=== PATIENT | male | born 1940 | race Caucasian/White ===

== ENCOUNTER → 2017-06-14 15:06 | Outpatient (CLI) | payer MEDICARE, OTHER, SELFPAY ==
--- NOTE | 2017-06-14 15:10 | RAD_ITS ---
STUDY: X-RAY - LEFT KNEE REASON FOR EXAM: Pain for 3 weeks. TECHNIQUE: 4 view(s) of the knee. COMPARISON: None. 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 Normal visualized proximal tibia and fibula. Normal proximal tibiofibular articulation. There is joint space narrowing of the medial femorotibial compartment. Normal lateral femorotibial compartment. Normal patellofemoral articulation. There is vascular calcification. 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 Electronically Signed: Allen Albert MD at 16:30 EST Tel , Service support ,
== END ==
PROVIDERS: Family Provider Family Medicine; PCP Family Medicine; Visit Provider Orthopaedic Surgery
DX: M25.562 Pain in left knee (principal)
CPT/HCPCS: 73564

== ENCOUNTER → 2017-06-22 10:53 | Outpatient (CLI) | payer MEDICARE, OTHER, SELFPAY ==
[2017-06-22 12:13] LABS: Absolute Lymphocyte Count 0.77 X10^3/ul (0.83-4.51); Absolute Neutrophil Count 5.3 X10^3/uL (2.0-7.7); Basophil# 0.02 X10^3/uL; Basophil% 0.3 % (0-1); Eosinophil# 0.02 X10^3/uL; Eosinophils% 0.3 % (0-5); Hemoglobin 13.9 g/dl (13.0-16.5); Lymphocyte # 0.77 X10^3/ul (4.0); Lymphocyte % 11.2 % (19-41); Mean Corp Hgb Conc 33.1 g/gl (32-36); Mean Corpuscular Hgb 33.3 pg (27.0-32.0); Mean Corpuscular Volume 100.5 fL (80-94); Mean Platelet Vol. 11.1 fl (6.2-12.0); Monocyte# 0.77 X10^3/uL; Monocyte% 11.2 % (0-10); Neutrophil # 5.28 X10^3/uL (2.7-7.7); Neutrophil % 76.4 % (47-70); Platelet Count 119 K/mm3 (150-450); RBC Distribution Width SD 54.4 fl (35.1-43.9); Red Blood Count 4.18 M/mm3 (4.6-6.2); White Blood Count 6.9 K/mm3 (4.4-11.0)
[2017-06-22 12:14] LABS: POSITIVE COUNT NO; POSITIVE DIFFERENTIAL NO; POSITIVE MORPHOLOGY NO
[2017-06-22 12:34] LABS: ALB/GLOB Ratio 1.2 RATIO (0.9-2.4); AST(SGOT) 12 U/L (15-37); Alanine Aminotransfer ALT/SGPT 23 U/L (16-61); Alkaline Phosphatase 37 U/L (45-117); Anion Gap 9 (5-15); BUN 19 mg/dL (7-18); BUN/Creat Ratio 16.8 RATIO (10-20); Calcium,Total 8.4 mg/dL (8.5-10.1); Chloride 108 mmol/L (98-107); Creatinine, Serum 1.13 mg/dL (0.70-1.30); EST Glomerular Filtration Rate 67 mL/min (>60); Est Glom Filt Rate - Afr Amer 81 mL/min (>60); Globulin 3.3 g/dL (2.2-4.2); Glucose 114 mg/dL (74-106); Potassium 3.7 mmol/L (3.5-5.1); Protein, Total 7.3 g/dL (6.4-8.2); Sodium Level 142 mmol/L (136-145)
== END ==
PROVIDERS: Family Provider Family Medicine; PCP Family Medicine; Visit Provider Internal Medicine Rheumatology
DX: M06.4 Inflammatory polyarthropathy (principal); I10 Essential (primary) hypertension; E78.5 Hyperlipidemia, unspecified; N40.0 Benign prostatic hyperplasia without lower urinary tract symptoms
CPT/HCPCS: 36415; 80053; 85025

== ENCOUNTER → 2017-12-20 12:31 | Outpatient (CLI) | payer MEDICARE, OTHER, SELFPAY ==
[2017-12-20 14:02] LABS: Absolute Lymphocyte Count 0.68 X10^3/ul (0.83-4.51); Eosinophil# 0.01 X10^3/uL; Eosinophils% 0.2 % (0-5); Hematocrit 41.3 % (40-54); Hemoglobin 13.5 g/dl (13.0-16.5); Lymphocyte # 0.68 X10^3/ul (4.0); Lymphocyte % 15.9 % (19-41); Mean Corp Hgb Conc 32.7 g/gl (32-36); Mean Platelet Vol. 10.9 fl (6.2-12.0); Monocyte# 0.56 X10^3/uL; Monocyte% 13.1 % (0-10); Neutrophil # 3.03 X10^3/uL (2.7-7.7); Neutrophil % 70.6 % (47-70); Platelet Count 81 K/mm3 (150-450); RBC Distribution Width CV 14.9 % (11.6-14.6); RBC Distribution Width SD 54.7 fl (35.1-43.9); Red Blood Count 4.09 M/mm3 (4.6-6.2); White Blood Count 4.3 K/mm3 (4.4-11.0)
[2017-12-20 14:13] LABS: ALB/GLOB Ratio 1.2 RATIO (0.9-2.4); AST(SGOT) 19 U/L (15-37); Alanine Aminotransfer ALT/SGPT 25 U/L (16-61); Albumin, Serum 3.9 g/dL (3.2-5.0); Alkaline Phosphatase 34 U/L (45-117); Anion Gap 8 (5-15); BUN 16 mg/dL (7-18); BUN/Creat Ratio 14.7 RATIO (10-20); Calcium,Total 8.6 mg/dL (8.5-10.1); Chloride 109 mmol/L (98-107); Creatinine, Serum 1.09 mg/dL (0.70-1.30); EST Glomerular Filtration Rate 70 mL/min (>60); Est Glom Filt Rate - Afr Amer 84 mL/min (>60); Globulin 3.2 g/dL (2.2-4.2); Glucose 115 mg/dL (74-106); Protein, Total 7.1 g/dL (6.4-8.2); Sodium Level 145 mmol/L (136-145)
[2017-12-20 14:15] LABS: POSITIVE COUNT NO; POSITIVE DIFFERENTIAL NO; POSITIVE MORPHOLOGY NO
== END ==
PROVIDERS: Family Provider Family Medicine; PCP Family Medicine; Visit Provider Internal Medicine Rheumatology
DX: M06.4 Inflammatory polyarthropathy (principal); I10 Essential (primary) hypertension; E78.5 Hyperlipidemia, unspecified; N40.0 Benign prostatic hyperplasia without lower urinary tract symptoms
CPT/HCPCS: 36415; 80053; 85025

== ENCOUNTER → 2018-02-20 10:27 | Outpatient (CLI) | payer MEDICARE, OTHER, SELFPAY ==
[2018-02-20 12:48] LABS: Cholesterol 88 mg/dL (200); High Density Lipoprotein 40 mg/dL; Triglycerides 41 mg/dL; Very Low Density Lipoprotein 8 mg/dL (5-40)
== END ==
PROVIDERS: Family Provider Family Medicine; PCP Family Medicine; Visit Provider Family Medicine
DX: E78.5 Hyperlipidemia, unspecified (principal)
CPT/HCPCS: 36415; 80061

== ENCOUNTER → 2018-06-08 10:05 | Outpatient (CLI) | payer MEDICARE, OTHER, SELFPAY ==
[2017-06-14 14:57] VITALS: BMI 23.7
--- NOTE | 2018-06-08 10:10 | RAD_ITS ---
STUDY: X-RAY - RIGHT HIP REASON FOR EXAM: Male, 77 years old. Hip pain TECHNIQUE: 2 views of the hip. COMPARISON: None. FINDINGS: There is narrowing of the inferior compartment of the right hip joint and the superior compartment of the left hip joint. No buttressing of the femoral necks and no acute fractures or dislocations. The sacroiliac joints are normal. Multiple metallic clips are noted projecting over the right hemipelvis and there are vascular calcifications projected over the left hip. RAD/HIP, UNI W/ Pelvis 2-3 Views IMPRESSION: Mild osteoarthritis of hips. No fractures Electronically Signed: Luis Enrique Rueda MD at 4:04 EST Tel , Service support ,
--- NOTE | 2018-06-08 10:10 | RAD_ITS ---
STUDY: X-RAY - LUMBAR SPINE REASON FOR EXAM: Male, 77 years old. Low back pain. TECHNIQUE: 5 view(s) of the lumbar spine were obtained. COMPARISON: Prior comparison studies are not available for review at this time. FINDINGS: Normal lumbar lordosis. There is no substantial scoliosis. There is a normal alignment of the vertebrae. There is diffuse demineralization with multi-level endplate spondylosis. There is multi-level degenerative disc disease with multi-level disc space narrowing. There is no demonstrated fracture. There is moderately severe degenerative arthropathy of the facet joints. There is atherosclerotic calcification of the abdominal aorta with a demonstrated aneurysm. Maximum AP dimension of the abdominal aorta measures about 4.3 cm. RAD/L/S Spine Min 4 Views IMPRESSION: 1. Osteoporosis. 2. Multilevel degenerative disc disease, spondylosis and degenerative arthropathy of the lumbar spine. 3. Mild dilatation of the abdominal aorta. Electronically Signed: Rhonda Parker MD at 9:57 EST , Service support ,
[2018-06-08 13:05] LABS: Absolute Lymphocyte Count 0.53 X10^3/ul (0.83-4.51); Absolute Neutrophil Count 3.3 X10^3/uL (2.0-7.7); Eosinophil# 0.01 X10^3/uL; Eosinophils% 0.2 % (0-5); Hematocrit 41.2 % (40-54); Hemoglobin 12.9 g/dl (13.0-16.5); Lymphocyte # 0.53 X10^3/ul (4.0); Lymphocyte % 11.4 % (19-41); Mean Corp Hgb Conc 31.3 g/gl (32-36); Mean Corpuscular Hgb 32.2 pg (27.0-32.0); Mean Corpuscular Volume 102.7 fL (80-94); Mean Platelet Vol. 11.7 fl (6.2-12.0); Monocyte# 0.81 X10^3/uL; Monocyte% 17.4 % (0-10); Neutrophil # 3.28 X10^3/uL (2.7-7.7); Neutrophil % 70.6 % (47-70); Platelet Count 84 K/mm3 (150-450); RBC Distribution Width CV 15.6 % (11.6-14.6); RBC Distribution Width SD 58.6 fl (35.1-43.9); Red Blood Count 4.01 M/mm3 (4.6-6.2); White Blood Count 4.7 K/mm3 (4.4-11.0)
[2018-06-08 13:09] LABS: Differential Indicated SCAN CRITERIA MET; POSITIVE COUNT NO; POSITIVE DIFFERENTIAL YES; POSITIVE MORPHOLOGY NO
[2018-06-08 13:11] LABS: ALB/GLOB Ratio 1.2 RATIO (0.9-2.4); AST(SGOT) 25 U/L (15-37); Alanine Aminotransfer ALT/SGPT 27 U/L (16-61); Albumin, Serum 3.9 g/dL (3.2-5.0); Alkaline Phosphatase 37 U/L (45-117); Anion Gap 7 (5-15); BUN 17 mg/dL (7-18); BUN/Creat Ratio 14.8 RATIO (10-20); Calcium,Total 8.5 mg/dL (8.5-10.1); Chloride 111 mmol/L (98-107); Creatinine, Serum 1.15 mg/dL (0.70-1.30); EST Glomerular Filtration Rate 65 mL/min (>60); Est Glom Filt Rate - Afr Amer 79 mL/min (>60); Globulin 3.2 g/dL (2.2-4.2); Glucose 105 mg/dL (74-106); Potassium 3.9 mmol/L (3.5-5.1); Protein, Total 7.1 g/dL (6.4-8.2); Sodium Level 140 mmol/L (136-145)
[2018-06-08 13:34] LABS: Platelet Estimate MOD DEC (ADEQ); Platelet Morphology LARGE
== END ==
PROVIDERS: Family Provider Family Medicine; PCP Family Medicine; Referring Provider Internal Medicine Rheumatology; Visit Provider Internal Medicine Rheumatology
DX: E78.5 Hyperlipidemia, unspecified (principal); M06.4 Inflammatory polyarthropathy; I10 Essential (primary) hypertension; N40.0 Benign prostatic hyperplasia without lower urinary tract symptoms; M25.551 Pain in right hip; M54.16 Radiculopathy, lumbar region
CPT/HCPCS: 36415; 72110; 73502; 80053; 85025

== ENCOUNTER → 2018-07-06 15:06 | Outpatient (CLI) | payer MEDICARE, OTHER, SELFPAY ==
--- NOTE | 2018-07-06 | LES_PTH ---
PATIENT: MICAH VELEZ LOC: [facility] U#:[id number] AGE/SX: 84/M ROOM: RE07/06/[address]: Dr. Bong Adams MD : 1940 BED: DIS: SPEC #: [id number] RECD: 07/06/18 15:01 STATUS: CURT JENS #: [id number] BEN: 07/06/18 00:[address]: Bong Adams DEPT: SURGICAL PATHOLOGY RECD BY: Hawk Grover ENTERED: 07/07/18 09:07 SP TYPE: Lesion OTHR DR: Dr. Fred Clark, Tissues: Skin of lower extremity and hip Procedures: Decalcification bone/plaque Surgery Specimen Level IV HEADER OPERATION: Excision of right hip soft tissue masses PRE-OP DIAGNOSIS: Right hip masses TISSUE SUBMITTED: Right hip tissue MICROSCOPIC DIAGNOSIS Bone and soft tissue of right hip, biopsy: Osseocartilaginous and fibrocollagenous tissue with degenerative changes. AM:rg 4/3/19 COMMENT Case has been reviewed in consultation with Dr. Muro who concurs with the above diagnosis. IDC:KAT MICROSCOPIC DESCRIPTION Slides are reviewed. GROSS DESCRIPTION Received in fixative is one container labeled with the patient's name and designated right hip tissue. The specimen consists of multiple irregular fragments of soft tissue with chalky white deposit that in aggregate measure 3.5 x 3 x 1 cm. A few of the fragments appear to also have bone fragments. The entire specimen is submitted in two cassettes after decalcification. / KAT:janeth 07/07/18 TC:5 CPT: 02314, 72798
[2018-07-06 12:56] VITALS: BMI 23.7
== END ==
PROVIDERS: Family Provider Family Medicine; PCP Family Medicine; Referring Provider Surgery; Visit Provider Surgery
DX: R22.41 Localized swelling, mass and lump, right lower limb (principal)
CPT/HCPCS: 88305; 88311

== ENCOUNTER → 2018-12-08 | Outpatient (CLI) | payer MEDICARE, OTHER, SELFPAY ==
[2018-12-07 09:14] VITALS: BMI 23.7
[2018-12-08 12:49] LABS: Absolute Neutrophil Count 7.2 X10^3/uL (2.0-7.7); Basophil# 0.01 X10^3/uL; Basophil% 0.1 % (0-1); Hemoglobin 11.6 g/dL (13.0-16.5); Lymphocyte % 3.5 % (19-41); Mean Corp Hgb Conc 32.2 g/dL (32-36); Mean Corpuscular Hgb 32.3 pg (27.0-32.0); Mean Corpuscular Volume 100.3 fL (80-94); Mean Platelet Vol. 11.9 fl (6.2-12.0); Monocyte# 0.95 X10^3/uL; Monocyte% 11.1 % (0-10); NRBC Flagged by Analyzer 0 % (0-5); Neutrophil # 7.21 X10^3/uL (2.7-7.7); Neutrophil % 84.6 % (47-70); POSITIVE DIFFERENTIAL YES; Platelet Count 99 K/mm3 (150-450); RBC Distribution Width CV 15.9 % (11.6-14.6); RBC Distribution Width SD 58.7 fl (35.1-43.9); Red Blood Count 3.59 M/mm3 (4.6-6.2); White Blood Count 8.5 K/mm3 (4.4-11.0)
[2018-12-08 12:53] LABS: Differential Indicated SCAN CRITERIA MET
[2018-12-08 13:03] LABS: ALB/GLOB Ratio 1.1 RATIO (0.9-2.4); AST(SGOT) 33 U/L (15-37); Alanine Aminotransfer ALT/SGPT 36 U/L (16-61); Albumin, Serum 3.8 g/dL (3.2-5.0); Alkaline Phosphatase 39 U/L (45-117); Anion Gap 6 (5-15); BUN 29 mg/dL (7-18); BUN/Creat Ratio 24.4 RATIO (10-20); Calcium,Total 8.8 mg/dL (8.5-10.1); Chloride 111 mmol/L (98-107); Creatinine, Serum 1.19 mg/dL (0.70-1.30); EST Glomerular Filtration Rate 63 mL/min (>60); Est Glom Filt Rate - Afr Amer 76 mL/min (>60); Globulin 3.5 g/dL (2.2-4.2); Glucose 119 mg/dL (74-106); Potassium 4.1 mmol/L (3.5-5.1); Protein, Total 7.3 g/dL (6.4-8.2); Sodium Level 140 mmol/L (136-145)
[2018-12-08 13:25] LABS: Platelet Estimate SLT DEC (ADEQ)
== END | disposition home or self-care (01) ==
LOC: MTLAB 10:03
PROVIDERS: Family Provider Family Medicine; PCP Family Medicine; Referring Provider Internal Medicine Rheumatology; Visit Provider Internal Medicine Rheumatology
DX: M06.4 Inflammatory polyarthropathy (principal); I10 Essential (primary) hypertension; E78.5 Hyperlipidemia, unspecified; N40.0 Benign prostatic hyperplasia without lower urinary tract symptoms
CPT/HCPCS: 36415; 80053; 85025

== ENCOUNTER → 2019-03-19 10:12 | Outpatient (CLI) | payer MEDICARE, OTHER, SELFPAY ==
[2019-03-19 09:38] VITALS: BMI 23.7
--- NOTE | 2019-03-19 10:14 | RAD_ITS ---
STUDY: X-RAY - LEFT KNEE REASON FOR EXAM: Male, 78 years old. Pain. No known injury. TECHNIQUE: 4 view(s) of the knee. COMPARISON: None. FINDINGS: Normal visualized distal femur. Normal visualized proximal tibia and fibula. Normal proximal tibiofibular articulation. There is no acute fracture, dislocation or destructive osseous pathology. There is severe degenerative arthrosis of the medial femorotibial compartment with severe joint space narrowing. Normal lateral femorotibial compartment. There is moderate degenerative arthrosis of the patellofemoral articulation. There is a soft tissue prominence in the suprapatellar region suggesting a small volume joint effusion. There are atherosclerotic calcifications. RAD/Knee 4 or More Views IMPRESSION: Degenerative changes left knee with question of a small suprapatellar joint effusion. There is no fracture or dislocation. Electronically Signed: Reza Pryor DO at 18:21 EST Tel [phone], Service support ,
== END ==
LOC: HPRAD 10:14
PROVIDERS: Family Provider Family Medicine; PCP Family Medicine; Referring Provider Physician Assistant; Visit Provider Physician Assistant
DX: M25.562 Pain in left knee (principal)
CPT/HCPCS: 73564

== ENCOUNTER → 2019-05-29 15:01 | Outpatient (CLI) | payer MEDICARE, OTHER, SELFPAY ==
[2019-03-19 09:38] VITALS: BMI 23.7
[2019-05-29 17:36] LABS: Absolute Neutrophil Count 4.6 X10^3/uL (2.0-7.7); Basophil# 0.01 X10^3/uL; Basophil% 0.1 % (0-1); Eosinophil# 0.01 X10^3/uL; Eosinophils% 0.1 % (0-5); Hemoglobin 9.9 g/dL (13.0-16.5); Lymphocyte % 12.9 % (19-41); Mean Corp Hgb Conc 30.9 g/dL (32-36); Mean Corpuscular Volume 103.6 fL (80-94); Mean Platelet Vol. 12.2 fl (6.2-12.0); Monocyte# 1.38 X10^3/uL; Monocyte% 19.7 % (0-10); NRBC Flagged by Analyzer 0 % (0-5); Neutrophil # 4.62 X10^3/uL (2.7-7.7); Neutrophil % 66.1 % (47-70); POSITIVE COUNT YES; Platelet Count 76 K/mm3 (150-450); RBC Distribution Width CV 16.6 % (11.6-14.6); Red Blood Count 3.09 M/mm3 (4.6-6.2)
[2019-05-29 17:37] LABS: Differential Indicated SCAN CRITERIA MET
[2019-05-29 17:54] LABS: ALB/GLOB Ratio 1.2 RATIO (0.9-2.4); AST(SGOT) 21 U/L (15-37); Alanine Aminotransfer ALT/SGPT 23 U/L (16-61); Albumin, Serum 3.7 g/dL (3.2-5.0); Alkaline Phosphatase 37 U/L (45-117); Anion Gap 7 (5-15); BUN 28 mg/dL (7-18); BUN/Creat Ratio 23.1 RATIO (10-20); Calcium,Total 8.7 mg/dL (8.5-10.1); Chloride 114 mmol/L (98-107); Creatinine, Serum 1.21 mg/dL (0.70-1.30); EST Glomerular Filtration Rate 62 mL/min (>60); Est Glom Filt Rate - Afr Amer 75 mL/min (>60); Glucose 96 mg/dL (74-106); Potassium 3.8 mmol/L (3.5-5.1); Protein, Total 6.7 g/dL (6.4-8.2); Sodium Level 144 mmol/L (136-145)
[2019-05-29 18:04] LABS: Anisocytosis RARE; Macrocytosis RARE; Platelet Estimate MOD DEC (ADEQ); Red Cell Morphology N CHROM NORMAL (NORM C&C)
== END ==
PROVIDERS: PCP Family Medicine; Referring Provider Internal Medicine Rheumatology; Visit Provider Internal Medicine Rheumatology
DX: M06.4 Inflammatory polyarthropathy (principal); I10 Essential (primary) hypertension; E78.5 Hyperlipidemia, unspecified; N40.0 Benign prostatic hyperplasia without lower urinary tract symptoms
CPT/HCPCS: 36415; 80053; 85025

== ENCOUNTER 2019-06-09 13:34 | Inpatient (IN) | payer MEDICARE, OTHER, SELFPAY ==
[2019-03-19 09:38] VITALS: BMI 23.7
[2019-06-09] VITALS (18 sets, daily range): BP systolic 127–156; BP diastolic 61–109; PULSE 54–111; RESP 16–24; TEMP 36.4–37.1; O2SAT 94–100; BMI 23.1; BMI 23.7
--- NOTE | 2019-06-09 14:17 | EKG12_ITS ---
Test Reason : SB Blood Pressure : / mmHG Vent. Rate : 096 BPM Atrial Rate : 096 BPM P-R Int : 144 ms QRS Dur : 158 ms QT Int : 414 ms P-R-T Axes : 067 -07 003 degrees QTc Int : 523 ms Sinus rhythm with frequent Premature ventricular complexes and Premature atrial complexes Right bundle branch block Abnormal ECG Confirmed by DEANNA MEHTA, CLARISSE ([id number]), rewrite editor STANLEY BECK ([id number]) on 06/11/2019 10:14:05 AM Referred By: REGINA Confirmed By:CLARISSE HUERTA MD
--- NOTE | 2019-06-09 14:17 | RAD_ITS ---
STUDY: X-RAY CHEST REASON FOR EXAM: Male, 78 years old. COUGH, SOB X 3 DAYS TECHNIQUE: PA and lateral views of the chest. COMPARISON: 03/27/2012 FINDINGS: There is hyperinflation of the lungs consistent with chronic obstructive lung disease (COPD). Lungs are clear. There is no demonstrated pleural abnormality. Normal size heart. Normal mediastinum and eren. Normal visualized pulmonary arteries. Normal visualized aortic arch and descending thoracic aorta. There are diffuse degenerative changes of the visualized thoracic spine. There is degenerative osteoarthritis of the bilateral shoulders. There is no demonstrated abnormality of the visualized soft tissue structures of the upper abdomen. RAD/Chest PA and Lateral IMPRESSION: COPD. Lungs are clear. Electronically Signed: Leonel Montes DO at 14:59 EST Tel , Service support ,
--- NOTE | 2019-06-09 14:19 | ED.VIS.DYS ---
History of Present Illness Chief Complaint: Shortness of Breath Informant: Patient Onset: Days - 3 Activity at onset: Exertion - llike going up a flight of stairs, which he is able to do, but then needs to rest Timing: Continuous Current Severity: Gone - since resting Maximum Severity: Moderate Worsened by: Exertion Relieved by: Rest Associated Symptoms: Cough - [employer], Rhinorrhea. Negative for: Chills, Ear pain, Fever, Sore throat Chest Pain: None Narrative: Patient has felt short of breath especially with exertion last couple days. When resting he is fine. Denies any exertional chest pain. He has had a mild cough, rhinorrhea, malaise. No known fevers. No GI symptoms. No sore throat or earache. States he had pneumonia before and is concerned about that. He denies any history of lung or heart problems that he knows of, although his chart describes a history of asthma/COPD. - Past Medical History (1) BPH (benign prostatic hyperplasia) Status: Chronic (2) Benign essential hypertension Status: Chronic (3) HLD (hyperlipidemia) Status: Chronic (4) History of COPD Status: Chronic (5) History of asthma Status: Chronic (6) Peripheral neuropathy Status: Chronic (7) Varicosities of leg Status: Chronic Past Medical History - Allergies and Home Meds Allergies/Adverse Reactions: Allergies No Known Allergies Allergy (Verified 06/09/19 13:37) Primary Care Physician: Fred Clark DO [Primary Care Provider] - Surgical History: noncontributory Lives: Spouse/ Significant Other Smoking Status: Former smoker Review of Systems General: Reports: Malaise. Denies: Chills, Fever, Sweats Eyes: Denies: Visual changes - bilaterally, Diplopia ENT: Denies: Rhinorrhea, Sore throat Cardiovascular: Denies: Chest pain, Palpitations Respiratory: Reports: Dyspnea, Cough, Dyspnea on exertion. Denies: Sputum, Orthopnea Gastrointestinal: Denies: Abdominal pain, Nausea, Vomiting, Diarrhea, Melena, Hematochezia Genitourinary: Denies: Dysuria, Hematuria, Frequency Musculoskeletal: Denies: Neck pain, Back pain, Swelling, Extremity Pain Skin: Denies: Rash, Wounds Neurological: Denies: Headache, Weakness, Numbness Physical Exam Vital Signs/Narrative: Vital Signs Temp Pulse Resp BP Pulse Ox 06/09/19 13:37 98.8 F 54 L 20 H 156/109 H 99 06/09/19 13:35 98.8 F 54 L 20 H 156/109 H 99 Inital Vital Signs reviewed: Yes General: Well nourished, Well developed, No Acute Distress - Well-appearing, conversive in full sentences Head: Normocephalic, Atraumatic Eyes: Perrl, EOMI ENT: Moist mucous membranes, No rhinorrhea, - - Posterior oropharynx clear Neck: Supple, Nontender, No lymphadenopathy, No JVD Cardiovascular: Regular rate, Regular rhythm, No murmurs, Normal S1, Normal S2 Respiratory: No distress, CTA bilaterally, Chest nontender Abdomen: Soft, Nontender, Nondistended, Normal bowel sounds Back: Nontender, Normal Inspection Extremities: Nontender, No edema. Negative for: Calf Tenderness Skin: Normal color, No rash Neurological: Alert, Oriented x3, Cranial nerves II-XII grossly intact, Normal Strength, Normal Sensation Psychological: Normal affect, Normal Mood Diagnostic/Tx/Re-eval Impressions Chest X-Ray 06/09/19 14:17 IMPRESSION: COPD. Lungs are clear. Electronically Signed: Leonel Montes DO at 14:59 EST Tel , Service support , 06/09/19 14:17 Chest PA and Lateral [RAD] Stat 06/09/19 14:46 Mucosa - Nose Influenza Types A,B Direct FA (HUY) - Final Laboratory Results 06/09/19 06/09/19 14:12 14:12 WBC 5.7 RBC 2.16 L Hgb 6.7 L Hct 22.0 L MCV 101.9 H MCH 31.0 MCHC 30.5 L RDW Std Deviation 60.0 H RDW Coeff of Kori 15.9 H Plt Count 74 L MPV 12.1 H Immature Gran % (Auto) 0.700 Neut % (Auto) 66.1 Lymph % (Auto) 11.2 L Merrick % (Auto) 21.6 H Eos % (Auto) 0.2 Baso % (Auto) 0.2 Absolute Neuts (auto) 3.8 Absolute Lymphs (auto) 0.64 L Nucleated RBC % 0 Platelet Estimate MOD DEC Polychromasia 1+ Hypochromasia 2+ Anisocytosis 1+ Sodium 142 Potassium 4.1 Chloride 112 H Carbon Dioxide 22.0 Anion Gap 8 BUN 21 H Creatinine 1.16 Estim Creat Clear Calc 60.61 Est GFR (MDRD) Af Amer 78 Est GFR (MDRD) Non-Af 65 BUN/Creatinine Ratio 18.1 Glucose 109 H Calcium 8.3 L Troponin I < 0.015 - Rhythm Strip Rhythm Strip: Sinus Rhythm Rate: 90 Ectopy: PVC(s) - EKG Initial EKG Interpretation: Sinus Rhythm, No Acute Injury Pattern, - - freq PVCs, mostly bigeminy - Medical Decision Making Patient is significantly anemic compared with his prior levels. He is at 6.7 from 9.9 a little more than 1 week ago. That level was a lot lower than his baseline at 12-13. When I discussed this with the patient, he proceeds to tell me about the fact that his doctor told him the same thing when he was there 1 to 2 weeks prior, and that he has been having dark but not melanotic stools. He had a Hemoccult test a week ago from home that was negative and has been scheduled for a colonoscopy as an outpatient. He has no history of GI bleeding, he denies any abdominal pain, nausea, vomiting. He denies any bright red blood per rectum or hematuria. He has not been anemic in the past. I performed a Hemoccult on him, and it is negative. Discussed with hospitalist for admission and consented the patient for packed red blood cell transfusion, which she consents to after discussing risks and benefits. ED Disposition - Plan for ED Patient: Disposition: Acute Care Hospital [facility] Diagnosis: Symptomatic anemia Referrals: Fred Clark DO [Primary Care Provider] -
[2019-06-09 14:26] LABS: Absolute Lymphocyte Count 0.64 X10^3/uL (0.83-4.51); Absolute Neutrophil Count 3.8 X10^3/uL (2.0-7.7); Basophil# 0.01 X10^3/uL; Basophil% 0.2 % (0-1); Eosinophil# 0.01 X10^3/uL; Eosinophils% 0.2 % (0-5); Hemoglobin 6.7 g/dL (13.0-16.5); Lymphocyte # 0.64 X10^3/ul (4.0); Lymphocyte % 11.2 % (19-41); Mean Corp Hgb Conc 30.5 g/dL (32-36); Mean Corpuscular Volume 101.9 fL (80-94); Mean Platelet Vol. 12.1 fl (6.2-12.0); Monocyte# 1.24 X10^3/uL; Monocyte% 21.6 % (0-10); NRBC Flagged by Analyzer 0 % (0-5); Neutrophil # 3.79 X10^3/uL (2.7-7.7); Neutrophil % 66.1 % (47-70); POSITIVE COUNT YES; Platelet Count 74 K/mm3 (150-450); RBC Distribution Width CV 15.9 % (11.6-14.6); Red Blood Count 2.16 M/mm3 (4.6-6.2); White Blood Count 5.7 K/mm3 (4.4-11.0)
[2019-06-09 14:28] LABS: Differential Indicated SCAN CRITERIA MET
[2019-06-09 14:37] LABS: Anion Gap 8 (5-15); BUN 21 mg/dL (7-18); BUN/Creat Ratio 18.1 RATIO (10-20); Calcium,Total 8.3 mg/dL (8.5-10.1); Chloride 112 mmol/L (98-107); Creatinine, Serum 1.16 mg/dL (0.70-1.30); EST Glomerular Filtration Rate 65 mL/min (>60); Est Glom Filt Rate - Afr Amer 78 mL/min (>60); Estimated Creatinine Clearance 60.61 ml/min; Glucose 109 mg/dL (74-106); Potassium 4.1 mmol/L (3.5-5.1); Sodium Level 142 mmol/L (136-145)
[2019-06-09 14:45] LABS: Anisocytosis 1+; Hypochromasia 2+; Platelet Estimate MOD DEC (ADEQ); Polychromasia 1+
--- NOTE | 2019-06-09 16:27 | PCM.HP.STD ---
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 The patient is a 78 year old M due to lightheadedness and shortness of breath. Patient reports his his lab was drawn recently by Dr. Blas who patient follows with for rheumatoid arthritis. Patient was noted to have low hemoglobin compared to his prior labs. An outpatient stool for occult blood was checked and was negative. He was scheduled by primary care provider to have outpatient scope 06/15/[address] Hook. Patient states over the last 4 days he has had increased shortness of breath, worse with exertion as well as lightheadedness and fatigue. His notes he is had very pale color. He denies nausea, vomiting, abdominal pain. Denies blood in stool or dark stools. Denies change in bowel habits. Denies recent weight loss. He denies routine or frequent NSAID use. Patient reports his last colonoscopy was by Dr. Ruiz in 2012 which was normal with exception of polyp that he was referred to [facility] for excision due to its location. He reports the polyp was found to be benign. Patient has a past medical history of hypertension, osteoarthritis, hyperlipidemia, BPH. Past Medical History Past Medical History (Chronic Problems): Chronic Problems (Last Updated 05/17/19 @ 08:34 by Sarah Powell) History of smoking (Chronic) HLD (hyperlipidemia) (Chronic) BPH (benign prostatic hyperplasia) (Chronic) Benign essential hypertension (Chronic) Peripheral neuropathy (Chronic) Varicosities of leg (Chronic) Functional gait abnormality (Chronic) Atrioventricular jose m re-entry tachycardia (Chronic) Medical History: Medical History (Last Updated 05/17/19 @ 08:34 by Sarah Powell) Pressure ulcer of toe, stage 2 (Chronic) L89.892 Right History of shortness of breath (Chronic) Z87.898 History of smoking (Chronic) Z87.891 HLD (hyperlipidemia) (Chronic) E78.5 History of asthma (Chronic) Z87.09 History of COPD (Chronic) Z87.09 BPH (benign prostatic hyperplasia) (Chronic) Benign essential hypertension (Chronic) I10 Open wound of great toe (Chronic) S91.103A Peripheral neuropathy (Chronic) G62.9 Varicosities of leg (Chronic) Functional gait abnormality (Chronic) R26.89 Skin ulcer of right great toe (Chronic) L97.519 Atrioventricular jose m re-entry tachycardia (Chronic) I47.1 Allergies T78.40XA Arthritis M19.90 Back problem M53.9 Cataracts, bilateral H26.9 Hearing problem H91.90 History of pneumonia Z87.01 Osteoarthritis M19.90 Vision problems H54.7 Vitamin deficiency E56.9 Allergies No Known Allergies Allergy (Verified 06/09/19 13:37) Home Medications: Ambulatory Orders Medication Instructions Recorded Amlodipine [Norvasc] 10 mg PO DAILY 04/18/13 Benazepril HCl [Lotensin] 20 mg PO DAILY 04/18/13 Hydroxychloroquine [Plaquenil] 200 mg PO BIDCM 04/18/13 Simvastatin [Zocor] 80 mg PO QHS 04/18/13 Tamsulosin HCl 0.4 mg PO DAILY 04/18/13 Surgical History: Surgical History (Last Reviewed 06/09/19 @ 16:45 by Shelly Cowart NP-C) H/O cataract extraction Z98.49 H/O foot surgery Z98.890 H/O hernia repair Z98.890, Z87.19 H/O hernia repair Z98.890, Z87.19 2004 History of cataract extraction Z98.49 bilateral 1994 2000 S/P carpal tunnel release Z98.890 right Psychiatric History: No pertinent psych hx Lives: Spouse/ Significant Other Smoking Status: Former smoker Alcohol: None Drugs: None - *Family History Maternal Family History: Family History (Last Reviewed 05/17/19 @ 08:36 by Sarah Powell) Father Myocardial infarction Brother Myocardial infarction Mother Cancer History Items: - - Pancreatic cancer Paternal Family History: Family History (Last Reviewed 05/17/19 @ 08:36 by Sarah Powell) Father Myocardial infarction Brother Myocardial infarction Mother Cancer History Items: Heart Disease Review of Systems Constitutional: Denies: Chills, Fever, Weight Change HEENT: Denies: Head Aches, Sinus Congestion, Sinus Drainage Cardiovascular: Reports: Light Headedness. Denies: Chest Pain, Palpitations Respiratory: Reports: Shortness of Breath. Denies: Cough, Sputum production, Wheezing Gastrointestinal: Denies: Abdominal Pain, Constipation, Nausea, Vomiting Genitourinary: Denies: Dysuria Musculoskeletal: Denies: Joint Pain, Joint Tenderness Skin: Denies: Rash, Wounds Neurological: Denies: Numbness, Tingling, Focal weakness Psychiatric: Denies: Anxiety, Depression, Homicidal Ideations, Suicidal Ideations Hematologic/ Lymphatic: Denies: Easy Bruising, Easy Bleeding VTE Information - Inpt Only VTE Present on Admission: No VTE Mechan Device Prophylaxis: SCD's VTE Pharm Prophylaxis ordered?: No Reason prophylaxis not ordered:: Medical Contraindication Patient Problems: Active and Suspected Problems (Last Updated 05/17/19 @ 08:34 by Sarah Powell) Symptomatic anemia (Acute) - Physical Exam Vitals/I&O's: Vital Signs Temp Pulse Resp BP Pulse Ox 98.7 F 85 18 152/84 H 98 06/09/19 16:00 06/09/19 16:00 06/09/19 16:00 06/09/19 15:34 06/09/19 16:00 Oxygen Delivery Method Room Air Weight: 180 lb Body Mass Index (BMI) 23.1 General: Alert, Oriented x3, Cooperative, - - Appears pale, fatigued HEENT: Atraumatic, PERRLA, EOMI, Normocephalic Oral: Dry Mucosa Neck: Supple, No JVD, Negative Carotid Bruits Lungs: Clear to auscultation, Normal air movement Cardiovascular: Regular rate, Regular Rhythm, Normal S1, Normal S2, No murmurs Abdomen: Bowel Sounds Present, Soft, Non Tender, Non-Distended Extremities: No clubbing, No cyanosis, No edema, Capillary Refill Less than 3 Seconds Skin: No rashes, No breakdown Musculoskeletal: No Tenderness to Palpation of Joints or Extremities Neurological: Cranial nerves II-XII grossly intact, Neuro grossly intact Psych/Mental Status: Normal Affect, Appropriate Microbiology Past 72 Hours 06/09/19 15:45 Stool Stool Occult Blood (HUY) - Final 06/09/19 14:46 Mucosa - Nose Influenza Types A,B Direct FA (HUY) - Final Laboratory Results 06/09/19 14:12: WBC 5.7, RBC 2.16 L, Hgb 6.7 L, Hct 22.0 L, MCV 101.9 H, MCH 31.0, MCHC 30.5 L, RDW Std Deviation 60.0 H, RDW Coeff of Kori 15.9 H, Plt Count 74 L, MPV 12.1 H, Immature Gran % (Auto) 0.700, Neut % (Auto) 66.1, Lymph % (Auto) 11.2 L, [place] % (Auto) 21.6 H, Eos % (Auto) 0.2, Baso % (Auto) 0.2, Absolute Neuts (auto) 3.8, Absolute Lymphs (auto) 0.64 L, Nucleated RBC % 0, Platelet Estimate MOD DEC, Polychromasia 1+, Hypochromasia 2+, Anisocytosis 1+ 06/09/19 14:12: Sodium 142, Potassium 4.1, Chloride 112 H, Carbon Dioxide 22.0, Anion Gap 8, BUN 21 H, Creatinine 1.16, Estim Creat Clear Calc 60.61, Est GFR (MDRD) Af Amer 78, Est GFR (MDRD) Non-Af 65, BUN/Creatinine Ratio 18.1, Glucose 109 H, Calcium 8.3 L, Troponin I < 0.015 06/09/19 14:12: Folate Pending 06/09/19 15:25: Blood Type Pending, Antibody Screen Pending, Crossmatch See Detail 06/09/19 16:04: Vitamin B12 Pending Assessment/Plan All Active Problems (Last Updated 05/17/19 @ 08:34 by Sarah Powell) Symptomatic anemia (Acute) Open wound of great toe (Resolved) Pressure ulcer of toe, stage 2 (Resolved) Skin ulcer of right great toe (Resolved) 1. Acute symptomatic microcytic anemia-B12 and folate pending. Hemoglobin 6.7 on admission. 1 unit PRBC ordered from ER. Trend H&H. IV PPI. General surgery consult. Stool negative for occult blood. 2. Chronic thrombocytopenia, appears worsened from baseline-unclear etiology. GI work-up as noted above. Trend CBC. If GI work-up unremarkable, may need hematology referral. 3. Hypertension-continue amlodipine, benazepril with hold parameters. 4. Hyperlipidemia- continue statin. 5. Osteoarthritis- follows with Dr. Blas. On Plaquenil. 6. BPH-continue Flomax regimen. DVT prophylaxis-SCDs CODE STATUS: Patient does not have healthcare power of employee benefits attorney or living will. Discussed differences in CODE STATUS including full code, DNR CCA and DNR CC. Patient would like to remain full code. Encouraged establishing healthcare power of employee benefits attorney and living will. This patient was seen by ALBAN Alvarez under the supervision of Dr. Mcgregor.
[2019-06-09 17:58] LABS: International Normalized Ratio 1.2; Prothrombin Time (Protime)PT. 15.3 SECONDS (11.7-14.9)
[2019-06-09 17:59] LABS: Partial Thromboplast Time 28.2 Seconds (24.1-36.2)
[2019-06-09] MEDS: 0.9% Normal Saline 1,000 ML 100 ML IV (18:01)
[2019-06-09] MEDS: Tamsulosin HCl 0.4 MG Capsule PO (18:01)
[2019-06-09 18:02] LABS: Ferritin 14 ng/mL (26-388); Iron 17 ug/dL (65-175); Iron Binding Capacity,Total 357 ug/dL (250-450); Magnesium 2.2 mg/dL (1.6-2.6); PERCENT IRON SATURATION 4.8 % (15.0-55.0)
[2019-06-09 18:59] LABS: Hematocrit 19.8 % (40-54); Hemoglobin 6.1 g/dL (13.0-16.5); POSITIVE COUNT YES
[2019-06-09] MEDS: Atorvastatin Calcium 40 MG Tablet PO (21:18)
[2019-06-09] MEDS: 0.9% Saline Lock 10 ML Syringe IV (22:44)
[2019-06-10] VITALS (15 sets, daily range): BP systolic 95–143; BP diastolic 65–84; PULSE 70–103; RESP 16–24; TEMP 36.2–36.7; O2SAT 92–99
[2019-06-10 00:18] LABS: Hematocrit 23.1 % (40-54); POSITIVE COUNT YES
--- NOTE | 2019-06-10 05:49 | ECHOD_ITS ---
Reason For Study: ARRHYTHMIA Procedure This was a 2D Doppler, Color Flow transthoracic echocardiogram. The study was technically difficult. Due to COPD and arrhythmia. Exam performed portable in patient room. Left Ventricle Normal LV size. Left ventricular systolic function is normal. The estimated ejection fraction is 60 %. Stage 1 diastolic dysfunction. No regional wall motion abnormalities noted. Right Ventricle Normal RV size. Normal systolic function. Atria The left atrium is severely enlarged. The right atrium is moderately enlarged. Mitral Valve There is moderate mitral annular calcification. Mild (1+) eccentric mitral valve insufficiency. Tricuspid Valve Normal tricuspid valve. Mild to moderate (1-2+) tricuspid valve insufficiency. Pulmonary artery systolic pressure is 45 mmHg. Aortic Valve The aortic valve is not well visualized. Pulmonic Valve The pulmonic valve is not well visualized. Great Vessels Calcified aortic root. The pulmonary artery is normal size. Normal inferior vena cava. Pericardium/Pleural No pericardial effusion. MMode/2D Measurements & Calculations LVIDd: 5.7 cm IVSd: 0.96 cm Ao root diam: 3.9 cm LVIDs: 3.6 cm LVPWd: 1.0 cm LA dimension: 4.0 cm RVDd: 3.7 cm FS: 37.9 % LAV(MOD-bp): 130.7 ml LA A4 area: 32.8 cm2 RA A4 area: 27.4 cm2 LAV(MOD-bp) Indexed: 62.3 ml/m2 LAV(MOD-sp2): 120.1 ml LAV(MOD-sp4): 133.2 ml Time Measurements MV dec time: 0.10 sec Doppler Measurements & Calculations MV E max jose: 113.9 cm/sec Lat Peak E' Jose: 7.7 cm/sec Med Peak E' Jose: 6.1 cm/sec MV A max jose: 171.8 cm/sec E/E' lat: 14.8 E/E' med: 18.8 MV E/A: 0.66 Ao V2 max: 180.8 cm/sec LV V1 max: 124.6 cm/sec PA V2 max: 110.6 cm/sec Ao max P.1 mmHg LV V1 max P.2 mmHg TR max jose: 314.5 cm/sec TR max P.6 mmHg Interpretation Summary Normal LV size. Left ventricular systolic function is normal. The estimated ejection fraction is 60 %. The left atrium is severely enlarged. The right atrium is moderately enlarged. Pulmonary artery systolic pressure is 45 mmHg. Stage 1 diastolic dysfunction. Ordering Physician: Thao Roland Referring Physician: Fred Clark Performed By: Dariana Nugent RDCS, RVT
[2019-06-10 07:49] LABS: Absolute Lymphocyte Count 0.59 X10^3/uL (0.83-4.51); Absolute Neutrophil Count 2.2 X10^3/uL (2.0-7.7); Basophil# 0.01 X10^3/uL; Basophil% 0.3 % (0-1); Eosinophil# 0.02 X10^3/uL; Eosinophils% 0.5 % (0-5); Hematocrit 26.3 % (40-54); Hemoglobin 8.4 g/dL (13.0-16.5); Lymphocyte # 0.59 X10^3/ul (4.0); Lymphocyte % 15.5 % (19-41); Mean Corp Hgb Conc 31.9 g/dL (32-36); Mean Corpuscular Hgb 31.2 pg (27.0-32.0); Mean Corpuscular Volume 97.8 fL (80-94); Mean Platelet Vol. 11.4 fl (6.2-12.0); Monocyte# 1.01 X10^3/uL; Monocyte% 26.5 % (0-10); NRBC Flagged by Analyzer 0 % (0-5); Neutrophil # 2.15 X10^3/uL (2.7-7.7); Neutrophil % 56.4 % (47-70); POSITIVE COUNT YES; POSITIVE DIFFERENTIAL YES; Platelet Count 59 K/mm3 (150-450); RBC Distribution Width CV 16.5 % (11.6-14.6); RBC Distribution Width SD 58.6 fl (35.1-43.9); Red Blood Count 2.69 M/mm3 (4.6-6.2); White Blood Count 3.8 K/mm3 (4.4-11.0)
[2019-06-10 07:52] LABS: Differential Indicated SCAN CRITERIA MET
[2019-06-10 08:08] LABS: ALB/GLOB Ratio 1.2 RATIO (0.9-2.4); AST(SGOT) 22 U/L (15-37); Alanine Aminotransfer ALT/SGPT 19 U/L (16-61); Albumin, Serum 3.1 g/dL (3.2-5.0); Alkaline Phosphatase 33 U/L (45-117); Anion Gap 6 (5-15); BUN 13 mg/dL (7-18); BUN/Creat Ratio 14.1 RATIO (10-20); Calcium,Total 7.9 mg/dL (8.5-10.1); Chloride 114 mmol/L (98-107); Creatinine, Serum 0.92 mg/dL (0.70-1.30); EST Glomerular Filtration Rate 84 mL/min (>60); Est Glom Filt Rate - Afr Amer 102 mL/min (>60); Estimated Creatinine Clearance 76.94 ml/min; Globulin 2.5 g/dL (2.2-4.2); Glucose 79 mg/dL (74-106); Phosphorus 2.7 mg/dL (2.5-4.9); Potassium 3.9 mmol/L (3.5-5.1); Protein, Total 5.6 g/dL (6.4-8.2); Sodium Level 142 mmol/L (136-145)
--- NOTE | 2019-06-10 08:32 | PN_ITS ---
<Shelly Cowart - Last Filed: 06/10/19 09:06> Patient Problems: Active and Suspected Problems (Last Reviewed 06/10/19 @ 10:[address] Loki Ruiz MD) Symptomatic anemia (Acute) Anemia (Acute) Subjective: Patient seen and examined. Reports shortness of breath and lightheadedness improved. Patient asking for liquids. Denies other current complaints. Denies blood in stool overnight. - Physical Exam Vitals/I&O's: Vital Signs Temp Pulse Resp BP Pulse Ox 98.1 F 78 18 123/69 H 92 06/10/19 05:15 06/10/19 05:39 06/10/19 05:15 06/10/19 05:15 06/10/19 07:10 Oxygen Delivery Method Room Air Weight: 184 lb 15.485 oz Body Mass Index (BMI) 23.7 Intake and Output for Last 24 Hours 06/08/19 06/09/19 06/10/19 23:59 23:59 23:59 Intake Total 583.33 / 883.33 1013.33 / 1013.33 Balance 583.33 / 883.33 1013.33 / 1013.33 General: Alert, Oriented x3, Cooperative HEENT: Atraumatic, PERRLA, EOMI, Normocephalic Neck: Supple, No JVD, Negative Carotid Bruits Lungs: Clear to auscultation, Normal air movement Cardiovascular: Regular rate, Regular Rhythm, Normal S1, Normal S2, No murmurs Abdomen: Bowel Sounds Present, Soft, Non Tender Extremities: No clubbing, No cyanosis, No edema, Capillary Refill Less than 3 Seconds Skin: No rashes, No breakdown Musculoskeletal: No Tenderness to Palpation of Joints or Extremities Neurological: Cranial nerves II-XII grossly intact, Neuro grossly intact Psych/Mental Status: Normal Affect, Appropriate Microbiology Past 72 Hours 06/09/19 15:45 Stool Stool Occult Blood (HUY) - Final 06/09/19 14:46 Mucosa - Nose Influenza Types A,B Direct FA (HUY) - Final Laboratory Results 06/09/19 14:12: WBC 5.7, RBC 2.16 L, Hgb 6.7 L, Hct 22.0 L, MCV 101.9 H, MCH 31.0, MCHC 30.5 L, RDW Std Deviation 60.0 H, RDW Coeff of Kori 15.9 H, Plt Count 74 L, MPV 12.1 H, Immature Gran % (Auto) 0.700, Neut % (Auto) 66.1, Lymph % (Auto) 11.2 L, [place] % (Auto) 21.6 H, Eos % (Auto) 0.2, Baso % (Auto) 0.2, Absolute Neuts (auto) 3.8, Absolute Lymphs (auto) 0.64 L, Nucleated RBC % 0, Platelet Estimate MOD DEC, Polychromasia 1+, Hypochromasia 2+, Anisocytosis 1+ 06/09/19 14:12: Sodium 142, Potassium 4.1, Chloride 112 H, Carbon Dioxide 22.0, Anion Gap 8, BUN 21 H, Creatinine 1.16, Estim Creat Clear Calc 60.61, Est GFR (MDRD) Af Amer 78, Est GFR (MDRD) Non-Af 65, BUN/Creatinine Ratio 18.1, Glucose 109 H, Calcium 8.3 L, Troponin I < 0.015 06/09/19 14:12: Folate 18.20 06/09/19 15:25: Blood Type A POSITIVE, Antibody Screen NEGATIVE, Crossmatch See Detail 06/09/19 15:25: Crossmatch See Detail 06/09/19 16:04: Vitamin B12 Pending 06/09/19 17:30: PT 15.3 H, INR 1.2, APTT 28.2 06/09/19 17:30: Magnesium 2.2, Iron 17 L, TIBC 357, Iron Saturation 4.8 L, Ferritin 14 L 06/09/19 18:35: Hgb 6.1 L, Hct 19.8 L 06/09/19 23:55: Hgb 7.0 L, Hct 23.1 L 06/10/19 06:20: WBC 3.8 L, RBC 2.69 L, Hgb 8.4 L, Hct 26.3 L, MCV 97.8 H, MCH 31.2, MCHC 31.9 L, RDW Std Deviation 58.6 H, RDW Coeff of Kori 16.5 H, Plt Count 59 L, MPV 11.4, Immature Gran % (Auto) 0.800, Neut % (Auto) 56.4, Lymph % (Auto) 15.5 L, [place] % (Auto) 26.5 H, Eos % (Auto) 0.5, Baso % (Auto) 0.3, Absolute Neuts (auto) 2.2, Absolute Lymphs (auto) 0.59 L, Nucleated RBC % 0 06/10/19 06:20: Sodium 142, Potassium 3.9, Chloride 114 H, Carbon Dioxide 22.0, Anion Gap 6, BUN 13, Creatinine 0.92, Estim Creat Clear Calc 76.94, Est GFR (MDRD) Af Amer 102, Est GFR (MDRD) Non-Af 84, BUN/Creatinine Ratio 14.1, Glucose 79, Calcium 7.9 L, Phosphorus 2.7, Total Bilirubin 1.60 H, AST 22, ALT 19, Alkaline Phosphatase 33 L, Total Protein 5.6 L, Albumin 3.1 L, Globulin 2.5, Albumin/Globulin Ratio 1.2 Current Medications Acetaminophen (Tylenol) 650 mg PO Q6H PRN PRN PRN Reason: Pain Score 1-10/Temp > 100.7 F Albuterol Sulfate (Ventolin Aerosols) 2.5 mg INHALATION Q2H PRN PRN PRN Reason: dyspnea, wheezing Amlodipine Besylate (Norvasc) 10 mg PO DAILY [facility] Atorvastatin Calcium (Lipitor) 40 mg PO QHS [facility] Last Admin: 06/09/19 21:18 Dose: 40 mg Documented by: Glucagon () 1 mg IM .X1 PRN PRN Reason: Hypoglycemia Guaifenesin (Robitussin) 20 ml PO Q4H PRN PRN PRN Reason: COUGH Hydralazine HCl (Apresoline Iv) 10 mg IV Q4H PRN PRN PRN Reason: SBP > 160 Sodium Chloride () 1,000 mls @ 100 mls/hr IV .Q10H [facility] Last Infusion: 06/10/19 05:33 Dose: 100 mls/hr Documented by: Pantoprazole Sodium 40 mg/ (Sodium Chloride) 110 mls @ 330 mls/hr IV Q12 [facility] Last Admin: 06/09/19 22:43 Dose: Not Given Documented by: Dextrose (Dextrose 10%-Water) 250 mls @ 999 mls/hr IV .Q16M PRN; Protocol PRN Reason: HYPOGLYCEMIA Lisinopril (Zestril) 20 mg PO DAILY [facility] Melatonin (Melatonin) 3 mg PO QHS PRN PRN PRN Reason: INSOMNIA Morphine Sulfate () 2 mg IV Q3H PRN PRN PRN Reason: Pain Score 6-10/10 Nitroglycerin (Nitrostat) 0.4 mg SUBLINGUAL Q5M PRN PRN Reason: CARDIAC/CHEST PAIN Ondansetron HCl (Zofran) 4 mg IV Q8H PRN PRN PRN Reason: NAUSEA/VOMITING Oxycodone HCl (Oxyir) 5 mg PO Q4H PRN PRN PRN Reason: Pain Score 4-5/10 Prochlorperazine Edisylate (Compazine Iv) 5 mg IV Q4H PRN PRN PRN Reason: Breakthrough nausea/vomiting Sodium Chloride () 10 - 40 ml IV UD PRN PRN Reason: SALINE FLUSH Last Admin: 06/09/19 22:44 Dose: 10 ml Documented by: Tamsulosin HCl (Flomax) 0.4 mg PO DAILY@1730 NANCY Last Admin: 06/09/19 18:01 Dose: 0.4 mg Documented by: Throat Lozenges (Cepacol Sore Throat Lozenge) 1 lozenge MUCOUS MEM Q2H PRN PRN PRN Reason: SORE THROAT Medical Necessity - Tobacco Use Smoking Status: Former smoker Assessment/Plan All Active Problems (Last Reviewed 06/10/19 @ 10:[address] Loki Ruiz MD) Symptomatic anemia (Acute) Anemia (Acute) Open wound of great toe (Resolved) Pressure ulcer of toe, stage 2 (Resolved) Skin ulcer of right great toe (Resolved) 1. Acute symptomatic macrocytic anemia, unclear etiology however suspect GI bleed-folate normal, B12 pending. Hemoglobin 6.7 on admission. Status post 2 unit PRBC. Trend H&H. IV PPI. General surgery consult. Stool negative for occult blood. 2. Chronic thrombocytopenia, appears worsened from baseline-unclear etiology. GI work-up as noted above. Trend CBC. If GI work-up unremarkable, may need hematology/oncology referral. 3. Hypertension-continue amlodipine, benazepril with hold parameters. 4. Hyperlipidemia- continue statin. 5. Osteoarthritis- follows with Dr. Blas. On Plaquenil, held currently. 6. BPH-continue Flomax regimen. DVT prophylaxis-SCDs CODE STATUS: Patient does not have healthcare power of admitted attorneys or living will. Discussed differences in CODE STATUS including full code, DNR CCA and DNR CC. Patient would like to remain full code. Encouraged establishing healthcare power of admitted attorneys and living will. This patient was seen by ALBAN Alvarez under the supervision of Dr. Wagner. <BernardCharbel - Last Filed: 06/10/19 12:29> Subjective: Patient denies rectal bleed but had dark stool for about 3 weeks and was tested by PCP about a week ago and was negative. Denies dizziness or lightheadedness which was present yesterday and evening and night. No abdominal pain. Patient had 9 beats of NSVT. No chest pain or shortness of breath. - Physical Exam Vitals/I&O's: Vital Signs Temp Pulse Resp BP Pulse Ox 97.2 F L 80 16 140/78 H 97 06/10/19 11:25 06/10/19 11:25 06/10/19 11:25 06/10/19 11:25 06/10/19 11:25 Oxygen Delivery Method Room Air Weight: 184 lb 15.485 oz Body Mass Index (BMI) 23.7 Intake and Output for Last 24 Hours 06/08/19 06/09/19 06/10/19 23:59 23:59 23:59 Intake Total 583.33 / 883.33 1783.33 / 1783.33 Balance 583.33 / 883.33 1783.33 / 1783.33 General: Alert, Oriented x3, Cooperative HEENT: Atraumatic, PERRLA, EOMI, Normocephalic Neck: Supple, No JVD, Negative Carotid Bruits Lungs: Clear to auscultation, Normal air movement, No rhonchi, No wheeze Cardiovascular: Regular rate, No murmurs Abdomen: Bowel Sounds Present, Soft, Non Tender, Non-Distended Extremities: No edema, Capillary Refill Less than 3 Seconds Skin: No rashes, No breakdown Musculoskeletal: No Tenderness to Palpation of Joints or Extremities, Arthritic Changes Neurological: Cranial nerves II-XII grossly intact, Deep Tendon Reflexes 2+/4 and Symmetrical, Neuro grossly intact Psych/Mental Status: Normal Affect, Appropriate Microbiology Past 72 Hours 06/09/19 15:45 Stool Stool Occult Blood (HUY) - Final 06/09/19 14:46 Mucosa - Nose Influenza Types A,B Direct FA (HUY) - Final Laboratory Results 06/09/19 14:12: WBC 5.7, RBC 2.16 L, Hgb 6.7 L, Hct 22.0 L, MCV 101.9 H, MCH 31.0, MCHC 30.5 L, RDW Std Deviation 60.0 H, RDW Coeff of Kori 15.9 H, Plt Count 74 L, MPV 12.1 H, Immature Gran % (Auto) 0.700, Neut % (Auto) 66.1, Lymph % (Auto) 11.2 L, [place] % (Auto) 21.6 H, Eos % (Auto) 0.2, Baso % (Auto) 0.2, Absolute Neuts (auto) 3.8, Absolute Lymphs (auto) 0.64 L, Nucleated RBC % 0, Platelet Estimate MOD DEC, Polychromasia 1+, Hypochromasia 2+, Anisocytosis 1+ 06/09/19 14:12: Sodium 142, Potassium 4.1, Chloride 112 H, Carbon Dioxide 22.0, Anion Gap 8, BUN 21 H, Creatinine 1.16, Estim Creat Clear Calc 60.61, Est GFR (MDRD) Af Amer 78, Est GFR (MDRD) Non-Af 65, BUN/Creatinine Ratio 18.1, Glucose 109 H, Calcium 8.3 L, Troponin I < 0.015 06/09/19 14:12: Folate 18.20 06/09/19 15:25: Blood Type A POSITIVE, Antibody Screen NEGATIVE, Crossmatch See Detail 06/09/19 15:25: Crossmatch See Detail 06/09/19 16:04: Vitamin B12 Pending 06/09/19 17:30: PT 15.3 H, INR 1.2, APTT 28.2 06/09/19 17:30: Magnesium 2.2, Iron 17 L, TIBC 357, Iron Saturation 4.8 L, Ferritin 14 L 06/09/19 18:35: Hgb 6.1 L, Hct 19.8 L 06/09/19 23:55: Hgb 7.0 L, Hct 23.1 L 06/10/19 06:20: WBC 3.8 L, RBC 2.69 L, Hgb 8.4 L, Hct 26.3 L, MCV 97.8 H, MCH 31.2, MCHC 31.9 L, RDW Std Deviation 58.6 H, RDW Coeff of Kori 16.5 H, Plt Count 59 L, MPV 11.4, Immature Gran % (Auto) 0.800, Neut % (Auto) 56.4, Lymph % (Auto) 15.5 L, [place] % (Auto) 26.5 H, Eos % (Auto) 0.5, Baso % (Auto) 0.3, Absolute Neuts (auto) 2.2, Absolute Lymphs (auto) 0.59 L, Nucleated RBC % 0, Diff Path Review May foll, Platelet Estimate MKD DEC, Plt Morphology Comment LARGE, Polychromasia 1+, Hypochromasia 2+, Anisocytosis 1+ 06/10/19 06:20: Sodium 142, Potassium 3.9, Chloride 114 H, Carbon Dioxide 22.0, Anion Gap 6, BUN 13, Creatinine 0.92, Estim Creat Clear Calc 76.94, Est GFR (MDRD) Af Amer 102, Est GFR (MDRD) Non-Af 84, BUN/Creatinine Ratio 14.1, Glucose 79, Calcium 7.9 L, Phosphorus 2.7, Total Bilirubin 1.60 H, AST 22, ALT 19, Alkaline Phosphatase 33 L, Total Protein 5.6 L, Albumin 3.1 L, Globulin 2.5, Albumin/Globulin Ratio 1.2 Current Medications Acetaminophen (Tylenol) 650 mg PO Q6H PRN PRN PRN Reason: Pain Score 1-10/Temp > 100.7 F Albuterol Sulfate (Ventolin Aerosols) 2.5 mg INHALATION Q2H PRN PRN PRN Reason: dyspnea, wheezing Amlodipine Besylate (Norvasc) 10 mg PO DAILY [facility] Last Admin: 06/10/19 10:05 Dose: 10 mg Documented by: Atorvastatin Calcium (Lipitor) 40 mg PO QHS [facility] Last Admin: 06/09/19 21:18 Dose: 40 mg Documented by: Bisacodyl (Dulcolax) 20 mg PO 1400 ONE Stop: 06/10/19 14:01 Glucagon () 1 mg IM .X1 PRN PRN Reason: Hypoglycemia Guaifenesin (Robitussin) 20 ml PO Q4H PRN PRN PRN Reason: COUGH Hydralazine HCl (Apresoline Iv) 10 mg IV Q4H PRN PRN PRN Reason: SBP > 160 Sodium Chloride () 1,000 mls @ 100 mls/hr IV .Q10H [facility] Last Admin: 06/10/19 11:22 Dose: 100 mls/hr Documented by: Pantoprazole Sodium 40 mg/ (Sodium Chloride) 110 mls @ 330 mls/hr IV Q12 [facility] Last Infusion: 06/10/19 11:04 Dose: Infused Documented by: Dextrose (Dextrose 10%-Water) 250 mls @ 999 mls/hr IV .Q16M PRN; Protocol PRN Reason: HYPOGLYCEMIA Lisinopril (Zestril) 20 mg PO DAILY [facility] Last Admin: 06/10/19 10:05 Dose: 20 mg Documented by: Melatonin (Melatonin) 3 mg PO QHS PRN PRN PRN Reason: INSOMNIA Morphine Sulfate () 2 mg IV Q3H PRN PRN PRN Reason: Pain Score 6-10/10 Nitroglycerin (Nitrostat) 0.4 mg SUBLINGUAL Q5M PRN PRN Reason: CARDIAC/CHEST PAIN Ondansetron HCl (Zofran) 4 mg IV Q8H PRN PRN PRN Reason: NAUSEA/VOMITING Oxycodone HCl (Oxyir) 5 mg PO Q4H PRN PRN PRN Reason: Pain Score 4-5/10 Polyethylene Glycol (Clearlax For Bowel Prep) 0 bottle PO DAILY@1600 ONE Stop: 06/10/19 16:01 Prochlorperazine Edisylate (Compazine Iv) 5 mg IV Q4H PRN PRN PRN Reason: Breakthrough nausea/vomiting Sodium Chloride () 10 - 40 ml IV UD PRN PRN Reason: SALINE FLUSH Last Admin: 06/09/19 22:44 Dose: 10 ml Documented by: Tamsulosin HCl (Flomax) 0.4 mg PO DAILY@1730 [facility] Last Admin: 06/09/19 18:01 Dose: 0.4 mg Documented by: Throat Lozenges (Cepacol Sore Throat Lozenge) 1 lozenge MUCOUS MEM Q2H PRN PRN PRN Reason: SORE THROAT Assessment/Plan This patient was seen in conjunction with [employer]. I have independently interviewed and examined the patient and reviewed pertinent history, examination findings, laboratory and plan of management. I have reviewed the note and agree with the documented findings with the few additional points. In brief, patient is 78-year-old gentleman was admitted with acute symptomatic microcytic anemia of unclear etiology. GI bleed is suspected but patient had 2 times negative stool card test. Patient had 1 large polyp diagnosed on colono scopy which was removed in [facility] about 7 years ago. Plan for EGD tomorrow a.m. by Dr. Ruiz. Patient had 2 units of PRBC transfusion. H&H improved from 6.1-8.4. Patient also has chronic thrombocytopenia noticed on previous lab which is gradually worsening. Patient might have anemia and thrombocytopenia secondary to bone marrow dysregulation, possible myelodysplastic syndrome or aplastic anemia. If EGD negative, will need hematology consult Short run of NSVT: Patient denies chronic heart condition. Monitor on telemetry. Electrolytes are normal limit. Other comorbidities as mentioned above including hypertension, dyslipidemia osteoarthritis and BPH. Total time of the visit including total time spent in counseling or coordination of care, (more than 50% of the total time, spent in obtaining medical information from nurses and other ancillary care providers), discussion with patient and patient's near the bedside, review of labs and imaging is 30 minutes I have discussed my assessment with [employer] and orders have been reviewed. Code Visit Inpatient E&M: 88748 Subs Hosp L3
[2019-06-10 08:38] LABS: Anisocytosis 1+; Hypochromasia 2+; Platelet Estimate MKD DEC (ADEQ); Platelet Morphology LARGE; Polychromasia 1+
[2019-06-10] MEDS: amLODIPine 10 MG Tablet PO (10:05)
[2019-06-10] MEDS: Lisinopril 20 MG Tablet PO (10:05)
--- NOTE | 2019-06-10 10:33 | PCM.CONS.GEN ---
Problem List (1) Anemia Status: Acute Qualifiers: Anemia type: iron deficiency Iron deficiency anemia type: unspecified iron deficiency Qualified Code(s): D50.9 - Iron deficiency anemia, unspecified Reason for Consult Date of Consultation: 06/10/19 History of Present Illness: The patient is a 78 y/o M w/ PMHx: Chronic Thrombocytopenia, ? COPD/Asthma, HTN, HLD, BPH who presents to the [facility] ED on 06/09/19 w/ history of several days of progressively worsening fatigue, worse with any exertion with recent evaluation outpatient for similar symptoms fatigue with a 05/29/2019 hemoglobin decrease from prior 11.6-9.9 with an in office guaiac that was negative however patient had been set up to see Dr. Hook for planned outpatient endoscopy with next visit noted 06/15/2019 but given worsened symptoms presented to the ED as he was concerned he potentially had an underlying pulmonary illness as his etiology. Although difficult to tease out, he notes his stools have been more dark x 3 days and states yes when asked if black but was not forthcoming prior to this question. He notes his stools have been otherwise normal consistency. Work-up in the ED included T 98.6, heart rate a 7, BP 127/78, respiratory rate 18, 97% on room air, CBC with WC 5.7, hemoglobin 6.7 with an MCV 101.9, platelets 74 with increased monocytes, BMP with chloride 112, BUN/creatinine 21/1.16, glucose 109, troponin less than 0.015, negative stool guaiac, type and cross of 1 unit PRBC with planned administration per ED physician. Pending vitamin B12 and folic acid levels per ED physician. I received a phone call today from the hospitalist requesting an upper and lower endoscopy prior to being discharged. 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) R26.89 Atrioventricular jose m re-entry tachycardia (Chronic) I47.1 Allergies T78.40XA Arthritis M19.90 Back problem M53.9 Cataracts, bilateral H26.9 Hearing problem H91.90 History of pneumonia Z87.01 Osteoarthritis M19.90 Vision problems H54.7 Vitamin deficiency E56.9 Open wound of great toe (Resolved) S91.103A Pressure ulcer of toe, stage 2 (Resolved) L89.892 Right Skin ulcer of right great toe (Resolved) L97.519 Allergies No Known Allergies Allergy (Verified 06/09/19 13:37) Home Medications: Ambulatory Orders Medication Instructions Recorded Amlodipine [Norvasc] 10 mg PO DAILY 04/18/13 Benazepril HCl [Lotensin] 20 mg PO DAILY 04/18/13 Hydroxychloroquine [Plaquenil] 200 mg PO QHS 04/18/13 Simvastatin [Zocor] 80 mg PO QHS 04/18/13 Tamsulosin HCl 0.4 mg PO DAILY 04/18/13 Surgical History: Surgical History (Last Reviewed 06/10/19 @ 10:[address] Loki Ruiz MD) H/O cataract extraction Z98.49 H/O foot surgery Z98.890 H/O hernia repair Z98.890, Z87.19 H/O hernia repair Z98.890, Z87.19 2004 History of cataract extraction Z98.49 bilateral 1994 2000 S/P carpal tunnel release Z98.890 right Surgical History: noncontributory Psychiatric History: No pertinent psych hx Lives: Spouse/ Significant Other Smoking Status: Former smoker Alcohol: None Drugs: None - *Family History Maternal Family History: Family History (Last Reviewed 05/17/19 @ 08:36 by Sarah Powell) Father Myocardial infarction Brother Myocardial infarction Mother Cancer History Items: - - Pancreatic cancer Paternal Family History: Family History (Last Reviewed 05/17/19 @ 08:36 by Sarah Powell) Father Myocardial infarction Brother Myocardial infarction Mother Cancer History Items: Heart Disease Review of Systems Constitutional: Denies: Chills, Fever, Weight Change Cardiovascular: Denies: Chest Pain, Chest Pressure, Chest Tightness, Palpitations Respiratory: Denies: Cough, Hemoptysis, Shortness of breath at rest, Shortness of breath upon exertion, Wheezing Gastrointestinal: Denies: Abdominal Pain, Constipation, Diarrhea, Hematemesis, Nausea, Melena, Vomiting Patient Problems: Active and Suspected Problems (Last Updated 05/17/19 @ 08:34 by Sarah Powell) Symptomatic anemia (Acute) Anemia (Acute) - Physical Exam Vitals/I&O's: Vital Signs Temp Pulse Resp BP Pulse Ox 98.1 F 103 H 18 123/69 H 92 06/10/19 05:15 06/10/19 09:00 06/10/19 05:15 06/10/19 05:15 06/10/19 07:10 Oxygen Delivery Method Room Air Weight: 184 lb 15.485 oz Body Mass Index (BMI) 23.7 Intake and Output for Last 24 Hours 06/08/19 06/09/19 06/10/19 23:59 23:59 23:59 Intake Total 583.33 / 883.33 1013.33 / 1013.33 Balance 583.33 / 883.33 1013.33 / 1013.33 General: Alert, Oriented x3 Lungs: Clear to auscultation Cardiovascular: Regular rate, Regular Rhythm, No murmurs Abdomen: Bowel Sounds Present, Soft, Non Tender, Non-Distended Microbiology Past 72 Hours 06/09/19 15:45 Stool Stool Occult Blood (HUY) - Final 06/09/19 14:46 Mucosa - Nose Influenza Types A,B Direct FA (HUY) - Final Laboratory Results 06/09/19 14:12: WBC 5.7, RBC 2.16 L, Hgb 6.7 L, Hct 22.0 L, MCV 101.9 H, MCH 31.0, MCHC 30.5 L, RDW Std Deviation 60.0 H, RDW Coeff of Kori 15.9 H, Plt Count 74 L, MPV 12.1 H, Immature Gran % (Auto) 0.700, Neut % (Auto) 66.1, Lymph % (Auto) 11.2 L, Tift % (Auto) 21.6 H, Eos % (Auto) 0.2, Baso % (Auto) 0.2, Absolute Neuts (auto) 3.8, Absolute Lymphs (auto) 0.64 L, Nucleated RBC % 0, Platelet Estimate MOD DEC, Polychromasia 1+, Hypochromasia 2+, Anisocytosis 1+ 06/09/19 14:12: Sodium 142, Potassium 4.1, Chloride 112 H, Carbon Dioxide 22.0, Anion Gap 8, BUN 21 H, Creatinine 1.16, Estim Creat Clear Calc 60.61, Est GFR (MDRD) Af Amer 78, Est GFR (MDRD) Non-Af 65, BUN/Creatinine Ratio 18.1, Glucose 109 H, Calcium 8.3 L, Troponin I < 0.015 06/09/19 14:12: Folate 18.20 06/09/19 15:25: Blood Type A POSITIVE, Antibody Screen NEGATIVE, Crossmatch See Detail 06/09/19 15:25: Crossmatch See Detail 06/09/19 16:04: Vitamin B12 Pending 06/09/19 17:30: PT 15.3 H, INR 1.2, APTT 28.2 06/09/19 17:30: Magnesium 2.2, Iron 17 L, TIBC 357, Iron Saturation 4.8 L, Ferritin 14 L 06/09/19 18:35: Hgb 6.1 L, Hct 19.8 L 06/09/19 23:55: Hgb 7.0 L, Hct 23.1 L 06/10/19 06:20: WBC 3.8 L, RBC 2.69 L, Hgb 8.4 L, Hct 26.3 L, MCV 97.8 H, MCH 31.2, MCHC 31.9 L, RDW Std Deviation 58.6 H, RDW Coeff of Kori 16.5 H, Plt Count 59 L, MPV 11.4, Immature Gran % (Auto) 0.800, Neut % (Auto) 56.4, Lymph % (Auto) 15.5 L, Tift % (Auto) 26.5 H, Eos % (Auto) 0.5, Baso % (Auto) 0.3, Absolute Neuts (auto) 2.2, Absolute Lymphs (auto) 0.59 L, Nucleated RBC % 0, Diff Path Review May foll, Platelet Estimate MKD DEC, Plt Morphology Comment LARGE, Polychromasia 1+, Hypochromasia 2+, Anisocytosis 1+ 06/10/19 06:20: Sodium 142, Potassium 3.9, Chloride 114 H, Carbon Dioxide 22.0, Anion Gap 6, BUN 13, Creatinine 0.92, Estim Creat Clear Calc 76.94, Est GFR (MDRD) Af Amer 102, Est GFR (MDRD) Non-Af 84, BUN/Creatinine Ratio 14.1, Glucose 79, Calcium 7.9 L, Phosphorus 2.7, Total Bilirubin 1.60 H, AST 22, ALT 19, Alkaline Phosphatase 33 L, Total Protein 5.6 L, Albumin 3.1 L, Globulin 2.5, Albumin/Globulin Ratio 1.2 Current Medications Acetaminophen (Tylenol) 650 mg PO Q6H PRN PRN PRN Reason: Pain Score 1-10/Temp > 100.7 F Albuterol Sulfate (Ventolin Aerosols) 2.5 mg INHALATION Q2H PRN PRN PRN Reason: dyspnea, wheezing Amlodipine Besylate (Norvasc) 10 mg PO DAILY [facility] Last Admin: 06/10/19 10:05 Dose: 10 mg Documented by: Atorvastatin Calcium (Lipitor) 40 mg PO QHS [facility] Last Admin: 06/09/19 21:18 Dose: 40 mg Documented by: Bisacodyl (Dulcolax) 20 mg PO 1400 ONE Stop: 06/10/19 14:01 Glucagon () 1 mg IM .X1 PRN PRN Reason: Hypoglycemia Guaifenesin (Robitussin) 20 ml PO Q4H PRN PRN PRN Reason: COUGH Hydralazine HCl (Apresoline Iv) 10 mg IV Q4H PRN PRN PRN Reason: SBP > 160 Sodium Chloride () 1,000 mls @ 100 mls/hr IV .Q10H [facility] Last Admin: 06/10/19 10:04 Dose: Not Given Documented by: Pantoprazole Sodium 40 mg/ (Sodium Chloride) 110 mls @ 330 mls/hr IV Q12 [facility] Last Admin: 06/09/19 22:43 Dose: Not Given Documented by: Dextrose (Dextrose 10%-Water) 250 mls @ 999 mls/hr IV .Q16M PRN; Protocol PRN Reason: HYPOGLYCEMIA Lisinopril (Zestril) 20 mg PO DAILY [facility] Last Admin: 06/10/19 10:05 Dose: 20 mg Documented by: Melatonin (Melatonin) 3 mg PO QHS PRN PRN PRN Reason: INSOMNIA Morphine Sulfate () 2 mg IV Q3H PRN PRN PRN Reason: Pain Score 6-10/10 Nitroglycerin (Nitrostat) 0.4 mg SUBLINGUAL Q5M PRN PRN Reason: CARDIAC/CHEST PAIN Ondansetron HCl (Zofran) 4 mg IV Q8H PRN PRN PRN Reason: NAUSEA/VOMITING Oxycodone HCl (Oxyir) 5 mg PO Q4H PRN PRN PRN Reason: Pain Score 4-5/10 Polyethylene Glycol (Clearlax For Bowel Prep) 0 bottle PO DAILY@1600 ONE Stop: 06/10/19 16:01 Prochlorperazine Edisylate (Compazine Iv) 5 mg IV Q4H PRN PRN PRN Reason: Breakthrough nausea/vomiting Sodium Chloride () 10 - 40 ml IV UD PRN PRN Reason: SALINE FLUSH Last Admin: 06/09/19 22:44 Dose: 10 ml Documented by: Tamsulosin HCl (Flomax) 0.4 mg PO DAILY@1730 NANCY Last Admin: 06/09/19 18:01 Dose: 0.4 mg Documented by: Throat Lozenges (Cepacol Sore Throat Lozenge) 1 lozenge MUCOUS MEM Q2H PRN PRN PRN Reason: SORE THROAT Assessment/Plan All Active Problems (Last Updated 05/17/19 @ 08:34 by Sarah Powell) Symptomatic anemia (Acute) Anemia (Acute) Open wound of great toe (Resolved) Pressure ulcer of toe, stage 2 (Resolved) Skin ulcer of right great toe (Resolved) Plan will be to perform both an upper and lower endoscopy on the patient. Risk benefits include bleeding possible injury to the colon or the stomach have been reviewed which could require further operations. Patient understands is willing to proceed Code Visit Office Visits / Consults: [id number] IP Consult L3
[2019-06-10] MEDS: 0.9% Normal Saline 1,000 ML 100 ML IV ×2 (11:22→20:36)
[2019-06-10] MEDS: Bisacodyl 5 MG Tablet 20 MG PO (13:55)
[2019-06-10] MEDS: Polyethylene Glycol 3350 BOWEL PREP PO (15:51)
[2019-06-10 17:35] LABS: Hematocrit 29.1 % (40-54); Hemoglobin 9.2 g/dL (13.0-16.5)
[2019-06-10] MEDS: Tamsulosin HCl 0.4 MG Capsule PO (17:48)
[2019-06-10] MEDS: Atorvastatin Calcium 40 MG Tablet PO (21:17)
[2019-06-11] VITALS (14 sets, daily range): BP systolic 105–138; BP diastolic 55–83; PULSE 62–99; RESP 16–18; TEMP 36.4–37.1; O2SAT 93–98; BMI 23.7
--- NOTE | 2019-06-11 | EGD_PTH ---
PATIENT: MICAH VELEZ LOC: MS3 U#:[id number] AGE/SX: 78/M ROOM: MI309 RE06/09/[address]: Dr. Jose Reeves DO : 1940 BED: 1 DIS: 06/11/2019 SPEC #: [id number] RECD: 06/11/19 13:30 STATUS: CURT REQ #: [id number] BEN: 06/11/19 00:[address]: Loki Ruiz DEPT: SURGICAL PATHOLOGY RECD BY: Adrian Kaye ENTERED: 06/11/19 14:07 SP TYPE: EGD BIOPSY OT DR: MD Dr. Jose Contreras DO Dr. Mark Stutzman, DO Tissues: Gastric mucous membrane Procedures: Surgery Specimen Level IV HEADER OPERATION: [place] [place] DIAGNOSIS: Iron deficiency anemia TISSUE SUBMITTED: Antrum biopsy for H. pylori and path MICROSCOPIC DIAGNOSIS Antrum biopsy: Mild gastritis. See microscopic description and comment. KAT:janeth 06/12/19 COMMENT The results of immunohistochemistry for Helicobacter pylori will be reported separately ([id number]). MICROSCOPIC DESCRIPTION Slides are reviewed. The specimen shows fragments of gastric mucosa with chronic inflammatory cell infiltrates in the lamina propria consisting of lymphocytes and plasma cells, consistent with mild chronic gastritis. GROSS DESCRIPTION Received in fixative is one container labeled with the patient's name and designated antrum biopsy. The specimen consists of one irregular fragment of light bates soft tissue that measures 0.6 x 0.2 x 0.1 cm. The specimen is totally submitted in one cassette. / KAT:janeth 06/11/19 TC:5 CPT: 76228
[2019-06-11 06:35] LABS: Hematocrit 26.3 % (40-54); Hemoglobin 7.9 g/dL (13.0-16.5); Mean Corpuscular Hgb 29.7 pg (27.0-32.0); Mean Corpuscular Volume 98.9 fL (80-94); Mean Platelet Vol. 12.5 fl (6.2-12.0); POSITIVE COUNT YES; Platelet Count 57 K/mm3 (150-450); RBC Distribution Width SD 60.4 fl (35.1-43.9); Red Blood Count 2.66 M/mm3 (4.6-6.2)
[2019-06-11] MEDS: 0.9% Normal Saline 1,000 ML 100 ML IV ×2 (07:01→14:06)
[2019-06-11 07:02] LABS: Scan Indicated on CBC? Y/N YES- FLAGS NOTED
--- NOTE | 2019-06-11 08:58 | PN_ITS ---
Patient Problems: Active and Suspected Problems (Last Reviewed 06/10/19 @ 10:[address] Loki Ruiz MD) Symptomatic anemia (Acute) Anemia (Acute) Subjective: Patient seen and examined. Undergoing echocardiogram. Denies shortness of breath, palpitations, chest pain. Denies blood in stool during prep for scope. PVCs on telemetry overnight. - Physical Exam Vitals/I&O's: Vital Signs Temp Pulse Resp BP Pulse Ox 98 F 85 18 138/83 H 98 06/11/19 08:53 06/11/19 08:53 06/11/19 08:53 06/11/19 08:53 06/11/19 08:53 Oxygen Delivery Method Room Air Weight: 184 lb 15.485 oz Body Mass Index (BMI) 23.7 Intake and Output for Last 24 Hours 06/09/19 06/10/19 06/11/19 23:59 23:59 23:59 Intake Total 583.33 / 883.33 5206.66 / 5406.66 1200 / 1200 Balance 583.33 / 883.33 5206.66 / 5406.66 1200 / 1200 General: Alert, Oriented x3, Cooperative HEENT: Atraumatic, PERRLA, EOMI, Normocephalic Neck: Supple, No JVD, Negative Carotid Bruits Lungs: Clear to auscultation, Normal air movement Cardiovascular: Regular rate, Regular Rhythm, Normal S1, Normal S2, No murmurs, - - PVCs Abdomen: Bowel Sounds Present, Soft, Non Tender, Non-Distended Extremities: No clubbing, No cyanosis, No edema, Capillary Refill Less than 3 Seconds Skin: No rashes, No breakdown Musculoskeletal: No Tenderness to Palpation of Joints or Extremities Neurological: Cranial nerves II-XII grossly intact, Neuro grossly intact Psych/Mental Status: Normal Affect, Appropriate Microbiology Past 72 Hours 06/09/19 15:45 Stool Stool Occult Blood (HUY) - Final 06/09/19 14:46 Mucosa - Nose Influenza Types A,B Direct FA (HUY) - Final Laboratory Results 06/10/19 17:20: Hgb 9.2 L, Hct 29.1 L 06/11/19 05:17: WBC 4.0 L, RBC 2.66 L, Hgb 7.9 L, Hct 26.3 L, MCV 98.9 H, MCH 29.7, MCHC 30.0 L D, RDW Std Deviation 60.4 H, RDW Coeff of Kori 17.0 H, Plt Count 57 L, MPV 12.5 H, Differential Comment COMMENT Current Medications Acetaminophen (Tylenol) 650 mg PO Q6H PRN PRN PRN Reason: Pain Score 1-10/Temp > 100.7 F Albuterol Sulfate (Ventolin Aerosols) 2.5 mg INHALATION Q2H PRN PRN PRN Reason: dyspnea, wheezing Amlodipine Besylate (Norvasc) 10 mg PO DAILY [facility] Last Admin: 06/10/19 10:05 Dose: 10 mg Documented by: Atorvastatin Calcium (Lipitor) 40 mg PO QHS [facility] Last Admin: 06/10/19 21:17 Dose: 40 mg Documented by: Glucagon () 1 mg IM .X1 PRN PRN Reason: Hypoglycemia Guaifenesin (Robitussin) 20 ml PO Q4H PRN PRN PRN Reason: COUGH Hydralazine HCl (Apresoline Iv) 10 mg IV Q4H PRN PRN PRN Reason: SBP > 160 Sodium Chloride () 1,000 mls @ 100 mls/hr IV .Q10H [facility] Last Admin: 06/11/19 07:01 Dose: 100 mls/hr Documented by: Pantoprazole Sodium 40 mg/ (Sodium Chloride) 110 mls @ 330 mls/hr IV Q12 [facility] Last Infusion: 06/10/19 22:29 Dose: Infused Documented by: Dextrose (Dextrose 10%-Water) 250 mls @ 999 mls/hr IV .Q16M PRN; Protocol PRN Reason: HYPOGLYCEMIA Lisinopril (Zestril) 20 mg PO DAILY [facility] Last Admin: 06/10/19 10:05 Dose: 20 mg Documented by: Melatonin (Melatonin) 3 mg PO QHS PRN PRN PRN Reason: INSOMNIA Morphine Sulfate () 2 mg IV Q3H PRN PRN PRN Reason: Pain Score 6-10/10 Nitroglycerin (Nitrostat) 0.4 mg SUBLINGUAL Q5M PRN PRN Reason: CARDIAC/CHEST PAIN Ondansetron HCl (Zofran) 4 mg IV Q8H PRN PRN PRN Reason: NAUSEA/VOMITING Oxycodone HCl (Oxyir) 5 mg PO Q4H PRN PRN PRN Reason: Pain Score 4-5/10 Prochlorperazine Edisylate (Compazine Iv) 5 mg IV Q4H PRN PRN PRN Reason: Breakthrough nausea/vomiting Sodium Chloride () 10 - 40 ml IV UD PRN PRN Reason: SALINE FLUSH Last Admin: 06/09/19 22:44 Dose: 10 ml Documented by: Tamsulosin HCl (Flomax) 0.4 mg PO DAILY@1730 NANCY Last Admin: 06/10/19 17:48 Dose: 0.4 mg Documented by: Throat Lozenges (Cepacol Sore Throat Lozenge) 1 lozenge MUCOUS MEM Q2H PRN PRN PRN Reason: SORE THROAT Medical Necessity - Tobacco Use Smoking Status: Former smoker Assessment/Plan All Active Problems (Last Reviewed 06/10/19 @ 10:[address] Loki Ruiz MD) Symptomatic anemia (Acute) Anemia (Acute) Open wound of great toe (Resolved) Pressure ulcer of toe, stage 2 (Resolved) Skin ulcer of right great toe (Resolved) 1. Acute symptomatic macrocytic anemia, unclear etiology however suspect GI bleed-folate normal, B12 pending. Hemoglobin 6.7 on admission. Status post 2 unit PRBC. Trend H&H. IV PPI. General surgery consult. Stool negative for occult blood. Patient to undergo upper and lower scope this morning. 2. Chronic thrombocytopenia, appears worsened from baseline-unclear etiology. GI work-up as noted above. Trend CBC. If GI work-up unremarkable, may need hematology/oncology referral. 3. Hypertension-continue amlodipine, benazepril with hold parameters. 4. Hyperlipidemia- continue statin. 5. Osteoarthritis- follows with Dr. Blas. On Plaquenil, held currently. 6. BPH-continue Flomax regimen. DVT prophylaxis-SCDs CODE STATUS: Patient does not have healthcare power of privacy attorney or living will. Discussed differences in CODE STATUS including full code, DNR CCA and DNR CC. Patient would like to remain full code. Encouraged establishing healthcare power of privacy attorney and living will. This patient was seen by ALBAN Alvarez under the supervision of Dr. Reeves.
--- NOTE | 2019-06-11 10:02 | NURSING ---
pt off unit for upper and lower endoscopy
--- NOTE | 2019-06-11 10:15 | CASEMGMT ---
RN CM attempted to complete assessment at this time. Patient is out of room at ENDO. RN CM to attempt assessment again at later time.
--- NOTE | 2019-06-11 11:00 | IMM_PTH ---
PATIENT: MICAH VELEZ LOC: MS3 U#:[id number] AGE/SX: 78/M ROOM: WV309 RE06/09/[address]: Dr. Jose Reeves DO : 1940 BED: 1 DIS: 06/11/2019 SPEC #: [id number] RECD: 06/11/19 14:25 STATUS: CURT REQ #: [id number] BEN: 06/11/19 11:[address]: Loki Ruiz DEPT: IMMUNOHISTOCHEMISTRY RECD BY: Candy Prince ENTERED: 06/11/19 14:26 SP TYPE: IMMUNO OTHR DR: MD Dr. Jose Contreras DO Dr. Mark Stutzman, DO Tissues: Stomach, NOS Procedures: H Pylori (initial) PHYSICIAN & INSTITUTION [place] [id number] SPECIMEN INFORMATION: Tissue Source: Antrum biopsy Clinical Info: Iron deficiency anemia Specimen Number: [id number] CPT code: 19400 METHODOLOGY: Deparaffinized sections of prefer/formalin-fixed tissue or PAP/DQ stained slides are incubated with monoclonal/polyclonal antibodies/oligonucleotide probes. Localization is made via biotin free immunoperoxidase method. Appropriate controls are performed and reacted as expected. Results on target cell population are indicated in the following table: RESULTS: ANTIBODY / CLONE RESULT H Pylori (polyclonal) negative These tests were developed and their performance characteristics determined by [facility]. They may not have been cleared or approved by the U.S. Food and Drug Administration. The FDA has determined that such clearance or approval is not necessary. INTERPRETATION: Antrum biopsy: Negative for Helicobacter pylori organisms. SJ:janeth 06/12/19
--- NOTE | 2019-06-11 11:08 | OP.EGD_ITS ---
Patient Name: Saroj Connolly Procedure Date: 06/11/2019 10:07 AM Date of : 1940 Age: 78 Procedure: Upper GI endoscopy Indications: Iron deficiency anemia secondary to chronic blood loss Providers: Loki Ruiz MD Medicines: See the Anesthesia note for documentation of the administered medications Patient Profile: This is a 78 year old male. Refer to note in patient chart for documentation of history and physical. Complications: No immediate complications. Procedure: Pre-Anesthesia Assessment: - Prior to the procedure, a History and Physical was performed, and patient medications and allergies were reviewed. The patient's tolerance of previous anesthesia was also reviewed. The risks and benefits of the procedure and the sedation options and risks were discussed with the patient. All questions were answered, and informed consent was obtained. Prior Anticoagulants: The patient has taken no previous anticoagulant or antiplatelet agents. ASA Grade Assessment: III - A patient with severe systemic disease. After reviewing the risks and benefits, the patient was deemed in satisfactory condition to undergo the procedure. After obtaining informed consent, the endoscope was passed under direct vision. Throughout the procedure, the patient's blood pressure, pulse, and oxygen saturations were monitored continuously. The gastroscope was introduced through the mouth, and advanced to the second part of duodenum. The upper GI endoscopy was accomplished without difficulty. The patient tolerated the procedure well. Scope In: 10:36:57 AM Scope Out: 10:40:49 AM Total Procedure Duration Time 0 hours 3 minutes 52 seconds Findings: The examined esophagus was normal. The entire examined stomach was normal. Biopsies were taken with a cold forceps for Helicobacter pylori testing. Diffuse severely erythematous mucosa without active bleeding and with stigmata of bleeding was found in the duodenal bulb. No biopsies or other specimens were collected for this exam. Diffuse severe inflammation characterized by erythema and granularity was found in the duodenal bulb. No biopsies or other specimens were collected for this exam. The inflammation look like there was diffuse Blake's gland hyperplasia with inflammation. This did not appear malignant but I believe that it more likely was the source of the bleeding. Impression: - Normal esophagus. - Normal stomach. Biopsied. - Erythematous duodenopathy. No specimens collected. - Mucosal changes suspicious for duodenitis. No specimens collected. Recommendation: - Discharge patient to home. - Resume previous diet. - Continue present medications. - Await pathology results. - Repeat upper endoscopy (date not yet determined) for surveillance. - Return to my office in 1 week. Procedure Code(s): --- Professional --- 31860, Esophagogastroduodenoscopy, flexible, transoral; with biopsy, single or multiple Diagnosis Code(s): --- Professional --- K31.89, Other diseases of stomach and duodenum D50.0, Iron deficiency anemia secondary to blood loss (chronic) CPT copyright 2017 [employer]. All rights reserved. The codes documented in this report are preliminary and upon pot room tapper review may be revised to meet current compliance requirements. MD Loki Cope MD 06/11/2019 11:08:32 AM This report has been signed electronically. Number of Addenda: 0 Note Initiated On: 06/11/2019 10:07 AM
--- NOTE | 2019-06-11 11:09 | OP.CCLET_ITS ---
06/11/2019 Fred Clark [address] [place] [address] Re : Upper GI endoscopy procedure for Saroj Connolly Dear Dr. Clark This procedure was performed on Tuesday, June 11, 2019. My impressions and recommendations are as follows: Impressions : - Normal esophagus. - Normal stomach. Biopsied. - Erythematous duodenopathy. No specimens collected. - Mucosal changes suspicious for duodenitis. No specimens collected. Recommendations : - Discharge patient to home. - Resume previous diet. - Continue present medications. - Await pathology results. - Repeat upper endoscopy (date not yet determined) for surveillance. - Return to my office in 1 week. My findings are described in the full procedure note, which is enclosed. If I can be of further assistance, please feel free to contact me at Doctor phone number(s): , Fax: [phone], Work: . Sincerely, MD Loki Cope MD 06/11/2019 11:08:32 AM This report has been signed electronically.
--- NOTE | 2019-06-11 11:11 | OP.COLON_ITS ---
Patient Name: Saroj Connolly Procedure Date: 06/11/2019 10:42 AM Date of : 1940 Age: 78 Procedure: Colonoscopy Indications: Iron deficiency anemia secondary to chronic blood loss Providers: Loki Ruiz MD Medicines: See the Anesthesia note for documentation of the administered medications Patient Profile: This is a 78 year old male. Refer to note in patient chart for documentation of history and physical. Last Colonoscopy: date unknown. Unable to locate last colonoscopy report. Complications: No immediate complications. Procedure: Pre-Anesthesia Assessment: - Prior to the procedure, a History and Physical was performed, and patient medications and allergies were reviewed. The patient's tolerance of previous anesthesia was also reviewed. The risks and benefits of the procedure and the sedation options and risks were discussed with the patient. All questions were answered, and informed consent was obtained. Prior Anticoagulants: The patient has taken no previous anticoagulant or antiplatelet agents. ASA Grade Assessment: III - A patient with severe systemic disease. After reviewing the risks and benefits, the patient was deemed in satisfactory condition to undergo the procedure. After I obtained informed consent, the scope was passed under direct vision. Throughout the procedure, the patient's blood pressure, pulse, and oxygen saturations were monitored continuously. The colonoscope was introduced through the anus and advanced to the cecum, identified by appendiceal orifice and ileocecal valve. The colonoscopy was performed without difficulty. The patient tolerated the procedure well. The quality of the bowel preparation was good. Scope In: 10:43:22 AM Scope Withdrawal Time 0 hours 10 minutes 9 seconds Scope Out: 11:00:59 AM Total Procedure Duration Time 0 hours 17 minutes 37 seconds Findings: Many small and large-mouthed diverticula were found in the sigmoid colon and descending colon. No biopsies or other specimens were collected for this exam. Non-bleeding internal hemorrhoids were found during retroflexion. The hemorrhoids were mild and small. The exam was otherwise without abnormality. Impression: - Diverticulosis in the sigmoid colon and in the descending colon. No specimens collected. - Non-bleeding internal hemorrhoids. - The examination was otherwise normal. Recommendation: - Discharge patient to home. - Resume previous diet. - Continue present medications. - Await pathology results. - Repeat colonoscopy in 10 years for screening purposes. - Return to GI office in 1 week. Procedure Code(s): --- Professional --- 35672, Colonoscopy, flexible; diagnostic, including collection of specimen(s) by brushing or washing, when performed (separate procedure) Diagnosis Code(s): --- Professional --- K64.8, Other hemorrhoids D50.0, Iron deficiency anemia secondary to blood loss (chronic) K57.30, Diverticulosis of large intestine without perforation or abscess without bleeding CPT copyright 2017 [employer]. All rights reserved. The codes documented in this report are preliminary and upon anode crew supervisor review may be revised to meet current compliance requirements. MD Loki Cope MD 06/11/2019 11:11:27 AM This report has been signed electronically. Number of Addenda: 0 Note Initiated On: 06/11/2019 10:42 AM
--- NOTE | 2019-06-11 11:12 | OP.CCLET_ITS ---
06/11/2019 Fred Clark [address] [place] [address] Re : Colonoscopy procedure for Saroj Connolly Dear Dr. Clark This procedure was performed on Tuesday, June 11, 2019. My impressions and recommendations are as follows: Impressions : - Diverticulosis in the sigmoid colon and in the descending colon. No specimens collected. - Non-bleeding internal hemorrhoids. - The examination was otherwise normal. Recommendations : - Discharge patient to home. - Resume previous diet. - Continue present medications. - Await pathology results. - Repeat colonoscopy in 10 years for screening purposes. - Return to GI office in 1 week. My findings are described in the full procedure note, which is enclosed. If I can be of further assistance, please feel free to contact me at Doctor phone number(s): , Fax: [phone], Work: . Sincerely, MD Loki Cope MD 06/11/2019 11:11:27 AM This report has been signed electronically.
--- NOTE | 2019-06-11 11:26 | PCA ---
pt off floor
--- NOTE | 2019-06-11 11:57 | NURSING ---
pt returned from endo at this time- vitals and assmt completed.
[2019-06-11 12:38] LABS: Vitamin B12 1158 pg/mL (211-911)
--- NOTE | 2019-06-11 13:21 | PCM.DC ---
- Discharge Diagnoses Current Active Problems: Current Active and Chronic Problems (Last Reviewed 06/10/19 @ 10:[address] Loki Ruiz MD) Symptomatic anemia (Acute) Anemia (Acute) You will use the following diet at home:: No restrictions Discharge Activity: Return to Normal Activity Call your doctor if you observe: Shortness of breath, Dizziness, Fainting spells, Chest pain Allergies/Adverse Reactions: Allergies No Known Allergies Allergy (Verified 06/09/19 13:37) Medications to take at Discharge Amlodipine [Norvasc] 10 mg PO DAILY 04/18/13 Benazepril HCl [Lotensin] 20 mg PO DAILY 04/18/13 Hydroxychloroquine [Plaquenil] 200 mg PO QHS 04/18/13 Simvastatin [Zocor] 80 mg PO QHS 04/18/13 Tamsulosin HCl 0.4 mg PO DAILY 04/18/13 Pantoprazole Sodium [Protonix] 40 mg PO DAILY #30 tab 06/11/19 The following prescriptions were given: Pantoprazole Sodium [Protonix] 40 mg PO DAILY #30 tab Transmission Status: Pending to [facility]/pharmacy #[id number] Primary Care Physician: Fred Clark DO [Primary Care Provider] - Please follow up with your Primary Care Physician in: 1 Week Test Results: Test results from this visit will be discussed in further detail at your follow-up appointment, if applicable. Please Follow Up With: Loki Ruiz MD When: 1 Week Please Follow Up With: Gabriela Hein MD - Hematology When: Call for soonest available appt- further evaluation for anemia Proposed Discharge Date: 06/11/19
--- NOTE | 2019-06-11 13:26 | PCM.DC.SUM ---
<Shelly Cowart - Last Filed: 06/11/19 13:38> Discharge Date and Diagnosis Date of Admission: 06/09/19 Date of Discharge: 06/11/19 - Primary Discharge Diagnosis Active and Suspected Problems (Last Reviewed 06/10/19 @ 10:[address] Loki Ruiz MD) 1. Acute symptomatic macrocytic anemia 2. 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 Hypertension 4. Hyperlipidemia 5. Osteoarthritis 6. BPH - Secondary Discharge Diagnosis Chronic Problems (Last Reviewed 06/10/19 @ 10:[address] 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 Lungs are clear. Electronically Signed: Leonel Montes DO at 14:59 EST Tel , Service support , Dr. Ruiz- General Surgery Operations: None Procedures: Colonoscopy, EGD Summary of Care Provided: The patient is a 78 year old M admitted 06/09/2019 due to lightheadedness and shortness of breath. 1. Acute symptomatic macrocytic anemia-folate normal, B12 pending. Hemoglobin 6.7 on admission. Status post 2 unit PRBC. Repeat CBC a day of discharge 7.9. Stool negative for occult blood. General surgery consulted during admission. Colonoscopy unremarkable. EGD showed normal esophagus, normal stomach which was biopsied, erythematous duodenopathy, duodenitis. Continue Protonix 40 mg p.o. daily. Follow-up with Dr. Ruiz in 1 week. Even no GI source of acute anemia identified, referred to hematology, Dr. Hein for further evaluation regarding anemia. Recommend repeat CBC in 3 days by primary care provider. 2. Chronic thrombocytopenia, appears worsened from baseline-unclear etiology. GI work-up unremarkable as noted above. Refer to hematology. 3. Hypertension-continue amlodipine, benazepril. 4. Hyperlipidemia- continue statin. 5. Osteoarthritis- follows with Dr. Blas. On Plaquenil. 6. BPH-continue Flomax regimen. 7. PVCs/intermittent bigeminy-asymptomatic. Echocardiogram demonstrated an EF of 60%, pulmonary artery systolic pressure 45 mmHg, severely enlarged left atrium, right atrium moderately enlarged, stage I diastolic dysfunction. If PVCs become symptomatic, recommend addition of beta-domenic. General: Alert, Oriented x3, Cooperative HEENT: Atraumatic, PERRLA, EOMI, Normocephalic Neck: Supple, No JVD, Negative Carotid Bruits Lungs: Clear to auscultation, Normal air movement Cardiovascular: Regular rate, Regular Rhythm, Normal S1, Normal S2, No murmurs, - - PVCs Abdomen: Bowel Sounds Present, Soft, Non Tender, Non-Distended Extremities: No clubbing, No cyanosis, No edema, Capillary Refill Less than 3 Seconds Skin: No rashes, No breakdown Musculoskeletal: No Tenderness to Palpation of Joints or Extremities Neurological: Cranial nerves II-XII grossly intact, Neuro grossly intact Psych/Mental Status: Normal Affect, Appropriate Patient seen and examined prior to discharge. Physical assessment as noted above. Patient is stable for discharge with follow up recommendations as noted above. This patient was seen by ALBAN Alvarez under the supervision of Dr. Reeves. - Physical Exam Vitals/I&O's: Vital Signs Temp Pulse Resp BP Pulse Ox 97.9 F 65 16 114/62 93 06/11/19 11:57 06/11/19 11:57 06/11/19 11:57 06/11/19 11:57 06/11/19 11:57 Oxygen Delivery Method Room Air Weight: 184 lb 15.485 oz Body Mass Index (BMI) 23.7 Intake and Output for Last 24 Hours 06/09/19 06/10/19 06/11/19 23:59 23:59 23:59 Intake Total 583.33 / 883.33 5206.66 / 5406.66 1816.67 / 1816.67 Balance 583.33 / 883.33 5206.66 / 5406.66 1816.67 / 1816.67 Microbiology Past 72 Hours 06/09/19 15:45 Stool Stool Occult Blood (HUY) - Final 06/09/19 14:46 Mucosa - Nose Influenza Types A,B Direct FA (HUY) - Final Laboratory Results 06/09/19 16:04: Vitamin B12 1158 H 06/10/19 17:20: Hgb 9.2 L, Hct 29.1 L 06/11/19 05:17: WBC 4.0 L, RBC 2.66 L, Hgb 7.9 L, Hct 26.3 L, MCV 98.9 H, MCH 29.7, MCHC 30.0 L D, RDW Std Deviation 60.4 H, RDW Coeff of Kori 17.0 H, Plt Count 57 L, MPV 12.5 H, Differential Comment COMMENT Current Medications Acetaminophen (Tylenol) 650 mg PO Q6H PRN PRN PRN Reason: Pain Score 1-10/Temp > 100.7 F Albuterol Sulfate (Ventolin Aerosols) 2.5 mg INHALATION Q2H PRN PRN PRN Reason: dyspnea, wheezing Amlodipine Besylate (Norvasc) 10 mg PO DAILY [facility] Last Admin: 06/11/19 12:00 Dose: Not Given Documented by: Atorvastatin Calcium (Lipitor) 40 mg PO QHS [facility] Last Admin: 06/10/19 21:17 Dose: 40 mg Documented by: Glucagon () 1 mg IM .X1 PRN PRN Reason: Hypoglycemia Guaifenesin (Robitussin) 20 ml PO Q4H PRN PRN PRN Reason: COUGH Hydralazine HCl (Apresoline Iv) 10 mg IV Q4H PRN PRN PRN Reason: SBP > 160 Sodium Chloride () 1,000 mls @ 100 mls/hr IV .Q10H [facility] Last Infusion: 06/11/19 12:25 Dose: 100 mls/hr Documented by: Pantoprazole Sodium 40 mg/ (Sodium Chloride) 110 mls @ 330 mls/hr IV Q12 [facility] Last Infusion: 06/11/19 12:25 Dose: Infused Documented by: Dextrose (Dextrose 10%-Water) 250 mls @ 999 mls/hr IV .Q16M PRN; Protocol PRN Reason: HYPOGLYCEMIA Lisinopril (Zestril) 20 mg PO DAILY [facility] Last Admin: 06/11/19 12:01 Dose: Not Given Documented by: Melatonin (Melatonin) 3 mg PO QHS PRN PRN PRN Reason: INSOMNIA Morphine Sulfate () 2 mg IV Q3H PRN PRN PRN Reason: Pain Score 6-10/10 Nitroglycerin (Nitrostat) 0.4 mg SUBLINGUAL Q5M PRN PRN Reason: CARDIAC/CHEST PAIN Ondansetron HCl (Zofran) 4 mg IV Q8H PRN PRN PRN Reason: NAUSEA/VOMITING Oxycodone HCl (Oxyir) 5 mg PO Q4H PRN PRN PRN Reason: Pain Score 4-5/10 Prochlorperazine Edisylate (Compazine Iv) 5 mg IV Q4H PRN PRN PRN Reason: Breakthrough nausea/vomiting Sodium Chloride () 10 - 40 ml IV UD PRN PRN Reason: SALINE FLUSH Last Admin: 06/09/19 22:44 Dose: 10 ml Documented by: Tamsulosin HCl (Flomax) 0.4 mg PO DAILY@1730 NANCY Last Admin: 06/10/19 17:48 Dose: 0.4 mg Documented by: Throat Lozenges (Cepacol Sore Throat Lozenge) 1 lozenge MUCOUS MEM Q2H PRN PRN PRN Reason: SORE THROAT Discharge Diet: No Restrictions Discharge Activity: Return to Normal Activity Call your doctor if you observe: Shortness of breath, Dizziness, Fainting spells, Chest pain Home Medications: Medications to take at Discharge Amlodipine [Norvasc] 10 mg PO DAILY 04/18/13 Benazepril HCl [Lotensin] 20 mg PO DAILY 04/18/13 Hydroxychloroquine [Plaquenil] 200 mg PO QHS 04/18/13 Simvastatin [Zocor] 80 mg PO QHS 04/18/13 Tamsulosin HCl 0.4 mg PO DAILY 04/18/13 Pantoprazole Sodium [Protonix] 40 mg PO DAILY #30 tab 06/11/19 Following Prescrptions Were Given to Patient: Pantoprazole Sodium [Protonix] 40 mg PO DAILY #30 tab Transmission Status: Received by [facility]/pharmacy #[id number] Primary Care Physician: Fred Clark DO [Primary Care Provider] - Please follow up with your Primary Care Physician in: 1 Week Please Follow Up With: Loki Ruiz MD When: 1 Week Please Follow Up With: Gabriela Hein MD - Hematology When: Call for soonest available appt- further evaluation for anemia Disposition: Home Minutes spent on discharge:: 35 Patient Condition:: Stable Medical Necessity - Tobacco Use Smoking Status: Former smoker Meaningful Use Info Meaningful Use Diagnoses (Choose all that apply): None applicable <Jose Reeves - Last Filed: 06/11/19 16:56> Discharge Date and Diagnosis - Secondary Discharge Diagnosis Chronic Problems (Last Reviewed 06/10/19 @ 10:[address] 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 Data reviewed. I agree with the above note by the nurse practitioner. The patient is a 78 year old M presents with a lightheadedness and shortness of breath. Patient was found to have symptomatic microcytic anemia. Hemoglobin was 6.7 upon admission. Patient did receive 2 units packed red blood cells. Patient did have hemoglobin 7.9 upon discharge. Given the anemia, is felt that patient will require further evaluation from a gastrointestinal perspective. Patient underwent EGD and colonoscopy. All which were unremarkable. Patient did have some duodenitis but no active bleeding noted. And was heme negative patient continue with Protonix and have follow-up CBC as outpatient follow-up with hematology. Unclear where the source of the anemia but it could be related with lack of production which may require a bone marrow biopsy but I can be done as outpatient. [] - Physical Exam Vitals/I&O's: Vital Signs Temp Pulse Resp BP Pulse Ox 36.6 C 99 16 118/73 94 06/11/19 13:21 06/11/19 13:21 06/11/19 13:21 06/11/19 13:21 06/11/19 13:56 Oxygen Delivery Method Room Air Weight: 83.9 kg Body Mass Index (BMI) 23.7 Intake and Output for Last 24 Hours 06/09/19 06/10/19 06/11/19 23:59 23:59 23:59 Intake Total 583.33 / 883.33 5206.66 / 5406.66 Balance 583.33 / 883.33 5206.66 / 5406.66 General: Alert, No apparent distress HEENT: Atraumatic, Normocephalic Oral: Moist Mucosa, No Gingival or Mucosal Lesions/ Ulcerations Lungs: Clear to auscultation, Normal air movement, No rhonchi, No wheeze, No rales, Diminished Cardiovascular: Regular rate, Regular Rhythm, Normal S1, Normal S2, No murmurs Abdomen: Bowel Sounds Present, Soft, Non Tender, Non-Distended Extremities: No edema, No Calf Tenderness Psych/Mental Status: Normal Affect, Appropriate Microbiology Past 72 Hours 06/09/19 15:45 Stool Stool Occult Blood (HUY) - Final 06/09/19 14:46 Mucosa - Nose Influenza Types A,B Direct FA (HUY) - Final Laboratory Results 06/09/19 16:04: Vitamin B12 1158 H 06/10/19 17:20: Hgb 9.2 L, Hct 29.1 L 06/11/19 05:17: WBC 4.0 L, RBC 2.66 L, Hgb 7.9 L, Hct 26.3 L, MCV 98.9 H, MCH 29.7, MCHC 30.0 L D, RDW Std Deviation 60.4 H, RDW Coeff of Kori 17.0 H, Plt Count 57 L, MPV 12.5 H, Differential Comment COMMENT Discharge Diet: No Restrictions Discharge Activity: Return to Normal Activity Medical Necessity - Tobacco Use Smoking Status: Former smoker Meaningful Use Info Meaningful Use Diagnoses (Choose all that apply): None applicable Code Visit Inpatient E&M: 55488 Disch Hosp
--- NOTE | 2019-06-11 14:45 | CASEMGMT ---
RN GÓMEZ Face to Face with patient for initial transition planning/care coordination assessment. RN CM introduced self and role at [facility]. Patient sitting at EOB, alert and oriented, at bedside. Patient willing to participate in assessment and is able to answer all questions appropriately. Care providers, pharmacy, and demographics verified. Patient wishes to discharge home, denies need for home health at this time. Patient states he has no further needs or concerns at this time. CM to follow for discharge planning needs that may arise. PCP: Amber Specialists: Roopa assembler camper; Jamal pain specialist Preferred Pharmacy: [facility] Insurance: [facility] Prescription Benefit: yes Living Will/HPOA: none LNOK: Living Arrangements: Patient lives with in single story home with 4 steps and railing to enter the home. Patient is independent at home. Transportation: self/ DME/HHC: Patient has cane, denies further DME needs. Denies previous HHC. Disposition Plan: Patient to discharge home with family support and follow-up plans in place. Carrol LAUREN, RN, CM
[2019-06-12 10:04] LABS: Pathologist Review Reviewed
--- NOTE | 2019-06-12 15:48 | CASEMGMT ---
Case Management DC F/u Call: DC Date: 06/11/2019 DC Diagnosis: 1. Acute symptomatic macrocytic anemia 2. 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 Hypertension 4. Hyperlipidemia 5. Osteoarthritis 6. BPH DC Disposition: Home Lace/Strata: 01/11 Called patient on listed home phone on demographics, VM identified the Howers, VM left to return call to primary RNCM Carrol Landis RNCM
== END 2019-06-11 15:02 | disposition home or self-care (01) | DRG 812 ==
LOC: ED 15:53 → MS3 16:44
PROVIDERS: Nurse Practitioner Family; Surgery; Admitting Provider Family Medicine; Emergency Provider Emergency Medicine; PCP Family Medicine
PROC: 0DJD8ZZ Inspection of Lower Intestinal Tract, Via Natural or Artificial Opening Endoscopic (ICD-10-PCS; CPT 45378; principal; 2019-06-11 14:55)
DX: D53.9 Nutritional anemia, unspecified (principal); I47.2 Ventricular tachycardia; D69.6 Thrombocytopenia, unspecified; I10 Essential (primary) hypertension; E78.5 Hyperlipidemia, unspecified; N40.0 Benign prostatic hyperplasia without lower urinary tract symptoms; M19.90 Unspecified osteoarthritis, unspecified site; K57.30 Diverticulosis of large intestine without perforation or abscess without bleeding; K64.8 Other hemorrhoids; Z87.891 Personal history of nicotine dependence; G62.9 Polyneuropathy, unspecified; K29.80 Duodenitis without bleeding
CPT/HCPCS: 36415; 71046; 80048; 80053; 82274; 82607; 82728; 82746; 83540; 83550; 83735; 84100; 84484; 85014; 85018; 85025; 85027; 85610; 85730; 86850; 86900; 86901; 86920; 86922; 87804; 88305; 88342; 93005; 93306; 97162; 97166; 97802; 99251; 99284; J1756; J7030; J7040; P9016; Q9957; A4216; G0463; J1610; J2405

== ENCOUNTER → 2019-08-23 12:58 | Outpatient (CLI) | payer MEDICARE, OTHER, SELFPAY ==
[2019-08-21 10:55] VITALS: BMI 22.8
[2019-08-23 15:20] LABS: Absolute Lymphocyte Count 0.66 X10^3/uL (0.83-4.51); Basophil# 0.02 X10^3/uL; Basophil% 0.3 % (0-1); Eosinophil# 0.01 X10^3/uL; Eosinophils% 0.2 % (0-5); Hematocrit 31.9 % (40-54); Hemoglobin 9.8 g/dL (13.0-16.5); Lymphocyte # 0.66 X10^3/ul (4.0); Mean Corp Hgb Conc 30.7 g/dL (32-36); Mean Corpuscular Hgb 30.7 pg (27.0-32.0); Mean Platelet Vol. 12.3 fl (6.2-12.0); Monocyte# 1.25 X10^3/uL; Monocyte% 20.8 % (0-10); NRBC Flagged by Analyzer 0 % (0-5); Neutrophil # 4.03 X10^3/uL (2.7-7.7); POSITIVE COUNT YES; POSITIVE MORPHOLOGY YES; Platelet Count 75 K/mm3 (150-450); RBC Distribution Width CV 18.2 % (11.6-14.6); RBC Distribution Width SD 66.8 fl (35.1-43.9); Red Blood Count 3.19 M/mm3 (4.6-6.2)
[2019-08-23 15:21] LABS: Differential Indicated SCAN CRITERIA MET
[2019-08-23 15:36] LABS: ALB/GLOB Ratio 1.2 RATIO (0.9-2.4); AST(SGOT) 20 U/L (15-37); Alanine Aminotransfer ALT/SGPT 23 U/L (16-61); Albumin, Serum 3.9 g/dL (3.2-5.0); Alkaline Phosphatase 39 U/L (45-117); Anion Gap 9 (5-15); BUN 44 mg/dL (7-18); BUN/Creat Ratio 21.1 RATIO (10-20); Calcium,Total 9.1 mg/dL (8.5-10.1); Chloride 107 mmol/L (98-107); Creatinine, Serum 2.09 mg/dL (0.70-1.30); EST Glomerular Filtration Rate 33 mL/min (>60); Est Glom Filt Rate - Afr Amer 40 mL/min (>60); Globulin 3.3 g/dL (2.2-4.2); Glucose 121 mg/dL (74-106); Protein, Total 7.2 g/dL (6.4-8.2); Sodium Level 139 mmol/L (136-145)
[2019-08-23 16:25] LABS: Anisocytosis 1+
[2019-08-23 16:26] LABS: Platelet Estimate MOD DEC (ADEQ); Red Cell Morphology N CHROM NORMAL (NORM C&C)
== END ==
PROVIDERS: PCP Family Medicine; Referring Provider Internal Medicine Rheumatology; Visit Provider Internal Medicine Rheumatology
DX: M06.4 Inflammatory polyarthropathy (principal); I10 Essential (primary) hypertension; E78.5 Hyperlipidemia, unspecified; N40.0 Benign prostatic hyperplasia without lower urinary tract symptoms
CPT/HCPCS: 36415; 80053; 85025

== ENCOUNTER → 2019-09-04 08:04 | Outpatient (CLI) | payer MEDICARE, OTHER, SELFPAY ==
[2019-08-21 10:11] VITALS: BMI 22.8
[2019-08-21 10:55] VITALS: BMI 22.8
[2019-09-04] VITALS (9 sets, daily range): BP systolic 92–142; BP diastolic 47–64; PULSE 75–87; RESP 13–20; TEMP 36.4; O2SAT 94–99; BMI 22.3
--- NOTE | 2019-09-04 | BMB_PTH ---
PATIENT: MICAH VELEZ LOC: CT U#:[id number] AGE/SX: 84/M ROOM: RE09/04/[address]: Dr. Gabriela Hein MD : 1940 BED: DIS: SPEC #: [id number] RECD: 09/04/19 10:41 STATUS: CURT JENS #: [id number] BEN: 09/04/19 00:[address]: Gabriela Hein DEPT: BONE MARROW RECD BY: Hawk Grover ENTERED: 09/04/19 10:41 SP TYPE: BMB SACHIN DR: Dr. Fred Clark DO Tissues: A - Bone marrow, NOS B - Bone marrow, NOS C - Bone marrow, NOS Procedures: Decalcification bone/plaque Bone Marrow Aspiration Bone Marrow Core Biopsy Iron Stain Bone Marrow HEADER OPERATION: Bone marrow biopsy and aspiration PRE-OP DIAGNOSIS: Pancytopenia D61.818, anemia D64.9 TISSUE SUBMITTED: A - Core, B - Clot, C - Smears, and send outs (flow, cytogenetics and MDS FISH) BONE MARROW DIAGNOSIS Bone marrow biopsy, clot and aspiration: Consistent with refractory anemia with ring sideroblasts. Moderate thrombocytopenia. Peripheral blood with macrocytic anemia and moderate thrombocytopenia. See comment. AM:janeth 09/07/19 COMMENT Sections of blood clot and bone marrow biopsy show increased megakaryopoiesis with multiple atypical megakaryocytes (micromegakaryocytes and hypersegmented forms). Iron stain with matched control reveals ring sideroblasts. The peripheral blood shows occasional hypersegmented neutrophils and giant platelets. Flow cytometry analysis ([employer]) reveals no significant diagnostic immunophenotypic abnormality. MDS panel by FISH is pending and will be reported as an addendum. Case has been reviewed in consultation with Dr. Muro who concurs with the above diagnosis. IDC:KAT BONE MARROW STUDY Slides are reviewed. CBC DATE: 09/04/19 WBC 5.3; RBC 3.16; HGB 10.1; HCT 31.8; MCV 100.6; RDW 18.1; PLTS 75,000 SEGS 61.3%; LYMPHS 13.9%; MONOS 22.9%; EOS 0.2%; BASOS 0.4% PERIPHERAL SMEAR: Submitted. RBC: Mild anisopoikilocytosis WBC: Occasional dysplastic neutrophils PLTS: Thrombocytopenia with occasional giant platelets BONE MARROW ASPIRATE DIFFERENTIAL: 100 cell count. Blasts % (normal 0-2): 3 Promyelocytes % (normal 1-5): 4 Myelocytes and metamyelocytes % (normal 17-41): 19 Bands and Segs % (normal 15-32): 22 Eos % (normal 1-6): 3 Basos % (normal 0-1): 0 Monocytes % (normal 0-4): 2 Erythroid Precursors % (normal 17-35): 35 Lymphocytes % (normal 7-13): 10 Plasma Cells % (normal 0-2): 2 ASPIRATE FINDINGS: Site: not specified Aspicular Hypocellular M/E ratio: within normal limits (Normal 1.5 - 4.0) Megakaryocytes: Atypical with micromegakaryocytes and hypersegmented forms. Erythropoiesis: Ring sideroblasts present Granulopoiesis: Normoblastic Other findings: Markedly hemodilute specimen. CORE BIOPSY FINDINGS: Site: not specified Adequacy: adequate Cellularity %: 45% M/E ratio: within normal limits Megakaryocytes: Increased with atypical forms. Bony trabeculae: within normal limits Granulomas: 0 Lymphoid aggregate(s): 0 Atypical infiltrate(s): 0 ASPIRATE CLOT FINDINGS: Site: not specified Marrow Particles: many Cellularity %: 45-50% M/E ratio: within normal limits Megakaryocytes: Atypical forms present with increased megakaryocytes. Granuloma(s): 0 Lymphoid aggregate(s): One benign lymphoid aggregate ([id number]) Atypical infiltrate(s): 0 SPECIAL STAINS (with matched controls): Iron: Increased with ring sideroblasts Reticulin: within normal limits PAS: Highlights myeloid elements and megakaryocytes. BONE MARROW GROSS A - Received is a container labeled with the patient's name and designated bone marrow. The specimen consists of a piece of bates bone measuring 0.6 cm in length and 0.2 cm in diameter. The specimen is totally submitted in one cassette after decalcification. / AM:janeth 09/04/19 B - Received labeled with the patient's name and not further designated is a specimen that consists of approximately 10 cc of bloody fluid that on filtration yields multiple minute fragments of blood clots measuring in aggregate 3 x 2.5 x 0.2 cm. The entire specimen is submitted in one cassette. / SJ:janeth 09/04/19 C - Also received are 11 unstained and 1 peripheral stained slides. The unstained slides are submitted for appropriate staining. Also received are three green top tubes which are sent to our reference lab for flow, cytogenetics and MDS FISH. / SJ:rg 09/04/19 TC:0 CPT: 46593, 68441, 88219 x2, 96254 x3, 19306 ADDENDUM ADDENDUM ADDENDUM ADDENDUM ADDENDUM ADDENDUM ADDENDUM ADDENDUM ADDENDUM ADDENDUM 09/17/2019 11:40 ADDENDUM 09/17/2019 11:40 ADDENDUM 09/17/2019 11:40 ADDENDUM 09/17/2019 11:40 ADDENDUM 09/17/2019 11:40 REPORTS FROM [facility] CYTOGENETIC RESULT: 46,XY[20] INTERPRETATION: Normal male karyotype was observed in twenty metaphases analyzed. FISH RESULT: Normal MDS panel INTERPRETATION: The FISH analysis of MDS specific chromosome changes was normal. Please see complete report in e-chart or EMR for further details
--- NOTE | 2019-09-04 | IMM_PTH ---
PATIENT: MICAH VELEZ LOC: CT U#:[id number] AGE/SX: 84/M ROOM: RE09/04/[address]: Dr. Gabriela Hein MD : 1940 BED: DIS: SPEC #: [id number] RECD: 09/05/19 12:45 STATUS: CURT REQ #: [id number] BEN: 09/04/19 00:[address]: Gabriela Hein DEPT: IMMUNOHISTOCHEMISTRY RECD BY: Candy Prince ENTERED: 09/05/19 12:46 SP TYPE: IMMUNO OTHR DR: Dr. Fred Clark DO Tissues: B - Bone marrow of iliac crest Procedures: BCL-2 (add) CD20 (add) CD34 (add) CD45 (add) CD5 (add) CD56 (add) CD79A (add) MPO (add) CD3 (initial) PHYSICIAN & INSTITUTION [place] [id number] SPECIMEN INFORMATION: Tissue Source: B - Bone marrow biopsy, clot Clinical Info: Pancytopenia, anemia Specimen Number: [id number] CPT code: 20845, 22655 x8 METHODOLOGY: Deparaffinized sections of prefer/formalin-fixed tissue or PAP/DQ stained slides are incubated with monoclonal/polyclonal antibodies/oligonucleotide probes. Localization is made via biotin free immunoperoxidase method. Appropriate controls are performed and reacted as expected. Results on target cell population are indicated in the following table: RESULTS: ANTIBODY / CLONE RESULT Block B CD3 (PS1) positive CD5 (SP10) positive CD20 (L26) positive CD45 (RP2/18) positive CD79a (11E3) positive BCL-2 (bcl-2/100/D5) positive CD34 (QBEnd-10) negative CD56 (123C3.D5) negative MPO (polyclonal) positive These tests were developed and their performance characteristics determined by [facility]. They may not have been cleared or approved by the U.S. Food and Drug Administration. The FDA has determined that such clearance or approval is not necessary. The above immunohistochemical/dualISH markers are ordered and reviewed by the Pathologist. INTERPRETATION: Bone marrow biopsy, clot: Polytypic (benign) lymphoid aggregate. No increased blast cells present. AM:janeth 09/06/19
--- NOTE | 2019-09-04 08:08 | CT_ITS ---
PROCEDURE: CT guided bone marrow biopsy of the posterior left iliac bone. DATE OF EXAMINATION: September 04, 2019. INDICATION: Male, 78 years old. Bae cytopenia. PHYSICIAN: Dr. Jeanine Reynoso RADIATION DOSAGE (If Supplied By Facility): CTDIvol = ( 17.5 ) mGy, DLP = ( 435.39 ) mGycm. Individualized dose optimization techniques were utilized. CONSENT: The risks, benefits including bleeding and infection and alternatives to the procedure were explained to the patient, and the patient agreed to the procedure and signed the consent. SEDATION: Conscious sedation was performed. The patient received 2 mg of Versed and 50 mcg of fentanyl intravenously. Conscious sedation was started on 9:32 AM and terminated at 9:47 AM. The patient was independently monitored by the department nurse. STERILE BARRIER TECHNIQUE: The following sterile barrier precautions were used during the procedure: hand hygiene; use of 2% chlorhexidine aseptic; use of a cap, mask, sterile gown, sterile gloves, sterile full body drape, and a large sterile sheet. PROCEDURE/TECHNIQUE: (All elements of maximal sterile barrier technique followed, including US elements as applicable) The risks, benefits, and alternatives to the procedure were explained to patient, and the patient agreed to the procedure and signed a consent form for the procedure. A timeout was performed to confirm the patient''s identity, the type of procedure, to be performed and the site of entry. The patient was in the prone position. The overlying skin was prepped and draped in usual sterile fashion. An 11-gauge bone marrow biopsy kit was utilized. A bone marrow aspirate and bone marrow biopsy of the posterior aspect of the left iliac bone was performed. The patient tolerated the procedure well. CT/Biopsy/Inj or Needle Placement IMPRESSION: Successful CT-guided bone marrow biopsy and aspirate of the posterior aspect of the left iliac bone. Electronically Signed: Harry Solorzano, at 10:22 EDT , Service support ,
[2019-09-04 08:50] LABS: Absolute Lymphocyte Count 0.74 X10^3/uL (0.83-4.51); Absolute Neutrophil Count 3.3 X10^3/uL (2.0-7.7); Basophil# 0.02 X10^3/uL; Basophil% 0.4 % (0-1); Eosinophil# 0.01 X10^3/uL; Eosinophils% 0.2 % (0-5); Hematocrit 31.8 % (40-54); Hemoglobin 10.1 g/dL (13.0-16.5); Lymphocyte # 0.74 X10^3/ul (4.0); Lymphocyte % 13.9 % (19-41); Mean Corp Hgb Conc 31.8 g/dL (32-36); Mean Corpuscular Volume 100.6 fL (80-94); Mean Platelet Vol. 12.3 fl (6.2-12.0); Monocyte# 1.22 X10^3/uL; Monocyte% 22.9 % (0-10); NRBC Flagged by Analyzer 0 % (0-5); Neutrophil # 3.27 X10^3/uL (2.7-7.7); Neutrophil % 61.3 % (47-70); POSITIVE COUNT YES; POSITIVE MORPHOLOGY YES; Platelet Count 75 K/mm3 (150-450); RBC Distribution Width CV 18.1 % (11.6-14.6); RBC Distribution Width SD 67.6 fl (35.1-43.9); Red Blood Count 3.16 M/mm3 (4.6-6.2); White Blood Count 5.3 K/mm3 (4.4-11.0)
[2019-09-04 08:52] LABS: Differential Indicated SCAN CRITERIA MET
[2019-09-04 09:07] LABS: International Normalized Ratio 1.3; Prothrombin Time (Protime)PT. 15.8 SECONDS (11.7-14.9)
[2019-09-04] MEDS: Midazolam 2 MG/2 ML Syringe IV (09:32)
[2019-09-04] MEDS: fentaNYL 100 MCG/2 ML Ampul IV (09:32)
[2019-09-04 10:14] LABS: Differential Comment SCANNED; Platelet Estimate MKD DEC (ADEQ)
[2019-09-04 10:15] LABS: Anisocytosis 2+
== END ==
PROVIDERS: PCP Family Medicine; Referring Provider Internal Medicine Hematology & Oncology; Visit Provider Internal Medicine Hematology & Oncology
DX: D64.9 Anemia, unspecified (principal); D50.9 Iron deficiency anemia, unspecified; D61.818 Other pancytopenia; Z79.899 Other long term (current) drug therapy; Z79.01 Long term (current) use of anticoagulants; D69.6 Thrombocytopenia, unspecified
CPT/HCPCS: 38221; 36415; 77012; 85025; 85610; 85730; 88305; 88311; 88313; 88341; 88342; 99156; J7040

== ENCOUNTER → 2019-09-14 10:38 | Outpatient (CLI) | payer MEDICARE, OTHER, SELFPAY ==
[2019-09-11 15:00] VITALS: BMI 22.2
[2019-09-14 12:29] LABS: Absolute Lymphocyte Count 0.72 X10^3/uL (0.83-4.51); Absolute Neutrophil Count 3.4 X10^3/uL (2.0-7.7); Basophil# 0.02 X10^3/uL; Basophil% 0.4 % (0-1); Eosinophil# 0.01 X10^3/uL; Eosinophils% 0.2 % (0-5); Hematocrit 29.9 % (40-54); Hemoglobin 9.4 g/dL (13.0-16.5); Lymphocyte # 0.72 X10^3/ul (4.0); Lymphocyte % 12.9 % (19-41); Mean Corp Hgb Conc 31.4 g/dL (32-36); Mean Corpuscular Hgb 32.1 pg (27.0-32.0); Mean Platelet Vol. 12.8 fl (6.2-12.0); Monocyte# 1.28 X10^3/uL; NRBC Flagged by Analyzer 0 % (0-5); Neutrophil # 3.44 X10^3/uL (2.7-7.7); Neutrophil % 61.9 % (47-70); POSITIVE COUNT YES; POSITIVE MORPHOLOGY YES; Platelet Count 74 K/mm3 (150-450); RBC Distribution Width CV 18.2 % (11.6-14.6); RBC Distribution Width SD 68.2 fl (35.1-43.9); Red Blood Count 2.93 M/mm3 (4.6-6.2); White Blood Count 5.6 K/mm3 (4.4-11.0)
[2019-09-14 12:34] LABS: Differential Indicated SCAN CRITERIA MET
[2019-09-14 12:58] LABS: Anisocytosis 2+; Macrocytosis 2+; Red Cell Morphology N CHROM NORMAL (NORM C&C)
[2019-09-14 13:06] LABS: Vitamin B12 > 2000 pg/mL (211-911)
[2019-09-14 13:09] LABS: Ferritin 90 ng/mL (26-388); Iron 65 ug/dL (65-175); Iron Binding Capacity,Total 314 ug/dL (250-450); PERCENT IRON SATURATION 20.7 % (15.0-55.0)
[2019-09-14 13:23] LABS: Anion Gap 10 (5-15); BUN 44 mg/dL (7-18); BUN/Creat Ratio 24.6 RATIO (10-20); Chloride 107 mmol/L (98-107); Creatinine, Serum 1.79 mg/dL (0.70-1.30); EST Glomerular Filtration Rate 39 mL/min (>60); Est Glom Filt Rate - Afr Amer 47 mL/min (>60); Glucose 103 mg/dL (74-106); Potassium 4.4 mmol/L (3.5-5.1); Sodium Level 138 mmol/L (136-145)
== END ==
PROVIDERS: Internal Medicine Hematology & Oncology; PCP Family Medicine; Visit Provider Family Medicine
DX: D64.9 Anemia, unspecified (principal); D61.818 Other pancytopenia; D50.9 Iron deficiency anemia, unspecified; N17.9 Acute kidney failure, unspecified
CPT/HCPCS: 36415; 80048; 82607; 82728; 82746; 83540; 83550; 85025; 86850; 86900; 86901

== ENCOUNTER 2019-10-22 09:23 | Day surgery (SDC) | payer MEDICARE, OTHER, SELFPAY ==
[2019-09-25 13:34] VITALS: BMI 22.3
[2019-10-16 15:19] VITALS: BMI 22.8
[2019-10-22] VITALS (9 sets, daily range): BP systolic 84–119; BP diastolic 49–70; PULSE 69–87; RESP 16; TEMP 36.1–36.8; O2SAT 93–98; BMI 22.6
--- NOTE | 2019-10-22 08:21 | PCM.HP.BLA ---
History and Physical Date of Admission: 10/22/19 HISTORY OF PRESENT ILLNESS 79 year old man presents with a soft tissue mass left lateral cheek by lateral lower eyelid that has increased in size over the last several months. He denies fever. He denies trauma. He denies any recent infection. He denies any visual problems. He presents at this time for further evaluation and treatment. PAST MEDICAL HISTORY HLD (hyperlipidemia) BPH (benign prostatic hyperplasia) Benign essential hypertension Peripheral neuropathy Varicosities of leg Functional gait abnormality Atrioventricular jose m re-entry tachycardia Arthritis Back problem Cataracts, bilateral Hearing problem History of pneumonia Osteoarthritis Vitamin deficiency Pressure ulcer of toe, stage 2 Skin ulcer of right great toe PAST SURGICAL HISTORY cataract extraction Foot surgery hernia repair carpal tunnel release ALLERGIES No Known Allergies MEDICATIONS Hydroxychloroquine [Plaquenil] Simvastatin [Zocor] Tamsulosin Pantoprazole Sodium [Protonix] FAMILY HISTORY Father - Myocardial infarction Brother - Myocardial infarction Mother - Pancreas cancer SOCIAL HISTORY Smoking Status: Former smoker quit date: 04/11/84 alcohol intake: current substance use type: does not use REVIEW OF SYSTEMS General - Denies fever, fatigue, and weight loss. Eyes - Has cataracts. Denies glaucoma. ENT - Denies nasal congestion and sore throat. Endocrine - Denies excessive thirst and urination. Skin - Denies skin cancer. Has enlarging soft tissue mass left lateral cheek by lateral lower eyelid. Musculoskeletal - Has joint pain, joint stiffness, and back pain. Denies weakness of muscles and joints and arthritis. Neuro - Denies headaches. Cardiovascular - Denies chest pain, fatigue, and shortness of breath with exertion. Psych - Denies anxiety and depression. Respiratory - Denies chronic cough and shortness of breath. Patient is a former smoker. Gastrointestinal - Denies nausea, vomiting, diarrhea, and constipation. Hematologic - Denies abnormal bruising and bleeding. Genitourinary - Denies hematuria. Has urinary frequency. PHYSICAL EXAMINATION General - Alert and Oriented HEENT - PERRL. EOMI. Throat is clear. On the left lateral cheek by the lateral lower eyelid is a soft tissue mass. Measures 8 mm. It is mobile. Nontender. No ulceration. No clinical evidence of infection. Denies cheek numbness. No other suspicious lesions noted. Neck - Supple and nontender. No cervical adenopathy. No suspicious lesions noted. Lungs - Clear to auscultation. Heart - Regular rate and rhythm. Abdomen - Soft and nondistended. Extremities - FROM. No axillary adenopathy. Radial pulses are palpable. No suspicious lesions noted. Neuro - CN II-XII grossly intact. Psych - Normal mood and affect. ASSESSMENT 1. 8 mm soft tissue mass left lateral cheek by lateral lower eyelid. 2. Former smoker. PLAN Recommend excision of this soft tissue mass and send the mass to Pathology for analysis to rule out carcinoma. The surgery is not urgent, but if the patient waits too long, there is the possibility (very low) that the mass becomes infected and can involve the eye due to its proximity. He will think about the surgery and let me know when he wants to proceed. Surgery would be done under local anesthesia and IV sedation on an outpatient basis.\Patient was informed of the risks and complications of the procedure including alternatives to surgery. These were discussed with the patient personally. Patient voices understanding and wishes to proceed. He will let us know when he wants to proceed with the surgery. Some of the risks and complications were included in a form from the [place] [employer]. We discussed the current risks associated with COVID-19. While it is understood that there is a community spread of COVID-19, the risk of akbar COVID-19 while at [facility] ([facility]) is very low; however, the risk cannot be completely mitigated because of the community spread of the disease. We discussed in detail the risk of exposure to and/or potential harm posed by the COVID-19 virus with having a surgery/procedure at this time versus the risk of delaying the surgery/procedure. It is not possible to know either the risk of delaying the surgery or procedure or chance of getting an infection with perfect accuracy, but a joint decision was made to proceed at this time with the scheduled surgery/procedure as indicated on the consent form. Patient was notified that we will need to comply with any screening or testing [facility] wishes to perform or that surgery may be delayed for any positive results. Discussed with the patient that I was tested for COVID-19 on 10/11/19. My test was negative. My testing regimen at this time is to be COVID-19 tested every 2 weeks or so. Procedure Criteria Procedure Type: Elective COVID Risk Discussion: The surgeon/proceduralist and patient have discussed in detail the risk of exposure to and/or potential harm posed by the COVID-19 virus with having a surgery/procedure at this time versus the risk of delaying the surgery/procedure. It is not possible to know either the risk of delaying the surgery or procedure or chance of getting an infection with perfect accuracy, but a joint decision was made between the patient and the surgeon/proceduralist to proceed at this time with the scheduled surgery/procedure as indicated on the consent form.
[2019-10-22] MEDS: Lactated Ringers 1,000 ML 100 ML IV (10:39)
--- NOTE | 2019-10-22 11:00 | LES_PTH ---
PATIENT: MICAH VELEZ LOC: [facility] U#:[id number] AGE/SX: 79/M ROOM: RE10/22/[address]: Dr. Sivakumar Mitchell MD : 1940 BED: DIS: 10/22/2019 SPEC #: [id number] RECD: 10/22/19 12:09 STATUS: CURT JENS #: [id number] BEN: 10/22/19 11:[address]: Sivakumar Mitchell DEPT: SURGICAL PATHOLOGY RECD BY: Miguel Jordan ENTERED: 10/23/19 07:59 SP TYPE: Lesion OTHR DR: Dr. Fred Clark, DO Tissues: Skin of face, NOS Procedures: Surgery Specimen Level IV HEADER OPERATION: Excision soft tissue mass, lateral cheek by lower lateral eye PRE-OP DIAGNOSIS: 8 mm soft tissue mass left lateral cheek by lateral lower eyelid TISSUE SUBMITTED: Lesion left lateral cheek MICROSCOPIC DIAGNOSIS Lesion left lateral cheek by lower lateral eye, excisional biopsy: Epidermal inclusion cyst. Mild actinic keratosis and extensive solar elastosis. KAT:janeth 10/24/19 MICROSCOPIC DESCRIPTION Slides are reviewed. GROSS DESCRIPTION Received in fixative is one container labeled with the patient's name and designated lesion left lateral cheek. The specimen consists of a piece of bates-white nodule measuring 0.7 x 0.5 x 0.5 cm. This piece is inked and bisected. Also present in the container are two pieces of bates-brown soft tissue measuring in aggregate 0.5 x 0.2 x 0.1 cm. The entire specimen is submitted in one cassette. / KAT:janeth 10/23/19 TC:5 CPT: 96936
[2019-10-22] MEDS: Mupirocin Ointment 22gm Tube 1 APPLIC (11:38)
--- NOTE | 2019-10-22 11:44 | OP.PCM_ITS ---
Report of Operation Date of Procedure: 10/22/19 Pre-Operative Diagnosis: 1. 8 mm soft tissue mass left lateral cheek by lateral lower eyelid. 2. Former smoker. Post-Operative Diagnosis: Same. Surgery/Procedure Performed:: Excision 8 mm soft tissue mass left lateral cheek by lateral lower eyelid with 1.2 cm layered closure. Description of Surgical Findings:: 79 year old man presents with a soft tissue mass left lateral cheek by lateral lower eyelid that has increased in size over the last several months. He denies fever. He denies trauma. He denies any recent infection. He denies any visual problems. Patient was informed of the risks and complications of the procedure including alternatives to surgery. These were discussed with the patient personally. Patient voices understanding and wishes to proceed. Some of the risks and complications were included in a form from the [place] [employer]. screedman: None Type of Anesthesia:: Local MAC - xylocaine with epinephrine and IV sedation. Specimen's removed: Soft tissue mass left lateral cheek by lateral lower eyelid to Pathology. . Drains: None. Estimated Blood Loss (mL): 2 ml. Description of Procedure: Patient was taken to OR in supine position and was given IV sedation. The left face was prepped and draped in the usual fashion. SCD's were placed for DVT prophylaxis. Perioperative antibiotics were given intravenously. For the procedure, I wore an N95 mask and wore proper eye protection. The soft tissue mass left lateral cheek by lateral lower eyelid was infiltrated with xylocaine and epinephrine. After waiting 5 minutes for the anesthetic to take effect, I made an oblique incision over the soft tissue mass and dissected into the subcutaneous tissue. Some surrounding scar tissue was also excised. The mass was adherent to the underlying facial musculature and dissected free. The mass was sent to Pathology for analysis to rule out carcinoma. Hemostasis was obtained with electrocautery. The wound was irrigated with saline. Some additional skin was excised over the mass as it was adherent to to the mass. I was able to close the wound primarily without resorting to a local skin flap. The deep dermis and subcutaneous tissue was approximated with 5-0 Monocryl interrupted sutures. The skin was approximated with 6-0 Prolene simple interrupted sutures. The length of the layered closure was 1.2 cm. Steri- strips were applied followed by antibiotic ointment and a small 2x2 gauze compression dressing. Patient tolerated the procedure well and was sent to PACU in satisfactory condition. Patient will be sent home on antibiotics and pain medication. He will keep his head elevated during the initial postoperative period. Patient will followup in a week for a wound check and for discussion of the pathology report and for removal of the sutures. Grafts/Implants Used: None. - Complications None. - Admit VTE Documentation VTE Present on Admission: No VTE Mechan Device Prophylaxis: SCD's VTE Pharm Prophylaxis ordered?: No Surgery Charges CPT - 38802 ICD-10 - R22.0, Z87.891
--- NOTE | 2019-10-22 11:51 | PCM.DC ---
You will use the following diet at home:: No restrictions Discharge Activity: May not drive while taking narcotic pain medications., May Shower - in two days., - - keep head elevated. no heavy lifting. May shower in (days): 2 May resume sexual activity in: No Restrictions Ice area for (Minutes): 5 - as needed for facial swelling. Weight Bearing Status: Weight bearing as tolerated Lifting Restrictions: 10 lbs. Keep extremity elevated above heart level: - - elevate head. Call your doctor if your incision/area has: Continuous Slow Oozing, Sudden Increased Bleeding, Increased Pain/ Swelling, Increased Redness, Foul Smelling Discharge, Swelling at the incision site Call your doctor if you observe: Fever of 101 or Higher, Coldness, Increased Pain, Shortness of breath, Chest pain, Calf discomfort, Uncontrolled pain Suture Line Care: - - apply antibiotic ointment to suture line daily after the operative dressing removed. Remove Dressing in (days):: 2 - may remove operative dressing in two days. Cleanse incision/area with: - - may get incision wet in the shower in two days. Allergies/Adverse Reactions: Allergies tramadol [From Ultra] Adverse Reaction (Intermediate, Verified 10/22/19 10:15) PT UNSURE OF REACTION light headedness Medications to take at Discharge Hydroxychloroquine [Plaquenil] 200 mg PO QHS 04/18/13 Simvastatin [Zocor] 80 mg PO QHS 04/18/13 Tamsulosin HCl 0.4 mg PO DAILY 04/18/13 Amlodipine [Norvasc] 10 mg PO DAILY 09/18/19 Benazepril HCl [Lotensin] 20 mg PO DAILY 09/18/19 Clindamycin HCl [Cleocin] 300 mg PO TID #15 cap 10/22/19 Lactobacillus Acidophilus/Fos [Acidophilus Probiotic Tablet] 1 ea PO BID #10 tab 10/22/19 Oxycodone HCl/Acetaminophen [Percocet 5/325] 1 tablet PO Q6H PRN PRN 4 Days #16 tablet 10/22/19 The following prescriptions were given: Lactobacillus Acidophilus/Fos [Acidophilus Probiotic Tablet] 1 ea PO BID #10 tab Transmission Status: Pending to [facility] Clindamycin HCl [Cleocin] 300 mg PO TID #15 cap Transmission Status: Pending to [facility] Oxycodone HCl/Acetaminophen [Percocet 5/325] 1 tablet PO Q6H PRN PRN 4 Days #16 tablet PRN Reason: Pain Score 4-5/10 Transmission Status: Sent to [facility] Primary Care Physician: Fred Clark DO [Primary Care Provider] - Test Results: Test results from this visit will be discussed in further detail at your follow-up appointment, if applicable. Please Follow Up With: Sivakumar Mitchell MD When: one week. call [phone] for appt. Proposed Discharge Date: 10/22/19
== END 2019-10-22 13:20 | disposition home or self-care (01) ==
LOC: SDC 09:24 → AC 09:25
PROVIDERS: Anesthesiology; PCP Family Medicine; Referring Provider Surgery; Visit Provider Surgery
PROC: (CPT 21011; principal; 2019-10-22 10:50)
DX: L72.0 Epidermal cyst (principal); Z11.59 Encounter for screening for other viral diseases; E78.5 Hyperlipidemia, unspecified; N40.0 Benign prostatic hyperplasia without lower urinary tract symptoms; I10 Essential (primary) hypertension; G62.9 Polyneuropathy, unspecified; M19.90 Unspecified osteoarthritis, unspecified site; Z87.891 Personal history of nicotine dependence; Z79.899 Other long term (current) drug therapy
CPT/HCPCS: 00300; 21011; 87635; 88305; J7120; U0003

== ENCOUNTER → 2020-01-30 10:32 | Outpatient (CLI) | payer MEDICARE, OTHER, SELFPAY ==
[2020-01-03 13:10] VITALS: BMI 22.8
--- NOTE | 2020-01-30 10:35 | RAD_ITS ---
STUDY: X-RAY RIGHT FOOT, FIRST TOE REASON FOR EXAM: Male, 79 years old. CELLULITIS, SWELLING, OPEN SORE ON PAD OF TOE.. TECHNIQUE: 3 view(s) of the toe were obtained. COMPARISON: 01/19/2017. FINDINGS: Normal visualized metatarsus. Normal metatarsophalangeal (M.T.P) joint. Normal phalanges and interphalangeal joint. There is soft tissue swelling. RAD/Toe(s) Min 2 Views IMPRESSION: No demonstrated fracture, dislocation, or destructive osseous lesion. Electronically Signed: Damion Armas MD at 6:45 EDT , Service support ,
[2020-01-30 12:39] LABS: CRP < 2.90 mg/L (0.0-3.0)
[2020-01-30 12:55] LABS: Hematocrit 37.6 % (40-54); Hemoglobin 11.6 g/dL (13.0-16.5); Mean Corp Hgb Conc 30.9 g/dL (32-36); Mean Corpuscular Hgb 31.5 pg (27.0-32.0); Mean Corpuscular Volume 102.2 fL (80-94); Mean Platelet Vol. 12.4 fl (6.2-12.0); POSITIVE COUNT YES; Platelet Count 53 K/mm3 (150-450); RBC Distribution Width CV 15.5 % (11.6-14.6); RBC Distribution Width SD 59.1 fl (35.1-43.9); Red Blood Count 3.68 M/mm3 (4.6-6.2); White Blood Count 6.5 K/mm3 (4.4-11.0)
[2020-01-30 13:10] LABS: Scan Indicated on CBC? Y/N YES- FLAGS NOTED
[2020-01-30 14:06] LABS: Erythrocyte Sedimentation Rate 8 mm/hr (0-20)
== END ==
PROVIDERS: PCP Family Medicine; Referring Provider Family Medicine; Visit Provider Family Medicine
DX: L03.031 Cellulitis of right toe (principal)
CPT/HCPCS: 36415; 73660; 85027; 85652; 86140

== ENCOUNTER → 2020-02-14 12:08 | Outpatient (CLI) | payer MEDICARE, OTHER, SELFPAY ==
[2020-01-03 13:10] VITALS: BMI 22.8
[2020-02-14 15:24] LABS: Absolute Lymphocyte Count 0.71 X10^3/uL (0.83-4.51); Absolute Neutrophil Count 3.4 X10^3/uL (2.0-7.7); Basophil# 0.02 X10^3/uL; Basophil% 0.4 % (0-1); Eosinophil# 0.02 X10^3/uL; Eosinophils% 0.4 % (0-5); Hemoglobin 11.1 g/dL (13.0-16.5); Lymphocyte # 0.71 X10^3/ul (4.0); Lymphocyte % 13.1 % (19-41); Mean Corpuscular Hgb 31.1 pg (27.0-32.0); Mean Corpuscular Volume 103.6 fL (80-94); Mean Platelet Vol. 12.6 fl (6.2-12.0); Monocyte# 1.26 X10^3/uL; Monocyte% 23.2 % (0-10); NRBC Flagged by Analyzer 0 % (0-5); Neutrophil % 62.5 % (47-70); POSITIVE COUNT YES; Platelet Count 59 K/mm3 (150-450); RBC Distribution Width CV 15.9 % (11.6-14.6); RBC Distribution Width SD 61.3 fl (35.1-43.9); Red Blood Count 3.57 M/mm3 (4.6-6.2); White Blood Count 5.4 K/mm3 (4.4-11.0)
[2020-02-14 15:26] LABS: Differential Indicated SCAN CRITERIA MET
[2020-02-14 16:13] LABS: ALB/GLOB Ratio 1.2 RATIO (0.9-2.4); AST(SGOT) 27 U/L (15-37); Alanine Aminotransfer ALT/SGPT 28 U/L (16-61); Albumin, Serum 4.1 g/dL (3.2-5.0); Alkaline Phosphatase 48 U/L (45-117); Anion Gap 7 (5-15); BUN 27 mg/dL (7-18); BUN/Creat Ratio 14.2 RATIO (10-20); Calcium,Total 8.5 mg/dL (8.5-10.1); Chloride 108 mmol/L (98-107); EST Glomerular Filtration Rate 37 mL/min (>60); Est Glom Filt Rate - Afr Amer 44 mL/min (>60); Globulin 3.5 g/dL (2.2-4.2); Glucose 81 mg/dL (74-106); Potassium 4.9 mmol/L (3.5-5.1); Protein, Total 7.6 g/dL (6.4-8.2); Sodium Level 136 mmol/L (136-145)
[2020-02-14 16:20] LABS: Platelet Estimate MKD DEC (ADEQ); Platelet Morphology LARGE
[2020-02-15 13:23] LABS: Pathologist Review Reviewed
== END ==
PROVIDERS: PCP Family Medicine; Referring Provider Internal Medicine Rheumatology; Visit Provider Internal Medicine Rheumatology
DX: M06.4 Inflammatory polyarthropathy (principal); I10 Essential (primary) hypertension; E78.5 Hyperlipidemia, unspecified; N40.0 Benign prostatic hyperplasia without lower urinary tract symptoms
CPT/HCPCS: 36415; 80053; 85025

== ENCOUNTER 2020-05-28 16:51 | Outpatient (RCR) | payer MEDICARE, OTHER, SELFPAY ==
[2020-05-21 13:48] VITALS: BMI 21.8
== END 2020-05-28 23:59 ==
LOC: IMMUN 16:51
PROVIDERS: PCP Family Medicine; Referring Provider Family Medicine; Visit Provider Family Medicine
DX: Z23 Encounter for immunization (principal)
CPT/HCPCS: 0011A; 0012A; 91301

== ENCOUNTER → 2020-08-08 10:29 | Outpatient (CLI) | payer MEDICARE, OTHER, SELFPAY ==
[2020-07-10 14:04] VITALS: BMI 23.5
[2020-08-08 12:37] LABS: Absolute Lymphocyte Count 0.56 X10^3/uL (0.83-4.51); Absolute Neutrophil Count 2.2 X10^3/uL (2.0-7.7); Basophil# 0.01 X10^3/uL; Basophil% 0.3 % (0-1); Eosinophil# 0.02 X10^3/uL; Eosinophils% 0.5 % (0-5); Hematocrit 40.2 % (40-54); Hemoglobin 12.5 g/dL (13.0-16.5); Lymphocyte # 0.56 X10^3/ul (0.83-4.51); Lymphocyte % 14.2 % (19-41); Mean Corp Hgb Conc 31.1 g/dL (32-36); Mean Corpuscular Volume 99.8 fL (80-94); Mean Platelet Vol. 12.8 fl (6.2-12.0); Monocyte% 27.9 % (0-10); NRBC Flagged by Analyzer 0 % (0-5); Neutrophil # 2.22 X10^3/uL (2.7-7.7); Neutrophil % 56.3 % (47-70); POSITIVE COUNT YES; POSITIVE DIFFERENTIAL YES; Platelet Count 59 K/mm3 (150-450); RBC Distribution Width CV 15.7 % (11.6-14.6); RBC Distribution Width SD 57.4 fl (35.1-43.9); Red Blood Count 4.03 M/mm3 (4.6-6.2); White Blood Count 3.9 K/mm3 (4.4-11.0)
[2020-08-08 12:42] LABS: Differential Indicated SCAN CRITERIA MET
[2020-08-08 12:55] LABS: ALB/GLOB Ratio 1.1 RATIO (0.9-2.4); AST(SGOT) 20 U/L (15-37); Alanine Aminotransfer ALT/SGPT 22 U/L (16-61); Albumin, Serum 3.8 g/dL (3.2-5.0); Alkaline Phosphatase 54 U/L (45-117); Anion Gap 6 (5-15); BUN 19 mg/dL (7-18); BUN/Creat Ratio 16.7 RATIO (10-20); Calcium,Total 8.7 mg/dL (8.5-10.1); Chloride 109 mmol/L (98-107); Creatinine, Serum 1.14 mg/dL (0.70-1.30); EST Glomerular Filtration Rate 66 mL/min (>60); Est Glom Filt Rate - Afr Amer 80 mL/min (>60); Globulin 3.6 g/dL (2.2-4.2); Glucose 114 mg/dL (74-106); Potassium 3.6 mmol/L (3.5-5.1); Protein, Total 7.4 g/dL (6.4-8.2); Sodium Level 140 mmol/L (136-145)
[2020-08-08 13:18] LABS: Platelet Estimate MOD DEC (ADEQ)
[2020-08-11 13:35] LABS: Pathologist Review Reviewed
== END ==
PROVIDERS: PCP Family Medicine; Referring Provider Internal Medicine Rheumatology; Visit Provider Internal Medicine Rheumatology
DX: M06.4 Inflammatory polyarthropathy (principal); I10 Essential (primary) hypertension; E78.5 Hyperlipidemia, unspecified; N40.0 Benign prostatic hyperplasia without lower urinary tract symptoms
CPT/HCPCS: 36415; 80053; 85025

== ENCOUNTER → 2020-12-09 09:17 | Outpatient (CLI) | payer MEDICARE, OTHER, SELFPAY ==
[2020-12-09 09:37] LABS: Absolute Lymphocyte Count 0.58 X10^3/uL (0.83-4.51); Absolute Neutrophil Count 3.6 X10^3/uL (2.0-7.7); Basophil# 0.02 X10^3/uL; Basophil% 0.3 % (0-1); Eosinophil# 0.04 X10^3/uL; Eosinophils% 0.7 % (0-5); Hematocrit 40.2 % (40-54); Hemoglobin 12.7 g/dL (13.0-16.5); Lymphocyte # 0.58 X10^3/ul (0.83-4.51); Lymphocyte % 10.1 % (19-41); Mean Corp Hgb Conc 31.6 g/dL (32-36); Mean Corpuscular Hgb 31.8 pg (27.0-32.0); Mean Corpuscular Volume 100.5 fL (80-94); Mean Platelet Vol. 11.9 fl (6.2-12.0); Monocyte# 1.41 X10^3/uL; Monocyte% 24.5 % (0-10); NRBC Flagged by Analyzer 0 % (0-5); Neutrophil # 3.62 X10^3/uL (2.7-7.7); POSITIVE COUNT YES; POSITIVE DIFFERENTIAL YES; Platelet Count 66 K/mm3 (150-450); RBC Distribution Width CV 15.7 % (11.6-14.6); RBC Distribution Width SD 58.4 fl (35.1-43.9); White Blood Count 5.8 K/mm3 (4.4-11.0)
[2020-12-09 09:41] LABS: Differential Indicated SCAN CRITERIA MET
[2020-12-09 10:04] LABS: Platelet Estimate MKD DEC (ADEQ); Platelet Morphology LARGE
== END ==
PROVIDERS: PCP Family Medicine; Referring Provider Nurse Practitioner Family; Visit Provider Nurse Practitioner Family
DX: M51.37 Other intervertebral disc degeneration, lumbosacral region (principal)
CPT/HCPCS: 36415; 85025

== ENCOUNTER → 2021-01-26 10:56 | Outpatient (CLI) | payer MEDICARE, OTHER, SELFPAY ==
[2021-01-26 11:14] LABS: Absolute Lymphocyte Count 0.48 X10^3/uL (0.83-4.51); Absolute Neutrophil Count 3.1 X10^3/uL (2.0-7.7); Basophil# 0.03 X10^3/uL; Basophil% 0.6 % (0-1); Eosinophil# 0.01 X10^3/uL; Eosinophils% 0.2 % (0-5); Hematocrit 39.2 % (40-54); Hemoglobin 12.3 g/dL (13.0-16.5); Lymphocyte # 0.48 X10^3/ul (0.83-4.51); Lymphocyte % 10.2 % (19-41); Mean Corp Hgb Conc 31.4 g/dL (32-36); Mean Corpuscular Hgb 32.5 pg (27.0-32.0); Mean Corpuscular Volume 103.4 fL (80-94); Mean Platelet Vol. 12.3 fl (6.2-12.0); Monocyte# 1.01 X10^3/uL; Monocyte% 21.5 % (0-10); NRBC Flagged by Analyzer 0 % (0-5); Neutrophil # 3.12 X10^3/uL (2.7-7.7); Neutrophil % 66.4 % (47-70); POSITIVE COUNT YES; POSITIVE DIFFERENTIAL YES; Platelet Count 50 K/mm3 (150-450); RBC Distribution Width CV 16.1 % (11.6-14.6); RBC Distribution Width SD 62.2 fl (35.1-43.9); Red Blood Count 3.79 M/mm3 (4.6-6.2); White Blood Count 4.7 K/mm3 (4.4-11.0)
[2021-01-26 11:18] LABS: Differential Indicated SCAN CRITERIA MET
[2021-01-26 11:53] LABS: Platelet Estimate MKD DEC (ADEQ); Red Cell Morphology NORM C+C NORMAL (NORM C&C)
[2021-01-26 19:07] LABS: Xtra Tube EP Lab EXTRA TUBE
== END ==
PROVIDERS: PCP Family Medicine; Referring Provider Nurse Practitioner Family; Visit Provider Nurse Practitioner Family
DX: M51.37 Other intervertebral disc degeneration, lumbosacral region (principal)
CPT/HCPCS: 36415; 85025

== ENCOUNTER → 2021-02-03 12:12 | Outpatient (CLI) | payer MEDICARE, OTHER, SELFPAY ==
[2021-02-03 15:16] LABS: Absolute Lymphocyte Count 0.64 X10^3/uL (0.83-4.51); Absolute Neutrophil Count 3.9 X10^3/uL (2.0-7.7); Basophil# 0.03 X10^3/uL; Basophil% 0.5 % (0-1); Eosinophil# 0.02 X10^3/uL; Eosinophils% 0.3 % (0-5); Hematocrit 39.9 % (40-54); Hemoglobin 12.6 g/dL (13.0-16.5); Lymphocyte # 0.64 X10^3/ul (0.83-4.51); Lymphocyte % 10.7 % (19-41); Mean Corp Hgb Conc 31.6 g/dL (32-36); Mean Corpuscular Hgb 32.6 pg (27.0-32.0); Mean Corpuscular Volume 103.1 fL (80-94); Mean Platelet Vol. 12.8 fl (6.2-12.0); Monocyte# 1.32 X10^3/uL; Monocyte% 22.1 % (0-10); NRBC Flagged by Analyzer 0 % (0-5); Neutrophil # 3.89 X10^3/uL (2.7-7.7); Neutrophil % 65.1 % (47-70); POSITIVE COUNT YES; Platelet Count 71 K/mm3 (150-450); RBC Distribution Width CV 16.1 % (11.6-14.6); RBC Distribution Width SD 60.9 fl (35.1-43.9); Red Blood Count 3.87 M/mm3 (4.6-6.2)
[2021-02-03 15:31] LABS: AST(SGOT) 18 U/L (15-37); Alanine Aminotransfer ALT/SGPT 25 U/L (16-61); Albumin, Serum 3.9 g/dL (3.2-5.0); Alkaline Phosphatase 51 U/L (45-117); Anion Gap 9 (5-15); BUN 25 mg/dL (7-18); BUN/Creat Ratio 22.3 RATIO (10-20); Calcium,Total 8.8 mg/dL (8.5-10.1); Chloride 106 mmol/L (98-107); Creatinine, Serum 1.12 mg/dL (0.70-1.30); EST Glomerular Filtration Rate 67 mL/min (>60); Est Glom Filt Rate - Afr Amer 81 mL/min (>60); Globulin 3.8 g/dL (2.2-4.2); Glucose 91 mg/dL (74-106); Potassium 3.6 mmol/L (3.5-5.1); Protein, Total 7.7 g/dL (6.4-8.2); Sodium Level 141 mmol/L (136-145)
[2021-02-03 15:51] LABS: Differential Indicated SCAN CRITERIA MET
[2021-02-03 15:57] LABS: Anisocytosis 1+; Macrocytosis 1+; Platelet Estimate MOD DEC (ADEQ); Platelet Morphology LARGE; Red Cell Morphology N CHROM NORMAL (NORM C&C)
== END ==
PROVIDERS: PCP Family Medicine; Referring Provider Internal Medicine Rheumatology; Visit Provider Internal Medicine Rheumatology
DX: M06.4 Inflammatory polyarthropathy (principal); I10 Essential (primary) hypertension; E78.5 Hyperlipidemia, unspecified; N40.0 Benign prostatic hyperplasia without lower urinary tract symptoms; Z79.899 Other long term (current) drug therapy
CPT/HCPCS: 36415; 80053; 85025

== ENCOUNTER 2021-04-17 12:52 | Outpatient (CLI) | payer MEDICARE, OTHER, SELFPAY ==
[2021-04-17 13:14] LABS: Absolute Lymphocyte Count 0.61 X10^3/uL (0.83-4.51); Basophil# 0.01 X10^3/uL; Eosinophil# 0.01 X10^3/uL; Hematocrit 37.4 % (40-54); Hemoglobin 11.9 g/dL (13.0-16.5); Lymphocyte # 0.61 X10^3/ul (0.83-4.51); Mean Corp Hgb Conc 31.8 g/dL (32-36); Mean Corpuscular Hgb 31.2 pg (27.0-32.0); Mean Corpuscular Volume 98.2 fL (80-94); Mean Platelet Vol. 11.8 fl (6.2-12.0); Monocyte# 2.03 X10^3/uL; NRBC Flagged by Analyzer 0 % (0-5); Neutrophil # 2.95 X10^3/uL (2.7-7.7); POSITIVE COUNT YES; POSITIVE DIFFERENTIAL YES; Platelet Count 56 K/mm3 (150-450); RBC Distribution Width CV 14.7 % (11.6-14.6); RBC Distribution Width SD 53.4 fl (35.1-43.9); Red Blood Count 3.81 M/mm3 (4.6-6.2); White Blood Count 5.7 K/mm3 (4.4-11.0)
[2021-04-17 13:34] LABS: Differential Indicated SCAN CRITERIA MET
== END 2021-04-17 23:59 | disposition short-term general hospital (02) ==
LOC: PAVLAB 12:54
PROVIDERS: PCP Family Medicine; Referring Provider Nurse Practitioner Family; Visit Provider Nurse Practitioner Family
DX: M51.37 Other intervertebral disc degeneration, lumbosacral region (principal)
CPT/HCPCS: 36415; 85025

== ENCOUNTER 2021-06-08 10:58 | Outpatient (CLI) | payer MEDICARE, OTHER, SELFPAY ==
--- NOTE | 2021-06-08 11:30 | MRI_ITS ---
History: LBP, right hip pain Technique: T1 and T2 MR imaging of the lumbar spine performed without contrast enhancement in axial and sagittal planes. Findings: Alignment of the vertebral bodies is normal. No bone marrow edema. Multilevel hypertrophic disc degeneration. Conus medullaris and cauda equina are normal. L1-2: No disc protrusion. Posterior ligamentous redundancy without significant spinal stenosis. Bilateral neural foraminal narrowing related to facet arthropathy. L2-3: Prominent disc space narrowing and vertebral body hypertrophy. Posterior ligamentous redundancy and facet arthropathy results in mild spinal stenosis and moderate bilateral neural foraminal narrowing. L3-4: Moderate to severe spinal stenosis secondary to disc protrusion and posterior ligamentous hypertrophy. Marked right and moderate left neural foraminal narrowing related to vertebral body hypertrophy and facet arthropathy. L4-5: Marked spinal stenosis secondary to disc protrusion marked posterior ligamentous redundancy and thickening and facet arthropathy. Severe right and moderate left neuroforaminal narrowing. L5-S1: Mild disc bulging and posterior ligamentous redundancy without significant impression on the thecal sac. Moderate bilateral neural foraminal narrowing. IMPRESSION: Significant spinal stenosis at the L3-4 and L4-5 levels related to disc protrusion, ligamentous redundancy and facet arthropathy. Multilevel neural foraminal narrowing. at 1420 Reported and signed by: Thomas Gil MD Electronically Signed: Thomas Gil MD at 14:19 EST , MRI/Spine Lumbar (Routine)
== END 2021-06-08 23:59 | disposition home or self-care (01) ==
LOC: MRI 10:58
PROVIDERS: PCP Family Medicine; Visit Provider Family Medicine
DX: M51.36 Other intervertebral disc degeneration, lumbar region (principal)
CPT/HCPCS: 72148

== ENCOUNTER → 2021-08-17 | Outpatient (CLI) | payer MEDICARE, OTHER, SELFPAY ==
[2021-08-17 15:26] LABS: Absolute Lymphocyte Count 0.59 X10^3/uL (0.83-4.51); Absolute Neutrophil Count 3.7 X10^3/uL (2.0-7.7); Basophil# 0.03 X10^3/uL; Basophil% 0.5 % (0-1); Eosinophil# 0.01 X10^3/uL; Eosinophils% 0.2 % (0-5); Hematocrit 38.3 % (40-54); Hemoglobin 11.9 g/dL (13.0-16.5); Lymphocyte # 0.59 X10^3/ul (0.83-4.51); Lymphocyte % 9.6 % (19-41); Mean Corp Hgb Conc 31.1 g/dL (32-36); Mean Corpuscular Hgb 31.6 pg (27.0-32.0); Mean Corpuscular Volume 101.9 fL (80-94); Mean Platelet Vol. 12.9 fl (6.2-12.0); Monocyte# 1.81 X10^3/uL; Monocyte% 29.5 % (0-10); NRBC Flagged by Analyzer 0 % (0-5); Neutrophil # 3.68 X10^3/uL (2.7-7.7); Neutrophil % 59.9 % (47-70); POSITIVE COUNT YES; POSITIVE DIFFERENTIAL YES; Platelet Count 48 K/mm3 (150-450); RBC Distribution Width CV 14.7 % (11.6-14.6); Red Blood Count 3.76 M/mm3 (4.6-6.2); White Blood Count 6.1 K/mm3 (4.4-11.0)
[2021-08-17 15:43] LABS: ALB/GLOB Ratio 1.1 RATIO (0.9-2.4); AST(SGOT) 19 U/L (15-37); Alanine Aminotransfer ALT/SGPT 18 U/L (16-61); Alkaline Phosphatase 49 U/L (45-117); Anion Gap 6 (5-15); BUN 29 mg/dL (7-18); BUN/Creat Ratio 21.3 RATIO (10-20); Chloride 111 mmol/L (98-107); Creatinine, Serum 1.36 mg/dL (0.70-1.30); EST Glomerular Filtration Rate 54 mL/min (>60); Est Glom Filt Rate - Afr Amer 65 mL/min (>60); Globulin 3.6 g/dL (2.2-4.2); Glucose 93 mg/dL (74-106); Potassium 4.3 mmol/L (3.5-5.1); Protein, Total 7.6 g/dL (6.4-8.2); Sodium Level 140 mmol/L (136-145)
[2021-08-17 16:22] LABS: Differential Indicated SCAN CRITERIA MET
[2021-08-18 11:28] LABS: Pathologist Review Reviewed
== END | disposition home or self-care (01) ==
LOC: MTLAB 13:52
PROVIDERS: PCP Family Medicine; Referring Provider Internal Medicine Rheumatology; Visit Provider Internal Medicine Rheumatology
DX: M06.4 Inflammatory polyarthropathy (principal); D46.1 Refractory anemia with ring sideroblasts; I10 Essential (primary) hypertension; E78.5 Hyperlipidemia, unspecified; N40.0 Benign prostatic hyperplasia without lower urinary tract symptoms; D50.9 Iron deficiency anemia, unspecified; Z79.899 Other long term (current) drug therapy
CPT/HCPCS: 36415; 80053; 85025

== ENCOUNTER → 2021-09-11 | Outpatient (CLI) | payer MEDICARE, OTHER, SELFPAY ==
[2021-09-11 15:57] LABS: Absolute Lymphocyte Count 0.53 X10^3/uL (0.83-4.51); Absolute Neutrophil Count 3.6 X10^3/uL (2.0-7.7); Basophil# 0.02 X10^3/uL; Basophil% 0.3 % (0-1); Eosinophil# 0.01 X10^3/uL; Eosinophils% 0.2 % (0-5); Hematocrit 39.6 % (40-54); Hemoglobin 12.5 g/dL (13.0-16.5); Lymphocyte # 0.53 X10^3/ul (0.83-4.51); Lymphocyte % 9.3 % (19-41); Mean Corp Hgb Conc 31.6 g/dL (32-36); Mean Corpuscular Volume 101.3 fL (80-94); Mean Platelet Vol. 12.8 fl (6.2-12.0); Monocyte# 1.54 X10^3/uL; Monocyte% 26.9 % (0-10); NRBC Flagged by Analyzer 0 % (0-5); Neutrophil # 3.59 X10^3/uL (2.7-7.7); Neutrophil % 62.8 % (47-70); POSITIVE COUNT YES; POSITIVE DIFFERENTIAL YES; Platelet Count 51 K/mm3 (150-450); RBC Distribution Width CV 14.8 % (11.6-14.6); RBC Distribution Width SD 55.5 fl (35.1-43.9); Red Blood Count 3.91 M/mm3 (4.6-6.2); White Blood Count 5.7 K/mm3 (4.4-11.0)
[2021-09-11 15:58] LABS: Ferritin 135 ng/mL (26-388); Iron 46 ug/dL (65-175); Iron Binding Capacity,Total 249 ug/dL (250-450); PERCENT IRON SATURATION 18.5 % (15.0-55.0)
[2021-09-11 16:04] LABS: Differential Indicated SCAN CRITERIA MET
[2021-09-11 17:22] LABS: Platelet Estimate MKD DEC (ADEQ); Red Cell Morphology NORM C+C NORMAL (NORM C&C)
== END | disposition home or self-care (01) ==
LOC: MTLAB 11:23
PROVIDERS: PCP Family Medicine; Referring Provider Internal Medicine Hematology & Oncology; Visit Provider Internal Medicine Hematology & Oncology
DX: D50.0 Iron deficiency anemia secondary to blood loss (chronic) (principal); D61.818 Other pancytopenia
CPT/HCPCS: 36415; 82728; 83540; 83550; 85025

== ENCOUNTER → 2021-09-22 | Outpatient (CLI) | payer MEDICARE, OTHER, SELFPAY ==
[2021-09-22 15:43] LABS: Absolute Lymphocyte Count 0.59 X10^3/uL (0.83-4.51); Absolute Neutrophil Count 3.1 X10^3/uL (2.0-7.7); Basophil# 0.02 X10^3/uL; Basophil% 0.4 % (0-1); Eosinophil# 0.01 X10^3/uL; Eosinophils% 0.2 % (0-5); Hematocrit 39.1 % (40-54); Hemoglobin 12.4 g/dL (13.0-16.5); Lymphocyte # 0.59 X10^3/ul (0.83-4.51); Lymphocyte % 11.1 % (19-41); Mean Corp Hgb Conc 31.7 g/dL (32-36); Mean Corpuscular Hgb 31.9 pg (27.0-32.0); Mean Corpuscular Volume 100.5 fL (80-94); Mean Platelet Vol. 12.9 fl (6.2-12.0); Monocyte# 1.61 X10^3/uL; Monocyte% 30.3 % (0-10); NRBC Flagged by Analyzer 0 % (0-5); Neutrophil # 3.05 X10^3/uL (2.7-7.7); Neutrophil % 57.4 % (47-70); POSITIVE COUNT YES; POSITIVE DIFFERENTIAL YES; Platelet Count 51 K/mm3 (150-450); RBC Distribution Width CV 14.6 % (11.6-14.6); RBC Distribution Width SD 54.4 fl (35.1-43.9); Red Blood Count 3.89 M/mm3 (4.6-6.2); White Blood Count 5.3 K/mm3 (4.4-11.0)
[2021-09-22 16:14] LABS: Differential Indicated SCAN CRITERIA MET
[2021-09-22 16:37] LABS: Anisocytosis 1+; Differential Comment SEE COMMENTS; Macrocytosis 1+; Platelet Estimate MKD DEC (ADEQ); Red Cell Morphology N CHROM NORMAL (NORM C&C)
[2021-09-22 16:52] LABS: ALB/GLOB Ratio 1.1 RATIO (0.9-2.4); AST(SGOT) 22 U/L (15-37); Alanine Aminotransfer ALT/SGPT 19 U/L (16-61); Albumin, Serum 3.9 g/dL (3.2-5.0); Alkaline Phosphatase 45 U/L (45-117); Anion Gap 5 (5-15); BUN 18 mg/dL (7-18); BUN/Creat Ratio 16.2 RATIO (10-20); Calcium,Total 8.9 mg/dL (8.5-10.1); Chloride 110 mmol/L (98-107); Creatinine, Serum 1.11 mg/dL (0.70-1.30); EST Glomerular Filtration Rate 68 mL/min (>60); Est Glom Filt Rate - Afr Amer 82 mL/min (>60); Globulin 3.6 g/dL (2.2-4.2); Glucose 92 mg/dL (74-106); Potassium 3.7 mmol/L (3.5-5.1); Protein, Total 7.5 g/dL (6.4-8.2); Sodium Level 140 mmol/L (136-145)
== END | disposition home or self-care (01) ==
PROVIDERS: PCP Family Medicine; Referring Provider Internal Medicine Rheumatology; Visit Provider Internal Medicine Rheumatology
DX: M06.4 Inflammatory polyarthropathy (principal); D46.1 Refractory anemia with ring sideroblasts; I10 Essential (primary) hypertension; E78.5 Hyperlipidemia, unspecified; N40.0 Benign prostatic hyperplasia without lower urinary tract symptoms; D50.9 Iron deficiency anemia, unspecified; Z79.899 Other long term (current) drug therapy
CPT/HCPCS: 36415; 80053; 85025

== ENCOUNTER → 2021-12-17 | Outpatient (CLI) | payer MEDICARE, OTHER, SELFPAY ==
[2021-12-17 11:08] LABS: Absolute Lymphocyte Count 0.53 X10^3/uL (0.83-4.51); Absolute Neutrophil Count 3.1 X10^3/uL (2.0-7.7); Basophil# 0.01 X10^3/uL; Basophil% 0.2 % (0-1); Eosinophil# 0.01 X10^3/uL; Eosinophils% 0.2 % (0-5); Hematocrit 36.5 % (40-54); Hemoglobin 11.4 g/dL (13.0-16.5); Lymphocyte # 0.53 X10^3/ul (0.83-4.51); Lymphocyte % 11.2 % (19-41); Mean Corp Hgb Conc 31.2 g/dL (32-36); Mean Corpuscular Hgb 31.2 pg (27.0-32.0); Monocyte# 0.99 X10^3/uL; Monocyte% 20.9 % (0-10); NRBC Flagged by Analyzer 0 % (0-5); Neutrophil # 3.14 X10^3/uL (2.7-7.7); Neutrophil % 66.4 % (47-70); POSITIVE COUNT YES; POSITIVE DIFFERENTIAL YES; Platelet Count 93 K/mm3 (150-450); RBC Distribution Width CV 15.3 % (11.6-14.6); RBC Distribution Width SD 55.9 fl (35.1-43.9); Red Blood Count 3.65 M/mm3 (4.6-6.2); White Blood Count 4.7 K/mm3 (4.4-11.0)
[2021-12-17 11:09] LABS: Differential Indicated SCAN CRITERIA MET
[2021-12-17 11:31] LABS: Platelet Estimate MOD DEC (ADEQ)
== END | disposition home or self-care (01) ==
PROVIDERS: PCP Family Medicine; Referring Provider Anesthesiology Pain Medicine; Visit Provider Anesthesiology Pain Medicine
DX: Z01.818 Encounter for other preprocedural examination (principal)
CPT/HCPCS: 36415; 85025

== ENCOUNTER 2022-02-15 12:51 | Day surgery (SDC) | payer MEDICARE, OTHER, SELFPAY ==
[2022-01-25] MEDS: Lactated Ringers 1,000 ML 15 ML IV (10:55)
[2022-01-25 11:21] VITALS: BP 143/73; PULSE 89; RESP 16; TEMP 36.3; O2SAT 99; BMI 21.2
[2022-01-26 13:53] LABS: Platelet Count 45 K/mm3 (150-450)
[2022-02-15] VITALS (7 sets, daily range): BP systolic 98–119; BP diastolic 60–84; PULSE 75–98; RESP 16–73; TEMP 36.1–36.8; O2SAT 92–97; BMI 21.2
[2022-02-15] MEDS: Lactated Ringers 1,000 ML 15 ML IV (13:25)
[2022-02-15] MEDS: Cefazolin 2 GM in 0.9% Normal Saline 100 ML IV (13:46)
--- NOTE | 2022-02-15 13:51 | RAD_ITS ---
PROCEDURE: Spinal cord stimulator placement. DATE OF EXAMINATION: 02/15/2022. INDICATION: Male, 81 years old. Chronic low back pain. FLUOROSCOPY TIME (if supplied): (3 minutes and 54 seconds) minutes/seconds. 9 images were submitted. RAD/Lumbar Spine 2 or 3 Views IMPRESSION: Intraoperative imaging provided for spinal cord stimulator placement. Electronically Signed: Harry Solorzano MD at 15:38 EST ,
[2022-02-15] MEDS: Bupivacaine 0.25% 30 ML Vial (13:58)
[2022-02-15] MEDS: Lidocaine 1% (30 ml sdv) 30 ML Vial (13:58)
[2022-02-15] MEDS: Bacitracin 500 UNITS/GM PACKET (15:01)
--- NOTE | 2022-02-15 15:08 | PCM.OPRPT ---
Report of Operation Date of Procedure: 02/15/22 Description of Surgical Findings:: Pre-Operative Diagnosis:?Lumbosacral radiculopathy, lumbosacral degenerative disc disease, lumbosacral spinal stenosis. Post-Operative Diagnosis:?Lumbosacral radiculopathy, lumbosacral degenerative disc disease, lumbosacral spinal stenosis. Surgery/Procedure Performed::?1.? Spinal cord stimulator thoracolumbar leads placement x2 #2 spinal cord stimulator Medtronic intellus generator placement #3 spinal cord stimulator generator pocket creation at the right gluteal region #4 spinal cord stimulator simple programming, 5-intraoperative fluoroscopic interpretation Description of Surgical Findings:: MAC COMPLICATIONS: None BLOOD LOSS: Minimal Implanted device: Spinal cord stimulator lead [id number] #[id number] lot number [id number], lead #2? [id number] lot number [id number], Medtronic spinal cord stimulator generator intellus serial number [id number] PROCEDURE IN DETAIL: History and physical today was reviewed. Risks and benefits of procedure explained. The patient understood, agreed to procedure, informed consent was obtained. IV inserted per routine protocol. The patient was taken to the operating room, placed in the prone position with a pillow positioned underneath the abdomen. A 2 g of Ancef IV piggyback was infused per anesthesia. The lower back and right gluteal area was prepped and draped in a sterile fashion using iodine x3 Ioban was placed.? The C-arm was brought in position for AP view at the T12-L2 vertebral bodies under direct visualization fluoroscopy on a true AP view the T12-L1 interlaminar space was identified skin and subcutaneous tissue and size approximately 10 cc of a mix of 2% lidocaine and 0.25% Marcaine using a 25-gauge regular needle followed by a 25-gauge 3-1/2 inch spinal needle towards the interlaminar space at T12-L1, the right gluteal region area skin and subcutaneous tissue in size with the above mixture using approximately 15 cc with a 25-gauge regular needle using an 11-gauge blade the skin and subcutaneous tissue were then taken down and a horizontal approximately 3 inch incision hemostasis was maintained via cautery as well as pressure once the appropriate size of the pocket was created a 2-0 silk sutures were then taken down for the anchors of the battery once hemostasis was maintained the pocket was then hydrated via a 4 x 4 saline soaked and left temporarily until continuation of the procedure, the skin and subcutaneous tissue were then anesthetized and using an 11-gauge blade was then taken down to the skin and subcutaneous tissue using a 14-gauge 5 inch Touhy needle provided by the Delivery [employer] kit the needle was passed through the skin towards the interlaminar space at T12-L1 and a left paramedian approach the needle was then advanced under direct visualization fluoroscopy towards the interlaminar space at T12-L1 [id number] technique was then carried to air towards the interlaminar space at T12-L1 once the tip of the needle was in the epidural space and loss of resistance was encountered to air and after confirmation of AP as well as oblique view of the spinal cord stimulator lead was then advanced under direct visualization fluoroscopy to be at the tip of the lead at top of T8 and the bottom of the lead around mid T10 after confirmation of AP as well as lateral view to confirm correct placement of the lead in the posterior compartment of the epidural space the previous procedure was then repeated to the lower level at L1-2 to the left lumbar paramedian approach, ?the second lead was then inserted under direct visualization with fluoroscopy to be at the mid T8 and mid T10 area the leads were were then connected to the external neurostimulator and patient was then awakened to confirm satisfactory coverage of the painful area once satisfactory coverage was then achieved the stylette of each needle was then removed and the skin and subcutaneous tissue on to the left of the paramedian needles was then taken anesthetized with a total of 10 cc of the previous mixture of 0.25% Marcaine and 2% lidocaine using a 25-gauge regular needle the vertical incision was then taken down through the skin and subcutaneous tissue towards the fascia making sure hemostasis was then maintained via cautery, the spinal cord stimulator leads were then passed through the above incision and secured using the Medtronic anchor sutured down with a 2-0 silk to the fascia at that level the spinal cord stimulator leads were then tunneled via a tunneler provided by the Medtronic kit towards the previously incised spinal cord stimulator battery at the right gluteal region skin and subcutaneous tissue were anesthetized with approximately 10 cc of a mix of 2% lidocaine and 0.25% Marcaine using a 25 gauge regular needle, skin and subcutaneous tissue was then taken down with the 11-gauge blade hemostasis was maintained with Bovie and direct pressure the incision was then taken down to the fascia and the battery was then secured with the 2-0 silk sutures that were the spinal cord stimulator leads the upper lead was then marked the new until spinal cord stimulator battery was then provided Via [employer] kit the battery was then reattached of the spinal cord stimulator make ensure that the top lead is attached to the top position from 0-7 electrodes and the bottom from 8-15 electrodes once impedance was then checked to be in the proper average number the intellus battery was then placed in a TYRX antibacterial pouch then inserted into the pocket and impedance with when checked again the pocket was then inspected to confirm hemostasis in place, the intellus battery was then secured to the fascia using a 2-0 silk to the upper eyes of the battery confirming an upward writing of the intellus facing posterior,? once complete confirmation the battery was then placed in the position and the the mid vertical paramedian and the horizontal gluteal incisions were then closed primarily through 0 Vicryl in an interrupted fashion followed by a 3-0 Vicryl in a running fashion followed by a 4-0 Monocryl to the skin, hemostasis was then maintained during the procedure the skin was then covered with a Steri-Strips and bacitracin patient was then returned into the supine position in a stable condition and returned to recovery in a stable condition patient experienced no signs or symptoms of intrathecal or intravascular injection patient experienced no paresthesia the procedure was completed without any apparent difficulty any complication the patient appeared to tolerate well, motor as well as sensory function was unchanged from prior to the procedure. ESTIMATED BLOOD LOSS: Minimal less than 25 mL ASSESSMENT AND PLAN: This is a 81-year-old male with lumbosacral radiculopathy lumbosacral degenerative disc disease lumbosacral spinal stenosis, status post 1.? Spinal cord stimulator thoracolumbar leads placement x2 #2 spinal cord stimulator Medtronic intellus generator placement #3 spinal cord stimulator generator pocket creation at the right gluteal region #4 spinal cord stimulator simple programming, 5-intraoperative fluoroscopic interpretation patient will continue his current medications a prescription was provided to the patient? Keflex 500 mg 1 p.o. every 8 hours for 7 days,?Percocet 5-325 mg half to 1 tablet every 4 hours as needed for acute postoperative pain, postop instruction were given in writing to the patient as well as verbally as well as his , patient will follow approximately 1 week for reevaluation.
== END 2022-02-15 16:30 | disposition home or self-care (01) ==
LOC: SDC 12:53 → AC 12:53
PROVIDERS: PCP Family Medicine; Referring Provider Anesthesiology Pain Medicine; Visit Provider Anesthesiology Pain Medicine
PROC: (CPT 63685; principal; 2022-02-15 13:15)
DX: M51.17 Intervertebral disc disorders with radiculopathy, lumbosacral region (principal); M48.07 Spinal stenosis, lumbosacral region; I10 Essential (primary) hypertension; N40.0 Benign prostatic hyperplasia without lower urinary tract symptoms; E78.5 Hyperlipidemia, unspecified; G62.9 Polyneuropathy, unspecified; D64.9 Anemia, unspecified; K21.9 Gastro-esophageal reflux disease without esophagitis; Z79.899 Other long term (current) drug therapy; Z87.81 Personal history of (healed) traumatic fracture
CPT/HCPCS: 63685; 63650; 00630; 36415; 36430; 72100; 76000; 85025; 85049; 86644; 86850; 86900; 86901; 86965; C1778; C1820; J7040; J7120; P9035; A4216; J2405

== ENCOUNTER 2022-02-26 10:51 | Inpatient (IN) | payer MEDICARE, OTHER, SELFPAY ==
[2022-02-26 10:53] VITALS: BP 110/70; PULSE 90; RESP 18; TEMP 36.6; O2SAT 99; BMI 20.5
--- NOTE | 2022-02-26 11:10 | EX.ED.DYSGE1 ---
HPI History of Present Illness Chief Complaint: Abn Labs Narrative Narrative: 81-year-old male with history of pancytopenia presenting for evaluation of wounds. Apparently he has low platelets at baseline and Dr. Berry placed a pain pump about 2 weeks ago. He made 2 incisions 1 in the lower back and 1 in the right gluteal region on external aspect. He states he has been weeping since then. He states that he was given platelets prior to the procedure because he is chronically low and he had a follow-up today for wound check which were seeping. Dr. Berry was able to change the dressings and apparently use Dermabond to close the wound on the lower back. The other 1 has remained clean and dry for them. Patient states that he and his were deferred to the ER after calling the cancer center and Dr. Gu was not available. [facility] Medical History Actinic keratosis Anemia Arthritis Atrioventricular jose m re-entry tachycardia Back pain Benign essential hypertension BPH (benign prostatic hyperplasia) Easy bruising Epidermal inclusion cyst Functional gait abnormality Gastric reflux History of irregular heartbeat History of smoking HLD (hyperlipidemia) Hypertension Open wound of great toe Osteoarthritis Pain Peripheral neuropathy Pressure ulcer of toe, stage 2 Prostate disease Shortness of breath on exertion Skin ulcer of right great toe Use of proton pump inhibitor therapy Varicosities of leg Vitamin deficiency Wears dentures Wears glasses Wears hearing aid Home Medications Tamsulosin HCl 0.4 mg PO QHS 04/18/13 [History Last Taken Unknown] hydroxychloroquine 200 mg tablet 200 mg PO QHS arthritis 04/18/13 [History Last Taken Unknown] Benazepril Hcl [Lotensin] 20 mg PO QHS 09/18/19 [History Last Taken Unknown] amlodipine 10 mg tablet 10 mg PO QHS 09/18/19 [History Last Taken 10/22/19] omeprazole 20 mg tablet,delayed release 20 mg PO DAILY 03/07/20 [History Last Taken 02/15/22] simvastatin 80 mg tablet 80 mg PO QHS 05/14/20 [History Last Taken Unknown] finasteride 5 mg tablet 5 mg PO DAILY 09/11/20 [History Last Taken Unknown] ferrous sulfate 325 mg (65 mg iron) tablet 325 mg PO DAILY 06/10/21 [History Last Taken 02/15/22] Allergy/AdvReac Type Severity Reaction Status Date / Time tramadol [From Ultram] AdvReac Intermediate PT UNSURE Verified 02/26/22 10:56 OF REACTION Family History Father Myocardial infarction Brother Myocardial infarction Mother Pancreas cancer Surgical History H/O foot surgery H/O hernia repair H/O hernia repair History of cataract extraction History of colonoscopy (~06/2019) History of esophagogastroduodenoscopy (EGD) (~06/2019) History of excision of lesion S/P carpal tunnel release Social History Smoking Status: Former smoker quit date: 04/11/84 alcohol intake: current substance use type: does not use additional social history: DOES NOT USE ASPIRIN DOES USE IBUPROFEN NEEDED ROS ROS ED Constitutional Constitutional ED: Denies chills or fever(s) Eyes Eyes: Denies change in vision or diplopia ENT ENT ED: Denies rhinorrhea or sore throat Cardiovascular Cardiovascular: Denies chest pain or palpitations Respiratory/Chest Respiratory/Chest: Denies cough or dyspnea Gastrointestinal Gastrointestinal: Denies abdominal pain or constipation Genitourinary Genitourinary ED: Denies dysuria or hematuria Musculoskeletal Musculoskeletal: Denies arthralgias or back pain Integumentary Denies abscess Neurologic Neurologic: Denies headache(s) or paresthesias Psychiatric Psychiatric: Denies anxiety or depression EXAM Physical Exam Const Vital Signs: 02/26/22 10:53 02/26/22 11:22 02/26/22 13:36 Temperature 97.9 F Temperature Source Temporal Pulse Rate 90 72 Respiratory Rate 18 16 Respiratory Effort Normal Non-Labored Respiratory Pattern Normal Blood Pressure 110/70 145/64 H Blood Pressure Mean 83 91 Pulse Ox 99 98 Oxygen Delivery Method Room Air Room Air Positive well nourished General Appearance ED: NAD HEENT Reports moist mucous membranes Eyes PERRL and EOMs intact bilaterally Neck no lymphadenopathy Resp normal respiratory effort Cardio regular rate and regular rhythm GI normal to inspection, nondistended, normoactive bowel sounds Extremity normal to inspection Neuro oriented x3 and CN's II-XII intact bilaterally Motor Exam: strength 5/5 throughout Psych mental status grossly normal Skin Skin Narrative: The wound on the right hip is a dressing in place which is clean, dry, intact. This is nontender to palpation. No crepitance. No cellulitic changes. The wound on the lower back has a small amount of blood with. There is no seepage of blood outside of this. There is no crepitance. There is no cellulitic change. General Skin Exam: jaundice MDM MDM MDM Narrative Medical decision making narrative: Patient presenting because he had initially thought he was having low platelets and his wounds checked. I spoke with Dr. Berry who stated that he sent him in because he was looking a little bit weak and short of breath when he was walking around the office. Dr. Berry also thought he looked pale. The reports to me that he looks darker than usual and looks like he has been out in the sun. She states that this is not his typical color. Dr. Berry stated that he had tried to consult with Dr. Gu but he was out of town. He referred him to the ER to have blood work drawn out of concern he might be anemic or having a bleeding source. He states he was able to get the wounds to stop bleeding and is not concerned necessarily about the wound care. The does report that these wounds have been weeping for a couple of weeks. I would like to speak with the patient he states he does not feel short of breath but does feel maybe a little bit weak. Blood work is obtained and his CBC shows a white blood cell count of 7.2. Hemoglobin is 10.6 today he is denying any black or bloody stools. He states he has had weeping from his wounds for the last couple of weeks. To 134. INR is 1.3. Creatinine and electrolytes are unremarkable. Patient's total bilirubin today is 5.8, direct bilirubin 4.88, AST 143, ALT 183, alkaline phosphatase 174, lipase 498. 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 narrowing of the portal vein in the right hepatic artery secondary to a 8 cm x 7.4 cm x 6.7 cm heterogeneous hypodense mass in the region of the rosa isela hepatis. There is also retroperitoneal lymphadenopathy and splenomegaly. I discussed the patient with Dr. White and this all appears to be new. He recommends transfer to a tertiary facility with hepatobiliary specialty. I spoke with [facility] to try to arrange transport for him. I spoke with Dr. Chapman who accepted the transfer. Patient and family counseled on this. Appropriate paperwork was filled out. It is unclear how long the patient will be in the ED pending transfer. She will be signed out to incoming ED provider for monitoring. Impression: 1. Liver masses 2. Jaundice 3. Transaminitis 4. Anemia 5. Thrombocytopenia Lab Data Attestation: I reviewed the patient's lab results. Labs: Laboratory Results - last 24 hr 02/26/22 02/26/22 02/26/22 11:20 11:20 11:20 WBC 7.2 RBC 3.51 L Hgb 10.6 L Hct 35.1 L MCV 100.0 H MCH 30.2 MCHC 30.2 L RDW Std Deviation 57.1 H RDW Coeff of Kori 15.6 H Plt Count 134 L MPV 12.1 H Immature Gran % (Auto) 0.700 Neut % (Auto) 71.8 H Lymph % (Auto) 3.0 L [place] % (Auto) 23.8 H Eos % (Auto) 0.1 Baso % (Auto) 0.6 Absolute Neuts (auto) 5.2 Absolute Lymphs (auto) 0.22 L Nucleated RBC % 0 Platelet Estimate ADEQUATE Macrocytosis 1+ PT 15.8 H INR 1.3 Sodium 139 Potassium 3.8 Chloride 108 H Carbon Dioxide 24.0 Anion Gap 7 BUN 19 H Creatinine 1.25 Estim Creat Clear Calc 47.58 Est GFR (MDRD) Af Amer 71 Est GFR (MDRD) Non-Af 59 L BUN/Creatinine Ratio 15.2 Glucose 114 H Calcium 8.9 Total Bilirubin 5.80 H Direct Bilirubin 4.88 H AST 143 H ALT 183 H Alkaline Phosphatase 174 H Total Protein 7.8 Albumin 3.6 Globulin 4.2 Lipase 02/26/22 11:20 WBC RBC Hgb Hct MCV MCH MCHC RDW Std Deviation RDW Coeff of Kori Plt Count MPV Immature Gran % (Auto) Neut % (Auto) Lymph % (Auto) [place] % (Auto) Eos % (Auto) Baso % (Auto) Absolute Neuts (auto) Absolute Lymphs (auto) Nucleated RBC % Platelet Estimate Macrocytosis PT INR Sodium Potassium Chloride Carbon Dioxide Anion Gap BUN Creatinine Estim Creat Clear Calc Est GFR (MDRD) Af Amer Est GFR (MDRD) Non-Af BUN/Creatinine Ratio Glucose Calcium Total Bilirubin Direct Bilirubin AST ALT Alkaline Phosphatase Total Protein Albumin Globulin Lipase 498 H Radiography Diagnostic Testing: Clinical Impression(s) from Imaging Studies Abdomen/Pelvis CT 02/26/22 11:53 IMPRESSION: Intrahepatic biliary ductal dilatation. 1.6 cm x 1.7 cm hypodense mass in the region of the caudate lobe suggests a possible metastasis. 8 cm x 7.4 cm x 6.7 cm heterogeneous hypodense mass in the region of the rosa isela hepatis with narrowing of the portal vein in the right hepatic artery. Left renal mass. Retroperitoneal lymphadenopathy. Splenomegaly. Prostatic enlargement. Calcific plaques at the right lung base. Electronically Signed: Harry Solorzano MD at 12:43 EST , Discharge Plan Triage Chief Complaint: Abn Labs ED Provider: Vijay Cervantes Dx/Rx/DC Orders Prescriptions: No Action finasteride 5 mg tablet 5 mg PO DAILY ferrous sulfate 325 mg (65 mg iron) tablet 325 mg PO DAILY hydroxychloroquine 200 MG tablet 200 mg PO QHS Tamsulosin HCl 0.4 mg PO QHS amlodipine 10 MG tablet 10 mg PO QHS Benazepril Hcl [Lotensin] 20 MG tablet 20 mg PO QHS omeprazole 20 MG tablet,delayed release (DR/EC) 20 mg PO DAILY simvastatin 80 MG tablet 80 mg PO QHS Primary Care Provider: Fred Clark Referrals: Fred Clark DO [Primary Care Provider] -
[2022-02-26 11:25] LABS: Absolute Lymphocyte Count 0.22 X10^3/uL (0.83-4.51); Absolute Neutrophil Count 5.2 X10^3/uL (2.0-7.7); Basophil# 0.04 X10^3/uL; Basophil% 0.6 % (0-1); Eosinophil# 0.01 X10^3/uL; Eosinophils% 0.1 % (0-5); Hematocrit 35.1 % (40-54); Hemoglobin 10.6 g/dL (13.0-16.5); Lymphocyte # 0.22 X10^3/ul (0.83-4.51); Mean Corp Hgb Conc 30.2 g/dL (32-36); Mean Corpuscular Hgb 30.2 pg (27.0-32.0); Mean Platelet Vol. 12.1 fl (6.2-12.0); Monocyte# 1.72 X10^3/uL; Monocyte% 23.8 % (0-10); NRBC Flagged by Analyzer 0 % (0-5); Neutrophil % 71.8 % (47-70); POSITIVE DIFFERENTIAL YES; POSITIVE MORPHOLOGY YES; Platelet Count 134 K/mm3 (150-450); RBC Distribution Width CV 15.6 % (11.6-14.6); RBC Distribution Width SD 57.1 fl (35.1-43.9); Red Blood Count 3.51 M/mm3 (4.6-6.2); White Blood Count 7.2 K/mm3 (4.4-11.0)
[2022-02-26 11:35] LABS: International Normalized Ratio 1.3; Prothrombin Time (Protime)PT. 15.8 SECONDS (11.7-14.9)
[2022-02-26 11:39] LABS: AST(SGOT) 143 U/L (15-37); Alanine Aminotransfer ALT/SGPT 183 U/L (16-61); Albumin, Serum 3.6 g/dL (3.2-5.0); Alkaline Phosphatase 174 U/L (45-117); Anion Gap 7 (5-15); BUN 19 mg/dL (7-18); BUN/Creat Ratio 15.2 RATIO (10-20); Bilirubin, Direct 4.88 mg/dL (0.00-0.30); Calcium,Total 8.9 mg/dL (8.5-10.1); Chloride 108 mmol/L (98-107); Creatinine, Serum 1.25 mg/dL (0.70-1.30); EST Glomerular Filtration Rate 59 mL/min (>60); Est Glom Filt Rate - Afr Amer 71 mL/min (>60); Estimated Creatinine Clearance 47.58 ml/min; Globulin 4.2 g/dL (2.2-4.2); Glucose 114 mg/dL (74-106); Potassium 3.8 mmol/L (3.5-5.1); Protein, Total 7.8 g/dL (6.4-8.2); Sodium Level 139 mmol/L (136-145)
[2022-02-26 11:45] LABS: Differential Indicated SCAN CRITERIA MET
[2022-02-26 11:46] LABS: Macrocytosis 1+; Platelet Estimate ADEQUATE (ADEQ)
--- NOTE | 2022-02-26 11:53 | CT_ITS ---
STUDY: CT ABDOMEN AND PELVIS WITH CONTRAST REASON FOR EXAM: Male, 81 years old. Jaundice. Low platelets. RADIATION DOSAGE (If Supplied By Facility): CTDIvol = ( 17.87 ) mGy, DLP = ( 872.69 ) mGycm TECHNIQUE: Transaxial images were obtained from the dome of the diaphragm to the symphysis pubis without oral contrast. IV 100mL [id number]-300 was administered. Sagittal and coronal images were reconstructed. Individualized dose optimization techniques were used for this CT. COMPARISON: None. FINDINGS: Mild degree of scarring at the lung bases. Calcified pleural plaques at the right lung base. Coronary artery calcification. Mild degree of the intrahepatic biliary ductal dilatation. There is a 1.6 cm x 1.7 cm hypodense nodule in the region of the caudate lobe of the liver. There is a 5.7 mm cyst in the anterior aspect of the right lobe of the liver. Mildly distended gallbladder. There is an 8 cm x 7.4 cm x 7.6 cm heterogeneous hypodense mass in the region of the rosa isela hepatis in the region of the peripancreatic area. This may represent matted adenopathy. There is narrowing of the portal vein as well as the right hepatic artery. There is moderate splenomegaly. Normal pancreas. Normal bilateral adrenal glands. Normal right kidney. There is a 5.8 cm x 6.1 cm heterogeneous mass in the upper medial aspect of the left kidney suggestive of a neoplastic process. There is also evidence of a 1.2 cm cyst in the upper lateral anterior aspect of the left kidney. Normal visualized stomach. Normal small intestine. There are multiple colonic diverticula consistent with diverticulosis. The appendix is visualized and appears normal. There is diffuse atherosclerotic calcification of the abdominal aorta and its major visceral branches. Mildly dilated infrarenal abdominal aorta with a transverse dimension of 3.3 cm. Normal inferior vena cava. There is retroperitoneal lymphadenopathy with enlarged nodes greater than 10-15mm in the short axis. Distended urinary bladder. There is enlargement of the prostate gland. The prostate measures 4.1 cm x 5.8 cm. This causes indentation at the bladder base. Central prostatic calcification. There is a small umbilical hernia containing fat. There are diffuse degenerative changes of the visualized lumbar spine. CT/Abdomen/Pelvis W IV Cont ONLY IMPRESSION: Intrahepatic biliary ductal dilatation. 1.6 cm x 1.7 cm hypodense mass in the region of the caudate lobe suggests a possible metastasis. 8 cm x 7.4 cm x 6.7 cm heterogeneous hypodense mass in the region of the rosa isela hepatis with narrowing of the portal vein in the right hepatic artery. Left renal mass. Retroperitoneal lymphadenopathy. Splenomegaly. Prostatic enlargement. Calcific plaques at the right lung base. Electronically Signed: Harry Solorzano MD at 12:43 EST ,
[2022-02-26 12:56] LABS: Lipase 498 U/L (73-393)
[2022-02-26 13:36] VITALS: BP 145/64; PULSE 72; RESP 16; O2SAT 98
[2022-02-26 15:00] VITALS: BP 129/62; PULSE 85; RESP 16; O2SAT 97
--- NOTE | 2022-02-26 20:01 | ED.RN ---
ACCEPTED BY AT [id number] MARY MAR
--- NOTE | 2022-02-26 21:34 | ED.RN ---
[facility] to check bed status. patient on waiting list unknown time until bed is available to patient. ED doctor to be made aware
--- NOTE | 2022-02-26 22:13 | ED.RN ---
spoke with hospitalist about admission at this time. due to bed shortage at this will re evaluate status in couple hours to see where beds are
[2022-02-27] VITALS (7 sets, daily range): BP systolic 109–150; BP diastolic 56–71; PULSE 78–89; RESP 16–18; TEMP 36.5–37; O2SAT 95–99; BMI 19.7
--- NOTE | 2022-02-27 03:55 | ED.RN ---
[facility] [phone] called with update on pt, pt still in E.D. Vitals given to nurse.
--- NOTE | 2022-02-27 08:02 | PCM.HP.STD ---
[facility] - General General Date of Admission: 02/27/22 HPI Narrative Patient is an 81-year-old gentleman with history of pancytopenia who apparently had underwent pain pump placement 2 weeks prior to his admission who subsequently developed right gluteal wound. Was sent to the emergency department with abnormal labs as well as wound check. CT of the abdomen performed in the ED did show intrahepatic biliary ductal dilatation with a 1.6 cm x 1.7 cm hypodense mass in the region of the caudate lobe suggests a possible metastasis. 8 cm x 7.4 cm x 6.7 cm heterogeneous hypodense mass in the region of the rosa isela hepatis with narrowing of the portal vein in the right hepatic artery. Left renal mass. Retroperitoneal lymphadenopathy. Splenomegaly. Prostatic enlargement. Calcific plaques at the right lung base.. Based on above findings arrangements were made for patient to be transferred to [facility]. Patient was accepted for transfer however bed was not available. Decision was therefore made to admit patient pending transfer [facility] Medical History Actinic keratosis Anemia Arthritis Atrioventricular jose m re-entry tachycardia Back pain Benign essential hypertension BPH (benign prostatic hyperplasia) Easy bruising Epidermal inclusion cyst Functional gait abnormality Gastric reflux History of irregular heartbeat History of smoking HLD (hyperlipidemia) Hypertension Open wound of great toe Osteoarthritis Pain Peripheral neuropathy Pressure ulcer of toe, stage 2 Prostate disease Shortness of breath on exertion Skin ulcer of right great toe Use of proton pump inhibitor therapy Varicosities of leg Vitamin deficiency Wears dentures Wears glasses Wears hearing aid Home Medications Tamsulosin HCl 0.4 mg PO QHS 04/18/13 [History Last Taken Unknown] hydroxychloroquine 200 mg tablet 200 mg PO BID arthritis 04/18/13 [History Last Taken Unknown] Benazepril Hcl [Lotensin] 20 mg PO QHS 09/18/19 [History Last Taken Unknown] amlodipine 10 mg tablet 10 mg PO QHS 09/18/19 [History Last Taken 10/22/19] omeprazole 20 mg tablet,delayed release 20 mg PO DAILY 03/07/20 [History Last Taken 02/15/22] simvastatin 80 mg tablet 80 mg PO QHS 05/14/20 [History Last Taken Unknown] finasteride 5 mg tablet 5 mg PO DAILY 09/11/20 [History Last Taken Unknown] ferrous sulfate 325 mg (65 mg iron) tablet 325 mg PO DAILY 06/10/21 [History Last Taken 02/15/22] ascorbic acid (vitamin C) 500 mg tablet (Vitamin C) 500 mg PO DAILY 02/26/22 [History Last Taken Unknown] oxycodone-acetaminophen 5 mg-325 mg tablet 0.5 - 1 tab PO Q4H PRN PRN Pain 02/26/22 [History Last Taken Unknown] Allergy/AdvReac Type Severity Reaction Status Date / Time tramadol [From Ultram] AdvReac Intermediate PT UNSURE Verified 02/26/22 10:56 OF REACTION Family History Father Myocardial infarction Brother Myocardial infarction Mother Pancreas cancer Surgical History H/O foot surgery H/O hernia repair H/O hernia repair History of cataract extraction History of colonoscopy (~06/2019) History of esophagogastroduodenoscopy (EGD) (~06/2019) History of excision of lesion S/P carpal tunnel release Social History Smoking Status: Former smoker quit date: 04/11/84 alcohol intake: current substance use type: does not use additional social history: DOES NOT USE ASPIRIN DOES USE IBUPROFEN NEEDED ROS ROS Narrative GENERAL: denies fever, chills, night sweats, weight loss, anorexia HEENT: denies headache, sinus congestion, or drainage, dysphagia RESPIRATORY: denies cough, sputum production, shortness of breath, CARDIAC: denies chest pain, palpitations, orthopnea, PND GASTROINTESTINAL: denies abdominal pain, nausea, vomiting, melena, GENITOURINARY: denies dysuria, urgency, frequency, heamaturia EXTREMITY: denies swelling MUSCULOSKELETAL: denies current joint pain or tenderness NEUROLOGIC: denies focal numbness, weakness, tingling HEMATOLOGIC: denies easy bruising and/or hemorrhage INTEGUMENT: denies rashes PSYCHIATRIC: denies suicidal or homicidal ideation Vital Signs Vital Signs Vital Signs: 02/26/22 10:53 02/26/22 11:22 02/26/22 13:36 Temperature 97.9 F Temperature Source Temporal Pulse Rate 90 72 Respiratory Rate 18 16 Respiratory Effort Normal Non-Labored Respiratory Pattern Normal Blood Pressure 110/70 145/64 H Blood Pressure Mean 83 91 Pulse Ox 99 98 Oxygen Delivery Method Room Air Room Air 02/26/22 15:00 02/27/22 03:50 02/27/22 07:52 Temperature 98.6 F 98.1 F Temperature Source Temporal Temporal Pulse Rate 85 78 80 Respiratory Rate 16 16 16 Respiratory Effort Respiratory Pattern Blood Pressure 129/62 H 150/60 H 145/71 H Blood Pressure Mean 84 90 95 Pulse Ox 97 98 97 Oxygen Delivery Method Room Air Room Air Room Air Weight Weight: 72.575 kg Body Mass Index (BMI) 20.5 Results Lab / Micro Data Result Diagrams: 02/26/22 11:20 02/26/22 11:20 Labs: Laboratory Results - last 24 hr 02/26/22 11:20: WBC 7.2, RBC 3.51 L, Hgb 10.6 L, Hct 35.1 L, MCV 100.0 H, MCH 30.2, MCHC 30.2 L, RDW Std Deviation 57.1 H, RDW Coeff of Kori 15.6 H, Plt Count 134 L, MPV 12.1 H, Immature Gran % (Auto) 0.700, Neut % (Auto) 71.8 H, Lymph % (Auto) 3.0 L, [place] % (Auto) 23.8 H, Eos % (Auto) 0.1, Baso % (Auto) 0.6, Absolute Neuts (auto) 5.2, Absolute Lymphs (auto) 0.22 L, Nucleated RBC % 0, Platelet Estimate ADEQUATE, Macrocytosis 1+ 02/26/22 11:20: PT 15.8 H, INR 1.3 02/26/22 11:20: Sodium 139, Potassium 3.8, Chloride 108 H, Carbon Dioxide 24.0, Anion Gap 7, BUN 19 H, Creatinine 1.25, Estim Creat Clear Calc 47.58, Est GFR (MDRD) Af Amer 71, Est GFR (MDRD) Non-Af 59 L, BUN/Creatinine Ratio 15.2, Glucose 114 H, Calcium 8.9, Total Bilirubin 5.80 H, Direct Bilirubin 4.88 H, AST 143 H, ALT 183 H, Alkaline Phosphatase 174 H, Total Protein 7.8, Albumin 3.6, Globulin 4.2 02/26/22 11:20: Lipase 498 H Micro: Microbiology 02/26/22 13:51 Nasal Secretion SARS-CoV-2 Antigen (Rapid) - Final Radiology Impression Abdomen/Pelvis CT 02/26/22 11:53 IMPRESSION: Intrahepatic biliary ductal dilatation. 1.6 cm x 1.7 cm hypodense mass in the region of the caudate lobe suggests a possible metastasis. 8 cm x 7.4 cm x 6.7 cm heterogeneous hypodense mass in the region of the rosa isela hepatis with narrowing of the portal vein in the right hepatic artery. Left renal mass. Retroperitoneal lymphadenopathy. Splenomegaly. Prostatic enlargement. Calcific plaques at the right lung base. Electronically Signed: Harry Solorzano MD at 12:43 EST , Assessment & Plan Assessment/Plan (1) Cancer, metastatic to liver: PLAN: Plan Patient is an 81-year-old gentleman with history of pancytopenia admitted with a liver and renal mass with suspected mets and biliary dilatation. Patient has been accepted for transfer to [facility] 1. Renal mass with possible liver mets and intrahepatic biliary ductal dilatation ? Arrangements were made from the emergency department for patient to be transferred to [facility]. Patient has been admitted to regular nursing floor pending transfer to for symptom management 2. Pancytopenia ? 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 Order CBC with differential for continuous monitoring 3. Right gluteal wound ? Following recent pain pump insertion consult placed to wound care nurse 4. Hypertension - Blood pressure controlled, home medications continued with dose adjustment as needed 5. Dyslipidemia -Patient is on statin therapy, continued at home dose 6. Severe protein calorie malnutrition ? Secondary to patient underlying medical condition as evidenced by weight loss decreased appetite. Consult placed to dietitian 7. GERD ? Patient with PPI 8. BPH ? Patient is on finasteride; Did continue 9. DVT prophylaxis Held off initiating chemoprophylaxis in view of patient thrombocytopenia Advance planning; did discuss with the patient and family regarding advanced directives as well as CODE STATUS. Did explain the various scenarios involved ( FULL CODE, DNR CCA, DNR CCA with no intubation, and DNR CC and what each meant) patient elected to remain full code with CPR and intubation if needed. Order was placed. Time spent on discussion 18 minutes. Charges/Coding Visit Charges Inpatient E&M: 86080 Init Hosp L3 Procedures Hospitalists Procedures: 12209 Advncd Care Plan 30 Min
[2022-02-27] MEDS: 0.9% Saline Lock 10 ML Syringe IV ×2 (09:17→21:34)
[2022-02-27] MEDS: Finasteride 5 MG Tablet PO (11:36)
[2022-02-27] MEDS: Hydroxychloroquine 200 MG Tablet PO ×2 (11:36→20:08)
[2022-02-27] MEDS: Ferrous Sulfate 325 MG Tablet PO (11:36)
[2022-02-27] MEDS: Pantoprazole Sodium 20 MG Tablet PO (11:36)
--- NOTE | 2022-02-27 12:23 | NURSING ---
During assessment, this RN found that the dressing on pt's back from pain pump insertion was saturated with blood. This RN contacted hospitalist (Pamela) for instructions on dressing change. Dr Santiago said to apply wet to dry dressing. This RN applied wet to dry dressing on pt's back surgical incision. Will continue to monitor
--- NOTE | 2022-02-27 18:10 | NURSING ---
received call from [facility] transfer [place]. have a bed for patient. [facility] 4th floor Room 23. Dr. Chapman, oncology. nurse to nurse report # [phone]. aware family aware. primary RN aware
[2022-02-27] MEDS: Tamsulosin HCl 0.4 MG Capsule PO (20:08)
[2022-02-27] MEDS: Atorvastatin Calcium 40 MG Tablet PO (20:08)
--- NOTE | 2022-02-27 20:09 | DS.PCM_ITS ---
Providers Date of Admission: 02/27/22 Date of Discharge: 02/28/22 Primary Care Physician: Dr. Fred Clark, DO Reason For Visit: ABDOMINAL PAIN Diagnosis Discharge Diagnosis (1) Cancer, metastatic to liver: Status: Acute Code(s): C78.7 - Secondary malignant neoplasm of liver and intrahepatic bile duct Plan Patient is an 81-year-old gentleman with history of pancytopenia admitted with a liver and renal mass with suspected mets and biliary dilatation. Patient has been accepted for transfer to [facility] 1. Renal mass with possible liver mets and intrahepatic biliary ductal dilatation ? Arrangements were made from the emergency department for patient to be transferred to [facility]. Patient has been admitted to regular nursing floor pending transfer to for symptom management?patient was transferred to [facility] once bed was obtained 2. Pancytopenia ? 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 Order CBC with differential for continuous monitoring 3. Right gluteal wound ? Following recent pain pump insertion consult placed to wound care nurse 4. Hypertension - Blood pressure controlled, home medications continued with dose adjustment as needed 5. Dyslipidemia -Patient is on statin therapy, continued at home dose 6. Severe protein calorie malnutrition ? Secondary to patient underlying medical condition as evidenced by weight loss decreased appetite. Consult placed to dietitian 7. GERD ? Patient with PPI 8. BPH ? Patient is on finasteride; Did continue 9. DVT prophylaxis Held off initiating chemoprophylaxis in view of patient thrombocytopenia Advance planning; did discuss with the patient and family regarding advanced d irectives as well as CODE STATUS. Did explain the various scenarios involved ( FULL CODE, DNR CCA, DNR CCA with no intubation, and DNR CC and what each meant) patient elected to remain full code with CPR and intubation if needed. Order was placed. Time spent on discussion 18 minutes. Medications at Discharge Home Medications Tamsulosin HCl 0.4 mg PO QHS 04/18/13 hydroxychloroquine 200 mg tablet 200 mg PO BID arthritis 04/18/13 Benazepril Hcl [Lotensin] 20 mg PO QHS 09/18/19 amlodipine 10 mg tablet 10 mg PO QHS 09/18/19 simvastatin 80 mg tablet 80 mg PO QHS 05/14/20 finasteride 5 mg tablet 5 mg PO DAILY 09/11/20 Hospital Course Summary of Care Provided Minutes Spent on Discharge: 45 Medical Records Data Medical Nutrition Assessment Dietitian: Malnutrition Criteria Met Start: 02/27/22 16:09 Freq: Status: Active Protocol: Document 02/27/22 16:09 RMA (Rec: 02/27/22 16:09 RMA [id number]) Nutrition Malnutrition Evidence of Malnutrition Exists Yes Malnutrition (severe): Chronic Evidenced By Suboptimal Energy Intake ( Severe),Weight Loss (Severe) Clinical Problem Chronic Disease or Condition Related Malnutrition Etiology Severe protein-calorie malnutrition in the context of chronic disease related to increased energy expenditure and inadequate oral intake Signs/Symptoms as evidenced by ~12% wt loss in less than 6 month period, BMI 19.7 and PO meeting less than 50% estimated nutrition needs x past 6 months. Status Active Problem Recommendation Dietitian Recommendations/Changes Continue Transitional diet as ordered and advance to Regular diet as tolerated. Ensure pudding/high protein pudding TID w/ meals. 120 ml ensure plus high protein 4 times per day w/ medpass as able. Weight / BMI Weight Weight: 69.626 kg Body Mass Index (BMI) 19.7 ABG / Lab / Microbiology Data Result Diagrams: 02/26/22 11:20 02/26/22 11:20 Microbiology: Microbiology 02/26/22 13:51 Nasal Secretion SARS-CoV-2 Antigen (Rapid) - Final D/C Instructions Discharge Diet: No restrictions Discharge Activity: Return to Normal Activity Call your doctor if you observe: Fever of 101 or Higher, Shortness of breath, Fainting spells and Chest pain Meaningful Use Info Meaningful Use Diagnoses (Choose all that apply): None applicable Discharge Plan Admission Admit Date/Time: 02/27/22 07:26 Attending Provider: Filemon Santiago Primary Care Provider: Fred Clark Discharge Orders/Prescriptions Prescriptions: No Action finasteride 5 mg tablet 5 mg PO DAILY hydroxychloroquine 200 MG tablet 200 mg PO BID Tamsulosin HCl 0.4 mg PO QHS amlodipine 10 MG tablet 10 mg PO QHS Benazepril Hcl [Lotensin] 20 MG tablet 20 mg PO QHS simvastatin 80 MG tablet 80 mg PO QHS Referrals / Follow Up: Fred Clark DO [Primary Care Provider] - Disposition Disposition (needs filled in before D/C Order can be placed): Acute Care Hospital Charges/Coding Visit Charges OBSV E&M: 03452 Observ/hosp same date L3
[2022-02-27] MEDS: amLODIPine 10 MG Tablet PO (21:34)
[2022-02-27] MEDS: Lisinopril 20 MG Tablet PO (21:34)
== END 2022-02-27 22:25 | disposition short-term general hospital (02) | DRG 435 ==
LOC: ED 02-27 07:23 → MS3 02-27 08:03
PROVIDERS: Admitting Provider Internal Medicine; Emergency Provider Student in an Organized Health Care Education/Training Program; PCP Family Medicine; Visit Provider Internal Medicine
DX: C78.7 Secondary malignant neoplasm of liver and intrahepatic bile duct (principal); E43 Unspecified severe protein-calorie malnutrition; R17 Unspecified jaundice; D69.6 Thrombocytopenia, unspecified; S31.819A Unspecified open wound of right buttock, initial encounter; E78.5 Hyperlipidemia, unspecified; I10 Essential (primary) hypertension; K21.9 Gastro-esophageal reflux disease without esophagitis; Y83.8 Other surgical procedures as the cause of abnormal reaction of the patient, or of later complication, without mention of misadventure at the time of the procedure; Z20.822 Contact with and (suspected) exposure to COVID-19; N28.89 Other specified disorders of kidney and ureter; R59.1 Generalized enlarged lymph nodes; N40.0 Benign prostatic hyperplasia without lower urinary tract symptoms; Z68.20 Body mass index [BMI] 20.0-20.9, adult; Z79.899 Other long term (current) drug therapy; Z87.891 Personal history of nicotine dependence
CPT/HCPCS: 74177; 80048; 80076; 83690; 85025; 85610; 87811; 97802; 99285; Q9967; A4216

== ENCOUNTER → 2022-03-18 | Outpatient (CLI) | payer MEDICARE, OTHER, SELFPAY ==
--- NOTE | 2022-03-18 10:51 | ECHOLCONC_ITS ---
Reason For Study: other pre treatment assessment. Procedure This was a limited 2D transthoracic echocardiogram. Exam performed in department. Left Ventricle Normal LV size. The estimated ejection fraction is 45 %. There is mild global hypokinesis of the left ventricle. Right Ventricle Normal RV size. Normal systolic function. Atria Normal left atrium. Normal right atrium. Mitral Valve Mild focal mitral valve calcification, bileaflet. Aortic Valve Trisinus/trileaflet aortic valve. Moderate focal aortic valve calcification. Great Vessels Mildly dilated aortic root. Pericardium/Pleural No pericardial effusion. MMode/2D Measurements & Calculations LVIDd: 5.3 cm IVSd: 0.89 cm Ao root diam: 3.8 cm LVIDs: 3.2 cm LVPWd: 1.1 cm RVDd: 3.6 cm FS: 39.9 % LAV(MOD-bp): 61.0 ml LA dimension(2D): 3.7 cm LA A4 area: 19.0 cm2 LAV(MOD-bp) Indexed: 30.4 ml/m2 LAV(MOD-sp2): 64.9 ml LAV(MOD-sp4): 54.5 ml RA A4 area: 14.7 cm2 ECHO/ONC Echo, Limited Study Interpretation Summary Normal LV size. The estimated ejection fraction is 45 %. The global longitudinal strain is moderately abnormal. The global longitudinal strain = -13.6% (abnormal). Compared to previous study, the left ventricular systolic function has worsened.. Ordering Physician: Gabriela Hein Referring Physician: Fred Clark Performed By: Dariana Nugent, YOU, RVT
== END | disposition home or self-care (01) ==
LOC: CVS 10:49
PROVIDERS: PCP Family Medicine; Referring Provider Internal Medicine Hematology & Oncology; Visit Provider Internal Medicine Hematology & Oncology
DX: C83.30 Diffuse large B-cell lymphoma, unspecified site (principal); Z79.899 Other long term (current) drug therapy
CPT/HCPCS: 93308; 93356

== ENCOUNTER 2022-03-19 07:19 | Inpatient (IN) | payer MEDICARE, OTHER, SELFPAY ==
[2022-03-19] VITALS (12 sets, daily range): BP systolic 100–128; BP diastolic 45–75; PULSE 63–116; RESP 16–20; TEMP 36.6–37.9; O2SAT 93–100; BMI 19.9; BMI 19.8
--- NOTE | 2022-03-19 07:32 | RAD_ITS ---
STUDY: X-RAY CHEST REASON FOR EXAM: Male, 81 years old. weakness TECHNIQUE: Single AP portable view of the chest. COMPARISON: 06/09/2019 FINDINGS: There is hyperinflation of the lungs consistent with chronic obstructive lung disease (COPD). There is no demonstrated pleural abnormality. Normal size heart. Normal mediastinum and eren. Normal visualized pulmonary arteries. Normal visualized aortic arch and descending thoracic aorta. There is a dextroscoliosis of the thoracic spine. Dorsal column spinal stimulator in the lower thoracic spine. Normal visualized ribs, clavicles, and shoulders. There is no demonstrated abnormality of the visualized soft tissue structures of the upper abdomen. RAD/Chest 1 View (Portable) IMPRESSION: Emphysema without pneumonia or atelectasis. Electronically Signed: Michael Spicer MD at 8:16 EST ,
--- NOTE | 2022-03-19 07:32 | EKG12_ITS ---
Test Reason : Blood Pressure : / mmHG Vent. Rate : 113 BPM Atrial Rate : 113 BPM P-R Int : 140 ms QRS Dur : 150 ms QT Int : 390 ms P-R-T Axes : 062 -79 081 degrees QTc Int : 534 ms Sinus tachycardia Right bundle branch block Left anterior fascicular block Bifascicular block Abnormal ECG Confirmed by CHAPARRO MEHTA, ALEJANDRO ([id number]), associate editor STANLEY BECK ([id number]) on 03/23/2022 11:00:32 AM Referred By: PHILLY Confirmed By:MIGUEL MAYFIELD MD
--- NOTE | 2022-03-19 07:33 | EX.ED.DYSGE1 ---
HPI History of Present Illness Chief Complaint: Fatigue Informant: patient and EMS Narrative Narrative: 81-year-old male presenting to the emergency room with weakness. Patient himself is a poor historian. Reportedly was found to be hypotensive for EMS. He states he lives at home with his . He was recently transferred to [facility] in February with liver metastasis and jaundice. He states that he is receiving chemotherapy but has not started yet. Nursing notes a forehead temperature of 100.4 and an oral temperature of 98.8. Patient states his knees and his feet hurt. His arrives and states that he was up multiple times urinating during the night and the last time slumped onto the bed and she could not get him up. She states that he seems out of it. [facility] Medical History Actinic keratosis Anemia Arthritis Atrioventricular jose m re-entry tachycardia Back pain Benign essential hypertension BPH (benign prostatic hyperplasia) CINV (chemotherapy-induced nausea and vomiting) Easy bruising Encounter for education Epidermal inclusion cyst Functional gait abnormality Gastric reflux History of irregular heartbeat History of smoking HLD (hyperlipidemia) Hypertension Left kidney mass Liver cancer Obstructive jaundice Open wound of great toe Osteoarthritis Pain Peripheral neuropathy Pressure ulcer of toe, stage 2 Prostate disease Shortness of breath on exertion Skin ulcer of right great toe Use of proton pump inhibitor therapy Varicosities of leg Vitamin deficiency Wears dentures Wears glasses Wears hearing aid Home Medications Tamsulosin HCl 0.4 mg PO QHS 04/18/13 [History Last Taken Unknown] hydroxychloroquine 200 mg tablet 200 mg PO BID arthritis 04/18/13 [History Last Taken Unknown] Benazepril Hcl [Lotensin] 20 mg PO QHS 09/18/19 [History Last Taken Unknown] amlodipine 10 mg tablet 10 mg PO QHS 09/18/19 [History Last Taken 10/22/19] simvastatin 80 mg tablet 80 mg PO QHS 05/14/20 [History Last Taken Unknown] finasteride 5 mg tablet 5 mg PO DAILY 09/11/20 [History Last Taken Unknown] ascorbate calcium (vitamin C) 500 mg tablet 500 mg PO DAILY 03/08/22 [History Last Taken Unknown] ferrous sulfate 325 mg (65 mg iron) tablet 325 mg PO DAILY 03/08/22 [History Last Taken Unknown] omeprazole 10 mg capsule,delayed release 10 mg PO DAILY 03/08/22 [History Last Taken Unknown] allopurinol 300 mg tablet 300 mg PO DAILY 30 days #30 tabs 03/10/22 [Rx Last Taken Unknown] prednisone 50 mg tablet 100 mg PO DAILY 5 days #10 tabs 03/10/22 [Rx Last Taken Unknown] lidocaine-prilocaine 2.5 %-2.5 % topical cream 1 applic topical ONCE PRN port access 30 days #30 grams 03/11/22 [Rx Last Taken Unknown] ondansetron 4 mg disintegrating tablet 4 mg PO Q8H PRN nausea and vomiting #30 tabs 03/11/22 [Rx Last Taken Unknown] prednisone 50 mg tablet 100 mg PO .COMPLEX #10 tabs 03/11/22 [Rx Last Taken Unknown] Allergy/AdvReac Type Severity Reaction Status Date / Time tramadol [From Ultram] AdvReac Intermediate PT UNSURE Verified 03/19/22 07:28 OF REACTION Family History Father Myocardial infarction Brother Myocardial infarction Mother Pancreas cancer Surgical History H/O foot surgery H/O hernia repair H/O hernia repair History of cataract extraction History of colonoscopy (~06/2019) History of esophagogastroduodenoscopy (EGD) (~06/2019) History of excision of lesion S/P carpal tunnel release Social History Smoking Status: Former smoker quit date: 04/11/84 alcohol intake: current substance use type: does not use additional social history: DOES NOT USE ASPIRIN DOES USE IBUPROFEN NEEDED ROS ROS ED Constitutional Constitutional ED: Reports chills; Denies fever(s) Eyes Eyes: Denies change in vision or diplopia ENT ENT ED: Denies ear pain, rhinorrhea or sore throat Cardiovascular Cardiovascular: Denies chest pain, orthopnea, palpitations or racing heartbeat Respiratory/Chest Respiratory/Chest: Denies cough, dyspnea or orthopnea Gastrointestinal Gastrointestinal: Denies abdominal pain, diarrhea, nausea or vomiting Genitourinary Genitourinary ED: Denies dysuria, hematuria or urinary frequency Musculoskeletal Musculoskeletal: Reports other Details: Bilateral knee and foot pain ; Denies arthralgias, back pain, myalgias or neck pain Integumentary Reports other Details: Jaundice ; Denies abscess or rash Neurologic Neurologic: Denies headache(s) or weakness Psychiatric Psychiatric: Denies anxiety, depression, suicidal ideation or suicidal thoughts Endocrine Endocrinology: Denies polydipsia, polyphagia or polyuria Allergic/Immunologic Allergic/Immunologic ED: Denies mouth swelling, tongue swelling or urticaria EXAM Physical Exam Const Vital Signs: 03/19/22 07:22 03/19/22 07:28 03/19/22 07:30 Temperature 100.1 F H 100.1 F H Temperature Source Temporal Temporal Pulse Rate 116 H 116 H Respiratory Rate 20 H 20 H Respiratory Effort Normal Respiratory Pattern Normal Blood Pressure 123/62 H 123/62 H Blood Pressure Mean 82 82 Pulse Ox 95 95 Oxygen Delivery Method 03/19/22 07:34 03/19/22 08:28 03/19/22 09:00 Temperature 100.2 F H 100.1 F H 100.2 F H Temperature Source Temporal Temporal Temporal Pulse Rate 111 H 99 100 Respiratory Rate 20 H 20 H 20 H Respiratory Effort Respiratory Pattern Blood Pressure 120/74 123/45 H 128/46 H Blood Pressure Mean 89 71 73 Pulse Ox 97 96 95 Oxygen Delivery Method Room Air Room Air Room Air 03/19/22 09:00 Temperature Temperature Source Pulse Rate 100 Respiratory Rate 20 H Respiratory Effort Respiratory Pattern Blood Pressure 128/46 H Blood Pressure Mean 73 Pulse Ox 95 Oxygen Delivery Method Room Air Positive well nourished and well developed General Appearance ED: well developed HEENT Reports normocephalic, head/scalp atraumatic and moist mucous membranes Eyes PERRL and EOMs intact bilaterally Neck no lymphadenopathy, supple and no JVD Resp normal respiratory effort and clear to auscultation bilaterally Cardio regular rate, regular rhythm and no murmurs GI normal to inspection, nondistended, normoactive bowel sounds and non-tender Palpation: soft Back/Spine no CVA tenderness and normal ROM Extremity Extremity Narrative: Peripheral vascular disease changes of the lower extremities bilaterally. General Extremety ED: Negative for edema General Extremity: Negative for edema Neuro CN's II-XII intact bilaterally Sensorium / Orientation: alert and orientation impaired Sensory Exam: No sensory level loss detected Motor Exam: strength 5/5 throughout Psych mental status grossly normal Mood & Affect: Negative for depressed or tearful Skin no rashes or lesions noted and no wounds Sepsis Attestation Sepsis Alert: Yes Sepsis Attestation: Agree w/Sepsis Date exam was performed: 03/19/22 Time exam was performed: 09:30 Possible Source of Sepsis: Genitourinary Sepsis Organ Dysfunction Criteria Present: Lactic Acid > 2 mmol/L MDM MDM MDM Narrative Medical decision making narrative: White 30.6 hemoglobin 10.4 and platelet count of 130. Coags showed INR 1.3 CMP with a creatinine 1.38 direct bilirubin 0.62. Transaminases have normalized. Lipase 154. Urinalysis which was a cath specimen was noted by nursing to be foul-smelling. There is 3+ bacteria with whites and red cells. This was sent for culture blood cultures were also obtained. His lactic acid is significantly elevated at 4.1. He has remained normotensive. He is received over 2 L of normal saline. He also was administered meropenem early in his course. Influenza and COVID's were negative. My interpretation of the chest x-ray is no acute process. Plan will be for the patient to be admitted. Lab Data Attestation: I reviewed the patient's lab results. Labs: Laboratory Results - last 24 hr 03/19/22 03/19/22 03/19/22 07:24 07:24 07:24 WBC 30.6 H* RBC 3.39 L Hgb 10.4 L Hct 34.1 L MCV 100.6 H MCH 30.7 MCHC 30.5 L RDW Std Deviation 60.2 H RDW Coeff of Kori 16.7 H Plt Count 130 L MPV 12.3 H Immature Gran % (Auto) 0.900 Neut % (Auto) 70.5 H Lymph % (Auto) 0.9 L [place] % (Auto) 27.3 H Eos % (Auto) 0.2 Baso % (Auto) 0.2 Absolute Neuts (auto) 21.5 H Absolute Lymphs (auto) 0.27 L Nucleated RBC % 0 Differential Comment COMMENT Diff Path Review August foll PT 15.9 H INR 1.3 APTT 31.3 Sodium 140 Potassium 4.1 Chloride 107 Carbon Dioxide 25.0 Anion Gap 8 BUN 24 H Creatinine 1.38 H Estim Creat Clear Calc 41.83 Est GFR (MDRD) Af Amer 64 Est GFR (MDRD) Non-Af 53 L BUN/Creatinine Ratio 17.4 Glucose 105 Lactic Acid Calcium 8.6 Total Bilirubin 1.00 Direct Bilirubin 0.62 H AST 25 ALT 33 Alkaline Phosphatase 74 Troponin I High Sens 25 Total Protein 6.9 Albumin 3.1 L Globulin 3.8 Lipase 154 Urine Color Urine Clarity Urine pH Ur Specific [place] Urine Protein Urine Glucose (UA) Urine Ketones Urine Occult Blood Urine Nitrite Urine Bilirubin Urine Urobilinogen Ur Leukocyte Esterase Urine RBC Urine WBC Ur Squamous Epith Cells Urine Bacteria Urine Mucus 03/19/22 03/19/22 07:24 08:35 WBC RBC Hgb Hct MCV MCH MCHC RDW Std Deviation RDW Coeff of Kori Plt Count MPV Immature Gran % (Auto) Neut % (Auto) Lymph % (Auto) [place] % (Auto) Eos % (Auto) Baso % (Auto) Absolute Neuts (auto) Absolute Lymphs (auto) Nucleated RBC % Differential Comment Diff Path Review PT INR APTT Sodium Potassium Chloride Carbon Dioxide Anion Gap BUN Creatinine Estim Creat Clear Calc Est GFR (MDRD) Af Amer Est GFR (MDRD) Non-Af BUN/Creatinine Ratio Glucose Lactic Acid 4.1 H* Calcium Total Bilirubin Direct Bilirubin AST ALT Alkaline Phosphatase Troponin I High Sens Total Protein Albumin Globulin Lipase Urine Color Yellow Urine Clarity Sl. Cloudy Urine pH 5.0 Ur Specific [place] 1.020 Urine Protein 30 H Urine Glucose (UA) Normal Urine Ketones Negative Urine Occult Blood 50 H Urine Nitrite Negative Urine Bilirubin Negative Urine Urobilinogen Normal Ur Leukocyte Esterase 500 H Urine RBC 25-50 SEEN Urine WBC 25-50 SEEN Ur Squamous Epith Cells 0 SEEN Urine Bacteria 3+ Urine Mucus 0 SEEN Radiography Diagnostic Testing: Clinical Impression(s) from Imaging Studies Chest X-Ray 03/19/22 07:32 IMPRESSION: Emphysema without pneumonia or atelectasis. Electronically Signed: Michael Spicer MD at 8:16 EST , EKG Initial EKG: Attestation: I personally reviewed and interpreted this EKG as follows: Comments: Sinus tachycardia with a right bundle branch block and a left anterior fascicular block demonstrating a ventricular rate of 113 bpm Discharge Plan Dx/Rx/DC Orders Clinical Impression: Sepsis, DLBCL (diffuse large B cell lymphoma), Acute UTI, Thrombocytopenia, Myelodysplastic syndrome Disposition Disposition: Acute Care Hospital [facility]
[2022-03-19] MEDS: 0.9% Normal Saline 1,000 ML 1000 ML IV ×2 (07:42→08:49)
[2022-03-19 07:45] LABS: Absolute Lymphocyte Count 0.27 X10^3/uL (0.83-4.51); Absolute Neutrophil Count 21.5 X10^3/uL (2.0-7.7); Basophil# 0.05 X10^3/uL; Basophil% 0.2 % (0-1); Eosinophil# 0.07 X10^3/uL; Eosinophils% 0.2 % (0-5); Hematocrit 34.1 % (40-54); Hemoglobin 10.4 g/dL (13.0-16.5); Lymphocyte # 0.27 X10^3/ul (0.83-4.51); Lymphocyte % 0.9 % (19-41); Mean Corp Hgb Conc 30.5 g/dL (32-36); Mean Corpuscular Hgb 30.7 pg (27.0-32.0); Mean Corpuscular Volume 100.6 fL (80-94); Mean Platelet Vol. 12.3 fl (6.2-12.0); Monocyte# 8.36 X10^3/uL; Monocyte% 27.3 % (0-10); NRBC Flagged by Analyzer 0 % (0-5); Neutrophil # 21.54 X10^3/uL (2.7-7.7); Neutrophil % 70.5 % (47-70); POSITIVE COUNT YES; POSITIVE DIFFERENTIAL YES; Platelet Count 130 K/mm3 (150-450); RBC Distribution Width CV 16.7 % (11.6-14.6); RBC Distribution Width SD 60.2 fl (35.1-43.9); Red Blood Count 3.39 M/mm3 (4.6-6.2)
[2022-03-19 07:51] LABS: Differential Indicated SCAN CRITERIA MET; White Blood Count 30.6 K/mm3 (4.4-11.0)
[2022-03-19 08:05] LABS: AST(SGOT) 25 U/L (15-37); Alanine Aminotransfer ALT/SGPT 33 U/L (16-61); Albumin, Serum 3.1 g/dL (3.2-5.0); Alkaline Phosphatase 74 U/L (45-117); Anion Gap 8 (5-15); BUN 24 mg/dL (7-18); BUN/Creat Ratio 17.4 RATIO (10-20); Bilirubin, Direct 0.62 mg/dL (0.00-0.30); Calcium,Total 8.6 mg/dL (8.5-10.1); Chloride 107 mmol/L (98-107); Creatinine, Serum 1.38 mg/dL (0.70-1.30); EST Glomerular Filtration Rate 53 mL/min (>60); Est Glom Filt Rate - Afr Amer 64 mL/min (>60); Estimated Creatinine Clearance 41.83 ml/min; Globulin 3.8 g/dL (2.2-4.2); Glucose 105 mg/dL (74-106); Lipase 154 U/L (73-393); Potassium 4.1 mmol/L (3.5-5.1); Protein, Total 6.9 g/dL (6.4-8.2); Sodium Level 140 mmol/L (136-145); Troponin-I HS 25 pg/mL (3.0-78.0)
[2022-03-19 08:14] LABS: Lactic Acid 4.1 mmol/L (0.4-1.9)
--- NOTE | 2022-03-19 08:14 | ED.RN ---
lactic.4.1. dr giraldo
[2022-03-19 08:48] LABS: Mucous, Urine 0 SEEN /hpf (<or=2+); Squamous Epithelial Cells - UA 0 SEEN /hpf (0-5)
[2022-03-19 08:50] LABS: Color, Urine Yellow (Yellow); Glucose, Dipstick Normal (Normal); Ketone-Dipstick Negative (Negative); Leukocyte Esterase-Dipstick 500 /ul (Negative); Nitrite-Dipstick Negative (Negative); Occult Blood-Urine 50 /ul (Negative); Protein-Dipstick 30 mg/dl (Negative); Urine Bilirubin Dipstick Negative (Negative); Urine Clarity Sl. Cloudy (Clear); Urine Urobilinogen Normal (Normal)
[2022-03-19 08:53] LABS: International Normalized Ratio 1.3; Prothrombin Time (Protime)PT. 15.9 SECONDS (11.7-14.9)
[2022-03-19 08:54] LABS: Partial Thromboplast Time 31.3 Seconds (24.1-36.2)
[2022-03-19 09:29] LABS: Red Blood Cells-Urine 25-50 SEEN /hpf (0-5); White Blood Cells 25-50 SEEN /hpf (0-5)
[2022-03-19 09:30] LABS: Bacteria 3+ /hpf (None Seen)
[2022-03-19] MEDS: 0.9% Normal Saline 1,000 ML 150 ML IV (09:55)
--- NOTE | 2022-03-19 10:19 | ED.RN ---
unable to complete orthostatic vs
[2022-03-19 11:38] LABS: Reflex Lactate? Y
--- NOTE | 2022-03-19 12:00 | NURSING ---
Bladder scanned for 700 straight cathed for 1000.
[2022-03-19 12:46] LABS: Lactic Acid 1.8 mmol/L (0.4-1.9)
[2022-03-19] MEDS: 0.9% Normal Saline 1,000 ML 125 ML IV ×2 (14:32→21:09)
--- NOTE | 2022-03-19 14:43 | PCM.HP.STD ---
HPI - General General Date of Admission: 03/19/22 HPI Narrative MICAH VELEZ, is a 81 M who presents to the hospital with confusion and weakness per the family. He has a history of obstructive jaundice secondary to a diffuse large B-cell lymphoma that was first noticed at [facility] in [place]. He does have a biliary stent in place and he follows with [facility] oncology. He is not a candidate for full treatment for his cancer however he did elect to proceed with chemotherapy however prior to having a port placed and getting his first dose he developed this weakness and confusion. In the ER he was found to have a UTI and was septic based on SIRS criteria. He was given a dose of cefepime in the ER and his blood and urine have been cultured. [facility] Medical History Actinic keratosis Anemia Arthritis Atrioventricular jose m re-entry tachycardia Back pain Benign essential hypertension BPH (benign prostatic hyperplasia) CINV (chemotherapy-induced nausea and vomiting) Easy bruising Encounter for education Epidermal inclusion cyst Functional gait abnormality Gastric reflux History of irregular heartbeat History of smoking HLD (hyperlipidemia) Hypertension Left kidney mass Liver cancer Obstructive jaundice Open wound of great toe Osteoarthritis Pain Peripheral neuropathy Pressure ulcer of toe, stage 2 Prostate disease Shortness of breath on exertion Skin ulcer of right great toe Use of proton pump inhibitor therapy Varicosities of leg Vitamin deficiency Wears dentures Wears glasses Wears hearing aid Home Medications Tamsulosin HCl 0.4 mg PO QHS 04/18/13 [History Last Taken Unknown] hydroxychloroquine 200 mg tablet 200 mg PO BID arthritis 04/18/13 [History Last Taken Unknown] Benazepril Hcl [Lotensin] 20 mg PO QHS 09/18/19 [History Last Taken Unknown] amlodipine 10 mg tablet 10 mg PO QHS 09/18/19 [History Last Taken 10/22/19] simvastatin 80 mg tablet 80 mg PO QHS 05/14/20 [History Last Taken Unknown] finasteride 5 mg tablet 5 mg PO DAILY 09/11/20 [History Last Taken Unknown] ascorbate calcium (vitamin C) 500 mg tablet 500 mg PO DAILY 03/08/22 [History Last Taken Unknown] ferrous sulfate 325 mg (65 mg iron) tablet 325 mg PO DAILY 03/08/22 [History Last Taken Unknown] allopurinol 300 mg tablet 300 mg PO DAILY 30 days #30 tabs 03/10/22 [Rx Last Taken Unknown] Allergy/AdvReac Type Severity Reaction Status Date / Time tramadol [From Ultram] AdvReac Intermediate PT UNSURE Verified 03/19/22 07:28 OF REACTION Family History Father Myocardial infarction Brother Myocardial infarction Mother Pancreas cancer Surgical History H/O foot surgery H/O hernia repair H/O hernia repair History of cataract extraction History of colonoscopy (~06/2019) History of esophagogastroduodenoscopy (EGD) (~06/2019) History of excision of lesion S/P carpal tunnel release Social History Smoking Status: Former smoker quit date: 04/11/84 alcohol intake: current substance use type: does not use additional social history: DOES NOT USE ASPIRIN DOES USE IBUPROFEN NEEDED ROS Constitutional Constitutional: Reports fatigue and weakness; Denies chills, fever(s) or malaise Eyes Eyes: Denies blurry vision ENT HEENT: Denies headache(s) or nasal discharge Cardiovascular Cardiovascular: Denies chest pain, dyspnea on exertion or syncope Respiratory/Chest Respiratory/Chest: Denies cough, shortness of breath at rest or shortness of breath with exertion Gastrointestinal Gastrointestinal: Denies constipation, diarrhea, nausea or vomiting Genitourinary Genitourinary: Reports dysuria Neurologic Neurologic: Denies focal weakness, numbness or tremor(s) Psychiatric Psychiatric: Denies anxiety or depression Vital Signs Vital Signs Vital Signs: 03/19/22 07:22 03/19/22 07:28 03/19/22 07:30 Temperature 100.1 F H 100.1 F H Temperature Source Temporal Temporal Pulse Rate 116 H 116 H Respiratory Rate 20 H 20 H Respiratory Effort Normal Respiratory Pattern Normal Blood Pressure 123/62 H 123/62 H Blood Pressure Mean 82 82 Blood Pressure Source Blood Pressure Position Blood Pressure Location Pulse Ox 95 95 Oxygen Delivery Method 03/19/22 07:34 03/19/22 08:28 03/19/22 09:00 Temperature 100.2 F H 100.1 F H 100.2 F H Temperature Source Temporal Temporal Temporal Pulse Rate 111 H 99 100 Respiratory Rate 20 H 20 H 20 H Respiratory Effort Respiratory Pattern Blood Pressure 120/74 123/45 H 128/46 H Blood Pressure Mean 89 71 73 Blood Pressure Source Blood Pressure Position Blood Pressure Location Pulse Ox 97 96 95 Oxygen Delivery Method Room Air Room Air Room Air 03/19/22 09:00 03/19/22 09:35 03/19/22 07:32 Temperature 100 F H 100.1 F H Temperature Source Temporal Temporal Pulse Rate 100 100 99 Respiratory Rate 20 H 20 H 20 H Respiratory Effort Respiratory Pattern Blood Pressure 128/46 H 115/55 L 120/45 L Blood Pressure Mean 73 75 70 Blood Pressure Source Blood Pressure Position Blood Pressure Location Pulse Ox 95 95 95 Oxygen Delivery Method Room Air Room Air 03/19/22 10:15 03/19/22 09:50 03/19/22 11:15 Temperature 100.2 F H 100.2 F H 97.9 F Temperature Source Temporal Temporal Oral Pulse Rate 103 H 99 63 Respiratory Rate 20 H 20 H 18 Respiratory Effort Respiratory Pattern Blood Pressure 115/55 L 115/49 L 116/75 Blood Pressure Mean 75 71 88 Blood Pressure Source Monitor Blood Pressure Position Semi-Fowlers Blood Pressure Location Right Arm Pulse Ox 96 95 96 Oxygen Delivery Method Room Air Room Air Room Air 03/19/22 11:15 03/19/22 13:22 Temperature 99.0 F Temperature Source Oral Pulse Rate 84 Respiratory Rate 18 Respiratory Effort Respiratory Pattern Blood Pressure 100/53 L Blood Pressure Mean 68 Blood Pressure Source Blood Pressure Position Blood Pressure Location Pulse Ox 100 Oxygen Delivery Method Room Air Room Air Weight Weight: 154 lb 4 oz Body Mass Index (BMI) 19.8 Physical Exam Narrative General: Alert, Oriented x2, Cooperative, No apparent distress HEENT: Atraumatic, PERRLA, EOMI, Normocephalic, hard of hearing Oral: Dry mucosa Neck: Supple, No JVD Lungs: Diminished, Normal air movement, No rhonchi, No wheeze, No rales Cardiovascular: Regular rate, Regular Rhythm, Normal S1, Normal S2, No murmurs Abdomen: Soft, Non Tender, Non-Distended, No Hepato-splenomegaly Extremities: No edema, Capillary Refill Less than 3 Seconds Skin: No rashes, No breakdown Musculoskeletal: No Tenderness to Palpation of Joints or Extremities Neurological: Cranial nerves II-XII grossly intact, Motor Exam 5/5 strength throughout, Sensory exam intact to light touch and pain Psych/Mental Status: Normal Affect, Appropriate Results Medical Records Data Medical Nutrition Assessment Dietitian: Malnutrition Criteria Met Start: 03/19/22 12:52 Freq: Status: Active Protocol: Document 03/19/22 12:52 JOON (Rec: 03/19/22 12:53 JOON [id number]) Nutrition Malnutrition Evidence of Malnutrition Exists Yes Malnutrition (severe): Chronic Evidenced By Suboptimal Energy Intake ( Severe),Weight Loss (Moderate) ,Physical Changes (Moderate) Clinical Problem Chronic Disease or Condition Related Malnutrition Etiology severe related to cancer and chemo tx making it difficult to consume adequate nutrition to meet est nutritional needs Signs/Symptoms as evidenced by <50% x 3-4 mo, fat/muscle loss: face, clavicle, upper body/arms, and 15.9% wt loss x 1 yr Status Active Problem Recommendation Dietitian Recommendations/Changes Will liberalize diet to Regular d/t signs/symptoms of malnutrition Will provide 8 oz ensure plus high protein w/ breakfast and lunch per pt request Lab / Micro Data Result Diagrams: 03/19/22 07:24 03/19/22 07:24 Labs: Laboratory Results - last 24 hr 03/19/22 07:24: WBC 30.6 H*, RBC 3.39 L, Hgb 10.4 L, Hct 34.1 L, MCV 100.6 H, MCH 30.7, MCHC 30.5 L, RDW Std Deviation 60.2 H, RDW Coeff of Kori 16.7 H, Plt Count 130 L, MPV 12.3 H, Immature Gran % (Auto) 0.900, Neut % (Auto) 70.5 H, Lymph % (Auto) 0.9 L, [place] % (Auto) 27.3 H, Eos % (Auto) 0.2, Baso % (Auto) 0.2, Absolute Neuts (auto) 21.5 H, Absolute Lymphs (auto) 0.27 L, Nucleated RBC % 0, Differential Comment COMMENT, Diff Path Review August03/19/22 07:24: PT 15.9 H, INR 1.3, APTT 31.3 03/19/22 07:24: Sodium 140, Potassium 4.1, Chloride 107, Carbon Dioxide 25.0, Anion Gap 8, BUN 24 H, Creatinine 1.38 H, Estim Creat Clear Calc 41.83, Est GFR (MDRD) Af Amer 64, Est GFR (MDRD) Non-Af 53 L, BUN/Creatinine Ratio 17.4, Glucose 105, Calcium 8.6, Total Bilirubin 1.00, Direct Bilirubin 0.62 H, AST 25, ALT 33, Alkaline Phosphatase 74, Troponin I High Sens 25, Total Protein 6.9, Albumin 3.1 L, Globulin 3.8, Lipase 154 03/19/22 07:24: Lactic Acid 4.1 H* 03/19/22 08:35: Urine Color Yellow, Urine Clarity Sl. Cloudy, Urine pH 5.0, Ur Specific [place] 1.020, Urine Protein 30 H, Urine Glucose (UA) Normal, Urine Ketones Negative, Urine Occult Blood 50 H, Urine Nitrite Negative, Urine Bilirubin Negative, Urine Urobilinogen Normal, Ur Leukocyte Esterase 500 H, Urine RBC 25-50 SEEN, Urine WBC 25-50 SEEN, Ur Squamous Epith Cells 0 SEEN, Urine Bacteria 3+, Urine Mucus 0 SEEN 03/19/22 12:07: Lactic Acid 1.8 Micro: Microbiology 03/19/22 08:40 Nasal Secretion SARS-CoV-2 & FLU Antigen (Rapid) - Final Radiology Impression Chest X-Ray 03/19/22 07:32 IMPRESSION: Emphysema without pneumonia or atelectasis. Electronically Signed: Michael Spicer MD at 8:16 EST Reading Location ID and State: [address] [place] [address] Tel , Service support , Assessment & Plan Assessment/Plan (1) Sepsis: (2) Acute UTI: PLAN: Plan 1. Sepsis secondary to UTI ? Continue with fluids ? Continue with cefepime ? Blood and urine cultures are pending 2. Diffuse large B-cell lymphoma/anemia ? He is not a candidate for aggressive chemotherapy but he will receive R-mini CHOP ? We will plan for port placement if his blood cultures are negative, as an outpatient ? He does also have a left renal mass which is felt could be a primary renal cell carcinoma which is currently just being monitored given his active lymphoma ? We will do with his allopurinol for concerns of tumor lysis with chemo when he gets it, he did also receive high-dose prednisone for few days at the end of February into March ? 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 He did have a stent placed in his biliary system by due to obstructive jaundice because of his lymphoma mass in his right upper quadrant 3. HTN/HLD ? We will hold his blood pressure medications today's given his sepsis ? If he becomes hypertensive can restart ? Can resume his simvastatin 4. BPH with urinary retention ? He did have about 700 cc on bladder scan, did straight cath x1 we will repeat a bladder scan in a few hours and would recommend straight cath again if elevated, if he does need to be straight cath the third time I would just leave the Zafar in place ? Continue with his finasteride Flomax DVT: Lovenox Sepsis Attestation Sepsis Attestation: Agree w/Sepsis Date exam was performed: 03/19/22 Time exam was performed: 12:00 Possible Source of Sepsis: Genitourinary Sepsis Organ Dysfunction Criteria Present: Lactic Acid > 2 mmol/L and New/Unexplained change in mental status Fluid Resuscitation Fluid resuscitation indicated?: Yes Fluid Resuscitation ordered: 30 ml/kg fluid bolus ordered Charges/Coding Visit Charges Inpatient E&M: 82681 Init Hosp L3
[2022-03-19] MEDS: Enoxaparin 40 MG/0.4 ML Syringe SC (17:20)
[2022-03-19] MEDS: Hydroxychloroquine 200 MG Tablet PO (17:21)
[2022-03-19] MEDS: Tamsulosin HCl 0.4 MG Capsule PO (21:08)
[2022-03-19] MEDS: Atorvastatin Calcium 40 MG Tablet PO (21:08)
[2022-03-20 05:00] VITALS: BP 134/55; PULSE 89; RESP 16; TEMP 36.7; O2SAT 94
[2022-03-20] MEDS: 0.9% Normal Saline 1,000 ML 125 ML IV (05:10)
[2022-03-20 07:32] VITALS: BP 123/52; BP 127/66; BP 128/65; PULSE 102; PULSE 82; PULSE 88
[2022-03-20 07:49] LABS: Absolute Lymphocyte Count 0.21 X10^3/uL (0.83-4.51); Absolute Neutrophil Count 12.5 X10^3/uL (2.0-7.7); Basophil# 0.04 X10^3/uL; Basophil% 0.2 % (0-1); Eosinophil# 0.04 X10^3/uL; Eosinophils% 0.2 % (0-5); Hemoglobin 9.7 g/dL (13.0-16.5); Lymphocyte # 0.21 X10^3/ul (0.83-4.51); Lymphocyte % 1.2 % (19-41); Mean Corp Hgb Conc 30.3 g/dL (32-36); Mean Corpuscular Hgb 30.7 pg (27.0-32.0); Mean Corpuscular Volume 101.3 fL (80-94); Mean Platelet Vol. 12.6 fl (6.2-12.0); Monocyte# 4.48 X10^3/uL; Monocyte% 25.7 % (0-10); NRBC Flagged by Analyzer 0 % (0-5); Neutrophil # 12.54 X10^3/uL (2.7-7.7); POSITIVE COUNT YES; POSITIVE DIFFERENTIAL YES; Platelet Count 70 K/mm3 (150-450); RBC Distribution Width CV 17.2 % (11.6-14.6); RBC Distribution Width SD 63.3 fl (35.1-43.9); Red Blood Count 3.16 M/mm3 (4.6-6.2); White Blood Count 17.4 K/mm3 (4.4-11.0)
[2022-03-20 07:51] LABS: Differential Indicated SCAN CRITERIA MET
[2022-03-20 08:09] LABS: Anion Gap 5 (5-15); BUN 17 mg/dL (7-18); BUN/Creat Ratio 19.7 RATIO (10-20); Calcium,Total 7.9 mg/dL (8.5-10.1); Chloride 113 mmol/L (98-107); Creatinine, Serum 0.86 mg/dL (0.70-1.30); EST Glomerular Filtration Rate 90 mL/min (>60); Est Glom Filt Rate - Afr Amer 109 mL/min (>60); Estimated Creatinine Clearance 66.67 ml/min; Glucose 90 mg/dL (74-106); Potassium 3.5 mmol/L (3.5-5.1); Sodium Level 142 mmol/L (136-145)
[2022-03-20] MEDS: Allopurinol 300 MG Tablet PO (08:14)
[2022-03-20] MEDS: Finasteride 5 MG Tablet PO (08:14)
[2022-03-20] MEDS: Hydroxychloroquine 200 MG Tablet PO ×2 (08:14→16:29)
[2022-03-20] MEDS: Ascorbic Acid 500 MG Tablet PO (08:14)
[2022-03-20] MEDS: Menthol/Lanolin/Calamine/Znox 113 GM Tube 1 APPLIC TOPICAL ×3 (08:15→20:27)
[2022-03-20 08:26] LABS: Platelet Estimate MOD DEC (ADEQ)
--- NOTE | 2022-03-20 08:26 | CASEMGMT ---
Social Work As per initial nursing admitting assessment, pt does not have LW or POA. CHARMAINE Rider
--- NOTE | 2022-03-20 10:11 | PN.HOSP_ITS ---
Subjective Subjective Doing well, no issues overnight. Feeling better than when he came in. White count is much improved as his renal function Objective Data Objective Data Vital Signs: Vital Signs Temp Pulse Resp BP Pulse Ox O2 Del Method 98.1 F 82 16 127/66 H 94 Room Air 03/20/22 05:00 03/20/22 07:32 03/20/22 05:00 03/20/22 07:32 03/20/22 05:00 03/20/22 05:00 Oxygen Delivery Method Room Air Weight: 154 lb 4 oz Body Mass Index (BMI) 19.8 Intake & Output: Intake and Output for Last 24 Hours 03/19/22 03/20/22 03/21/22 03:59 03:59 03:59 Intake Total 4177.08 / 4177.08 1000 / 1000 Output Total 1000 / 1000 Balance 3177.08 / 3177.08 1000 / 1000 Medical Nutrition Assessment Dietitian: Malnutrition Criteria Met Start: 03/19/22 12:52 Freq: Status: Active Protocol: Document 03/19/22 12:52 JOON (Rec: 03/19/22 12:53 JOON [id number]) Nutrition Malnutrition Evidence of Malnutrition Exists Yes Malnutrition (severe): Chronic Evidenced By Suboptimal Energy Intake ( Severe),Weight Loss (Moderate) ,Physical Changes (Moderate) Clinical Problem Chronic Disease or Condition Related Malnutrition Etiology severe related to cancer and chemo tx making it difficult to consume adequate nutrition to meet est nutritional needs Signs/Symptoms as evidenced by <50% x 3-4 mo, fat/muscle loss: face, clavicle, upper body/arms, and 15.9% wt loss x 1 yr Status Active Problem Recommendation Dietitian Recommendations/Changes Will liberalize diet to Regular d/t signs/symptoms of malnutrition Will provide 8 oz ensure plus high protein w/ breakfast and lunch per pt request Lab / Micro Data Result Diagrams: 03/20/22 07:17 03/20/22 07:17 Labs: Laboratory Results - last 24 hr 03/19/22 12:07: Lactic Acid 1.8 03/20/22 07:17: Sodium 142, Potassium 3.5, Chloride 113 H, Carbon Dioxide 24.0, Anion Gap 5, BUN 17, Creatinine 0.86, Estim Creat Clear Calc 66.67, Est GFR (MDRD) Af Amer 109, Est GFR (MDRD) Non-Af 90, BUN/Creatinine Ratio 19.7, Glucose 90, Calcium 7.9 L 03/20/22 07:17: WBC 17.4 H, RBC 3.16 L, Hgb 9.7 L, Hct 32.0 L, MCV 101.3 H, MCH 30.7, MCHC 30.3 L, RDW Std Deviation 63.3 H, RDW Coeff of Kori 17.2 H, Plt Count 70 L, MPV 12.6 H, Immature Gran % (Auto) 0.700, Neut % (Auto) 72.0 H, Lymph % (Auto) 1.2 L, [place] % (Auto) 25.7 H, Eos % (Auto) 0.2, Baso % (Auto) 0.2, Absolute Neuts (auto) 12.5 H, Absolute Lymphs (auto) 0.21 L, Nucleated RBC % 0, Diff Path Review August, Platelet Estimate MOD MAR Micro: Microbiology 03/19/22 08:40 Nasal Secretion SARS-CoV-2 & FLU Antigen (Rapid) - Final Physical Exam Narrative General: Alert, Oriented x2, Cooperative, No apparent distress HEENT: Atraumatic, PERRLA, EOMI, Normocephalic, hard of hearing Oral: Moist mucosa Neck: Supple, No JVD Lungs: Diminished, Normal air movement, No rhonchi, No wheeze, No rales Cardiovascular: Regular rate, Regular Rhythm, Normal S1, Normal S2, No murmurs Abdomen: Soft, Non Tender, Non-Distended, No Hepato-splenomegaly Extremities: No edema, Capillary Refill Less than 3 Seconds Skin: No rashes, No breakdown Musculoskeletal: No Tenderness to Palpation of Joints or Extremities Neurological: Cranial nerves II-XII grossly intact, Motor Exam 5/5 strength throughout, Sensory exam intact to light touch and pain Psych/Mental Status: Normal Affect, Appropriate Assessment & Plan Assessment/Plan (1) Sepsis: (2) Acute UTI: PLAN: Plan 1. Sepsis secondary to UTI ? Continue with fluids ? Continue with cefepime ? Blood and urine cultures are pending ? Renal function is back to baseline 2. Diffuse large B-cell lymphoma/anemia ? He is not a candidate for aggressive chemotherapy but he will receive R-mini CHOP ? We will plan for port placement if his blood cultures are negative, as an outpatient ? He does also have a left renal mass which is felt could be a primary renal cell carcinoma which is currently just being monitored given his active lymphoma ? We will do with his allopurinol for concerns of tumor lysis with chemo when he gets it, he did also receive high-dose prednisone for few days at the end of February into March ? 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 He did have a stent placed in his biliary system by due to obstructive jaundice because of his lymphoma mass in his right upper quadrant 3. HTN/HLD ? We will hold his blood pressure medications today's given his sepsis ? If he becomes hypertensive can restart ? Can resume his simvastatin 4. BPH with urinary retention ? He did have about 700 cc on bladder scan, did straight cath x1 we will repeat a bladder scan in a few hours and would recommend straight cath again if elevated, if he does need to be straight cath the third time I would just leave the Zafar in place ? Continue with his finasteride Flomax DVT: Lovenox Charges/Coding Visit Charges Inpatient E&M: 34614 Subs Hosp L2
[2022-03-20] MEDS: 0.9% Normal Saline 1,000 ML 75 ML IV (11:29)
[2022-03-20] MEDS: Ferrous Sulfate 325 MG Tablet PO (11:35)
--- NOTE | 2022-03-20 15:23 | CASEMGMT ---
Social Work SW met w/pt in room in regard to prior level of function and anticipated discharge plan. PCP: Dr. Clark Specialists: Dr. Hein, oncology Insurance: Medicare/[employer]. Has prescription coverage Phamacy: [facility]: , son Mikel(in [place]) LW/POA: Pt has not completed, may be interested in completing. SW gave pt forms and explained will ask SW on Tuesday to follow up as time allows. Pt too tired to complete today. Living arrangements/Prior level of function: Pt lives home w/ in a one story home with a basement, a couple of steps in to the home. Pt states has not been in the basement in a couple of weeks, normally is able to get up and down the steps without a problem. Pt's does the cooking and cleaning, most of the driving, the bill pay. Pt is able to take care of his personal ADLs including bathing, getting to the restroom, walking. Pt organizes his own medication. Pt uses a cane at times. DME: Cane, shower chair, bedside commode SNF/HHC: Pt states no history of either SW spoke w/pt about discharge plan from here. Pt anticipates being able to return home at discharge. Pt is open to home health care. SW explained will communicate w/physician about getting PT/OT while here. Pt states understanding. SW notified CM that pt is interested in home care. SW to follow up as time allows on Tuesday regarding LW/POA. CHARMAINE Rider
--- NOTE | 2022-03-20 16:00 | CASEMGMT ---
LEXY MAGAÑA in to pt room to provide HHC list. Patient agreeable to having SN and therapy in the home. Pt then was trying to get oob. Pt states he was going to the livingroom. Asked pt if he knew where he was, he states the hospital. Patient was provided a list of HHC providers including quality and resource use data and consistent with the patient?s preferred geographic region, medical needs, and insurance network were provided from the [facility] Guide. LEXY MAGAÑA to check back on options.
[2022-03-20 16:19] VITALS: BP 101/57; PULSE 80; PULSE 93; RESP 18; TEMP 36.8; O2SAT 96
[2022-03-20] MEDS: Atorvastatin Calcium 40 MG Tablet PO (20:27)
[2022-03-20] MEDS: Tamsulosin HCl 0.4 MG Capsule PO (20:27)
[2022-03-20 21:00] VITALS: BP 118/52; PULSE 96; RESP 17; TEMP 37.7; O2SAT 94
[2022-03-21] MEDS: 0.9% Normal Saline 1,000 ML 75 ML IV ×2 (01:14→15:44)
[2022-03-21 03:36] VITALS: BP 115/51; PULSE 83; RESP 18; TEMP 36.8; O2SAT 94
[2022-03-21] MEDS: Menthol/Lanolin/Calamine/Znox 113 GM Tube 1 APPLIC TOPICAL ×3 (05:25→21:50)
[2022-03-21 06:22] LABS: Absolute Lymphocyte Count 0.21 X10^3/uL (0.83-4.51); Absolute Neutrophil Count 5.8 X10^3/uL (2.0-7.7); Basophil# 0.03 X10^3/uL; Basophil% 0.3 % (0-1); Eosinophil# 0.07 X10^3/uL; Eosinophils% 0.7 % (0-5); Hemoglobin 8.6 g/dL (13.0-16.5); Lymphocyte # 0.21 X10^3/ul (0.83-4.51); Lymphocyte % 2.1 % (19-41); Mean Corp Hgb Conc 29.7 g/dL (32-36); Mean Corpuscular Hgb 30.1 pg (27.0-32.0); Mean Corpuscular Volume 101.4 fL (80-94); Mean Platelet Vol. 11.7 fl (6.2-12.0); Monocyte# 3.82 X10^3/uL; Monocyte% 38.2 % (0-10); NRBC Flagged by Analyzer 0 % (0-5); Neutrophil # 5.79 X10^3/uL (2.7-7.7); Neutrophil % 57.8 % (47-70); POSITIVE COUNT YES; POSITIVE DIFFERENTIAL YES; RBC Distribution Width CV 16.8 % (11.6-14.6); RBC Distribution Width SD 62.5 fl (35.1-43.9); Red Blood Count 2.86 M/mm3 (4.6-6.2)
[2022-03-21 06:59] LABS: Anion Gap 6 (5-15); BUN 14 mg/dL (7-18); BUN/Creat Ratio 18.4 RATIO (10-20); Calcium,Total 7.7 mg/dL (8.5-10.1); Chloride 113 mmol/L (98-107); Creatinine, Serum 0.76 mg/dL (0.70-1.30); EST Glomerular Filtration Rate 105 mL/min (>60); Est Glom Filt Rate - Afr Amer 127 mL/min (>60); Estimated Creatinine Clearance 57.33 ml/min; Glucose 101 mg/dL (74-106); Potassium 3.2 mmol/L (3.5-5.1); Sodium Level 140 mmol/L (136-145)
[2022-03-21 07:02] LABS: Differential Indicated SCAN CRITERIA MET
[2022-03-21 07:03] LABS: Platelet Count 49 K/mm3 (150-450)
[2022-03-21 07:04] LABS: Differential Comment SCANNED
[2022-03-21 09:00] VITALS: PULSE 78; RESP 18
--- NOTE | 2022-03-21 09:21 | PCM.PN.HOSP ---
Subjective Subjective Doing well, no issues overnight. Had to have a Zafar placed yesterday secondary to urinary retention Objective Data Objective Data Vital Signs: Vital Signs Temp Pulse Resp BP Pulse Ox O2 Del Method O2 Flow Rate 98.3 F 83 18 115/51 L 94 Room Air 5 03/21/22 03:36 03/21/22 03:36 03/21/22 03:36 03/21/22 03:36 03/21/22 03:36 03/21/22 03:36 03/20/22 20:56 Oxygen Flow Rate (L/min) 5 Oxygen Delivery Method Room Air Weight: 154 lb 4 oz Body Mass Index (BMI) 19.8 Intake & Output: Intake and Output for Last 24 Hours 03/20/22 03/21/22 03/22/22 03:59 03:59 03:59 Intake Total 4177.08 / 4177.08 2989.58 / 2989.58 Output Total 1000 / 1000 1600 / 1600 800 / 800 Balance 3177.08 / 3177.08 1389.58 / 1389.58 -800 / -800 Medical Nutrition Assessment Dietitian: Malnutrition Criteria Met Start: 03/19/22 12:52 Freq: Status: Active Protocol: Document 03/19/22 12:52 JOON (Rec: 03/19/22 12:53 JOON [id number]) Nutrition Malnutrition Evidence of Malnutrition Exists Yes Malnutrition (severe): Chronic Evidenced By Suboptimal Energy Intake ( Severe),Weight Loss (Moderate) ,Physical Changes (Moderate) Clinical Problem Chronic Disease or Condition Related Malnutrition Etiology severe related to cancer and chemo tx making it difficult to consume adequate nutrition to meet est nutritional needs Signs/Symptoms as evidenced by <50% x 3-4 mo, fat/muscle loss: face, clavicle, upper body/arms, and 15.9% wt loss x 1 yr Status Active Problem Recommendation Dietitian Recommendations/Changes Will liberalize diet to Regular d/t signs/symptoms of malnutrition Will provide 8 oz ensure plus high protein w/ breakfast and lunch per pt request Lab / Micro Data Result Diagrams: 03/21/22 06:06 03/21/22 06:06 Labs: Laboratory Results - last 24 hr 03/21/22 06:06: WBC 10.0, RBC 2.86 L, Hgb 8.6 L, Hct 29.0 L, MCV 101.4 H, MCH 30.1, MCHC 29.7 L, RDW Std Deviation 62.5 H, RDW Coeff of Kori 16.8 H, Plt Count 49 L*, MPV 11.7, Immature Gran % (Auto) 0.900, Neut % (Auto) 57.8, Lymph % (Auto) 2.1 L, [place] % (Auto) 38.2 H, Eos % (Auto) 0.7, Baso % (Auto) 0.3, Absolute Neuts (auto) 5.8, Absolute Lymphs (auto) 0.21 L, Nucleated RBC % 0, Differential Comment SCANNED, Diff Path Review August03/21/22 06:06: Sodium 140, Potassium 3.2 L, Chloride 113 H, Carbon Dioxide 21.0, Anion Gap 6, BUN 14, Creatinine 0.76, Estim Creat Clear Calc 57.33, Est GFR (MDRD) Af Amer 127, Est GFR (MDRD) Non-Af 105, BUN/Creatinine Ratio 18.4, Glucose 101, Calcium 7.7 L Micro: Microbiology 03/19/22 08:35 Urine, Clean Catch Urine Culture - Preliminary Presumptive E. coli 03/19/22 08:40 Nasal Secretion SARS-CoV-2 & FLU Antigen (Rapid) - Final Physical Exam Narrative General: Alert, Oriented x2, Cooperative, No apparent distress HEENT: Atraumatic, PERRLA, EOMI, Normocephalic, hard of hearing Oral: Moist mucosa Neck: Supple, No JVD Lungs: Diminished, Normal air movement, No rhonchi, No wheeze, No rales Cardiovascular: Regular rate, Regular Rhythm, Normal S1, Normal S2, No murmurs Abdomen: Soft, Non Tender, Non-Distended, No Hepato-splenomegaly Extremities: No edema, Capillary Refill Less than 3 Seconds Skin: No rashes, No breakdown Musculoskeletal: No Tenderness to Palpation of Joints or Extremities Neurological: Cranial nerves II-XII grossly intact, Motor Exam 5/5 strength throughout, Sensory exam intact to light touch and pain Psych/Mental Status: Normal Affect, Appropriate Assessment & Plan Assessment/Plan (1) Sepsis: (2) Acute UTI: PLAN: Plan 1. Sepsis secondary to UTI ? Continue with fluids ? Continue with cefepime ? Blood and urine cultures are pending ? Renal function is back to baseline 2. Diffuse large B-cell lymphoma/anemia ? He is not a candidate for aggressive chemotherapy but he will receive R-mini CHOP ? We will plan for port placement if his blood cultures are negative, as an outpatient ? He does also have a left renal mass which is felt could be a primary renal cell carcinoma which is currently just being monitored given his active lymphoma ? We will do with his allopurinol for concerns of tumor lysis with chemo when he gets it, he did also receive high-dose prednisone for few days at the end of February into March ? 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 He did have a stent placed in his biliary system by due to obstructive jaundice because of his lymphoma mass in his right upper quadrant 3. HTN/HLD ? We will hold his blood pressure medications today's given his sepsis ? If he becomes hypertensive can restart ? Can resume his simvastatin 4. BPH with urinary retention ?The place a Zafar will need to do a voiding trial prior to discharge ? Continue with his finasteride and Flomax DVT: Lovenox Charges/Coding Visit Charges Inpatient E&M: 25723 Subs Hosp L2
[2022-03-21 09:36] VITALS: BP 124/70; PULSE 88; RESP 18; TEMP 36.6; O2SAT 97
[2022-03-21] MEDS: Finasteride 5 MG Tablet PO (10:01)
[2022-03-21] MEDS: Ascorbic Acid 500 MG Tablet PO (10:02)
[2022-03-21] MEDS: Hydroxychloroquine 200 MG Tablet PO ×2 (10:02→16:17)
[2022-03-21] MEDS: Allopurinol 300 MG Tablet PO (10:02)
[2022-03-21] MEDS: Ferrous Sulfate 325 MG Tablet PO (15:43)
[2022-03-21 16:17] VITALS: BP 126/63; PULSE 83; RESP 18; TEMP 36.8; O2SAT 96
[2022-03-21 21:47] VITALS: BP 120/65; PULSE 98; RESP 18; TEMP 37.7; O2SAT 95
[2022-03-21] MEDS: 0.9% Saline Lock 10 ML Syringe IV (21:49)
[2022-03-21] MEDS: Atorvastatin Calcium 40 MG Tablet PO (21:50)
[2022-03-21] MEDS: Tamsulosin HCl 0.4 MG Capsule PO (21:50)
[2022-03-22 03:41] VITALS: BP 126/74; PULSE 73; RESP 18; TEMP 36.8; O2SAT 96
[2022-03-22] MEDS: 0.9% Normal Saline 1,000 ML 75 ML IV (03:42)
[2022-03-22] MEDS: Menthol/Lanolin/Calamine/Znox 113 GM Tube 1 APPLIC TOPICAL ×2 (03:43→14:42)
[2022-03-22 06:34] LABS: Absolute Lymphocyte Count 0.69 X10^3/uL (0.83-4.51); Absolute Neutrophil Count 3.3 X10^3/uL (2.0-7.7); Basophil# 0.02 X10^3/uL; Basophil% 0.4 % (0-1); Eosinophil# 0.07 X10^3/uL; Eosinophils% 1.2 % (0-5); Hematocrit 28.5 % (40-54); Hemoglobin 8.9 g/dL (13.0-16.5); Lymphocyte # 0.69 X10^3/ul (0.83-4.51); Lymphocyte % 12.2 % (19-41); Mean Corp Hgb Conc 31.2 g/dL (32-36); Mean Corpuscular Hgb 30.6 pg (27.0-32.0); Mean Corpuscular Volume 97.9 fL (80-94); Mean Platelet Vol. 12.6 fl (6.2-12.0); Monocyte% 26.6 % (0-10); NRBC Flagged by Analyzer 0 % (0-5); Neutrophil # 3.26 X10^3/uL (2.7-7.7); Neutrophil % 57.8 % (47-70); POSITIVE COUNT YES; Platelet Count 34 K/mm3 (150-450); RBC Distribution Width CV 16.6 % (11.6-14.6); RBC Distribution Width SD 58.5 fl (35.1-43.9); Red Blood Count 2.91 M/mm3 (4.6-6.2); White Blood Count 5.6 K/mm3 (4.4-11.0)
[2022-03-22 06:37] LABS: Differential Indicated SCAN CRITERIA MET
[2022-03-22 06:58] LABS: Anion Gap 5 (5-15); BUN 11 mg/dL (7-18); BUN/Creat Ratio 13.8 RATIO (10-20); Calcium,Total 7.6 mg/dL (8.5-10.1); Chloride 111 mmol/L (98-107); EST Glomerular Filtration Rate 99 mL/min (>60); Est Glom Filt Rate - Afr Amer 120 mL/min (>60); Estimated Creatinine Clearance 71.67 ml/min; Glucose 97 mg/dL (74-106); Potassium 3.3 mmol/L (3.5-5.1); Sodium Level 140 mmol/L (136-145)
[2022-03-22 07:13] LABS: Anisocytosis 1+; Macrocytosis 1+; Platelet Estimate MKD DEC (ADEQ)
[2022-03-22] MEDS: Ascorbic Acid 500 MG Tablet PO (08:59)
[2022-03-22] MEDS: Finasteride 5 MG Tablet PO (08:59)
[2022-03-22] MEDS: Allopurinol 300 MG Tablet PO (08:59)
[2022-03-22 09:05] VITALS: BP 108/55; PULSE 85; RESP 16; TEMP 36.8; O2SAT 95
[2022-03-22] MEDS: Hydroxychloroquine 200 MG Tablet PO ×2 (09:23→16:27)
[2022-03-22 10:23] VITALS: O2SAT 94
[2022-03-22 10:28] VITALS: O2SAT 94
[2022-03-22] MEDS: Ceftriaxone 1 GM/50 ML BAG IV (10:45)
[2022-03-22 11:24] VITALS: BP 112/60; PULSE 90; RESP 16; TEMP 36.6; O2SAT 96
[2022-03-22] MEDS: Ferrous Sulfate 325 MG Tablet PO (12:18)
[2022-03-22 14:19] VITALS: BP 111/56; PULSE 88; RESP 16; TEMP 36.6; O2SAT 95
--- NOTE | 2022-03-22 14:23 | CASEMGMT ---
Addendum entered by Jeanne Marroquin 03/22/22 15:53: Received vm from Sheri, will accept pt for SOC on the . TC to pt to make aware. She verbalizes understanding. Addendum entered by Jeanne Marroquin 03/22/22 14:55: Received notification that pt selected her choices electronically and chose [facility] as primary. TC to Sheri at [facility], left vm with referral, will await acceptance. Original Note: TC to pt to discuss dc planning. She was open to [facility] and the list be sent to her via email. Sent same list printed for pt to pt email. Pt with confusion. Discussed having SN, PT and OT in the home.
--- NOTE | 2022-03-22 14:40 | DCINST_ITS ---
Discharge Instructions Diet Discharge Diet: No restrictions Activity Discharge Activity: Return to Normal Activity and May Not Drive Weight Bearing Status: Weight bearing as tolerated Follow Up Care Test Results: Test results from this visit will be discussed in further detail at your follow- up appointment, if applicable. Discharge Plan Admission Admit Date/Time: 03/19/22 09:44 Primary Reason for Your Visit: E. coli UTI with urine retention/BPH Attending Provider: Charbel Wagner Primary Care Provider: Fred Clark Consulting Providers: Byron Goodson Discharge Orders/Prescriptions Prescriptions: New sulfamethoxazole-trimethoprim [Bactrim DS] 800-160 mg tablet 1 tab PO BID Qty: 8 0RF atorvastatin 40 mg Tablet 40 mg PO QHS Qty: 30 2RF Continued finasteride 5 mg tablet 5 mg PO DAILY ferrous sulfate 325 mg (65 mg iron) tablet 325 mg PO DAILY ascorbate calcium (vitamin C) 500 mg tablet 500 mg PO DAILY hydroxychloroquine 200 MG tablet 200 mg PO BID Tamsulosin HCl 0.4 mg PO QHS allopurinol 300 mg tablet 300 mg PO DAILY 30 Days Qty: 30 0RF amlodipine 10 MG tablet 10 mg PO QHS Qty: 30 0RF Rx Instructions: Hold for SBP less than 130 mmHg Discontinued Benazepril Hcl [Lotensin] 20 MG tablet 20 mg PO QHS simvastatin 80 MG tablet 80 mg PO QHS Referrals / Follow Up: Bong Adams MD [Med Staff - Active Staff] - Within 1 Month (FOR PORT PLACEMENT) Kelvin Bermeo MD [Med Staff - Active Staff] - Within 2 Weeks (for BPH with LANDRUM. Discharged with Zafar catheter. Failed spontaneous voiding.) Gabriela Hein MD [Med Staff - Active Staff] - ( SCHEDULED) Fred Clark DO [Primary Care Provider] - Disposition Disposition (needs filled in before D/C Order can be placed): Home Health Service
[2022-03-22 15:37] LABS: Pathologist Review Reviewed
[2022-03-22 15:39] LABS: Pathologist Review Reviewed
--- NOTE | 2022-03-22 15:59 | DS.PCM_ITS ---
Providers Date of Admission: 03/19/22 Date of Discharge: 03/22/22 Primary Care Physician: Dr. Fred Clark DO Reason For Visit: UTI WITH SEPSIS Diagnosis Discharge Diagnosis (1) Sepsis: Status: Acute Code(s): A41.9 - Sepsis, unspecified organism (2) Acute UTI: Status: Acute Code(s): N39.0 - Urinary tract infection, site not specified Medications at Discharge Home Medications Tamsulosin HCl 0.4 mg PO QHS 04/18/13 hydroxychloroquine 200 mg tablet 200 mg PO BID arthritis 04/18/13 finasteride 5 mg tablet 5 mg PO DAILY 09/11/20 ascorbate calcium (vitamin C) 500 mg tablet 500 mg PO DAILY 03/08/22 ferrous sulfate 325 mg (65 mg iron) tablet 325 mg PO DAILY 03/08/22 allopurinol 300 mg tablet 300 mg PO DAILY 30 days #30 tabs 03/10/22 amlodipine 10 mg tablet 10 mg PO QHS #30 tabs 03/22/22 atorvastatin 40 mg tablet 40 mg PO QHS #30 tabs 03/22/22 sulfamethoxazole 800 mg-trimethoprim 160 mg tablet (Bactrim DS) 1 tab PO BID #8 tabs 03/22/22 Hospital Course Summary of Care Provided Hospital Course: 81-year-old male was admitted with confusion, weakness, Fever temporal temperature 100.4 ?F, and urine retention, 700 mL that required a straight cath and then Zafar catheter in the ED 1.? E. coli UTI with lactic acidosis: Patient was admitted on [facility] floor. As per the EMS, ED, review of labs and vital he does not meet the criteria for sepsis. 1 time he had hypotension, 80/40 as per EMS but Next reading after 10 minutes blood pressure was 125/59 without IV fluid resuscitation. Lactic acid was elevated. 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 He does not meet criteria of 2 OR more than 2 organ dysfunction. Patient was treated with IV fluid. Was initially started on meropenem in ED and then cefepime. Urine culture shows E. coli more than 1000 and changed to ceftriaxone today. Patient is being discharged on Bactrim DS to complete a total of 8 days of antibiotic treatment. Patient had mild COY most likely due to prerenal, 1.38 which is resolved. 2.? Diffuse large B-cell lymphoma complicated with anemia and severe thrombocytopenia ? He is not a candidate for aggressive chemotherapy but he will receive R-mini CHOP. He will need Mediport placement as an outpatient as patient is being treated for infection during hospital course. Follow with Dr. Stewart. Continue allopurinol. Patient had biliary stent placement in for obstructive jaundice believe to be due to lymphoma.PET scan was discussed with the family which showed increased FDG concentration in mediastinum, right thoracic perihilum, abdominal retroperitoneal lymph nodes, rosa isela hepatis and pericaval lymph node region. In the right lobe hepatic parenchyma involving segment 8. Increased radio uptake in left kidney mass not fulfill criteria for viable neoplasm. ? He does also have a left renal mass which is felt could be a primary renal cell carcinoma which is currently just being monitored given his active lymphoma ? 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 3.? HTN/HLD ? BP was on the lower side in low 100s and patient on home medication benazepril 20 mg daily and amlodipine 10 mg daily. Benazepril was held due to COY and was discontinued. ? If he becomes hypertensive can restart ? Can resume his simvastatin 4.? COY with BPH with urinary retention. COY resolved. Spontaneous voiding trial was performed but patient failed prior to discharge today. Zafra catheter was reinserted. Discussed with Dr. Bermeo and requested early follow-up. Patient to continue Flomax and finasteride DVT: High risk based on diffuse large B-cell lymphoma: Treated with Lovenox during hospital course Discharge medication reconciliation done. Discharge follow-up instructions completed. Discharge process discussed with the patient and all questions were answered to patient's satisfaction. Total time spent, exact 35 minutes on discharge meds reconciliation, examination, coordination of care with nurses and ancillary staff, review of imaging and blood test and discussion with the patient on follow-up instructions. Physical Exam Narrative Physical exam General: Alert, Oriented x3, Cooperative HEENT: Atraumatic, PERRLA, EOMI, Normocephalic, hard of hearing uses hearing aid Oral: Oral mucosa moist no Gingival or Mucosal Lesions/ Ulcerations Neck: Supple, No JVD, Negative Carotid Bruits Lungs: Air entry diminished in bilateral lung bases. No crepitation/rhonchi Cardiovascular: Regular rate, Regular Rhythm, Normal S1, Normal S2, No murmurs Abdomen: Bowel Sounds Present, Soft, Non Tender, Non-Distended : Urine retention, Zafar catheter. BPH. No renal angle tenderness. No suprapubic tenderness. Extremities: No edema, Capillary Refill Less than 3 Seconds Skin: No rashes, No breakdown Musculoskeletal: No Tenderness to Palpation of Joints or Extremities. Muscle strength 4+/5 at lower extremities. Moderate muscle atrophy. Neurological: Cranial nerves II-XII grossly intact, DTR 2+/4 and Symmetrical, Psych/Mental Status: Flat affect. Medical Records Data Medical Nutrition Assessment Dietitian: Malnutrition Criteria Met Start: 03/19/22 12 :52 Freq: Status: Active Protocol: Document 03/19/22 12:52 [facility] (Rec: 03/19/22 12:53 [facility] [id number]) Nutrition Malnutrition Evidence of Malnutrition Exists Yes Malnutrition (severe): Chronic Evidenced By Suboptimal Energy Intake ( Severe),Weight Loss (Moderate) ,Physical Changes (Moderate) Clinical Problem Chronic Disease or Condition Related Malnutrition Etiology severe related to cancer and chemo tx making it difficult to consume adequate nutrition to meet est nutritional needs Signs/Symptoms as evidenced by <50% x 3-4 mo, fat/muscle loss: face, clavicle, upper body/arms, and 15.9% wt loss x 1 yr Status Active Problem Recommendation Dietitian Recommendations/Changes Will liberalize diet to Regular d/t signs/symptoms of malnutrition Will provide 8 oz ensure plus high protein w/ breakfast and lunch per pt request Weight / BMI Weight Weight: 154 lb 4 oz Body Mass Index (BMI) 19.8 ABG / Lab / Microbiology Data Result Diagrams: 03/22/22 06:24 03/22/22 06:24 Laboratory: Laboratory Results - last 24 hr 03/19/22 07:24: Diff Path Review Reviewed 03/20/22 07:17: Diff Path Review Reviewed 03/22/22 06:24: WBC 5.6, RBC 2.91 L, Hgb 8.9 L, Hct 28.5 L, MCV 97.9 H, MCH 30.6, MCHC 31.2 L D, RDW Std Deviation 58.5 H, RDW Coeff of Kori 16.6 H, Plt Count 34 L*, MPV 12.6 H, Immature Gran % (Auto) 1.800 H, Neut % (Auto) 57.8, Lymph % (Auto) 12.2 L, [place] % (Auto) 26.6 H, Eos % (Auto) 1.2, Baso % (Auto) 0.4, Absolute Neuts (auto) 3.3, Absolute Lymphs (auto) 0.69 L, Nucleated RBC % 0, Diff Path Review May foll, Platelet Estimate MKD DEC, Anisocytosis 1+, Macrocytosis 1+ 03/22/22 06:24: Sodium 140, Potassium 3.3 L, Chloride 111 H, Carbon Dioxide 24.0, Anion Gap 5, BUN 11, Creatinine 0.80, Estim Creat Clear Calc 71.67, Est GFR (MDRD) Af Amer 120, Est GFR (MDRD) Non-Af 99, BUN/Creatinine Ratio 13.8, Glucose 97, Calcium 7.6 L Microbiology: Microbiology 03/19/22 08:35 Urine, Clean Catch Urine Culture - Final Presumptive E. coli 03/19/22 08:40 Nasal Secretion SARS-CoV-2 & FLU Antigen (Rapid) - Final D/C Instructions Discharge Diet: No restrictions Weight Bearing Status: Weight bearing as tolerated Meaningful Use Info Meaningful Use Diagnoses (Choose all that apply): None applicable Discharge Plan Admission Admit Date/Time: 03/19/22 09:44 Primary Reason for Your Visit: E. coli UTI with urine retention/BPH Attending Provider: Charbel Wagner Primary Care Provider: Fred Clark Consulting Providers: Byron Goodson Discharge Orders/Prescriptions Prescriptions: New sulfamethoxazole-trimethoprim [Bactrim DS] 800-160 mg tablet 1 tab PO BID Qty: 8 0RF atorvastatin 40 mg Tablet 40 mg PO QHS Qty: 30 2RF Continued finasteride 5 mg tablet 5 mg PO DAILY ferrous sulfate 325 mg (65 mg iron) tablet 325 mg PO DAILY ascorbate calcium (vitamin C) 500 mg tablet 500 mg PO DAILY hydroxychloroquine 200 MG tablet 200 mg PO BID Tamsulosin HCl 0.4 mg PO QHS allopurinol 300 mg tablet 300 mg PO DAILY 30 Days Qty: 30 0RF amlodipine 10 MG tablet 10 mg PO QHS Qty: 30 0RF Rx Instructions: Hold for SBP less than 130 mmHg Discontinued Benazepril Hcl [Lotensin] 20 MG tablet 20 mg PO QHS simvastatin 80 MG tablet 80 mg PO QHS Referrals / Follow Up: Bong Adams MD [Med Staff - Active Staff] - Within 1 Month (FOR PORT PLACEMENT) Kelvin Bermeo MD [Med Staff - Active Staff] - Within 2 Weeks (for BPH with LANDRUM. Discharged with Zafar catheter. Failed spontaneous voiding.) Gabriela Hein MD [Med Staff - Active Staff] - ( SCHEDULED) Fred Clark DO [Primary Care Provider] - Disposition Disposition (needs filled in before D/C Order can be placed): Home Health Service Charges/Coding Visit Charges Inpatient E&M: 31453 Disch Hosp
--- NOTE | 2022-03-22 16:31 | NURSING ---
educated pt and on [facility] for home
[2022-03-23 12:37] LABS: Pathologist Review Reviewed
[2022-03-23 12:50] LABS: Pathologist Review Reviewed
== END 2022-03-22 17:36 | disposition home health service (06) | DRG 871 ==
LOC: ED 09:52 → MS3 10:04
PROVIDERS: Admitting Provider Family Medicine; Emergency Provider Emergency Medicine; PCP Family Medicine; Visit Provider Internal Medicine
DX: A41.9 Sepsis, unspecified organism (principal); K83.1 Obstruction of bile duct; E43 Unspecified severe protein-calorie malnutrition; N17.9 Acute kidney failure, unspecified; C83.33 Diffuse large B-cell lymphoma, intra-abdominal lymph nodes; N39.0 Urinary tract infection, site not specified; C78.7 Secondary malignant neoplasm of liver and intrahepatic bile duct; Z68.1 Body mass index [BMI] 19.9 or less, adult; D46.1 Refractory anemia with ring sideroblasts; B96.20 Unspecified Escherichia coli [E. coli] as the cause of diseases classified elsewhere; D69.59 Other secondary thrombocytopenia; D46.9 Myelodysplastic syndrome, unspecified; E78.5 Hyperlipidemia, unspecified; I10 Essential (primary) hypertension; D50.9 Iron deficiency anemia, unspecified; N28.89 Other specified disorders of kidney and ureter; Z87.891 Personal history of nicotine dependence; Z79.899 Other long term (current) drug therapy; N40.1 Benign prostatic hyperplasia with lower urinary tract symptoms; R33.8 Other retention of urine
CPT/HCPCS: 36415; 71045; 78815; 80048; 80076; 81001; 83605; 83690; 84484; 85025; 85610; 85730; 87040; 87086; 87088; 87186; 87428; 93005; 93308; 93356; 97110; 97162; 97165; 97530; 97535; 99285; A9552; J7030; A4216

== ENCOUNTER 2022-03-29 14:57 | Outpatient (RCR) | payer MEDICARE, OTHER, SELFPAY ==
[2022-03-29 15:39] LABS: Color, Urine Brown (Yellow); Glucose, Dipstick Normal (Normal); Ketone-Dipstick 15 mg/dl (Negative); Leukocyte Esterase-Dipstick 100 /ul (Negative); Nitrite-Dipstick Negative (Negative); Occult Blood-Urine 250 /ul (Negative); Protein-Dipstick 500 mg/dl (Negative); Urine Clarity Cloudy (Clear); Urine Urobilinogen Normal (Normal); Urine pH 6.5 (5.0 - 8.0)
[2022-03-29 15:54] LABS: Urine Bilirubin Dipstick 1 mg/dL (Negative)
== END 2022-03-29 18:00 | disposition home or self-care (01) ==
LOC: HHLAB 14:57
PROVIDERS: PCP Family Medicine; Visit Provider Family Medicine
DX: N39.0 Urinary tract infection, site not specified (principal)
CPT/HCPCS: 81002; 87086

== ENCOUNTER 2022-03-30 10:25 | Day surgery (SDC) | payer MEDICARE, OTHER, SELFPAY ==
--- NOTE | 2022-03-22 09:23 | SUR.PREOP ---
dr marshall's office made aware that pt has been admitted 03/19 for uti and sepsis- the nurse will let dr marshall know
[2022-03-30] VITALS (8 sets, daily range): BP systolic 101–115; BP diastolic 54–64; PULSE 74–97; RESP 16–18; TEMP 36.2–36.6; O2SAT 91–97; BMI 19.5
--- NOTE | 2022-03-30 10:29 | HP.PCM_ITS ---
History and Physical Date of Admission: 03/30/22 Intake Vital Signs ? 03/10/2211:37 03/18/2213:15 Height 6 ft 2 in ? BP ? 79/45 L Blood Pressure Location ? Lt brachial Position ? Sitting Respiration ? 17 Pulse ? 98 Pulse Source ? Monitor Temp ? 96.5 F L Temp Source ? Temporal Pulse Oximetry (%) ? 100 Oxygen Delivery Method ? room air Intake Visit Reasons:?PORT PLACEMENT Chief Complaint: port placement Is patient in pain?: No Allergies tramadol [From [facility]] Adverse Reaction (Intermediate, Verified 03/18/22 13:18) PT UNSURE OF REACTION Medications Tamsulosin HCl 0.4 mg PO QHS 04/18/13 [History Confirmed 03/18/22] hydroxychloroquine 200 mg tablet 200 mg PO BID arthritis 04/18/13 [History Con firmed 03/18/22] Benazepril Hcl [Lotensin] 20 mg PO QHS 09/18/19 [History Confirmed 03/18/22] amlodipine 10 mg tablet 10 mg PO QHS 09/18/19 [History Confirmed 03/18/22] simvastatin 80 mg tablet 80 mg PO QHS 05/14/20 [History Confirmed 03/18/22] finasteride 5 mg tablet 5 mg PO DAILY 09/11/20 [History Confirmed 03/18/22] ascorbate calcium (vitamin C) 500 mg tablet 500 mg PO DAILY 03/08/22 [History C onfirmed 03/18/22] ferrous sulfate 325 mg (65 mg iron) tablet 325 mg PO DAILY 03/08/22 [History Confirmed 03/18/22] omeprazole 10 mg capsule,delayed release 10 mg PO DAILY 03/08/22 [History Confirmed 03/18/22] allopurinol 300 mg tablet 300 mg PO DAILY 30 days #30 tabs 03/10/22 [Rx Confirmed 03/18/22] prednisone 50 mg tablet 100 mg PO DAILY 5 days #10 tabs 03/10/22 [Rx Confirmed 03/18/22] lidocaine-prilocaine 2.5 %-2.5 % topical cream 1 applic topical ONCE PRN port access 30 days #30 grams 03/11/22 [Rx Confirmed 03/18/22] ondansetron 4 mg disintegrating tablet 4 mg PO Q8H PRN nausea and vomiting #30 tabs 03/11/22 [Rx Confirmed 03/18/22] prednisone 50 mg tablet 100 mg PO .COMPLEX #10 tabs 03/11/22 [Rx Confirmed 03/18/22] PFSH Medical History? Actinic keratosis Anemia Arthritis Atrioventricular jose m re-entry tachycardia Back pain Benign essential hypertension BPH (benign prostatic hyperplasia) CINV (chemotherapy-induced nausea and vomiting) Easy bruising Encounter for education Epidermal inclusion cyst Functional gait abnormality Gastric reflux History of irregular heartbeat History of smoking HLD (hyperlipidemia) Hypertension Left kidney mass Obstructive jaundice Open wound of great toe Osteoarthritis Pain Peripheral neuropathy Pressure ulcer of toe, stage 2 Prostate disease Shortness of breath on exertion Skin ulcer of right great toe Use of proton pump inhibitor therapy Varicosities of leg Vitamin deficiency Wears dentures Wears glasses Wears hearing aid Surgical History? H/O foot surgery H/O hernia repair H/O hernia repair History of cataract extraction History of colonoscopy (~06/2019) History of esophagogastroduodenoscopy (EGD) (~06/2019) History of excision of lesion S/P carpal tunnel release Family History? Father Myocardial infarctionBrother Myocardial infarctionMother Pancreas cancer Social History? Smoking Status:? Former smoker quit date: 04/11/84 alcohol intake:? current substance use type:? does not use additional social history:? DOES NOT USE ASPIRIN DOES USE IBUPROFEN NEEDED HPI HPI HPI: Patient is an 81-year-old male sent here for port placement for chemotherapy. ROS General General: Yes weight change and appetite; No fatigue, colon cancer, breast cancer or weakness HEENT HEENT: No difficulty swallowing, eye injury, eye surgery, swollen glands or hoarseness Endo Endocrine: No thyroid disease, diabetes mellitus, thyroid cancer, Hair loss, heat intolerance or cold intolerance Skin Skin: No rash or changing moles Musc Musculoskeletal: Yes back problems and arthritis; No rheumatoid arthritis, gout or joint pain Cardio Cardiovascular: Yes high blood pressure; No murmur, pacemaker, heart disease, atrial fibrillation, heart attack, heart stent, palpitations, shortness of breat with exertion or chest pain Psych Psychiatric: No depression, anxiety or hearing voices Resp Respiratory: Yes shortness of breath, No sleep apnea, No cough, No COPD, No asthma, No emphysema and No wheezing Gastro Gastrointestinal: Yes abdominal pain, Yes diarrhea, Yes blood in stool, Yes hemorrhoids and Yes black,tarry stools Adalberto Hematologic: Yes blood thinners, Yes blood disorders, No bleeding, No anemia and No blood clots Neuro Neurologic: No system reviewed and no additional complaints, except as documented, No as per HPI, No abnormal gait, No abnormal hearing, No abnormal movements, No abnormal speech, No behavioral changes, No burning sensations, No confusion, No convulsions, No disequilibrium, No dizziness, No localized weakness, No frequent falls, No headache(s), No lack of coordination, No loss of vision, No memory loss, No numbness, No other visual disturbances, No radicular pain, No restless legs, No sensory deficit, No syncope, No tingling, No tremor(s), No weakness and No other Exam Const General: cooperative Orientation: alert and oriented x3 HENMT Head: normal to inspection Neck Neck: normal visual inspection and full ROM Chest Chest palpation & inspection: normal inspection of the chest Resp Effort & Inspection: normal respiratory effort Auscultation: clear to auscultation bilaterally Cardio Rate: regular rate Rhythm: regular rhythm GI Inspection: non-distended Palpation: soft and nontender Skin General: no rashes or lesions noted Neuro General: patient alert and patient oriented x3 Extrem General: full ROM Psych Appearance: grossly normal Mental Status: mental status grossly normal Assessment and Plan Assessment and Plan (1) Encounter for insertion of venous access port: ?Status:?Acute ?Plan: Patient is here to discuss right chest port placement for chemotherapy.? I discussed chest port placement with the patient in detail.? I discussed the risks including but not limited to bleeding, infection, pneumothorax, line infection or DVT.? I also discussed the risks of heart attack or stroke with anesthesia.? Patient understands all the risks and all of his questions were answered.? I will schedule him next week for port placement. Bong Adams MD Pager: [facility] [address] [place] [address], [address] [place] [address] Office: I have examined the patient and the H&P has been reviewed. There are no clinical changes since date of exam.
[2022-03-30] MEDS: Lactated Ringers 1,000 ML 15 ML IV (10:50)
[2022-03-30] MEDS: Cefazolin 2 GM in 0.9% Normal Saline 100 ML IV (13:09)
[2022-03-30] MEDS: Bupiv/Epi 0.5% Mpf 30 ML Vial (13:36)
--- NOTE | 2022-03-30 13:56 | OP.PCM_ITS ---
Report of Operation Date of Procedure: 03/30/22 Pre-Operative Diagnosis: Need for vascular access for chemotherapy Post-Operative Diagnosis: Same Surgery/Procedure Performed:: Ultrasound and fluoroscopy guided right chest port placement utilizing right IJ Description of Procedure: After obtaining informed consent patient was brought back to the operating room MAC anesthesia was induced and the right chest and neck were prepped in normal s terile fashion. Ultrasound was used to evaluate both IJs and the right IJ was selected. Next, using a needle, the right IJ was accessed and a guidewire was passed on into the superior vena cava under fluoroscopy guidance. A small incision was made over the puncture site and the dilator introducer was placed over the guidewire. Next this was capped and the pocket was made for the port. 1% lidocaine with epinephrine was injected in the proposed port site. An incision was made with scalpel. Electrocautery was used to make a pocket under the skin and subcutaneous tissue. Hemostasis was obtained. Next, the catheter was tunneled up to the neck incision site and placed through the introducer. The peel-away introducer was removed and the position of the catheter was confirmed on fluoroscopy. Next, the catheter was trimmed and attached to the port with the locking device. Interrupted 2-0 Vicryl sutures were used to anchor the port to the chest wall and then the port was placed inside the pocket. The pocket was then flushed with saline and the port irrigated with saline. There was good blood return and the port flushed easily. Next, heparin was injected into the port. The skin was closed with subcutaneous interrupted 3-0 Vicryl sutures. A single 3-0 Vicryl sutures placed under the skin at the neck incision site. Steri-Strips were placed as well as op sites. Patient shaun erated procedure well, was taken to PACU in stable condition. Chest x-ray will be obtained. Grafts/Implants Used: 8 [place] PowerPort Admit VTE Documentation VTE Mechan Device Prophylaxis: SCD's
--- NOTE | 2022-03-30 13:56 | RAD_ITS ---
STUDY: X-RAY CHEST REASON FOR EXAM: Male, 81 years old. POST PORT PLACEMENT TECHNIQUE: Single AP portable view of the chest. COMPARISON: Comparison is made with prior study dated 03/19/2022. FINDINGS: A right-sided Port-A-Cath has been placed. Its tip is at the junction of the superior vena cava and right atrium. Hyperinflation. Mild increased markings at the left lung base suggestive of scarring and possible atelectasis. Calcified pleural plaques at the right lung base. Normal size heart. Normal mediastinum and eren. Normal visualized pulmonary arteries. There is atherosclerotic calcification of the aortic arch with tortuosity. Electrodes from a spinal stimulator device are seen with the tip at the T7-T8 level. Normal visualized ribs, clavicles, and shoulders. There is no demonstrated abnormality of the visualized soft tissue structures of the upper abdomen. RAD/CXR for Line Placement IMPRESSION: The tip of the right-sided rosa isela catheter is at the junction of the superior vena cava and right atrium. Electronically Signed: Harry Solorzano MD at 14:16 EST ,
--- NOTE | 2022-03-30 13:59 | DCINST_ITS ---
Discharge Instructions Procedure Port-A-Cath Diet Discharge Diet: Light diet - advance as tolerated (Pain medication may cause nausea. You should typically eat light foods as you take your pain medication.) Activity Discharge Activity: Return to Normal Activity and May Shower (with your bandage in place in 1-2 days after surgery. DO NOT SHOWER WHEN YOUR PORT IS ACCESSED.) Dressing / Incision Call your doctor if your incision/area has: Continuous Slow Oozing, Sudden Increased Bleeding, Increased Pain/ Swelling, Increased Redness and Foul Smelling Discharge Call your doctor if you observe: Fever of 101 or Higher Remove Dressing in: 2 days Cleanse incision/area with: Soap & Water Follow Up Care Please Follow Up With: Bong Adams MD When: as needed [phone] Test Results: Test results from this visit will be discussed in further detail at your follow- up appointment, if applicable. Discharge Plan Admission Attending Provider: Bong Adams Primary Care Provider: Fred Clark Instructions Additional Instructions / Restrictions: Ibuprofen and Tylenol for pain Discharge Orders/Prescriptions Prescriptions: No Action finasteride 5 mg tablet 5 mg PO DAILY ferrous sulfate 325 mg (65 mg iron) tablet 325 mg PO DAILY ascorbate calcium (vitamin C) 500 mg tablet 500 mg PO DAILY hydroxychloroquine 200 MG tablet 200 mg PO BID Tamsulosin HCl 0.4 mg PO QHS allopurinol 300 mg tablet 300 mg PO DAILY 30 Days Qty: 30 0RF atorvastatin 40 mg Tablet 40 mg PO QHS Qty: 30 2RF amlodipine 10 MG tablet 10 mg PO QHS Qty: 30 0RF Rx Instructions: Hold for SBP less than 130 mmHg Referrals / Follow Up: Fred Clark DO [Primary Care Provider] - Disposition Disposition (needs filled in before D/C Order can be placed): Home, Self Care
== END 2022-03-30 15:18 | disposition home or self-care (01) ==
LOC: SDC 10:26 → AC 10:26
PROVIDERS: PCP Family Medicine; Referring Provider Surgery; Visit Provider Surgery
PROC: (CPT 36561; principal; 2022-03-30 11:45)
DX: Z45.2 Encounter for adjustment and management of vascular access device (principal); Z87.891 Personal history of nicotine dependence
CPT/HCPCS: 36561; 00532; 71045; 77001; J7120; C1788

== ENCOUNTER → 2022-04-09 | Outpatient (CLI) | payer MEDICARE, OTHER, SELFPAY | END | disposition home or self-care (01) | PROVIDERS: PCP Family Medicine; Visit Provider Family Medicine | DX: R82.90 Unspecified abnormal findings in urine (principal) | CPT/HCPCS: 87086; 87088; 87186 ==

== ENCOUNTER 2022-04-17 12:38 | Emergency (ER) | payer MEDICARE, OTHER, SELFPAY ==
[2022-04-17 12:39] VITALS: BP 115/64; PULSE 103; RESP 15; TEMP 36.1; O2SAT 97; BMI 19.3
--- NOTE | 2022-04-17 12:56 | EKG12_ITS ---
Test Reason : COMPLAINT Blood Pressure : / mmHG Vent. Rate : 094 BPM Atrial Rate : 094 BPM P-R Int : 158 ms QRS Dur : 154 ms QT Int : 392 ms P-R-T Axes : 073 -73 071 degrees QTc Int : 490 ms Normal sinus rhythm Right bundle branch block Left anterior fascicular block Bifascicular block Abnormal ECG Confirmed by DEANNA MEHTA, CLARISSE ([id number]), offline editor STANLEY BECK ([id number]) on 04/19/2022 1:46:31 PM Referred By: Confirmed By:CLARISSE HUERTA MD
--- NOTE | 2022-04-17 12:57 | EDS_ITS ---
HPI History of Present Illness Chief Complaint: Complaint Informant: patient and spouse/S.O. Narrative Narrative: In this past week, patient has had trouble urinating. It may have been for longer than that the is not sure exactly. Apparently saw urology Dr. Bermeo this past week and advised to start self cathing at home. states the appointment was 2 days ago and they were supposed to start self cathing that evening. They have been doing this but only getting very small amounts of urine out, and now they seem to be getting nothing but the patient feels like he needs to go. They state that the home health nurse talked to Dr. Cherry and was advised to come to the ER as a result. Also, he has stage IVb large B-cell lymphoma, his first chemotherapy treatment was about 3 weeks ago, he needed a blood transfusion due to hemoglobin 6.4 at the end of March, and now he feels like his blood counts may be low again because he is more tired and feeling a little dyspnea when he exerts himself, that goes away when he rest, no exertional chest discomfort or near syncope/syncope. No coughing, no fevers, no other acute issues. Scheduled to get his second chemotherapy this coming week. [facility] Medical History Actinic keratosis Acute UTI Anemia Arthritis Atrioventricular jose m re-entry tachycardia Back pain Benign essential hypertension BPH (benign prostatic hyperplasia) Cardiomyopathy Cheek mass CINV (chemotherapy-induced nausea and vomiting) DLBCL (diffuse large B cell lymphoma) Easy bruising Encounter for education Epidermal inclusion cyst Former smoker Functional gait abnormality Gastric reflux History of irregular heartbeat History of smoking HLD (hyperlipidemia) Hypertension Left kidney mass Liver cancer Myelodysplastic syndrome Obstructive jaundice Open wound of great toe Osteoarthritis Pain Peripheral neuropathy Pressure ulcer of toe, stage 2 Prostate disease Shortness of breath on exertion Skin ulcer of right great toe Thrombocytopenia Use of proton pump inhibitor therapy Varicosities of leg Vitamin deficiency Wears dentures Wears glasses Wears hearing aid Home Medications Tamsulosin HCl 0.4 mg PO QHS 04/18/13 [History Last Taken Unknown] hydroxychloroquine 200 mg tablet 200 mg PO BID arthritis 04/18/13 [History Last Taken Unknown] finasteride 5 mg tablet 5 mg PO DAILY 09/11/20 [History Last Taken Unknown] ascorbate calcium (vitamin C) 500 mg tablet 500 mg PO DAILY 03/08/22 [History Last Taken Unknown] ferrous sulfate 325 mg (65 mg iron) tablet 325 mg PO DAILY 03/08/22 [History Last Taken Unknown] allopurinol 300 mg tablet 300 mg PO DAILY 30 days #30 tabs 03/10/22 [Rx Last Taken Unknown] amlodipine 10 mg tablet 10 mg PO QHS #30 tabs 03/22/22 [Rx Last Taken 10/22/19] atorvastatin 40 mg tablet 40 mg PO QHS #30 tabs 03/22/22 [Rx Last Taken Unknown] prednisone 50 mg tablet 100 mg PO DAILY 5 days #10 tabs 03/31/22 [Rx Last Taken Unknown] sulfamethoxazole 800 mg-trimethoprim 160 mg tablet 1 tab PO BID 04/14/22 [History Last Taken Unknown] Allergy/AdvReac Type Severity Reaction Status Date / Time tramadol [From Ultram] AdvReac Intermediate PT UNSURE Verified 04/17/22 12:39 OF REACTION Family History Father Myocardial infarction Brother Myocardial infarction Mother Pancreas cancer Surgical History H/O foot surgery H/O hernia repair H/O hernia repair History of cataract extraction History of colonoscopy (~06/2019) History of esophagogastroduodenoscopy (EGD) (~06/2019) History of excision of lesion History of surgery S/P carpal tunnel release Social History Smoking Status: Former smoker quit date: 04/11/84 alcohol intake: current substance use type: does not use additional social history: DOES NOT USE ASPIRIN DOES USE IBUPROFEN NEEDED ROS ROS ED Review of Systems ROS Unobtainable: other Details: Somewhat limited due to patient being very hard of hearing. assists. Constitutional Constitutional ED: Reports fatigue; Denies chills or fever(s) Eyes Eyes: Denies change in vision or diplopia ENT ENT ED: Denies rhinorrhea or sore throat Cardiovascular Cardiovascular: Denies chest pain, leg edema, lightheadedness, palpitations or syncope Respiratory/Chest Respiratory/Chest: Reports dyspnea on exertion; Denies cough Gastrointestinal Gastrointestinal: Denies abdominal pain, diarrhea, nausea or vomiting Genitourinary Genitourinary ED: Reports other Details: difficulty urinating / getting urine out ; Denies dysuria or hematuria Musculoskeletal Musculoskeletal: Denies back pain or neck pain Integumentary Denies abscess or rash Neurologic Neurologic: Denies headache(s), paresthesias or weakness Psychiatric Psychiatric: Denies anxiety or suicidal thoughts EXAM Physical Exam Const Vital Signs: 04/17/22 12:39 04/17/22 15:07 Temperature 97.0 F L Temperature Source Temporal Pulse Rate 103 H 89 Respiratory Rate 15 16 Blood Pressure 115/64 152/78 H Blood Pressure Mean 81 102 Pulse Ox 97 98 Oxygen Delivery Method Room Air Room Air Positive well nourished and well developed Constitutional Narrative: Very hard of hearing General Appearance ED: well developed and NAD HEENT Reports moist mucous membranes normocephalic and atraumatic Eyes PERRL and EOMs intact bilaterally Neck full ROM and supple Resp normal respiratory effort and clear to auscultation bilaterally Cardio regular rate, regular rhythm and no murmurs GI non-tender and non-distended Auscultation: normoactive bowel sounds Palpation: soft Back/Spine no CVA tenderness General Back: other FROM Extremity normal to inspection General Extremety ED: Negative for edema, pulses abnormal or tenderness General Extremity: Negative for edema or pulses abnormal Neuro oriented x3, CN's II-XII intact bilaterally and no sensory deficits noted Sensorium / Orientation: awake and alert Motor Exam: strength 5/5 throughout Skin no rashes or lesions noted and no wounds MDM MDM MDM Narrative Medical decision making narrative: The patient attempted to urinate, he got out a little urine but not very much. We then checked a postvoid residual on him via bedside bladder scanner, it estimated a liter of urine. Therefore I had nursing place a catheter in him, a Zafar since it does not sound like they have been able to successfully straight cath him at home. More than a liter of urine came out and the patient felt much better. We put a leg bag on him and got him up to ambulate him, he did well without any dyspnea. Because of these latter complaints I obtained more of a work-up including an EKG which on my interpretation is normal and unchanged for him with a pre-existing bifascicular block, and blood work looking at his hemoglobin which is doing much better since his levels a couple days ago. He is now at 9.8, no transfusion needed for any of that, he has a little bit low platelets but he is not bleeding and at 72,000 does not need a transfusion. His renal function is normal. Given all of this, the patient was reassured and discharged with instructions on how to use a leg bag and Zafar catheter to follow-up after the weekend with his urologist. Urinalysis sent and does not show acute infection. Lab Data Attestation: I reviewed the patient's lab results. Labs: Laboratory Results - last 24 hr 04/17/22 04/17/22 04/17/22 13:10 13:10 13:10 WBC 8.8 RBC 3.36 L Hgb 9.8 L Hct 32.8 L MCV 97.6 H MCH 29.2 MCHC 29.9 L RDW Std Deviation 62.6 H RDW Coeff of Kori 18.2 H Plt Count 72 L MPV 11.7 Immature Gran % (Auto) [facility] Neut % (Auto) [facility] Lymph % (Auto) [facility] Gilchrist % (Auto) [facility] Eos % (Auto) [facility] Baso % (Auto) [facility] Absolute Neuts (auto) 7.6 Absolute Lymphs (auto) 0.79 L Total Counted 100 Neutrophils % (Manual) 85 H Band Neutrophils % 1 Lymphocytes % (Manual) 9 L Metamyelocytes % 5 H Nucleated RBC % 0 Diff Path Review May foll Platelet Estimate MOD RBC Morphology N CHROM Anisocytosis 2+ Sodium 140 Potassium 3.9 Chloride 111 H Carbon Dioxide 24.0 Anion Gap 5 BUN 18 Creatinine 1.24 Estim Creat Clear Calc 45.26 Est GFR (MDRD) Af Amer 72 Est GFR (MDRD) Non-Af 59 L BUN/Creatinine Ratio 14.5 Glucose 136 H Calcium 8.8 Urine Color Urine Clarity Urine pH Ur Specific Zimmerman Urine Protein Urine Glucose (UA) Urine Ketones Urine Occult Blood Urine Nitrite Urine Bilirubin Urine Urobilinogen Ur Leukocyte Esterase Urine RBC Urine WBC Ur Squamous Epith Cells Urine Bacteria Urine Mucus Blood Type A POSITIVE Antibody Screen NEGATIVE 04/17/22 16:00 WBC RBC Hgb Hct MCV MCH MCHC RDW Std Deviation RDW Coeff of Kori Plt Count MPV Immature Gran % (Auto) Neut % (Auto) Lymph % (Auto) Gilchrist % (Auto) Eos % (Auto) Baso % (Auto) Absolute Neuts (auto) Absolute Lymphs (auto) Total Counted Neutrophils % (Manual) Band Neutrophils % Lymphocytes % (Manual) Metamyelocytes % Nucleated RBC % Diff Path Review Platelet Estimate RBC Morphology Anisocytosis Sodium Potassium Chloride Carbon Dioxide Anion Gap BUN Creatinine Estim Creat Clear Calc Est GFR (MDRD) Af Amer Est GFR (MDRD) Non-Af BUN/Creatinine Ratio Glucose Calcium Urine Color Yellow Urine Clarity Clear Urine pH 6.0 Ur Specific Zimmerman 1.020 Urine Protein 30 H Urine Glucose (UA) Normal Urine Ketones Negative Urine Occult Blood 50 H Urine Nitrite Negative Urine Bilirubin Negative Urine Urobilinogen Normal Ur Leukocyte Esterase Negative Urine RBC 0-5 SEEN Urine WBC 0-5 SEEN Ur Squamous Epith Cells 0 SEEN Urine Bacteria RARE Urine Mucus 0 SEEN Blood Type Antibody Screen Rhythm Strip Rhythm Strip: Sinus Rhythm Rate: 95 Ectopy: None EKG Initial EKG: Attestation: I personally reviewed and interpreted this EKG as follows: Interpretation: Sinus Rhythm, No Acute Injury Pattern, RBBB and LAFB Prior EKG tracings: available for review Prior: Unchanged Discharge Plan Triage Chief Complaint: Complaint ED Provider: Tristen Shaffer Dx/Rx/DC Orders Clinical Impression: Acute urinary retention, Iron deficiency anemia due to chronic blood loss, DLBCL (diffuse large B cell lymphoma) Instructions: ED Zafar Catheter, Care, ED Urinary Retention, Male Prescriptions: No Action finasteride 5 mg tablet 5 mg PO DAILY ferrous sulfate 325 mg (65 mg iron) tablet 325 mg PO DAILY ascorbate calcium (vitamin C) 500 mg tablet 500 mg PO DAILY sulfamethoxazole-trimethoprim 800-160 mg tablet 1 tab PO BID Label Comments: 2 more days hydroxychloroquine 200 MG tablet 200 mg PO BID Tamsulosin HCl 0.4 mg PO QHS allopurinol 300 mg tablet 300 mg PO DAILY 30 Days Qty: 30 0RF prednisone 50 mg Tablet 100 mg PO DAILY 5 Days Qty: 10 6RF Rx Instructions: Take daily for 5 days starting on the day of intravenous chemotherapy and repeat with each cycle of treatment atorvastatin 40 mg Tablet 40 mg PO QHS Qty: 30 2RF amlodipine 10 MG tablet 10 mg PO QHS Qty: 30 0RF Rx Instructions: Hold for SBP less than 130 mmHg Primary Care Provider: Fred Clark Referrals: Kelvin Bermeo MD [Med Staff - Active Staff] - (next week) Fred Clark DO [Primary Care Provider] - Disposition Disposition: Home, Self Care
[2022-04-17 13:30] LABS: Anion Gap 5 (5-15); BUN 18 mg/dL (7-18); BUN/Creat Ratio 14.5 RATIO (10-20); Calcium,Total 8.8 mg/dL (8.5-10.1); Chloride 111 mmol/L (98-107); Creatinine, Serum 1.24 mg/dL (0.70-1.30); EST Glomerular Filtration Rate 59 mL/min (>60); Est Glom Filt Rate - Afr Amer 72 mL/min (>60); Estimated Creatinine Clearance 45.26 ml/min; Glucose 136 mg/dL (74-106); Potassium 3.9 mmol/L (3.5-5.1); Sodium Level 140 mmol/L (136-145)
[2022-04-17 13:32] LABS: Basophil# 0.05 X10^3/uL; Eosinophil# 0.01 X10^3/uL; Hematocrit 32.8 % (40-54); Hemoglobin 9.8 g/dL (13.0-16.5); Mean Corp Hgb Conc 29.9 g/dL (32-36); Mean Corpuscular Hgb 29.2 pg (27.0-32.0); Mean Corpuscular Volume 97.6 fL (80-94); Mean Platelet Vol. 11.7 fl (6.2-12.0); Monocyte# 1.47 X10^3/uL; NRBC Flagged by Analyzer 0 % (0-5); POSITIVE COUNT YES; POSITIVE DIFFERENTIAL YES; POSITIVE MORPHOLOGY YES; Platelet Count 72 K/mm3 (150-450); RBC Distribution Width CV 18.2 % (11.6-14.6); RBC Distribution Width SD 62.6 fl (35.1-43.9); Red Blood Count 3.36 M/mm3 (4.6-6.2); White Blood Count 8.8 K/mm3 (4.4-11.0)
[2022-04-17 13:52] LABS: Anisocytosis 2+; Differential Indicated SCAN CRITERIA MET
[2022-04-17 13:54] LABS: Lymphocyte 9 % (19-41); Metamyelocyte 5 % (0-1); Neutrophil-Band 1 % (0-5); Neutrophil-Segmented 85 % (47-70); Total Cells Counted 100 (MANUAL DIFF)
[2022-04-17 13:55] LABS: Platelet Estimate MOD (ADEQ); Red Cell Morphology N CHROM NORMAL (NORM C&C); Scan Smear per Review Criteria MANUAL DIFF
[2022-04-17 13:56] LABS: Absolute Neutrophil Count 7.6 X10^3/uL (2.0-7.7); Neutrophil # 7.56 X10^3/uL (2.7-7.7)
[2022-04-17 13:57] LABS: Absolute Lymphocyte Count 0.79 X10^3/uL (0.83-4.51); Lymphocyte # 0.79 X10^3/ul (0.83-4.51)
--- NOTE | 2022-04-17 14:56 | ED.RN ---
PT voided 50cc, residual bladder scan >999. Dr. Smith notified.
[2022-04-17 15:07] VITALS: BP 152/78; PULSE 89; RESP 16; O2SAT 98
[2022-04-17 15:55] VITALS: O2SAT 97
[2022-04-17 16:09] LABS: Mucous, Urine 0 SEEN /hpf (<or=2+); Squamous Epithelial Cells - UA 0 SEEN /hpf (0-5)
[2022-04-17 16:29] LABS: Color, Urine Yellow (Yellow); Glucose, Dipstick Normal (Normal); Ketone-Dipstick Negative (Negative); Leukocyte Esterase-Dipstick Negative /ul (Negative); Nitrite-Dipstick Negative (Negative); Occult Blood-Urine 50 /ul (Negative); Protein-Dipstick 30 mg/dl (Negative); Urine Bilirubin Dipstick Negative (Negative); Urine Clarity Clear (Clear); Urine Urobilinogen Normal (Normal)
[2022-04-17 16:39] LABS: White Blood Cells 0-5 SEEN /hpf (0-5)
[2022-04-17 16:40] LABS: Bacteria RARE /hpf (None Seen); Red Blood Cells-Urine 0-5 SEEN /hpf (0-5)
[2022-04-20 12:01] LABS: Pathologist Review Reviewed
== END 2022-04-17 16:54 | disposition home or self-care (01) ==
PROVIDERS: Emergency Provider Emergency Medicine; PCP Family Medicine; Visit Provider Emergency Medicine
DX: R33.9 Retention of urine, unspecified (principal); C83.30 Diffuse large B-cell lymphoma, unspecified site; D50.9 Iron deficiency anemia, unspecified; Z87.891 Personal history of nicotine dependence
CPT/HCPCS: 51702; 80048; 81001; 85025; 86850; 86900; 86901; 93005; 99284; A4216

== ENCOUNTER 2022-04-23 17:00 | Inpatient (IN) | payer MEDICARE, OTHER, SELFPAY ==
[2022-04-23] VITALS (14 sets, daily range): BP systolic 92–132; BP diastolic 44–80; PULSE 70–96; RESP 16–18; TEMP 36.1–36.6; O2SAT 92–98; BMI 19.5
[2022-04-23] MEDS: Lactated Ringers 1,000 ML 15 ML IV ×2 (08:40→11:35)
[2022-04-23 09:29] LABS: International Normalized Ratio 1.2; Prothrombin Time (Protime)PT. 14.6 SECONDS (11.7-14.9)
[2022-04-23 09:30] LABS: Partial Thromboplast Time 25.7 Seconds (24.1-36.2)
--- NOTE | 2022-04-23 10:35 | PROS_PTH ---
PATIENT: MICAH VELEZ LOC: MS3 U#:[id number] AGE/SX: 81/M ROOM: SD314 RE04/25/[address]: Dr. Kelvin Bermeo MD : [id number] BED: 1 DIS: 04/26/2022 SPEC #: [id number] RECD: 04/23/22 12:07 STATUS: CURT COLINDRES #: [id number] BEN: 04/23/22 10:[address]: Kelvin Bermeo DEPT: SURGICAL PATHOLOGY RECD BY: Jess Elizondo ENTERED: 04/23/22 13:09 SP TYPE: TURP OTHR DR: Dr. Fred Clark, DO Tissues: Prostate, NOS Procedures: Surgery Specimen Level IV HEADER OPERATION: Cysto, TUR prostate, [facility] PRE-OP DIAGNOSIS: BPH with retention of urine obstruction TISSUE SUBMITTED: Prostate tissue MICROSCOPIC DIAGNOSIS Prostate tissue, transurethral resection: Benign prostatic hyperplasia, glandular and stromal type. SJ:janeth 04/26/2022 MICROSCOPIC DESCRIPTION Slides are reviewed. GROSS DESCRIPTION Received is one container labeled with the patient's name and designated prostate tissue. The specimen consists of multiple irregular fragments of pink-bates, rubbery, soft tissue that in aggregate weigh 5.2 gm and measure in aggregate 4 x 3.5 x 1 cm. The entire specimen is submitted in five cassettes. / KAT:janeth 04/23/2022 TC:5 CPT: 43890
--- NOTE | 2022-04-23 10:36 | HP.PCM_ITS ---
HPI - General General Date of Service: 04/23/22 Chief Complaint: BPH with retention of urine obstruction HPI Narrative MICAH VELEZ, is a 81 M who presents for transurethral resection of the prostate [facility] Medical History (Updated 04/22/22 @ 11:36 by Stacie Beckwith) Actinic keratosis Acute UTI Anemia Arthritis Atrioventricular jose m re-entry tachycardia Back pain Benign essential hypertension BPH (benign prostatic hyperplasia) Cardiomyopathy Cheek mass CINV (chemotherapy-induced nausea and vomiting) DLBCL (diffuse large B cell lymphoma) Easy bruising Encounter for education Epidermal inclusion cyst Former smoker Former smoker Functional gait abnormality Gastric reflux High cholesterol History of echocardiogram History of irregular heartbeat History of smoking History of steroid therapy HLD (hyperlipidemia) Hypertension Indwelling urethral catheter present Left kidney mass Liver cancer Low iron Myelodysplastic syndrome Obstructive jaundice Open wound of great toe Osteoarthritis Pain Peripheral neuropathy Pressure ulcer of toe, stage 2 Prostate disease Shortness of breath on exertion Skin ulcer of right great toe Thrombocytopenia Use of proton pump inhibitor therapy Varicosities of leg Vitamin deficiency Walker as ambulation aid Wears dentures Wears glasses Wears hearing aid Home Medications hydroxychloroquine 200 mg tablet 200 mg PO BID arthritis 04/18/13 [History Last Taken 04/23/22] ascorbate calcium (vitamin C) 500 mg tablet 500 mg PO DAILY 03/08/22 [History Last Taken 04/22/22] ferrous sulfate 325 mg (65 mg iron) tablet 325 mg PO DAILY 03/08/22 [History Last Taken 04/22/22] allopurinol 300 mg tablet 300 mg PO DAILY 30 days #30 tabs 03/10/22 [Rx Last Taken 04/22/22] amlodipine 10 mg tablet 10 mg PO QHS #30 tabs 03/22/22 [Rx Last Taken 04/22/22] atorvastatin 40 mg tablet 40 mg PO QHS #30 tabs 03/22/22 [Rx Last Taken 04/22/22] omeprazole 20 mg capsule,delayed release 20 mg PO DAILY 04/22/22 [History Last Taken 04/23/22] prednisone 50 mg tablet 100 mg PO DAILY CHEMO TX 04/22/22 [History Last Taken 04/22/22] ciprofloxacin HCl 500 mg tablet (Cipro) 500 mg PO BID #14 tabs 04/23/22 [Rx Last Taken Unknown] Allergy/AdvReac Type Severity Reaction Status Date / Time tramadol [From Ultram] AdvReac Intermediate PT UNSURE Verified 04/23/22 09:08 OF REACTION Family History Father Myocardial infarction Brother Myocardial infarction Mother Pancreas cancer Surgical History (Updated 04/22/22 @ 11:36 by Stacie Beckwith) H/O foot surgery H/O hernia repair H/O hernia repair History of cataract extraction History of colonoscopy (~06/2019) History of esophagogastroduodenoscopy (EGD) (~06/2019) History of excision of lesion History of surgery History of vascular access device S/P carpal tunnel release Social History Smoking Status: Former smoker quit date: 04/11/84 alcohol intake: current substance use type: does not use additional social history: DOES NOT USE ASPIRIN DOES USE IBUPROFEN NEEDED Vital Signs Vital Signs Vital Signs: 04/23/22 09:11 04/23/22 09:11 Temperature 97.6 F L Temperature Source Temporal Pulse Rate 96 Respiratory Rate 18 Respiratory Pattern Normal Blood Pressure 111/60 Blood Pressure Mean 77 Blood Pressure Source Monitor Blood Pressure Position Semi-Fowlers Blood Pressure Location Left Arm Pulse Ox 96 Oxygen Delivery Method Room Air Weight Weight: 69 kg Body Mass Index (BMI) 19.5 Results Lab / Micro Data Labs: Laboratory Results - last 24 hr 04/23/22 09:00: PT 14.6, INR 1.2, APTT 25.7
--- NOTE | 2022-04-23 10:36 | DCINST_ITS ---
Discharge Instructions Diet Discharge Diet: No restrictions Activity Discharge Activity: Return to Normal Activity Follow Up Care Please Follow Up With: Kelvin Bermeo MD When: 2 weeks. Test Results: Test results from this visit will be discussed in further detail at your follow- up appointment, if applicable. Discharge Plan Admission Primary Reason for Your Visit: jose Attending Provider: Kelvin Bermeo Primary Care Provider: Fred Clark Instructions Patient Instructions: TUR Home Recovery Discharge Orders/Prescriptions Prescriptions: New ciprofloxacin HCl [Cipro] 500 mg tablet 500 mg PO BID Qty: 14 0RF Continued ferrous sulfate 325 mg (65 mg iron) tablet 325 mg PO DAILY ascorbate calcium (vitamin C) 500 mg tablet 500 mg PO DAILY hydroxychloroquine 200 MG tablet 200 mg PO BID allopurinol 300 mg tablet 300 mg PO DAILY 30 Days Qty: 30 0RF atorvastatin 40 mg Tablet 40 mg PO QHS Qty: 30 2RF amlodipine 10 MG tablet 10 mg PO QHS Qty: 30 0RF Rx Instructions: Hold for SBP less than 130 mmHg omeprazole 20 mg Capsule,Delayed Release(Dr/Ec) 20 mg PO DAILY prednisone 50 mg tablet 100 mg PO DAILY Rx Instructions: Take daily for 5 days starting on the day of intravenous chemotherapy and repeat with each cycle of treatment Discontinued finasteride 5 mg tablet 5 mg PO DAILY Tamsulosin HCl 0.4 mg PO QHS Referrals / Follow Up: Kelvin Bermeo MD [Med Staff - Active Staff] - Fred Clark DO [Primary Care Provider] - Disposition Disposition (needs filled in before D/C Order can be placed): Home, Self Care
[2022-04-23] MEDS: Cefazolin 2 GM in 0.9% Normal Saline 100 ML IV (10:49)
--- NOTE | 2022-04-23 11:34 | OP.PCM_ITS ---
Report of Operation Date of Procedure: 04/23/22 Pre-Operative Diagnosis: BPH with obstruction retention of urine Post-Operative Diagnosis: Same Surgery/Procedure Performed:: Transurethral section of prostate Description of Surgical Findings:: In the preoperative setting I discussed with the patient how the surgery would be done with expect afterwards. We discussed how a prostate resection is done and we discussed the risk of the surgery including, bleeding, infection, retrograde ejaculation, changes with ejaculation or intercourse,. We discussed the possibility that the resection of the prostate may not alleviate his urinary symptoms. We discussed the small risk of developing scar tissue along the urethral channel and strictures. We also discussed the chance of the prostate could grow back and he may need further surgery or treatment in the future for prostate problems. Patient was taken back to the operating room, timeout procedure was performed, he was identified and marked and placed on the operating room table. He un derwent general anesthesia. He was placed in dorsolithotomy position. Penis and testicles were prepped and draped in usual sterile fashion. Went into the bladder using the visual obturator with a resectoscope. Once inside the bladder identified the right and left ureteral orifice. I then identified the prostate and the anatomy of the prostate. I marked out the area of the sphincter and the verumontanum was identified. I then proceeded with the prostate resection first resected the median lobe. And then resected the right lobe of the prostate. Then to resect the left lobe of the prostate. I then resected the apical tissue of the prostate. This was a complete resection of all obstructive tissue to improve voiding and relieve obstruction. I then made sure that there was no injury to the sphincter or the verumontanum was still intact. At the end of the resection all the chips were Ellik out of the bladder. I then identified the left and right ureteral orifice and these were confirmed to be in good position and effluxing and not injured. The resectoscope was removed, a 22 Algerian catheter was placed into the bladder on continuous irrigation. And the urine was fairly light pink color and draining normally. He was taken back to the PACU in good condition. Surgeon: Kelvin Bermeo Type of Anesthesia: General Drains: 22 Algerian three-way catheter Admit VTE Documentation VTE Present on Admission: No VTE Mechan Device Prophylaxis: SCD's VTE Pharm Prophylaxis ordered?: No
[2022-04-23] MEDS: 0.9% Normal Saline 1,000 ML 125 ML IV (19:13)
[2022-04-23] MEDS: Ciprofloxacin 400 MG/200 ML BAG 200 MG IV (19:13)
[2022-04-23] MEDS: Hydroxychloroquine 200 MG Tablet PO (19:18)
[2022-04-23] MEDS: Docusate Sodium 100 MG Capsule 200 MG PO (21:43)
[2022-04-23] MEDS: Atorvastatin Calcium 40 MG Tablet PO (21:43)
[2022-04-24 02:05] VITALS: BP 114/68; PULSE 67; RESP 18; TEMP 36.3; O2SAT 93
[2022-04-24] MEDS: 0.9% Normal Saline 1,000 ML 125 ML IV (04:03)
[2022-04-24] MEDS: Ciprofloxacin 400 MG/200 ML BAG 200 MG IV (06:00)
[2022-04-24 08:06] VITALS: BP 118/65; PULSE 87; RESP 18; TEMP 36.6; O2SAT 98
[2022-04-24] MEDS: Allopurinol 300 MG Tablet PO (08:08)
[2022-04-24] MEDS: Ferrous Sulfate 325 MG Tablet PO (08:08)
[2022-04-24] MEDS: Pantoprazole Sodium 20 MG Tablet PO (08:08)
[2022-04-24] MEDS: Docusate Sodium 100 MG Capsule 200 MG PO ×2 (08:08→20:08)
[2022-04-24] MEDS: Hydroxychloroquine 200 MG Tablet PO ×2 (08:08→18:24)
--- NOTE | 2022-04-24 08:42 | PCM.PN.GU ---
Subjective Subjective Status post resection of the prostate yesterday doing well no issues or problems urine is fairly clear we will take out the catheter this morning for voiding trial. Objective Data Objective Data Vital Signs: Vital Signs Temp Pulse Resp BP Pulse Ox O2 Del Method 97.8 F 87 18 118/65 98 Room Air 04/24/22 08:06 04/24/22 08:06 04/24/22 08:06 04/24/22 08:06 04/24/22 08:06 04/24/22 08:06 Oxygen Delivery Method Room Air Weight: 69 kg Body Mass Index (BMI) 19.5 Intake & Output: Intake and Output for Last 24 Hours 04/22/22 04/23/22 04/24/22 23:59 23:59 23:59 Intake Total 1550 / 1550 1840 / 1840 Output Total 2300 / 2300 2900 / 2900 Balance -750 / -750 -1060 / -1060 Lab / Micro Data Labs: Laboratory Results - last 24 hr 04/23/22 09:00: PT 14.6, INR 1.2, APTT 25.7
--- NOTE | 2022-04-24 14:50 | CASEMGMT ---
LEXY CM: LEXY MAGAÑA to room for face to face discussion with pt regarding discharge needs. Pt sitting edge of bed and agreeable to participating. Pt states he uses a walker at baseline, is independent with ADLs, drives and can assist him as needed. Pt denies any discharge needs at this time. KURTZ form explained to patient. Pt voiced understanding and signed the form. Original placed in pt's chart and copy provided to pt. Pt denied any additional questions or concerns. Wilmer Peguero RN CM
[2022-04-24 16:54] VITALS: BP 128/54; PULSE 87; RESP 18; TEMP 36.9; O2SAT 96
[2022-04-24] MEDS: Atorvastatin Calcium 40 MG Tablet PO (20:08)
[2022-04-24] MEDS: amLODIPine 10 MG Tablet PO (20:08)
[2022-04-24 20:28] VITALS: BP 111/66; PULSE 87; RESP 16; TEMP 36.9; O2SAT 97
[2022-04-25 02:04] VITALS: BP 111/67; PULSE 80; RESP 16; TEMP 36.9; O2SAT 95
[2022-04-25 09:05] VITALS: BP 121/54; PULSE 93; RESP 18; TEMP 36.4; O2SAT 95
[2022-04-25] MEDS: Pantoprazole Sodium 20 MG Tablet PO (09:08)
[2022-04-25] MEDS: Hydroxychloroquine 200 MG Tablet PO ×2 (09:08→18:03)
[2022-04-25] MEDS: Ferrous Sulfate 325 MG Tablet PO (09:08)
[2022-04-25] MEDS: Docusate Sodium 100 MG Capsule 200 MG PO ×2 (09:08→19:56)
[2022-04-25] MEDS: Allopurinol 300 MG Tablet PO (09:08)
[2022-04-25 14:47] VITALS: BP 114/56; PULSE 93; RESP 18; TEMP 36.6; O2SAT 93
[2022-04-25 19:51] VITALS: BP 128/65; PULSE 95; RESP 16; TEMP 36.8; O2SAT 96
[2022-04-25] MEDS: Atorvastatin Calcium 40 MG Tablet PO (19:56)
[2022-04-26 01:10] VITALS: BP 113/64; PULSE 87; RESP 16; TEMP 36.6; O2SAT 96
[2022-04-26 05:30] VITALS: BP 116/60; PULSE 73; RESP 16; TEMP 36.7; O2SAT 94
[2022-04-26 07:36] VITALS: BP 125/72; PULSE 78; RESP 16; TEMP 36.6; O2SAT 92
--- NOTE | 2022-04-26 07:52 | PCM.PN.GU ---
Subjective Subjective Patient stayed over the weekend since the urine was fairly bloody but now looks okay draining well minimal clots like a light ulloa color but draining and running well he can go home today with a catheter. Objective Data Objective Data Vital Signs: Vital Signs Temp Pulse Resp BP Pulse Ox O2 Del Method 97.9 F 78 16 125/72 H 92 Room Air 04/26/22 07:36 04/26/22 07:36 04/26/22 07:36 04/26/22 07:36 04/26/22 07:36 04/26/22 07:36 Oxygen Delivery Method Room Air Weight: 69 kg Body Mass Index (BMI) 19.5 Intake & Output: Intake and Output for Last 24 Hours 04/24/22 04/25/22 04/26/22 23:59 23:59 23:59 Intake Total 3592.67 / 3592.67 1120 / 1120 150 / 150 Output Total 4100 / 4100 1650 / 1650 850 / 850 Balance -507.33 / -507.33 -530 / -530 -700 / -700
[2022-04-26] MEDS: Allopurinol 300 MG Tablet PO (08:30)
[2022-04-26] MEDS: Docusate Sodium 100 MG Capsule 200 MG PO (08:30)
[2022-04-26] MEDS: Pantoprazole Sodium 20 MG Tablet PO (08:30)
[2022-04-26] MEDS: Hydroxychloroquine 200 MG Tablet PO (08:30)
[2022-04-26] MEDS: Ferrous Sulfate 325 MG Tablet PO (08:31)
--- NOTE | 2022-04-26 09:30 | CASEMGMT ---
Addendum entered by Jeanne Marroquin 04/26/22 10:38: Spoke with Christie at [facility], pt is active with SN. She is aware pt will dc today with resumption. Original Note: LEXY MAGAÑA Assessment: Face to Face with pt for initial transition planning/care coordination assessment. LEXY MAGAÑA introduced self and role at [facility], pt voices understanding and consents to assessment. Pt is A/O x4 and answers all questions appropriately at this time. Pt sitting on edge of bed in no distress. Care providers, pharmacy, and demographics verified/updated. Admitting Dx: turp PCP:Amber Specialists:carlos Bermeo Preferred Pharmacy: [facility] Insurance: [facility], [place] [employer] Pres[employer] Benefit: yes LNOK: Megan Connolly, Living Arrangements: Pt lives with in a single story home with 4 steps to enter with a rail. Pt reports he is I in ADL's and denies concerns at home. Transportation: Pt drives self sometimes and transports him other times, pt denies concerns with transportation. DME/HHC/SNF: Pt has a cane and FWW at home. Pt states he is active with [facility] but states he believes they are finishing up. Pt denies SNF stays. Pt states no concerns with going home at time of dc. Pt states no further concerns/needs. CM to follow. Advised pt to ask CM if any further question/concerns/needs arise, voices understanding. Pt Goal: Home Plan: Home, message to [facility] to see if patient is still active.
== END 2022-04-26 10:51 | disposition home health service (06) | DRG 713 ==
LOC: MS3 04-25 17:03 → SDC 04-26 10:02
PROVIDERS: Anesthesiology; Admitting Provider Urology; PCP Family Medicine; Referring Provider Urology; Visit Provider Urology
DX: N40.1 Benign prostatic hyperplasia with lower urinary tract symptoms (principal); N13.8 Other obstructive and reflux uropathy; I45.2 Bifascicular block; D69.6 Thrombocytopenia, unspecified; I10 Essential (primary) hypertension; E78.00 Pure hypercholesterolemia, unspecified; R33.8 Other retention of urine; Z79.899 Other long term (current) drug therapy; Z87.891 Personal history of nicotine dependence
CPT/HCPCS: 51702; 85610; 85730; 88305; J7030; J7120; J0744; J2405

== ENCOUNTER → 2022-05-26 | Outpatient (CLI) | payer MEDICARE, OTHER, SELFPAY ==
--- NOTE | 2022-05-26 12:48 | CT_ITS ---
EXAM: CT CHEST, ABDOMEN AND PELVIS WITH INTRAVENOUS CONTRAST CLINICAL INDICATION: F/U LYMPHOMA IV CONTRAST ONLY LARGE CELL B. KNOW CHRONIC LEFT KIDNEY MASS TECHNIQUE: Helically acquired images were obtained of the chest, abdomen and pelvis with intravenous contrast. This CT exam was performed using one or more of the following dose reduction techniques: automated exposure control, adjustment of the mA and/or kV according to patient size, and/or use of iterative reconstruction technique. This report was created using [employer] report [employer] technology. CONTRAST: IV 100mL Isovue-300 COMPARISON: PET/CT scan dated 03/17/2022 FINDINGS: CHEST: LUNGS AND PLEURAL SPACES: There are emphysematous changes in the upper lobes. There are pleural calcifications in the lung bases which may represent asbestos related pleural disease. No mass. No pneumothorax. HEART: Unremarkable. Heart size is normal. No pericardial effusion. No significant coronary artery calcifications. MEDIASTINUM: Unremarkable. No mediastinal or hilar adenopathy. Esophagus is unremarkable. No hiatal hernia. THYROID: Unremarkable. No thyroid lesions. ABDOMEN: LIVER: There is a small low-density lesion in the liver that measures 7 mm which may represent a cyst. GALLBLADDER AND BILE DUCTS: There is a biliary stent in place. No calcified gallstones. No gallbladder distention or wall edema. No intra- or extrahepatic biliary ductal dilation. PANCREAS: Unremarkable. No focal cystic or solid mass. SPLEEN: Unremarkable. Normal size without focal cystic or solid mass. ADRENALS: Unremarkable. No nodules. KIDNEYS AND URETERS: Is there is irregular soft tissue mass in the left kidney measures 6.6 x 6.6 x 5.8 cm compatible with malignancy. Normal renal size and position. No hydronephrosis. STOMACH AND BOWEL: There is sigmoid diverticulosis with no evidence of diverticulitis. No stomach or bowel distention. PELVIS: APPENDIX: No evidence of acute appendicitis. BLADDER: There is thickening of the wall the urinary bladder which may be due to or cystitis. REPRODUCTIVE: Unremarkable as visualized. No mass. CHEST, ABDOMEN and PELVIS: INTRAPERITONEAL SPACE: Unremarkable. No ascites or other fluid collection. No free air. BONES/JOINTS: Unremarkable. No suspicious lytic or blastic abnormality. SOFT TISSUES: Unremarkable. No discrete abdominal or pelvic wall hernia. VASCULATURE: Unremarkable. Aorta is non-dilated. No aortic dissection. No obvious central pulmonary embolism although this study was not performed with the pulmonary embolism protocol. LYMPH NODES: There is soft tissue seen within the rosa isela hepatis compatible with adenopathy which may have minimally decreased in size from the reference exam, measuring roughly 5.2 x 3[address]/CT Chest, Abd, Pel w/Contrast IMPRESSION: 1. Soft tissue in the rosa isela hepatis compatible with adenopathy which appears minimally decreased from the reference examination. 2. Large soft tissue mass in the left kidney compatible with malignancy. 3. Thickening of the wall the urinary bladder which may be due to incomplete distention or cystitis. Electronically Signed: Osmin Brown MD at 21:30 EST ,
[2022-05-26] MEDS: 0.9% Saline Lock 10 ML Syringe IV (13:35)
== END | disposition home or self-care (01) ==
LOC: CT 12:47
PROVIDERS: PCP Family Medicine; Visit Provider Internal Medicine Hematology & Oncology
DX: C83.30 Diffuse large B-cell lymphoma, unspecified site (principal); D61.818 Other pancytopenia; D50.0 Iron deficiency anemia secondary to blood loss (chronic)
CPT/HCPCS: 36591; 71260; 74177; 85025; Q9967; A4216

== ENCOUNTER 2022-07-28 14:22 | Inpatient (IN) | payer MEDICARE, OTHER, SELFPAY ==
[2022-07-28] VITALS (9 sets, daily range): BP systolic 87–133; BP diastolic 66–84; PULSE 94–124; RESP 20–26; TEMP 36.3–37.3; O2SAT 91–100; BMI 19.5; BMI 18.2
--- NOTE | 2022-07-28 14:37 | CT_ITS ---
INDICATION: PE EXAMINATION: CTA Chest WO/W Contrast Injection TECHNIQUE: Helically acquired images were obtained of the chest following administration of IV contrast. A radiation dose optimization technique was used for this scan. 3D postprocessing images including MIPS were reviewed. IV Contrast dosage and agent: IV 100mL [id number]-370 COMPARISON: 05/26/2022. FINDINGS: Lungs: Scattered ground glass opacities. Interlobular septal thickening. Emphysematous changes. Chronic interstitial lung changes. Mediastinum: The cardiomediastinal silhouette is not enlarged. No mediastinal, hilar or axillary adenopathy. Marked aortic arch and coronary artery calcifications. Questionable small volume nonocclusive clot seen in the bilateral lower lobe subsegmental pulmonary arteries. No evidence of right heart strain. Pleura: Unremarkable Bones/Soft tissues: There are diffuse degenerative changes of the spine. Severe age-indeterminate compression deformity of L1 with mild retropulsion of fragments and mild spinal canal narrowing. Upper abdomen: Large left upper renal pole mass measuring 6.[address]/CTA Chest W/WO Contrast IMPRESSION: Questionable small volume nonocclusive acute pulmonary emboli in the subsegmental pulmonary arteries of the bilateral lower lobes. No evidence of right heart strain. Severe age-indeterminate compression deformity of L1 with mild retropulsion of fragments and mild spinal canal narrowing. Interstitial edema superimposed on COPD and chronic interstitial lung disease. Large mass in the left upper renal pole concerning for malignancy. Electronically Signed: Rick Moreno MD at 17:13 EDT ,
--- NOTE | 2022-07-28 14:38 | EKG12_ITS ---
Test Reason : SOB Blood Pressure : / mmHG Vent. Rate : 114 BPM Atrial Rate : 114 BPM P-R Int : 142 ms QRS Dur : 156 ms QT Int : 374 ms P-R-T Axes : 055 -64 076 degrees QTc Int : 515 ms Sinus tachycardia with Premature atrial complexes Right bundle branch block Left anterior fascicular block Bifascicular block Septal infarct , age undetermined Abnormal ECG Confirmed by DEANNA MEHTA, CLARISSE ([id number]), index editor CHIARA IBARRA ([id number]) on 07/30/2022 2:23:03 PM Referred By: MANUEL Confirmed By:CLARISSE HUERTA MD
--- NOTE | 2022-07-28 15:00 | ED.VIS.DYS ---
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 Patient does not wear home oxygen. He apparently has been more short of breath over the past 3 days. Has had a cough which his describes as more of a rattle in his chest. It is nonproductive. He denies any palpitations, chest discomfort, fever, leg swelling or any other complaints. He has been more weak over the past few days as well. Apparently patient had a fall on Tuesday where his legs became weak and he had to lower himself to the ground. He is not on any blood thinners. He does have a thrombocytopenia with a platelet count of 48,000 today per report from oncology. Patient was placed on 4 L of oxygen in the oncology office and then transferred down to the emergency room. Patient denies any bleeding, black or blood in his stool or any other complaints at this time. [facility] Medical History Actinic keratosis Acute UTI Anemia Arthritis Atrioventricular jose m re-entry tachycardia Back pain Benign essential hypertension BPH (benign prostatic hyperplasia) Cardiomyopathy Cheek mass CINV (chemotherapy-induced nausea and vomiting) Constipation Dehydration DLBCL (diffuse large B cell lymphoma) Easy bruising Encounter for education Epidermal inclusion cyst Former smoker Former smoker Functional gait abnormality Gastric reflux Hematuria High cholesterol History of echocardiogram History of irregular heartbeat History of smoking History of steroid therapy HLD (hyperlipidemia) Hypertension Hypoxia Indwelling urethral catheter present Left kidney mass Liver cancer Low iron Myelodysplastic syndrome Obstructive jaundice Open wound of great toe Osteoarthritis Pain Peripheral neuropathy Pressure ulcer of toe, stage 2 Prostate disease Shortness of breath on exertion Skin ulcer of right great toe Tachycardia Thrombocytopenia Urinary tract infection Use of proton pump inhibitor therapy Varicosities of leg Vitamin deficiency Walker as ambulation aid Wears dentures Wears glasses Wears hearing aid Home Medications hydroxychloroquine 200 mg tablet 200 mg PO BID arthritis 04/18/13 [History Last Taken 07/28/22] ascorbate calcium (vitamin C) 500 mg tablet 500 mg PO DAILY supplement 03/08/22 [History Last Taken 07/28/22] ferrous sulfate 325 mg (65 mg iron) tablet 325 mg PO DAILY supplement 03/08/22 [History Last Taken 07/28/22] amlodipine 10 mg tablet 10 mg PO QHS #30 tabs 03/22/22 [Rx Last Taken 07/28/22] atorvastatin 40 mg tablet 40 mg PO QHS #30 tabs 03/22/22 [Rx Last Taken 07/27/22] omeprazole 20 mg capsule,delayed release 20 mg PO DAILY GERD 04/22/22 [History Last Taken 07/28/22] allopurinol 300 mg tablet 300 mg PO DAILY Check with primary doctor 07/28/22 [History Last Taken 07/28/22] ciprofloxacin HCl 500 mg tablet 500 mg PO BID bladder infection 07/28/22 [History Last Taken 07/28/22] methenamine hippurate 1 gram tablet 1 g PO QHS bladder 07/28/22 [History Last Taken 07/27/22] Allergy/AdvReac Type Severity Reaction Status Date / Time tramadol [From Ultra] AdvReac Intermediate PT UNSURE Verified 07/28/22 14:25 OF REACTION Family History Father Myocardial infarction Brother Myocardial infarction Mother Pancreas cancer Surgical History H/O foot surgery H/O hernia repair H/O hernia repair History of cataract extraction History of colonoscopy (~06/2019) History of esophagogastroduodenoscopy (EGD) (~06/2019) History of excision of lesion History of surgery History of vascular access device S/P carpal tunnel release Social History Smoking Status: Former smoker quit date: 04/11/84 alcohol intake: current substance use type: does not use additional social history: DOES NOT USE ASPIRIN DOES USE IBUPROFEN NEEDED ROS ROS ED Constitutional Constitutional ED: Denies chills or fever(s) Eyes Eyes: Denies change in vision ENT ENT ED: Denies sore throat Cardiovascular Cardiovascular: Denies chest pain or palpitations Respiratory/Chest Respiratory/Chest: Reports dyspnea and dyspnea on exertion; Denies cough Gastrointestinal Gastrointestinal: Denies abdominal pain, nausea or vomiting Musculoskeletal Musculoskeletal: Denies arthralgias or myalgias Integumentary Denies rash Neurologic Neurologic: Reports weakness; Denies headache(s) Psychiatric Psychiatric: Denies anxiety Hematologic/Lymphatic Hematologic/Lymphatic: Reports easy bleeding and easy bruising EXAM Physical Exam Const Vital Signs: 07/28/22 14:23 07/28/22 14:41 07/28/22 14:45 Temperature 98.7 F 98.7 F Temperature Source Temporal Temporal Pulse Rate 124 H 118 H Respiratory Rate 26 H 20 H Respiratory Effort Normal Non-Labored Respiratory Depth Normal Respiratory Pattern Tachypnea Blood Pressure 87/69 L 110/66 Blood Pressure Mean 75 80 Pulse Ox 93 92 Oxygen Delivery Method Nasal Cannula Nasal Cannula Nasal Cannula Oxygen Flow Rate (L/min) 3 4 4 07/28/22 16:15 Temperature Temperature Source Pulse Rate 112 H Respiratory Rate 21 H Respiratory Effort Respiratory Depth Respiratory Pattern Blood Pressure 126/72 H Blood Pressure Mean 89 Pulse Ox Oxygen Delivery Method Oxygen Flow Rate (L/min) Positive cachectic Constitutional Narrative: Frail-appearing General Appearance ED: cachectic Nutritional Appearance: cachectic HEENT Reports dry mucous membranes atraumatic Mouth ED: Yes dry mucous membranes Mouth: dry mucous membranes Eyes PERRL and EOMs intact bilaterally Neck supple and no JVD Resp Resp Narrative: Tachypnea. Diminished breath sounds on the left side with crackles at the left base Cardio no murmurs Rate: tachycardic GI non-tender and non-distended Palpation: soft Extremity normal to inspection General Extremety ED: Negative for edema General Extremity: Negative for edema Neuro oriented x3 Sensorium / Orientation: alert Motor Exam: general weakness Psych mental status grossly normal Skin no wounds Rashes: no rashes MDM MDM MDM Narrative Medical decision making narrative: Patient's evaluated for new onset of hypoxia, hypotension, tachycardia and tachypnea. Patient is currently on a 3-day course of ciprofloxacin for urinary tract infection. Differential includes pulmonary emboli, hypovolemia and sepsis. Less likely decompensated heart failure. CTA as well as sepsis work-up is initiated. Patient is given a bolus of fluid and is on supplemental oxygen. Vital signs are improving with these interventions. Case was discussed with oncology nurse practitioner, Radha Lindsey, who states that he needs to be ruled out for PE and if needed he could be anticoagulated. She does anticipate his platelets will drop further over the next week due to his chemotherapy. She reports that he had a pretty chemotherapy echo which showed cardiomyopathy and an EF of 41% which is why he was treated with R-CVP which was suboptimal given his cancer type but he is not a candidate for other chemotherapy due to his cardiomyopathy. Patient is hypoxic, hypoxic tensive and tachycardic in the emergency room. He is given IV fluids and placed on supplemental oxygen with improvement of these. He does have a low platelet and hemoglobin count. He does not require transfusion at this time. Lactate is elevated at 2.5. CT PE does not show any large pulmonary emboli but does show questionable small volume nonocclusive acute PE in the subsegmental segmental pulmonary arteries of the bilateral lower lobes. No signs of right heart strain. Troponin is normal. I question of these are true PEs and I think they do not explain his extent of his symptoms and the risk of full anticoagulation with his known thrombocytopenia outweighs the benefits of treating them. Patient will be started on broad-spectrum antibiotics per admitting hospitalist, Dr. Wagner is very more concerned about infectious picture at this time. Patient and agreeable to plan of care. Patient is admitted to PCU. History & Record Review Additional record(s) reviewed:: Prior outpatient record Lab Data Attestation: I reviewed the patient's lab results. Labs: Laboratory Results - last 24 hr 07/28/22 07/28/22 07/28/22 14:50 15:19 15:19 WBC 6.8 RBC 2.91 L Hgb 8.8 L Hct 28.2 L MCV 96.9 H MCH 30.2 MCHC 31.2 L RDW Std Deviation 70.4 H RDW Coeff of Kori 19.9 H Plt Count 45 L* MPV 12.9 H Neut % (Auto) Not Reportable Lymph % (Auto) 1.0 L Absolute Neuts (auto) 3.9 Absolute Lymphs (auto) 0.27 L Total Counted 100 Neutrophils % (Manual) 47 Band Neutrophils % 11 H Lymphocytes % (Manual) 4 L Monocytes % (Manual) 35 H Metamyelocytes % 2 H Myelocytes % 1 H Differential Comment SEE COMMENTS Diff Path Review May foll Toxic Granulation RARE Platelet Estimate MKD DEC RBC Morphology N CHROM Anisocytosis 1+ Macrocytosis 1+ Sodium Potassium Chloride Carbon Dioxide Anion Gap BUN Creatinine Estim Creat Clear Calc Est GFR (MDRD) Af Amer Est GFR (MDRD) Non-Af BUN/Creatinine Ratio Glucose Lactic Acid 2.5 H* Calcium Phosphorus Magnesium Total Bilirubin AST ALT Alkaline Phosphatase Troponin I High Sens B-Natriuretic Peptide 176.8 H Total Protein Albumin Globulin Albumin/Globulin Ratio 07/28/22 07/28/22 15:19 15:19 WBC RBC Hgb Hct MCV MCH MCHC RDW Std Deviation RDW Coeff of Kori Plt Count MPV Neut % (Auto) Lymph % (Auto) Absolute Neuts (auto) Absolute Lymphs (auto) Total Counted Neutrophils % (Manual) Band Neutrophils % Lymphocytes % (Manual) Monocytes % (Manual) Metamyelocytes % Myelocytes % Differential Comment Diff Path Review Toxic Granulation Platelet Estimate RBC Morphology Anisocytosis Macrocytosis Sodium 137 Potassium 3.6 Chloride 109 H Carbon Dioxide 22.0 Anion Gap 6 BUN 28 H Creatinine 0.98 Estim Creat Clear Calc 57.61 Est GFR (MDRD) Af Amer 94 Est GFR (MDRD) Non-Af 78 BUN/Creatinine Ratio 28.5 H Glucose 138 H Lactic Acid Calcium 8.5 Phosphorus 2.4 L Magnesium 2.0 Total Bilirubin 0.70 AST 20 ALT 25 Alkaline Phosphatase 63 Troponin I High Sens 18 B-Natriuretic Peptide Total Protein 6.4 Albumin 2.8 L Globulin 3.6 Albumin/Globulin Ratio 0.8 L ABG Data ABG results: ABG 07/28/22 16:03 Specimen Type DEBBY VBG pH 7.42 VBG pO2 52 H VBG HCO3 21 L VBG Total CO2 22 L VBG O2 Sat (Calc) 88 H VBG Base Excess -3 L POC Mix VBG pCO2 Pt Tmp 32.3 L O2 Delivery Device Cannula Liter Flow 4.0 Radiography Diagnostic Testing: Clinical Impression(s) from Imaging Studies Chest CTA 07/28/22 14:37 IMPRESSION: Questionable small volume nonocclusive acute pulmonary emboli in the subsegmental pulmonary arteries of the bilateral lower lobes. No evidence of right heart strain. Severe age-indeterminate compression deformity of L1 with mild retropulsion of fragments and mild spinal canal narrowing. Interstitial edema superimposed on COPD and chronic interstitial lung disease. Large mass in the left upper renal pole concerning for malignancy. Electronically Signed: Rick Moreno MD at 17:13 EDT , Chest X-Ray 07/28/22 15:46 IMPRESSION: Increased interstitial markings may represent edema and/or infection. 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
[2022-07-28 15:41] LABS: Hematocrit 28.2 % (40-54); Hemoglobin 8.8 g/dL (13.0-16.5); Mean Corp Hgb Conc 31.2 g/dL (32-36); Mean Corpuscular Hgb 30.2 pg (27.0-32.0); Mean Corpuscular Volume 96.9 fL (80-94); Mean Platelet Vol. 12.9 fl (6.2-12.0); POSITIVE COUNT YES; POSITIVE DIFFERENTIAL YES; POSITIVE MORPHOLOGY YES; RBC Distribution Width CV 19.9 % (11.6-14.6); RBC Distribution Width SD 70.4 fl (35.1-43.9); Red Blood Count 2.91 M/mm3 (4.6-6.2); White Blood Count 6.8 K/mm3 (4.4-11.0)
--- NOTE | 2022-07-28 15:46 | RAD_ITS ---
INDICATION: sob EXAMINATION/TECHNIQUE: X-RAY - XR Chest 1 View COMPARISON: 03/19/2022. FINDINGS: Increased interstitial markings. Tortuous and calcified thoracic aorta. The heart is mildly enlarged. Right-sided analysis catheter. No pleural effusion or pneumothorax. Degenerative changes of the thoracic spine. RAD/Chest 1 View (Portable) IMPRESSION: Increased interstitial markings may represent edema and/or infection. Electronically Signed: Rick Moreno MD at 16:06 EDT ,
[2022-07-28 15:49] LABS: Lactic Acid 2.5 mmol/L (0.4-1.9)
[2022-07-28 16:00] LABS: Differential Indicated MANUAL DIFF
[2022-07-28 16:04] LABS: ALB/GLOB Ratio 0.8 RATIO (0.9-2.4); AST(SGOT) 20 U/L (15-37); Alanine Aminotransfer ALT/SGPT 25 U/L (16-61); Albumin, Serum 2.8 g/dL (3.2-5.0); Alkaline Phosphatase 63 U/L (45-117); Anion Gap 6 (5-15); BUN 28 mg/dL (7-18); BUN/Creat Ratio 28.5 RATIO (10-20); Calcium,Total 8.5 mg/dL (8.5-10.1); Chloride 109 mmol/L (98-107); Creatinine, Serum 0.98 mg/dL (0.70-1.30); EST Glomerular Filtration Rate 78 mL/min (>60); Est Glom Filt Rate - Afr Amer 94 mL/min (>60); Estimated Creatinine Clearance 57.61 ml/min; Globulin 3.6 g/dL (2.2-4.2); Glucose 138 mg/dL (74-106); Potassium 3.6 mmol/L (3.5-5.1); Protein, Total 6.4 g/dL (6.4-8.2); Sodium Level 137 mmol/L (136-145); Troponin-I HS 18 pg/mL (3.0-78.0)
[2022-07-28 16:10] LABS: Blood Gas Specimen Type VEN; O2 Delivery Device Cannula; VBG BASE EXCESS -3 mmol/L (-1.0-3.5); VBG Bicarbonate 21 mmol/L (22-26); VBG PO2 52 mmHg (25-40); VBG SO2 88 % (50-70); VBG TCO2 22 mmol/L (23-33); VBG pCO2 32.3 mmHg (41-51); VBG pH 7.42 (7.32-7.42)
[2022-07-28 16:37] LABS: Platelet Count 45 K/mm3 (150-450)
[2022-07-28 16:39] LABS: BNP,B-Type NATRIURETIC PEPTIDE 176.8 pg/mL (0-100)
[2022-07-28 16:47] LABS: Lymphocyte 4 % (19-41); Metamyelocyte 2 % (0-1); Monocyte 35 % (0-10); Myelocyte 1 % (0-0); Neutrophil-Band 11 % (0-5); Neutrophil-Segmented 47 % (47-70); Total Cells Counted 100 (MANUAL DIFF)
[2022-07-28 16:50] LABS: Absolute Lymphocyte Count 0.27 X10^3/uL (0.83-4.51); Absolute Neutrophil Count 3.9 X10^3/uL (2.0-7.7)
[2022-07-28 16:51] LABS: Differential Comment SEE COMMENTS; Platelet Estimate MKD DEC (ADEQ)
[2022-07-28 16:52] LABS: Anisocytosis 1+; Macrocytosis 1+; Red Cell Morphology N CHROM NORMAL (NORM C&C); Toxic Granulation RARE
--- NOTE | 2022-07-28 17:44 | PCM.HP.STD ---
[facility] - General General Date of Admission: 07/28/22 Date of Service: 07/28/22 Chief Complaint: Shortness of breath, tachycardia, hypotension and hypoxia sent to ED from oncology office. 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 After the chemotherapy patient feels very weak and fatigued, nauseated and dehydrated. He had poor oral intake could not eat or much drink. He denies any obvious vomiting or diarrhea. Today he went to oncology office and was found hypotensive tachycardic hypoxic very fatigue generalized weakness therefore sent to ED. Patient was put on 4 L of oxygen and sent to ED. Patient also has mild dry cough for last 3 to 4 days. His denies any fever. Patient was found short of breath even at rest with hypoxia. As per the yesterday he slept 18 to 20 hours. He denies any obvious GI bleed. 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 Patient given 1 L IV fluid normal saline and started on antibiotic. [facility] Medical History Actinic keratosis Acute UTI Anemia Arthritis Atrioventricular jose m re-entry tachycardia Back pain Benign essential hypertension BPH (benign prostatic hyperplasia) Cardiomyopathy Cheek mass CINV (chemotherapy-induced nausea and vomiting) Constipation Dehydration DLBCL (diffuse large B cell lymphoma) Easy bruising Encounter for education Epidermal inclusion cyst Former smoker Former smoker Functional gait abnormality Gastric reflux Hematuria High cholesterol History of echocardiogram History of irregular heartbeat History of smoking History of steroid therapy HLD (hyperlipidemia) Hypertension Hypoxia Indwelling urethral catheter present Left kidney mass Liver cancer Low iron Myelodysplastic syndrome Obstructive jaundice Open wound of great toe Osteoarthritis Pain Peripheral neuropathy Pressure ulcer of toe, stage 2 Prostate disease Shortness of breath on exertion Skin ulcer of right great toe Tachycardia Thrombocytopenia Urinary tract infection Use of proton pump inhibitor therapy Varicosities of leg Vitamin deficiency Walker as ambulation aid Wears dentures Wears glasses Wears hearing aid Home Medications hydroxychloroquine 200 mg tablet 200 mg PO BID arthritis 04/18/13 [History Last Taken 07/28/22] ascorbate calcium (vitamin C) 500 mg tablet 500 mg PO DAILY supplement 03/08/22 [History Last Taken 07/28/22] ferrous sulfate 325 mg (65 mg iron) tablet 325 mg PO DAILY supplement 03/08/22 [History Last Taken 07/28/22] amlodipine 10 mg tablet 10 mg PO QHS #30 tabs 03/22/22 [Rx Last Taken 07/28/22] atorvastatin 40 mg tablet 40 mg PO QHS #30 tabs 03/22/22 [Rx Last Taken 07/27/22] omeprazole 20 mg capsule,delayed release 20 mg PO DAILY GERD 04/22/22 [History Last Taken 07/28/22] allopurinol 300 mg tablet 300 mg PO DAILY Check with primary doctor 07/28/22 [History Last Taken 07/28/22] ciprofloxacin HCl 500 mg tablet 500 mg PO BID bladder infection 07/28/22 [History Last Taken 07/28/22] methenamine hippurate 1 gram tablet 1 g PO QHS bladder 07/28/22 [History Last Taken 07/27/22] Allergy/AdvReac Type Severity Reaction Status Date / Time tramadol [From Ultram] AdvReac Intermediate PT UNSURE Verified 07/28/22 14:25 OF REACTION Family History Father Myocardial infarction Brother Myocardial infarction Mother Pancreas cancer Surgical History H/O foot surgery H/O hernia repair H/O hernia repair History of cataract extraction History of colonoscopy (~06/2019) History of esophagogastroduodenoscopy (EGD) (~06/2019) History of excision of lesion History of surgery History of vascular access device S/P carpal tunnel release Social History Smoking Status: Former smoker quit date: 04/11/84 alcohol intake: current substance use type: does not use additional social history: DOES NOT USE ASPIRIN DOES USE IBUPROFEN NEEDED ROS ROS Narrative Constitutional: Reports fatigue and weakness. No fever. Asthenia. HEENT: Reports systems reviewed and no addt'l complaints, except as documented Respiratory/Chest: Dyspnea on minimal exertion. Rest as described in HPI. CVS: Denies chest pain pressure or tightness. Gastrointestinal: Denies coffee ground emesis, hematemesis or vomiting Genitourinary: Denies burning urination or new urinary tract symptoms Musculoskeletal: Reports mild joint pain and muscle aches. Neurologic: Sleeping all day. Generalized lethargy denies seizure-like activity skin: No ulcer. No rash Endocrinology: Reports systems reviewed and no addt'l complaints, except as documented Hematologic/Lymphatic: Reports systems reviewed and no addt'l complaints, except as documented Rest 14 ROS are negative except as mentioned in HPI Vital Signs Vital Signs Vital Signs: 07/28/22 14:23 07/28/22 14:41 07/28/22 14:45 Temperature 98.7 F 98.7 F Temperature Source Temporal Temporal Pulse Rate 124 H 118 H Respiratory Rate 26 H 20 H Respiratory Effort Normal Non-Labored Respiratory Depth Normal Respiratory Pattern Tachypnea Blood Pressure 87/69 L 110/66 Blood Pressure Mean 75 80 Pulse Ox 93 92 Oxygen Delivery Method Nasal Cannula Nasal Cannula Nasal Cannula Oxygen Flow Rate (L/min) 3 4 4 07/28/22 16:15 Temperature Temperature Source Pulse Rate 112 H Respiratory Rate 21 H Respiratory Effort Respiratory Depth Respiratory Pattern Blood Pressure 126/72 H Blood Pressure Mean 89 Pulse Ox Oxygen Delivery Method Oxygen Flow Rate (L/min) Weight Weight: 151 lb 14.376 oz Body Mass Index (BMI) 19.5 Physical Exam Narrative Physical exam General: Alert, Oriented x3, Cooperative HEENT: Oral mucosa very dry. Atraumatic, PERRLA, EOMI, Normocephalic Oral: No Gingival or Mucosal Lesions/ Ulcerations Neck: Supple, No JVD, Negative Carotid Bruits Lungs: Air entry diminished in bilateral lung bases. Mild fine bilateral basal crepitations. Tachypnea and hypoxia. Cardiovascular: Sinus tachycardia, Normal S1, Normal S2, No murmurs Abdomen: Bowel Sounds Present, Soft, Non Tender, Non-Distended : No renal angle tenderness. No suprapubic tenderness. Extremities: No edema, Capillary Refill Less than 3 Seconds Skin: No rashes, No breakdown. Overall morning: Dry skin Musculoskeletal: No Tenderness to Palpation of Joints or Extremities, muscle strength 4/5 at knee and hip joints. Neurological: Cranial nerves II-XII grossly intact, DTR 2+/4 and Symmetrical, Neuro grossly intact Psych/Mental Status: Flat affect. Results Lab / Micro Data Result Diagrams: 07/28/22 15:19 07/28/22 15:19 Labs: Laboratory Results - last 24 hr 07/28/22 14:50: Lactic Acid 2.5 H* 07/28/22 15:19: WBC 6.8, RBC 2.91 L, Hgb 8.8 L, Hct 28.2 L, MCV 96.9 H, MCH 30.2, MCHC 31.2 L, RDW Std Deviation 70.4 H, RDW Coeff of Kori 19.9 H, Plt Count 45 L*, MPV 12.9 H, Neut % (Auto) Not Reportable, Lymph % (Auto) 1.0 L, Absolute Neuts (auto) 3.9, Absolute Lymphs (auto) 0.27 L, Total Counted 100, Neutrophils % (Manual) 47, Band Neutrophils % 11 H, Lymphocytes % (Manual) 4 L, Monocytes % (Manual) 35 H, Metamyelocytes % 2 H, Myelocytes % 1 H, Differential Comment SEE COMMENTS, Diff Path Review May foll, Toxic Granulation RARE, Platelet Estimate MKD DEC, RBC Morphology N CHROM, Anisocytosis 1+, Macrocytosis 1+ 07/28/22 15:19: B-Natriuretic Peptide 176.8 H 07/28/22 15:19: Sodium 137, Potassium 3.6, Chloride 109 H, Carbon Dioxide 22.0, Anion Gap 6, BUN 28 H, Creatinine 0.98, Estim Creat Clear Calc 57.61, Est GFR (MDRD) Af Amer 94, Est GFR (MDRD) Non-Af 78, BUN/Creatinine Ratio 28.5 H, Glucose 138 H, Calcium 8.5, Total Bilirubin 0.70, AST 20, ALT 25, Alkaline Phosphatase 63, Troponin I High Sens 18, Total Protein 6.4, Albumin 2.8 L, Globulin 3.6, Albumin/Globulin Ratio 0.8 L Micro: Microbiology 07/28/22 14:43 Nasal Secretion SARS-CoV-2 & FLU Antigen (Rapid) - Final ABG Data ABG results: ABG 07/28/22 16:03 Specimen Type DEBBY VBG pH 7.42 VBG pO2 52 H VBG HCO3 21 L VBG Total CO2 22 L VBG O2 Sat (Calc) 88 H VBG Base Excess -3 L POC Mix VBG pCO2 Pt Tmp 32.3 L O2 Delivery Device Cannula Liter Flow 4.0 Rhythm Strip Rhythm Strip: Sinus Tach Rate: 114 Ectopy: None Radiology Impression Chest CTA 07/28/22 14:37 IMPRESSION: Questionable small volume nonocclusive acute pulmonary emboli in the subsegmental pulmonary arteries of the bilateral lower lobes. No evidence of right heart strain. Severe age-indeterminate compression deformity of L1 with mild retropulsion of fragments and mild spinal canal narrowing. Interstitial edema superimposed on COPD and chronic interstitial lung disease. Large mass in the left upper renal pole concerning for malignancy. Electronically Signed: Rick Moreno MD at 17:13 EDT , Chest X-Ray 07/28/22 15:46 IMPRESSION: Increased interstitial markings may represent edema and/or infection. Electronically Signed: Rick Moreno MD at 16:06 EDT , Assessment & Plan Assessment/Plan (1) Sepsis: PLAN: Plan 81-year-old male was admitted with confusion, weakness, Fever temporal temperature 100.4 ?F, and urine retention, 700 mL that required a straight cath and then Zafar catheter in the ED 1.? Moderate respiratory distress and acute hypoxia, exact etiology unclear most likely due to pneumonia, atelectasis less likely distal inconclusive subsegmental bilateral lower lobes PE: The patient had chest x-ray and CTA chest done in ED which was individually reviewed. Although no obvious central, or lobar PE but radiologist reported but it reported questionable small volume nonocclusive acute PE and subsegmental pulmonary arteries of bilateral lower lobes. No evidence of right heart strain. In view of patient's severe thrombocytopenia which is chronic because of history of MDS and that degenerated into NHL, got worse with chemotherapy. Patient has severe thrombocytopenia 45,000 therefore decided not to fully anticoagulate in view of low/indeterminate benefit and high risk of bleeding. This was discussed with patient and his by me and ER physician and they agreed. CT also shows bilateral interstitial thickening possible chronic interstitial changes but no obvious consolidation. As the patient is symptomatic and immunocompromised therefore decided to treat with IV cefepime. Pneumonia work-up ordered. Lactic acidosis probably due to dehydration although I have low suspicion of sepsis. The patient presented with sepsis with clinical indicators of tachycardia, tachypnea, hypoxia, exact etiology unclear suspicion of pneumoniawith acute sepsis-related organ dysfunction as evidenced by fluid responsive hypotension 87/69 and lactic acidosis Complete infectious work-up with blood cultures x2 UA and urine culture ordered. Bronchodilator as needed. Incentive spirometry and Pep. BiPAP as needed. 2. Severe dehydration and fatigue probably due to chemotherapeutic adverse effect and anorexia: IV fluid resuscitation. 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 He completed 6 weeks of chemotherapy. Continue aggressive IV fluid and allopurinol. Further course as recommended by his oncologist Dr. Luna. The patient on R-CVP that was started on March 31, 2022. Patient last echo EF 45% precluding use of Adriamycin. Patient had left renal mass that is reported in the CT which is old which is monitored by oncologist. His oncology course was complicated with obstructive jaundice by rosa isela hepatis large lymph node which on further work-up found to have high-grade diffuse large B-cell lymphoma and required hepatic artery stenting. 3.? HTN/HLD: Currently patient is hypotensive therefore hold antihypertensive medication. Patient needs IV fluid resuscitation. On simvastatin. 4.? BPH: Patient was on Flomax and finasteride during previous admission but current home medication does not show that. Patient on methenamine tablet. Bladder scan every 4 hourly. DVT: High risk based on diffuse large B-cell lymphoma: Treated with Lovenox during hospital course Living will/advanced directive/end of life care: Patient does not have living will or advanced directive. After discussion of benefits/risks procedures involved with full code, DNR CC arrest and DNR CC, the patient opted for full code. Patient does want artificial life support including intubation, tube feed, ventilator and/chest compression, central venous catheter, vasopressor and DC shock if needed Total time spent in [id number] encounter in discussion of advanced directive 17 minutes. Microbiology Past 72 Hours 07/28/22 14:43 Nasal Secretion SARS-CoV-2 & FLU Antigen (Rapid) - Final Laboratory Results 07/28/22 14:50: Lactic Acid 2.5 H* 07/28/22 15:19: WBC 6.8, RBC 2.91 L, Hgb 8.8 L, Hct 28.2 L, MCV 96.9 H, MCH 30.2, MCHC 31.2 L, RDW Std Deviation 70.4 H, RDW Coeff of Kori 19.9 H, Plt Count 45 L*, MPV 12.9 H, Neut % (Auto) Not Reportable, Lymph % (Auto) 1.0 L, Absolute Neuts (auto) 3.9, Absolute Lymphs (auto) 0.27 L, Total Counted 100, Neutrophils % (Manual) 47, Band Neutrophils % 11 H, Lymphocytes % (Manual) 4 L, Monocytes % (Manual) 35 H, Metamyelocytes % 2 H, Myelocytes % 1 H, Differential Comment SEE COMMENTS, Diff Path Review May foll, Toxic Granulation RARE, Platelet Estimate MKD DEC, RBC Morphology N CHROM, Anisocytosis 1+, Macrocytosis 1+ 07/28/22 15:19: B-Natriuretic Peptide 176.8 H 07/28/22 15:19: Sodium 137, Potassium 3.6, Chloride 109 H, Carbon Dioxide 22.0, Anion Gap 6, BUN 28 H, Creatinine 0.98, Estim Creat Clear Calc 57.61, Est GFR (MDRD) Af Amer 94, Est GFR (MDRD) Non-Af 78, BUN/Creatinine Ratio 28.5 H, Glucose 138 H, Calcium 8.5, Total Bilirubin 0.70, AST 20, ALT 25, Alkaline Phosphatase 63, Troponin I High Sens 18, Total Protein 6.4, Albumin 2.8 L, Globulin 3.6, Albumin/Globulin Ratio 0.8 L 07/28/22 15:19: Phosphorus Pending, Magnesium Pending 07/28/22 16:03: Specimen Type DEBBY, VBG pH 7.42, VBG pO2 52 H, VBG HCO3 21 L, VBG Total CO2 22 L, VBG O2 Sat (Calc) 88 H, VBG Base Excess -3 L, POC Mix VBG pCO2 Pt Tmp 32.3 L, O2 Delivery Device Cannula, Liter Flow 4.0 07/28/22 19:35: Lactic Acid Pending Clinical Impression(s) from Imaging Studies Chest CTA 07/28/22 14:37 IMPRESSION: Questionable small volume nonocclusive acute pulmonary emboli in the subsegmental pulmonary arteries of the bilateral lower lobes. No evidence of right heart strain. Severe age-indeterminate compression deformity of L1 with mild retropulsion of fragments and mild spinal canal narrowing. Interstitial edema superimposed on COPD and chronic interstitial lung disease. Large mass in the left upper renal pole concerning for malignancy. Electronically Signed: Rick Moreno MD at 17:13 EDT Reading Location ID and State: [id number] / [email or web address] Tel , Service support , Chest X-Ray 07/28/22 15:46 IMPRESSION: Increased interstitial markings may represent edema and/or infection. Electronically Signed: Rick Moreno MD at 16:06 EDT Reading Location ID and State: [id number] / [email or web address] Tel , Service support , Sepsis Attestation Sepsis Alert: Yes Sepsis Attestation: Agree w/Sepsis Possible Source of Sepsis: Pulmonary Sepsis Organ Dysfunction Criteria Present: SBP < 90 mmHg or MAP < 65 mmHg Fluid Resuscitation Fluid resuscitation indicated?: Yes Fluid Resuscitation ordered: 30 ml/kg fluid bolus ordered Amount of fluid ordered: 2,000 Reason for lesser fluid bolus:: Concern for fluid overload and Heart failure Sepsis Note Date exam was performed: 07/28/22 Time exam was performed: 17:50 Sepsis Attestation: Sepsis re-evaluation was performed Response to fluids: Fluid responsive hypotension Charges/Coding Visit Charges Inpatient E&M: 29665 Init Hosp L3 Procedures Hospitalists Procedures: 60309 Advncd Care Plan 30 Min
[2022-07-28] MEDS: 0.9% Normal Saline 1,000 ML 999 ML IV (17:59)
[2022-07-28 19:10] LABS: Reflex Lactate? Y
[2022-07-28] MEDS: 0.9% Normal Saline 1,000 ML 100 ML IV (19:11)
[2022-07-28 19:58] LABS: Phosphorus 2.4 mg/dL (2.5-4.9)
[2022-07-28] MEDS: Pantoprazole Sodium 20 MG Tablet PO (20:16)
[2022-07-28 20:32] LABS: Lactic Acid 1.3 mmol/L (0.4-1.9)
[2022-07-28] MEDS: Enoxaparin 40 MG/0.4 ML Syringe SC (22:55)
[2022-07-28] MEDS: Hydroxychloroquine 200 MG Tablet PO (22:55)
[2022-07-28] MEDS: Atorvastatin Calcium 40 MG Tablet PO (22:55)
[2022-07-28] MEDS: guaiFENesin 1,200 MG Tablet 1200 MG PO (22:56)
[2022-07-29] VITALS (7 sets, daily range): BP systolic 103–139; BP diastolic 48–69; PULSE 85–100; RESP 18–20; TEMP 36.6–37.1; O2SAT 93–97; BMI 18.5
[2022-07-29 06:40] LABS: Hematocrit 26.5 % (40-54); Hemoglobin 7.9 g/dL (13.0-16.5); Mean Corp Hgb Conc 29.8 g/dL (32-36); Mean Corpuscular Hgb 29.7 pg (27.0-32.0); Mean Corpuscular Volume 99.6 fL (80-94); Mean Platelet Vol. 12.3 fl (6.2-12.0); POSITIVE COUNT YES; POSITIVE DIFFERENTIAL YES; POSITIVE MORPHOLOGY YES; Platelet Count 49 K/mm3 (150-450); RBC Distribution Width SD 72.6 fl (35.1-43.9); Red Blood Count 2.66 M/mm3 (4.6-6.2); White Blood Count 4.6 K/mm3 (4.4-11.0)
[2022-07-29 06:41] LABS: Differential Indicated MANUAL DIFF
[2022-07-29 07:02] LABS: Anisocytosis 2+; Macrocytosis 1+; Platelet Estimate MKD DEC (ADEQ)
[2022-07-29 07:05] LABS: Anion Gap 4 (5-15); BUN 19 mg/dL (7-18); BUN/Creat Ratio 28.3 RATIO (10-20); Calcium,Total 8.5 mg/dL (8.5-10.1); Chloride 114 mmol/L (98-107); Creatinine, Serum 0.67 mg/dL (0.70-1.30); EST Glomerular Filtration Rate 121 mL/min (>60); Est Glom Filt Rate - Afr Amer 146 mL/min (>60); Estimated Creatinine Clearance 53.59 ml/min; Glucose 96 mg/dL (74-106); Potassium 3.5 mmol/L (3.5-5.1); Sodium Level 139 mmol/L (136-145)
[2022-07-29 07:10] LABS: Absolute Neutrophil Count 2.9 X10^3/uL (2.0-7.7)
[2022-07-29 07:11] LABS: Absolute Lymphocyte Count 0.18 X10^3/uL (0.83-4.51); Blast 1 % (0-0); Lymphocyte 4 % (19-41); Monocyte 30 % (0-10); Myelocyte 1 % (0-0); Neutrophil-Band 10 % (0-5); Neutrophil-Segmented 54 % (47-70); Total Cells Counted 100 (MANUAL DIFF)
[2022-07-29] MEDS: Hydroxychloroquine 200 MG Tablet PO ×2 (08:07→20:51)
[2022-07-29] MEDS: Allopurinol 300 MG Tablet PO (08:07)
[2022-07-29] MEDS: Ascorbic Acid 500 MG Tablet PO (08:07)
[2022-07-29] MEDS: Pantoprazole Sodium 20 MG Tablet PO (08:07)
[2022-07-29] MEDS: guaiFENesin 1,200 MG Tablet 1200 MG PO ×2 (08:07→20:50)
[2022-07-29] MEDS: Ferrous Sulfate 325 MG Tablet PO (08:07)
--- NOTE | 2022-07-29 09:18 | PN.HOSP_ITS ---
Reason for Visit Reason for Visit: Diagnoses Sepsis, unspecified organism (07/28/22) Subjective Subjective Follow-up for hypotension possible sepsis. Objective Data Objective Data Vital Signs: Vital Signs Temp Pulse Resp BP Pulse Ox O2 Del Method O2 Flow Rate 98.4 F 98 20 H 128/65 H 94 Nasal Cannula 8 07/29/22 02:40 07/29/22 02:40 07/29/22 02:40 07/29/22 02:40 07/29/22 02:40 07/29/22 08:00 07/29/22 08:00 FiO2 50 07/28/22 19:50 Oxygen Flow Rate (L/min) 8 Oxygen Delivery Method Nasal Cannula Weight: 144 lb 2.917 oz Body Mass Index (BMI) 18.5 Intake & Output: Intake and Output for Last 24 Hours 07/27/22 07/28/22 07/29/22 23:59 23:59 23:59 Intake Total 1550 / 1550 1200 / 1200 Output Total 300 / 300 Balance 1550 / 1550 900 / 900 Lab / Micro Data Result Diagrams: 07/29/22 06:25 07/29/22 06:25 Labs: Laboratory Results - last 24 hr 07/28/22 14:50: Lactic Acid 2.5 H* 07/28/22 15:19: WBC 6.8, RBC 2.91 L, Hgb 8.8 L, Hct 28.2 L, MCV 96.9 H, MCH 30.2, MCHC 31.2 L, RDW Std Deviation 70.4 H, RDW Coeff of Kori 19.9 H, Plt Count 45 L*, MPV 12.9 H, Neut % (Auto) Not Reportable, Lymph % (Auto) 1.0 L, Absolute Neuts (auto) 3.9, Absolute Lymphs (auto) 0.27 L, Total Counted 100, Neutrophils % (Manual) 47, Band Neutrophils % 11 H, Lymphocytes % (Manual) 4 L, Monocytes % (Manual) 35 H, Metamyelocytes % 2 H, Myelocytes % 1 H, Differential Comment SEE COMMENTS, Diff Path Review May foll, Toxic Granulation RARE, Platelet Estimate MKD DEC, RBC Morphology N CHROM, Anisocytosis 1+, Macrocytosis 1+ 07/28/22 15:19: B-Natriuretic Peptide 176.8 H 07/28/22 15:19: Sodium 137, Potassium 3.6, Chloride 109 H, Carbon Dioxide 22.0, Anion Gap 6, BUN 28 H, Creatinine 0.98, Estim Creat Clear Calc 57.61, Est GFR (MDRD) Af Amer 94, Est GFR (MDRD) Non-Af 78, BUN/Creatinine Ratio 28.5 H, Glucose 138 H, Calcium 8.5, Total Bilirubin 0.70, AST 20, ALT 25, Alkaline Phosphatase 63, Troponin I High Sens 18, Total Protein 6.4, Albumin 2.8 L, Globulin 3.6, Albumin/Globulin Ratio 0.8 L 07/28/22 15:19: Phosphorus 2.4 L, Magnesium 2.0 07/28/22 19:35: Lactic Acid 1.3 07/28/22 19:50: COVID-19 (SAMUEL) Not Detected 07/29/22 06:25: WBC 4.6, RBC 2.66 L, Hgb 7.9 L, Hct 26.5 L, MCV 99.6 H, MCH 29.7, MCHC 29.8 L, RDW Std Deviation 72.6 H, RDW Coeff of Kori 20.0 H, Plt Count 49 L*, MPV 12.3 H, Neut % (Auto) Not Reportable, Absolute Neuts (auto) 2.9, Absolute Lymphs (auto) 0.18 L, Total Counted 100, Neutrophils % (Manual) 54, Band Neutrophils % 10 H, Lymphocytes % (Manual) 4 L, Monocytes % (Manual) 30 H, Myelocytes % 1 H, Blast Cells % 1 H*, Diff Path Review August, Platelet Estimate MKD DEC, Anisocytosis 2+, Macrocytosis 1+ 07/29/22 06:25: Sodium 139, Potassium 3.5, Chloride 114 H, Carbon Dioxide 21.0, Anion Gap 4 L, BUN 19 H, Creatinine 0.67 L, Estim Creat Clear Calc 53.59, Est GFR (MDRD) Af Amer 146, Est GFR (MDRD) Non-Af 121, BUN/Creatinine Ratio 28.3 H, Glucose 96, Calcium 8.5 Micro: Microbiology 07/28/22 19:50 Mucosa - Nasopharyngeal Respiratory Panel (PCR) - Final 07/28/22 14:43 Nasal Secretion SARS-CoV-2 & FLU Antigen (Rapid) - Final ABG Data ABG results: ABG 07/28/22 16:03 Specimen Type DEBBY VBG pH 7.42 VBG pO2 52 H VBG HCO3 21 L VBG Total CO2 22 L VBG O2 Sat (Calc) 88 H VBG Base Excess -3 L POC Mix VBG pCO2 Pt Tmp 32.3 L O2 Delivery Device Cannula Liter Flow 4.0 Radiography Diagnostic Testing: Radiology Impression Chest CTA 07/28/22 14:37 IMPRESSION: Questionable small volume nonocclusive acute pulmonary emboli in the subsegmental pulmonary arteries of the bilateral lower lobes. No evidence of right heart strain. Severe age-indeterminate compression deformity of L1 with mild retropulsion of fragments and mild spinal canal narrowing. Interstitial edema superimposed on COPD and chronic interstitial lung disease. Large mass in the left upper renal pole concerning for malignancy. Electronically Signed: Rick Moreno MD at 17:13 EDT , Chest X-Ray 07/28/22 15:46 IMPRESSION: Increased interstitial markings may represent edema and/or infection. Electronically Signed: Rick Moreno MD at 16:06 EDT , Rhythm Strip Rhythm Strip: Sinus Tach Rate: 114 Ectopy: None Physical Exam Narrative Seen and examined in the presence of patient's . Patient's [id number] over the phone. Patient feels improvement in shortness of breath. On high flow 8 L of oxygen Physical exam General: Alert, Oriented x3, Cooperative HEENT: Uses hearing aid bilateral. Atraumatic, PERRLA, EOMI, Normocephalic Oral:Oral mucosa moist. No mucositis no Gingival or Mucosal Lesions/ Ulcerations Neck: Supple, No JVD, Negative Carotid Bruits Lungs: Air entry diminished in bilateral lung bases. bilateral basal crepitations/wheezing. No tachypnea. Cardiovascular: Sinus tachycardia resolved, Normal S1, Normal S2, systolic murmur over right second ICS and LUSB Abdomen: Bowel Sounds Present, Soft, Non Tender, Non-Distended : No renal angle tenderness. No suprapubic tenderness. Extremities: No edema, Capillary Refill Less than 3 Seconds Skin: No rashes, No breakdown. Overall morning: Dry skin Musculoskeletal: No Tenderness to Palpation of Joints or Extremities, muscle strength 4+/5 at knee and hip joints. Neurological: Cranial nerves II-XII grossly intact, DTR 2+/4 and Symmetrical, Neuro grossly intact Psych/Mental Status: Flat affect. Assessment & Plan Assessment/Plan (1) Sepsis: PLAN: Plan 81-year-old male was admitted with confusion, weakness, Fever temporal temperature 100.4 ?F, and urine retention, 700 mL that required a straight cath and then Zafar catheter in the ED 1. Sepsis, exact etiology unclear most probably due to bilateral interstitial pneumonia, atelectasis less likely distal inconclusive subsegmental bilateral lower lobes PE: The patient had chest x-ray and CTA chest done in ED which was individually reviewed. Although no obvious central, or lobar PE but radiologist reported but it reported questionable small volume nonocclusive acute PE and subsegmental pulmonary arteries of bilateral lower lobes. No evidence of right heart strain. CT also shows bilateral thickenings and interstitial changes but no obvious consolidation. Lactic acid might also be due to severe dehydration. The patient presented with sepsis with clinical indicators of tachycardia, tachypnea, hypoxia, exact etiology unclear suspicion of pneumonia with acute sepsis-related organ dysfunction as evidenced by fluid responsive hypotension 87/69 and lactic acidosis Bronchodilator as needed. Incentive spirometry and Pep. BiPAP as needed. 07/29: Continue IV cefepime. Lactic acidosis resolved. Respiratory panel negative. Urinary antigens for Legionella and strep was negative. COVID-19 PCR negative. Blood cultures x2 pending. Patient not able to bring up phlegm therefore sputum culture also pending collection. I discussed my assessment and plan with patient's oncologist Dr. Hein on 07/28 evening and he agrees. Laxmi vásquez had chemotherapy about 2 weeks ago. Patient's [id number] explained about CT findings of inconclusive subsegmental bilateral lower lobe PE and severe thrombocytopenia. Patient also has lymphopenia 0.27K with left shift anisocytosis, macrocytosis, blast cell and bands 10%. Overall it is suggestive of sepsis. Repeat chest x-ray shows prominent interstitial septal probably edema or infectious process. Patient was given 20 mg IV Lasix 1 dose in the morning 2. Severe dehydration and fatigue probably due to chemotherapeutic adverse effect and anorexia: IV fluid resuscitation. 07/29: Dehydration was corrected. Mild hypophosphatemia and hypokalemia therefore patient on Neutra-Phos. 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 He completed 6 weeks of chemotherapy. Continue aggressive IV fluid and allopurinol. Further course as recommended by his oncologist Dr. Luna. The patient on R-CVP that was started on March 31, 2022. Patient last echo EF 45% precluding use of Adriamycin. Patient had left renal mass that is reported in the CT which is old which is monitored by oncologist. His oncology course was complicated with obstructive jaundice by rosa iesla hepatis large lymph node which on further work-up found to have high-grade diffuse large B-cell lymphoma and required hepatic artery stenting. 07/29: Discussed with Dr. Chapin's. 3.? HTN/HLD: Currently patient is hypotensive therefore hold antihypertensive medication. Patient needs IV fluid resuscitation. On simvastatin. 4.? BPH: Patient was on Flomax and finasteride during previous admission but current home medication does not show that. Patient on methenamine tablet. Bladder scan every 4 hourly. DVT: High risk based on diffuse large B-cell lymphoma: Treated with Lovenox during hospital course Total time of the visit including total time spent in counseling or coordination of care, (more than 50% of the total time, spent in obtaining medical information from nurses and other ancillary care providers,explaining to the patient about labs, imaging, diagnosis and management of active complex medical conditions), discussion with oncologist, clinical update given to patient's and patient's daughter in line over the phone, review of labs and imaging is 50 minutes. Living will/advanced directive/end of life care: Patient does not have living will or advanced directive. After discussion of benefits/risks procedures involved with full code, DNR CC arrest and DNR CC, the patient opted for full code. Patient does want artificial life support including intubation, tube feed, ventilator and/chest compression, central venous catheter, vasopressor and DC shock if needed Total time spent in ladj-kx-ylln encounter in discussion of advanced directive 17 minutes. Clinical Impression(s) from Imaging Studies Chest CTA 07/28/22 14:37 IMPRESSION: Questionable small volume nonocclusive acute pulmonary emboli in the subsegmental pulmonary arteries of the bilateral lower lobes. No evidence of right heart strain. Severe age-indeterminate compression deformity of L1 with mild retropulsion of fragments and mild spinal canal narrowing. Interstitial edema superimposed on COPD and chronic interstitial lung disease. Large mass in the left upper renal pole concerning for malignancy. Electronically Signed: Rick Moreno MD at 17:13 EDT , Chest X-Ray 07/28/22 15:46 IMPRESSION: Increased interstitial markings may represent edema and/or infection. Electronically Signed: Rick Moreno MD at 16:06 EDT , Charges/Coding Visit Charges Inpatient E&M: 71124 Subs Hosp L3
[2022-07-29] MEDS: 0.9% Saline Lock 10 ML Syringe IV (09:54)
[2022-07-29] MEDS: Furosemide 20 MG/2 ML VIAL IV (09:55)
[2022-07-29 10:40] LABS: Pathologist Review Reviewed
[2022-07-29 10:42] LABS: Pathologist Review Reviewed
--- NOTE | 2022-07-29 11:00 | CASEMGMT ---
LEXY MAGAÑA Face to Face with patient for initial transition planning/care coordination assessment. RN CM introduced self and role at [facility]. Patient lying in bed, alert and oriented, at bedside. Patient willing to participate in assessment and is able to answer all questions appropriately. Care providers, pharmacy, and demographics verified. Patient wishes to discharge home, denies need for home health at this time. Will monitor progress with therapy. Patient states he has no further needs or concerns at this time. CM to follow for discharge planning needs that may arise. PCP: Amber Specialists: Melvina, oncologist; keo Berry [facility] Insurance: [id number] Prescription Benefit: none Living Will/HPOA: yes, Megan Connolly LNOK: Living Arrangements: Patient lives with in a single story home with 4 steps and railing to enter the home. Patient states he is independent at home Transportation: DME/HHC: patient has shower chair, raised toilet, cane, walker, and grab bars at home. Patient has had [facility] in the past. Disposition Plan: Patient to discharge home with family support and follow-up plans in place. Carrol LAUREN, RN, CM
--- NOTE | 2022-07-29 11:20 | RAD_ITS ---
INDICATION: Shortness of breath. Hypoxia EXAMINATION/TECHNIQUE: X-RAY - XR Chest 1 View COMPARISON: July 28, 2022 FINDINGS: LINES/DEVICES: There is a right-sided central venous catheter in place terminating within the expected region of the superior vena cava. There are stable electrodes projecting over the mid thoracic spine. LUNGS: The lungs are hyperinflated. There are prominent interstitial markings within the lower lungs. MEDIASTINUM AND CARDIOVASCULAR STRUCTURES: Cardiac silhouette not enlarged. Central airways and mediastinal contour are unremarkable. BONES AND SOFT TISSUES: Unremarkable. RAD/Chest 1 View (Portable) IMPRESSION: Prominent interstitial markings concerning for edema and/or an infectious process. COPD. Electronically Signed: Belén Payne MD at 15:13 EDT ,
[2022-07-29 11:55] LABS: Color, Urine Yellow (Yellow); Glucose, Dipstick Normal (Normal); Ketone-Dipstick Negative (Negative); Leukocyte Esterase-Dipstick Negative /ul (Negative); Nitrite-Dipstick Negative (Negative); Occult Blood-Urine Negative /ul (Negative); Protein-Dipstick 15 mg/dl (Negative); Specific Gravity, Urine 1.015 (1.002-1.030); Urine Bilirubin Dipstick Negative (Negative); Urine Clarity Clear (Clear); Urine Urobilinogen Normal (Normal)
[2022-07-29 12:09] LABS: Bacteria RARE /hpf (None Seen); Mucous, Urine RARE /hpf (<or=2+); Red Blood Cells-Urine 0-5 SEEN /hpf (0-5); Squamous Epithelial Cells - UA 0-5 SEEN /hpf (0-5); White Blood Cells 0-5 SEEN /hpf (0-5)
[2022-07-29] MEDS: Na Biphos/Potassium Phosphate PACKET 1 PACKET PO ×2 (18:23→20:50)
[2022-07-29] MEDS: Atorvastatin Calcium 40 MG Tablet PO (20:50)
[2022-07-29] MEDS: Zolpidem Tartrate 5 MG Tablet PO (20:54)
[2022-07-30 02:50] VITALS: BP 115/67; PULSE 97; RESP 18; TEMP 36.7; O2SAT 94
--- NOTE | 2022-07-30 05:33 | CPS ---
Pt does not want to wear hospital cpap machine.
[2022-07-30] MEDS: Na Biphos/Potassium Phosphate PACKET 1 PACKET PO ×3 (05:55→22:24)
[2022-07-30 06:00] VITALS: BMI 18.6
[2022-07-30 06:29] LABS: Absolute Lymphocyte Count 0.16 X10^3/uL (0.83-4.51); Absolute Neutrophil Count 2.5 X10^3/uL (2.0-7.7); Basophil# 0.02 X10^3/uL; Basophil% 0.6 % (0-1); Hematocrit 27.6 % (40-54); Hemoglobin 8.2 g/dL (13.0-16.5); Lymphocyte # 0.16 X10^3/ul (0.83-4.51); Lymphocyte % 4.5 % (19-41); Mean Corp Hgb Conc 29.7 g/dL (32-36); Mean Corpuscular Hgb 29.7 pg (27.0-32.0); Mean Platelet Vol. 12.7 fl (6.2-12.0); Monocyte# 0.81 X10^3/uL; Monocyte% 22.8 % (0-10); NRBC Flagged by Analyzer 0 % (0-5); Neutrophil # 2.45 X10^3/uL (2.7-7.7); POSITIVE COUNT YES; POSITIVE DIFFERENTIAL YES; POSITIVE MORPHOLOGY YES; Platelet Count 77 K/mm3 (150-450); RBC Distribution Width CV 19.8 % (11.6-14.6); RBC Distribution Width SD 72.6 fl (35.1-43.9); Red Blood Count 2.76 M/mm3 (4.6-6.2); White Blood Count 3.6 K/mm3 (4.4-11.0)
[2022-07-30 06:37] LABS: Differential Indicated SCAN CRITERIA MET
[2022-07-30 06:56] LABS: Anisocytosis 2+; Macrocytosis 1+; Platelet Estimate MOD DEC (ADEQ)
[2022-07-30 06:57] LABS: Anion Gap 5 (5-15); BUN 15 mg/dL (7-18); BUN/Creat Ratio 21.9 RATIO (10-20); Calcium,Total 8.5 mg/dL (8.5-10.1); Chloride 115 mmol/L (98-107); Creatinine, Serum 0.68 mg/dL (0.70-1.30); EST Glomerular Filtration Rate 118 mL/min (>60); Est Glom Filt Rate - Afr Amer 143 mL/min (>60); Estimated Creatinine Clearance 53.76 ml/min; Glucose 105 mg/dL (74-106); Potassium 3.4 mmol/L (3.5-5.1); Sodium Level 141 mmol/L (136-145)
[2022-07-30 07:21] VITALS: O2SAT 94
[2022-07-30 09:16] VITALS: BP 114/70; PULSE 95; RESP 18; TEMP 36.4; O2SAT 94
[2022-07-30] MEDS: Allopurinol 300 MG Tablet PO (09:22)
[2022-07-30] MEDS: guaiFENesin 1,200 MG Tablet 1200 MG PO ×2 (09:22→22:24)
[2022-07-30] MEDS: Hydroxychloroquine 200 MG Tablet PO ×2 (09:23→22:25)
[2022-07-30] MEDS: Pantoprazole Sodium 20 MG Tablet PO (09:23)
[2022-07-30] MEDS: Enoxaparin 40 MG/0.4 ML Syringe SC (09:23)
[2022-07-30] MEDS: Ferrous Sulfate 325 MG Tablet PO (09:23)
[2022-07-30] MEDS: Ascorbic Acid 500 MG Tablet PO (09:23)
--- NOTE | 2022-07-30 10:16 | PN.HOSP_ITS ---
Reason for Visit Reason for Visit: Diagnoses Sepsis, unspecified organism (07/28/22) Subjective Subjective Follow-up for acute hypoxic respiratory failure and suspected sepsis. Subjectively patient feels improvement in shortness of breath but patient is still on 8 L of high flow oxygen. No tachypnea. No fever. Objective Data Objective Data Vital Signs: Vital Signs Temp Pulse Resp BP Pulse Ox O2 Del Method O2 Flow Rate 97.5 F L 95 18 114/70 94 High Flow 8 07/30/22 09:16 07/30/22 09:16 07/30/22 09:16 07/30/22 09:16 07/30/22 09:16 07/30/22 09:16 07/30/22 09:16 FiO2 50 07/28/22 19:50 Oxygen Flow Rate (L/min) 8 Oxygen Delivery Method High Flow Weight: 144 lb 9.972 oz Body Mass Index (BMI) 18.6 Intake & Output: Intake and Output for Last 24 Hours 07/28/22 07/29/22 07/30/22 23:59 23:59 23:59 Intake Total 1550 / 1550 2340 / 2340 150 / 150 Output Total 700 / 700 Balance 1550 / 1550 1640 / 1640 150 / 150 Medical Nutrition Assessment Dietitian: Malnutrition Criteria Met Start: 07/29/22 15:02 Freq: Status: Active Protocol: Document 07/29/22 15:21 (Rec: 07/29/22 15:21 [id number]) Nutrition Malnutrition Evidence of Malnutrition Exists Yes Malnutrition (severe): Chronic Evidenced By Suboptimal Energy Intake ( Severe),Physical Changes ( Severe) Clinical Problem Chronic Disease or Condition Related Malnutrition Etiology severe, chronic malnutrition related to inadequate energy intake w/ increased energy needs d/t lymphoma Signs/Symptoms as evidenced by estimated energy needs meeting <75% of estimated energy needs > 3 months; Severe muscle wasting/ fat loss evident per physical assessment in orbital, clavicle, temporal, and acromion areas; BMI 18.5 Status Active Problem Recommendation Dietitian Recommendations/Changes Regular diet; will fortify foods when able. Will adjust ONS to 240mL ensure plus high protein TID w/ meals given malnutrition. Lab / Micro Data Result Diagrams: 07/30/22 06:09 07/30/22 06:09 Labs: Laboratory Results - last 24 hr 07/28/22 15:19: Diff Path Review Reviewed 07/29/22 06:25: Diff Path Review Reviewed 07/29/22 11:30: Urine Color Yellow, Urine Clarity Clear, Urine pH 5.0, Ur Specific Thornton 1.015, Urine Protein 15 H, Urine Glucose (UA) Normal, Urine Ketones Negative, Urine Occult Blood Negative, Urine Nitrite Negative, Urine Bilirubin Negative, Urine Urobilinogen Normal, Ur Leukocyte Esterase Negative, Urine RBC 0-5 SEEN, Urine WBC 0-5 SEEN, Ur Squamous Epith Cells 0-5 SEEN, Urine Bacteria RARE, Urine Mucus RARE 07/30/22 06:09: WBC 3.6 L, RBC 2.76 L, Hgb 8.2 L, Hct 27.6 L, MCV 100.0 H, MCH 29.7, MCHC 29.7 L, RDW Std Deviation 72.6 H, RDW Coeff of Kori 19.8 H, Plt Count 77 L, MPV 12.7 H, Immature Gran % (Auto) 3.100 H, Neut % (Auto) 69.0, Lymph % (Auto) 4.5 L, Hayes % (Auto) 22.8 H, Eos % (Auto) 0.0, Baso % (Auto) 0.6, Absolute Neuts (auto) 2.5, Absolute Lymphs (auto) 0.16 L, Nucleated RBC % 0, Diff Path Review May foll, Platelet Estimate MOD DEC, Anisocytosis 2+, Macrocytosis 1+ 07/30/22 06:09: Sodium 141, Potassium 3.4 L, Chloride 115 H, Carbon Dioxide 21.0 , Anion Gap 5, BUN 15, Creatinine 0.68 L, Estim Creat Clear Calc 53.76, Est GFR (MDRD) Af Amer 143, Est GFR (MDRD) Non-Af 118, BUN/Creatinine Ratio 21.9 H, Glucose 105, Calcium 8.5 Micro: Microbiology 07/29/22 11:30 Urine, Clean Catch Legionella Antigen - Final 07/29/22 11:30 Urine, Clean Catch Streptococcus pneumoniae Antigen (M - Final 07/28/22 19:50 Mucosa - Nasopharyngeal Respiratory Panel (PCR) - Final 07/28/22 14:43 Nasal Secretion SARS-CoV-2 & FLU Antigen (Rapid) - Final Radiography Diagnostic Testing: Radiology Impression Chest X-Ray 07/29/22 11:20 IMPRESSION: Prominent interstitial markings concerning for edema and/or an infectious process. COPD. Electronically Signed: Belén Payne MD at 15:13 EDT , Rhythm Strip Rhythm Strip: Sinus Tach Rate: 114 Ectopy: None Physical Exam Narrative Seen and examined in the presence of patient's . Patient feels improvement in shortness of breath. On high flow 8 L of oxygen. VQ scan ordered discussed with patient's . Physical exam General: Alert, Oriented x3, Cooperative HEENT: Uses hearing aid bilateral. Atraumatic, PERRLA, EOMI, Normocephalic Oral:Oral mucosa moist. No mucositis no Gingival or Mucosal Lesions/ Ulcerations Neck: Supple, No JVD, Negative Carotid Bruits Lungs: Air entry diminished in bilateral lung bases. Mild bilateral basal fine crepitations.No tachypnea. Cardiovascular: Sinus tachycardia resolved, Normal S1, Normal S2, systolic murmur over right second ICS and LUSB Abdomen: Bowel Sounds Present, Soft, Non Tender, Non-Distended : No renal angle tenderness. No suprapubic tenderness. Extremities: No edema, Capillary Refill Less than 3 Seconds Skin: No rashes, No breakdown. Overall morning: Dry skin Musculoskeletal: No Tenderness to Palpation of Joints or Extremities, muscle strength 4+/5 at knee and hip joints. Neurological: Cranial nerves II-XII grossly intact, DTR 2+/4 and Symmetrical, Neuro grossly intact Psych/Mental Status: Flat affect. Assessment & Plan Assessment/Plan (1) Sepsis: PLAN: Plan 81-year-old male was admitted with confusion, weakness, Fever temporal temperature 100.4 ?F, and urine retention, 700 mL that required a straight cath and then Zafar catheter in the ED 1. Acute hypoxic respiratory failure and sepsis, exact etiology unclear most probably due to bilateral interstitial pneumonia, atelectasis less likely distal inconclusive subsegmental bilateral lower lobes PE: The patient had chest x-ray and CTA chest done in ED which was individually reviewed. Although no obvious central, or lobar PE but radiologist reported but it reported questionable small volume nonocclusive acute PE and subsegmental pulmonary arteries of bilateral lower lobes. No evidence of right heart strain. CT also shows bilateral thickenings and interstitial changes but no obvious consolidation. Lactic acid might also be due to severe dehydration. The patient presented with sepsis with clinical indicators of tachycardia, tachypnea, hypoxia, exact etiology unclear suspicion of pneumonia with acute sepsis-related organ dysfunction as evidenced by fluid responsive hypotension 87/69 and lactic acidosis Bronchodilator as needed. Incentive spirometry and Pep. BiPAP as needed. 07/29: Continue IV cefepime. Lactic acidosis resolved. Respiratory panel negative. Urinary antigens for Legionella and strep was negative. COVID-19 PCR negative. Blood cultures x2 pending. Patient not able to bring up phlegm therefore sputum culture also pending collection. I discussed my assessment and plan with patient's oncologist Dr. Hein on 07/28 evening and he agrees. Patient had chemotherapy about 2 weeks ago. Patient's fohvzvcy-[id number]-idw explained about CT findings of inconclusive subsegmental bilateral lower lobe PE and severe thrombocytopenia. Patient also has lymphopenia 0.27K with left shift anisocytosis, macrocytosis, blast cell and bands 10%. Overall it is suggestive of sepsis. Repeat chest x-ray shows prominent interstitial septal probably edema or infectious process. Patient was given 20 mg IV Lasix 1 dose in the morning 07/30: With persistent hypoxia moderate later, pulmonary consult requested. Discussed with traffic line painter. IV vancomycin added. BNP 235 elevated. Procalcitonin 0.14 less than 2. MRSA nasal screen pending. VQ scan also done which shows very low probability less than. Percent of PE. Lasix 20 mg IV 1 dose given. Continue diuretics as per tolerated by hemodynamics. 2D echo ordered. Continue incentive spirometry and BiPAP 2. Severe dehydration and fatigue probably due to chemotherapeutic adverse effect and anorexia: IV fluid resuscitation. 07/29: Dehydration was corrected. Mild hypophosphatemia and hypokalemia therefore patient on Neutra-Phos. Serum magnesium normal Chronic systolic heart failure: Last echo shows EF 45%. Repeat echo ordered. 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 He completed 6 weeks of chemotherapy. Continue aggressive IV fluid and allopurinol. Further course as recommended by his oncologist Dr. Luna. The patient on R-CVP that was started on March 31, 2022. Patient last echo EF 45% precluding use of Adriamycin. Patient had left renal mass that is reported in the CT which is old which is monitored by oncologist. His oncology course was complicated with obstructive jaundice by rosa isela hepatis large lymph node which on further work-up found to have high-grade diffuse large B-cell lymphoma and required hepatic artery stenting. 07/29: Discussed with Dr. Chapin's. 3.? HTN/HLD: Currently patient is hypotensive therefore hold antihypertensive medication. On simvastatin. 4.? BPH: Patient was on Flomax and finasteride during previous admission but current home medication does not show that. Patient on methenamine tablet. Bladder scan every 4 hourly. DVT: High risk based on diffuse large B-cell lymphoma: Treated with Lovenox [facility] course Total time of the visit including total time spent in counseling or coordination of care, (more than 50% of the total time, spent in obtaining medical information from nurses and other ancillary care providers,explaining to the patient about labs, imaging, diagnosis and management of active complex medical conditions), discussion with oncologist, clinical update given to patient's and patient's daughter in line over the phone, review of labs and imaging is 50 minutes. Living will/advanced directive/end of life care: Patient does not have living will or advanced directive. After discussion of benefits/risks procedures involved with full code, DNR CC arrest and DNR CC, the patient opted for full code. Patient does want artificial life support including intubation, tube feed, ventilator and/chest compression, central venous catheter, vasopressor and DC shock if needed Clinical Impression(s) from Imaging Studies Chest CTA 07/28/22 14:37 IMPRESSION: Questionable small volume nonocclusive acute pulmonary emboli in the subsegmental pulmonary arteries of the bilateral lower lobes. No evidence of right heart strain. Severe age-indeterminate compression deformity of L1 with mild retropulsion of fragments and mild spinal canal narrowing. Interstitial edema superimposed on COPD and chronic interstitial lung disease. Large mass in the left upper renal pole concerning for malignancy. Electronically Signed: Rick Moreno MD at 17:13 EDT , Chest X-Ray 07/28/22 15:46 IMPRESSION: Increased interstitial markings may represent edema and/or infection. Electronically Signed: Rick Moreno MD at 16:06 EDT , Charges/Coding Visit Charges Inpatient E&M: 25539 Subs Hosp L3
--- NOTE | 2022-07-30 10:17 | NM_ITS ---
CLINICAL: 81-year-old male with history of shortness of breath and presenting hypoxemia. VENTILATION-PERFUSION LUNG SCINTIGRAPHY COMPARISON: Plain film chest radiograph report 07/29/2022 FINDINGS: The patient was administered 50.4 mCi 99m Tc DTPA aerosol. The aerosol ventilation study demonstrates heterogeneous ventilation in the bilateral lung martinez without corresponding radiographic changes visualized on review of plain film chest x-ray dated 07/29/2022. Central clumping of the aerosol is identified in the bilateral hemithorax. Following the intravenous administration of 5.8 mCi of 99m Tc MAA, the pulmonary perfusion study reveals matching non-uniform perfusion in the right and left lungs correlating with the previously defined ventilation pattern. No moderate subsegmental or large segmental ventilation-perfusion mismatches are noted. Diminished perfusion is identified in the bilateral apical lung martinez corresponding to ventilation abnormalities . There are regions of retained normal perfusion visualized. NM/Lung Scan Vent/Perf IMPRESSION: 1. VERY LOW PROBABILITY FOR PULMONARY EMBOLUS (<10%) 99m Tc DTPA aerosol ventilation / 99m Tc MAA pulmonary perfusion imaging examination, according to PIOPED II interpretive criteria with regard given to the presence of > 2 ventilation-perfusion matches without corresponding radiographic changes. (Sotsman et al, Radiology 246: 941, 2008 Sotsman et al, J Nucl Med 49: 1741, 2008). 2. Central clumping of the aerosol may be secondary to obstructive airway mechanics and or clinical tachypnea. Electronically Signed: Michael Ellsworth, at 11:51 EDT ,
[2022-07-30] MEDS: Furosemide 20 MG/2 ML VIAL IV (11:39)
[2022-07-30] MEDS: 0.9% Saline Lock 10 ML Syringe IV ×3 (11:39→23:51)
[2022-07-30 12:16] LABS: Pathologist Review Reviewed
--- NOTE | 2022-07-30 12:32 | EX.PCM.CONCC ---
Assessment & Plan Assessment/Plan (1) Hypoxia: PLAN: Plan RECOMMENDATIONS: 1. Wean supplemental oxygen to maintain saturations at or above 90%. 2. Gentle diuresis as tolerated by hemodynamics and renal function. 3. Continue empiric antimicrobials. Add vancomycin today and check MRSA screen. 4. Check BNP and procalcitonin. 5. Obtain follow-up echocardiogram. 6. Continue prophylactic Lovenox. 7. Encourage incentive spirometer use and mobilize patient as tolerated. IMPRESSIONS: 1. Cough and hypoxemia The patient was recently referred to the emergency department from the oncology office with hypoxemia noted. He has a history of diffuse large B-cell lymphoma and is currently on therapy. He has baseline pancytopenia and radiographic evidence of bilateral groundglass opacities and intralobular septal thickening. These findings would raise concern for pulmonary edema. However, I cannot definitively rule out the possibility of an occult infectious process versus lymphangitic involvement of the lungs. For now, it is certainly reasonable to continue empiric antimicrobials. In light of his pancytopenia, I would also plan to add vancomycin to his regimen. I am going to check a BNP and procalcitonin. In addition, a repeat echocardiogram will be obtained. In the interim, wean supplemental oxygen to maintain saturations at or above 90%. The patient may benefit from further diuresis. 2. History of diffuse large B-cell lymphoma/history of heart failure with reduced ejection fraction/hypertension/hyperlipidemia Complicates care, management, recovery and prognosis. Continue home medications as indicated. This note was generated with [employer] dictation software. It may contain incorrect words, spelling, and punctuation that were not noted in checking the note before signing. HPI Consult Data Date of Consult: 07/31/22 HPI Narrative Reason for Consultation: Shortness of breath, acute hypoxemic respiratory failure HPI Narrative: The patient is an 81-year-old male, with a history as outlined below, who presented to the emergency department on July 28 from the hematology/oncology office secondary to hypotension, tachycardia and hypoxemia. The patient has a history of high-grade diffuse large B-cell lymphoma. The patient has been on therapy with R-CVP with good response noted. He last completed cycle 6 on July 14, 2022. The patient denied any pre-existing lung conditions. He is a prior smoker, having quit completely 40+ years ago. He has never been diagnosed with COPD or asthma. He does not utilize supplemental oxygen at his baseline. On presentation to the emergency department, the patient was noted to be afebrile, but was hypotensive and tachycardic. Laboratory evaluation revealed evidence of pancytopenia. Chemistry profile was notable for a lactate of 2.5. BNP was elevated at 176. Urine analysis was unrevealing. CTA chest showed bilateral groundglass opacities along with intralobular septal thickening. There was a questionable small nonocclusive clot seen in the bilateral lower lobe subsegmental pulmonary arteries. The patient ultimately received supplemental IV fluid hydration and was started on antibiotics. The patient is currently documented to be overall net +3.3 L for the hospitalization. He did receive a one-time dose of Lasix today. Prior echocardiogram from March 2022 demonstrated mild global hypokinesis of the LV with an ejection fraction of 45%. Rapid influenza and COVID screens were negative on July 28. [facility] Medical History Actinic keratosis Acute UTI Anemia Arthritis Atrioventricular jose m re-entry tachycardia Back pain Benign essential hypertension BPH (benign prostatic hyperplasia) Cardiomyopathy Cheek mass CINV (chemotherapy-induced nausea and vomiting) Constipation Dehydration DLBCL (diffuse large B cell lymphoma) Easy bruising Encounter for education Epidermal inclusion cyst Former smoker Former smoker Functional gait abnormality Gastric reflux Hematuria High cholesterol History of echocardiogram History of irregular heartbeat History of smoking History of steroid therapy HLD (hyperlipidemia) Hypertension Hypoxia Indwelling urethral catheter present Left kidney mass Liver cancer Low iron Myelodysplastic syndrome Obstructive jaundice Open wound of great toe Osteoarthritis Pain Peripheral neuropathy Pressure ulcer of toe, stage 2 Prostate disease Shortness of breath on exertion Skin ulcer of right great toe Tachycardia Thrombocytopenia Urinary tract infection Use of proton pump inhibitor therapy Varicosities of leg Vitamin deficiency Walker as ambulation aid Wears dentures Wears glasses Wears hearing aid Home Medications hydroxychloroquine 200 mg tablet 200 mg PO BID arthritis 04/18/13 [History Last Taken 07/28/22] ascorbate calcium (vitamin C) 500 mg tablet 500 mg PO DAILY supplement 03/08/22 [History Last Taken 07/28/22] ferrous sulfate 325 mg (65 mg iron) tablet 325 mg PO DAILY supplement 03/08/22 [History Last Taken 07/28/22] amlodipine 10 mg tablet 10 mg PO QHS #30 tabs 03/22/22 [Rx Last Taken 07/28/22] atorvastatin 40 mg tablet 40 mg PO QHS #30 tabs 03/22/22 [Rx Last Taken 07/27/22] omeprazole 20 mg capsule,delayed release 20 mg PO DAILY GERD 04/22/22 [History Last Taken 07/28/22] allopurinol 300 mg tablet 300 mg PO DAILY Check with primary doctor 07/28/22 [History Last Taken 07/28/22] ciprofloxacin HCl 500 mg tablet 500 mg PO BID bladder infection 07/28/22 [History Last Taken 07/28/22] methenamine hippurate 1 gram tablet 1 g PO QHS bladder 07/28/22 [History Last Taken 07/27/22] Allergy/AdvReac Type Severity Reaction Status Date / Time tramadol [From Ultra] AdvReac Intermediate PT UNSURE Verified 07/28/22 14:25 OF REACTION Family History Father Myocardial infarction Brother Myocardial infarction Mother Pancreas cancer Surgical History H/O foot surgery H/O hernia repair H/O hernia repair History of cataract extraction History of colonoscopy (~06/2019) History of esophagogastroduodenoscopy (EGD) (~06/2019) History of excision of lesion History of surgery History of vascular access device S/P carpal tunnel release Social History Smoking Status: Former smoker quit date: 04/11/84 alcohol intake: current substance use type: does not use additional social history: DOES NOT USE ASPIRIN DOES USE IBUPROFEN NEEDED ROS ROS Narrative 10 systems were reviewed with pertinent positives as noted in the HPI above. Physical Exam Const alert and no apparent distress General Appearance: cooperative HEENT normocephalic and head/scalp atraumatic Eyes PERRL, EOMs intact bilaterally and conjunctivae normal Neck supple General: trachea midline Chest inspection of chest normal Chest Narrative: Stable chest port Resp normal respiratory effort Auscultation: rales bilateral lower Cardio regular rate and regular rhythm GI normal to inspection, nondistended, normoactive bowel sounds Extremity no clubbing, cyanosis or edema Skin General Skin Exam: venous stasis and dermatitis Neuro oriented x3, CN's II-XII intact bilaterally and no focal motor deficits Psych cooperative and affect normal Medical Records Data Medical Nutrition Assessment Dietitian: Malnutrition Criteria Met Start: 07/29/22 15:02 Freq: Status: Active Protocol: Document 07/29/22 15:21 (Rec: 07/29/22 15:21 [id number]) Nutrition Malnutrition Evidence of Malnutrition Exists Yes Malnutrition (severe): Chronic Evidenced By Suboptimal Energy Intake ( Severe),Physical Changes ( Severe) Clinical Problem Chronic Disease or Condition Related Malnutrition Etiology severe, chronic malnutrition related to inadequate energy intake w/ increased energy needs d/t lymphoma Signs/Symptoms as evidenced by estimated energy needs meeting <75% of estimated energy needs > 3 months; Severe muscle wasting/ fat loss evident per physical assessment in orbital, clavicle, temporal, and acromion areas; BMI 18.5 Status Active Problem Recommendation Dietitian Recommendations/Changes Regular diet; will fortify foods when able. Will adjust ONS to 240mL ensure plus high protein TID w/ meals given malnutrition. Lab / Micro Data Result Diagrams: 07/30/22 06:09 07/30/22 06:09 Labs: Laboratory Results - last 24 hr 07/30/22 06:09: WBC 3.6 L, RBC 2.76 L, Hgb 8.2 L, Hct 27.6 L, MCV 100.0 H, MCH 29.7, MCHC 29.7 L, RDW Std Deviation 72.6 H, RDW Coeff of Kori 19.8 H, Plt Count 77 L, MPV 12.7 H, Immature Gran % (Auto) 3.100 H, Neut % (Auto) 69.0, Lymph % (Auto) 4.5 L, Phelps % (Auto) 22.8 H, Eos % (Auto) 0.0, Baso % (Auto) 0.6, Absolute Neuts (auto) 2.5, Absolute Lymphs (auto) 0.16 L, Nucleated RBC % 0, Diff Path Review Reviewed, Platelet Estimate MOD DEC, Anisocytosis 2+, Macrocytosis 1+ 07/30/22 06:09: Sodium 141, Potassium 3.4 L, Chloride 115 H, Carbon Dioxide 21.0, Anion Gap 5, BUN 15, Creatinine 0.68 L, Estim Creat Clear Calc 53.76, Est GFR (MDRD) Af Amer 143, Est GFR (MDRD) Non-Af 118, BUN/Creatinine Ratio 21.9 H, Glucose 105, Calcium 8.5 Micro: Microbiology 07/29/22 11:30 Urine, Clean Catch Urine Culture - Preliminary Culture exhibits no growth. 07/29/22 11:30 Urine, Clean Catch Legionella Antigen - Final 07/29/22 11:30 Urine, Clean Catch Streptococcus pneumoniae Antigen (M - Final Rhythm Strip Rhythm Strip: Sinus Tach Rate: 114 Ectopy: None Radiology Impression Chest X-Ray 07/29/22 11:20 IMPRESSION: Prominent interstitial markings concerning for edema and/or an infectious process. COPD. Electronically Signed: Belén Payne MD at 15:13 EDT , Lung Scan-VQ NM 07/30/22 10:17 IMPRESSION: 1. VERY LOW PROBABILITY FOR PULMONARY EMBOLUS (<10%) 99m Tc DTPA aerosol ventilation / 99m Tc MAA pulmonary perfusion imaging examination, according to PIOPED II interpretive criteria with regard given to the presence of > 2 ventilation-perfusion matches without corresponding radiographic changes. (Sotsman et al, Radiology 246: 941, 2008 Sotsman et al, J Nucl Med 49: 1741, 2008). 2. Central clumping of the aerosol may be secondary to obstructive airway mechanics and or clinical tachypnea. Electronically Signed: Michael Ellsworth, at 11:51 EDT , Charges/Coding Visit Charges Inpatient E&M: 08075 Init Hosp L3
--- NOTE | 2022-07-30 12:54 | ECHOCS_ITS ---
Reason For Study: Dyspnea/SOB Procedure This was a 2D Doppler, Color Flow transthoracic echocardiogram. The study was technically difficult. Contrast injection was performed. Exam performed portable in patient room. Left Ventricle Mildly dilated left ventricle. The estimated ejection fraction is 40-45 %. Right Ventricle Normal right ventricle. Normal systolic function. Atria The left atrium is mildly enlarged. Mitral Valve There is moderate to severe mitral annular calcification. Mild (1+) mitral valve insufficiency. Tricuspid Valve Normal tricuspid valve. Mild tricuspid valve insufficiency. Aortic Valve Mild diffuse aortic valve calcification. Mild aortic stenosis. Peak aortic valve gradient 20 mmhg mmHg. Mean aortic valve gradient 9.2 mmhg mmHg. Mild (1+) aortic valve insufficiency. Pulmonic Valve The pulmonic valve is not well visualized. Great Vessels Normal aortic root. Pericardium/Pleural No pericardial effusion. Medication Diluted definity 1ml given slow IV push to enhance endocardial definition. MMode/2D Measurements & Calculations LVIDd: 5.0 cm IVSd: 1.3 cm LVOT diam: 2.1 cm LVIDs: 3.1 cm LVPWd: 1.1 cm RVDd: 4.1 cm FS: 38.0 % LVOT area: 3.3 cm2 LA dimension: 4.0 cm LAV(MOD-bp): 84.1 ml LVAd ap4: 39.8 cm2 LAV(MOD-bp) Indexed: 44.5 ml/m2 LVLd ap4: 8.4 cm LAV(MOD-sp2): 87.6 ml EDV(MOD-sp4): 156.9 ml LAV(MOD-sp4): 62.3 ml EDV(sp4-el): 160.7 ml LVAs ap4: 30.2 cm2 LVLs ap4: 7.8 cm ESV(MOD-sp4): 98.7 ml ESV(sp4-el): 98.5 ml EF(MOD-sp4): 37.1 % EF(sp4-el): 38.7 % SV(MOD-sp4): 58.2 ml SV(sp4-el): 62.2 ml LA A4 area: 23.5 cm2 RA A4 area: 19.2 cm2 Time Measurements MV dec time: 0.24 sec Doppler Measurements & Calculations MV E max jose: 103.2 cm/sec Lat Peak E' Jose: 6.1 cm/sec Med Peak E' Jose: 6.3 cm/sec MV A max jose: 179.9 cm/sec E/E' lat: 16.9 E/E' med: 16.5 MV E/A: 0.57 MV V2 max: 202.0 cm/sec MV P1/2t max jose: 130.1 cm/sec Ao V2 max: 223.4 cm/sec MV max P.3 mmHg MV P1/2t: 79.4 msec Ao max P.1 mmHg MV V2 mean: 103.8 cm/sec MV dec slope: 480.0 cm/sec2 Ao V2 mean: 139.9 cm/sec MV mean P.2 mmHg MVA(P1/2t): 2.8 cm2 Ao mean P.2 mmHg MV V2 VTI: 36.6 cm Ao V2 VTI: 37.6 cm MVA(VTI): 2.1 cm2 AV (velocity ratio): 0.61 EVENS(I,D): 2.0 cm2 EVENS(V,D): 1.8 cm2 AI max jose: 460.3 cm/sec LV V1 max: 120.2 cm/sec MR max jose: 491.0 cm/sec AI max P.8 mmHg LV V1 max P.8 mmHg MR max P.4 mmHg LV V1 mean P.6 mmHg AI dec slope: 368.9 cm/sec2 LV V1 mean: 73.9 cm/sec AI P1/2t: 365.5 msec LV V1 VTI: 22.9 cm SV(LVOT): 76.0 ml PA V2 max: 104.6 cm/sec TR max jose: 271.4 cm/sec TR max P.5 mmHg ECHO/Echo Complete W/ Contrast Interpretation Summary The estimated ejection fraction is 40-45 %. Peak aortic valve gradient 20 mmhg mmHg. Mean aortic valve gradient 9.2 mmhg mmHg. Ordering Physician: Jcarlos Pleitez Referring Physician: Fred Clark Performed By: Mike Stauffer RCS
[2022-07-30 13:50] LABS: Procalcitonin 0.14 ng/mL (0.00-0.09)
--- NOTE | 2022-07-30 14:27 | PCM.RX.CS ---
Consult Pharmacy has been consulted to manage selected antiobiotic: Vancomycin Type of Consult: New start Suspected Infection: Other Labs: Sodium 141 mmol/L (136-145) 07/30/22 06:09 Potassium 3.4 mmol/L (3.5-5.1) L 07/30/22 06:09 Chloride 115 mmol/L (98-107) H 07/30/22 06:09 Carbon Dioxide 21.0 mmol/L (21.0-32.0) 07/30/22 06:09 Anion Gap 5 (5-15) 07/30/22 06:09 BUN 15 mg/dL (7-18) 07/30/22 06:09 Creatinine 0.68 mg/dL (0.70-1.30) L 07/30/22 06:09 Est GFR (MDRD) Af Amer 143 mL/min (>60) 07/30/22 06:09 Est GFR (MDRD) Non-Af 118 mL/min (>60) 07/30/22 06:09 BUN/Creatinine Ratio 21.9 RATIO (10-20) H 07/30/22 06:09 Glucose 105 mg/dL (74-106) 07/30/22 06:09 Microbiology: Microbiology 07/29/22 11:30 Urine, Clean Catch Urine Culture - Preliminary Culture exhibits no growth. 07/29/22 11:30 Urine, Clean Catch Legionella Antigen - Final 07/29/22 11:30 Urine, Clean Catch Streptococcus pneumoniae Antigen (M - Final 07/28/22 19:50 Mucosa - Nasopharyngeal Respiratory Panel (PCR) - Final 07/28/22 14:43 Nasal Secretion SARS-CoV-2 & FLU Antigen (Rapid) - Final Goal Trough: 15-20 mcg/mL Pharmacy Plan for Drug Dosing: NEW START IV VANCOMYCIN Consulting Physician: Dr. Pleitez Indication: Empiric treatment 2/2 hypoxia in immunocompromised patient Goal Trough: 15-20 SrCr: 0.68 CrCl: 54 mL/min Comments: Loading dose of 1750mg IV x1 ordered and administered 07/30/22 @1331 Vancomycin Dose: 750mg IV Q12hr to start 07/31/22 @0100 Pending Level: 08/01/22 @0030 Pharmacy Service will continue to monitor and adjust dosing as required.
--- NOTE | 2022-07-30 15:18 | CASEMGMT ---
LEXY MAGAÑA NOTE: Pt currently on 8 l/m O2 LEXY MAGAÑA spoke w/pt about possible need of oxygen @ d/c. Pt made aware [employer] is affiliated w/[facility] and he states to go with [employer]. He does not have a pulse ox @ home, but states would be affordable to purchase one. Pt made aware of locations one of these could be purchased from. Pt refused therapy today d/t being too tired. Discussed discharge planning. Pt states he wishes to discharge home and may be interested in [facility] @ d/c, if HHC is needed. CM to follow pt's progress w/therapy Yeimi LAUREN RN, CM
[2022-07-30 16:02] VITALS: BP 120/71; PULSE 96; RESP 16; TEMP 36.7; O2SAT 96
[2022-07-30] MEDS: Potassium Chloride Oral Tablet 20 MEQ 40 MEQ PO (17:17)
[2022-07-30 18:10] LABS: M R Staph aureus DNA By PCR Negative (Negative); Probe Check PASS; Specimen Processing Control PASS
[2022-07-30 20:27] VITALS: BP 106/60; PULSE 98; RESP 20; TEMP 36.9; O2SAT 96
[2022-07-30] MEDS: Atorvastatin Calcium 40 MG Tablet PO (22:24)
[2022-07-30] MEDS: Zolpidem Tartrate 5 MG Tablet PO (22:27)
[2022-07-30 22:59] VITALS: BP 116/61; PULSE 102; RESP 18; TEMP 37.2; O2SAT 95
--- NOTE | 2022-07-30 23:35 | RAD_ITS ---
INDICATION: Port EXAMINATION/TECHNIQUE: X-RAY - XR Chest 1 View COMPARISON: 07/29/2022 FINDINGS: LINES/DEVICES: Right Port-A-Cath remains in similar position. LUNGS: Bilateral increased interstitial markings with new right mid lung hazy opacity. No consolidation, edema or effusion. No pneumothorax. MEDIASTINUM AND CARDIOVASCULAR STRUCTURES: Cardiac silhouette not enlarged. Central airways and mediastinal contour are unremarkable. BONES AND SOFT TISSUES: Intrathecal electrode, similar compared to the prior. No acute osseous abnormality.. RAD/Chest 1 View (Portable) IMPRESSION: Right midlung hazy opacity, concerning for infection. Electronically Signed: Chaka Aponte MD at 1:04 EDT ,
[2022-07-31] VITALS (8 sets, daily range): BP systolic 106–148; BP diastolic 54–79; PULSE 88–102; RESP 16–20; TEMP 36.3–36.8; O2SAT 84–99; BMI 18.8
[2022-07-31] MEDS: Na Biphos/Potassium Phosphate PACKET 1 PACKET PO ×2 (06:20→13:24)
[2022-07-31 06:21] LABS: Absolute Lymphocyte Count 0.15 X10^3/uL (0.83-4.51); Absolute Neutrophil Count 1.8 X10^3/uL (2.0-7.7); Basophil# 0.02 X10^3/uL; Basophil% 0.7 % (0-1); Hematocrit 26.3 % (40-54); Hemoglobin 7.7 g/dL (13.0-16.5); Lymphocyte # 0.15 X10^3/ul (0.83-4.51); Lymphocyte % 5.6 % (19-41); Mean Corp Hgb Conc 29.3 g/dL (32-36); Mean Corpuscular Hgb 29.4 pg (27.0-32.0); Mean Corpuscular Volume 100.4 fL (80-94); Mean Platelet Vol. 11.4 fl (6.2-12.0); Monocyte# 0.65 X10^3/uL; Monocyte% 24.2 % (0-10); NRBC Flagged by Analyzer 0 % (0-5); Neutrophil # 1.78 X10^3/uL (2.7-7.7); Neutrophil % 66.2 % (47-70); POSITIVE DIFFERENTIAL YES; POSITIVE MORPHOLOGY YES; Platelet Count 106 K/mm3 (150-450); RBC Distribution Width CV 19.8 % (11.6-14.6); RBC Distribution Width SD 72.4 fl (35.1-43.9); Red Blood Count 2.62 M/mm3 (4.6-6.2); White Blood Count 2.7 K/mm3 (4.4-11.0)
[2022-07-31] MEDS: 0.9% Saline Lock 10 ML Syringe IV ×2 (06:42→10:15)
--- NOTE | 2022-07-31 06:47 | PCM.PN.INT ---
Assessment & Plan Assessment/Plan (1) Hypoxia: PLAN: Plan RECOMMENDATIONS: 1. Wean supplemental oxygen to maintain saturations at or above 90%. 2. Diuresis as tolerated by hemodynamics and renal function. 3. Continue empiric antimicrobials. 4. Obtain follow-up echocardiogram. 5. Continue prophylactic Lovenox. 6. Encourage incentive spirometer use and mobilize patient as tolerated. IMPRESSIONS: 1. Cough and hypoxemia The patient was recently referred to the emergency department from the oncology office with hypoxemia noted. He has a history of diffuse large B-cell lymphoma and is currently on therapy. He has baseline pancytopenia and radiographic evidence of bilateral groundglass opacities and intralobular septal thickening. These findings would raise concern for pulmonary edema. However, I cannot definitively rule out the possibility of an occult infectious process versus lymphangitic involvement of the lungs. For now, it is certainly reasonable to continue empiric antimicrobials. In addition, a repeat echocardiogram will be obtained. In the interim, wean supplemental oxygen to maintain saturations at or above 90%. Recommend continuing gentle diuresis as tolerated by hemodynamics and renal function. 2. History of diffuse large B-cell lymphoma/history of heart failure with reduced ejection fraction/hypertension/hyperlipidemia Complicates care, management, recovery and prognosis. Continue home medications as indicated. This note was generated with [employer] dictation software. It may contain incorrect words, spelling, and punctuation that were not noted in checking the note before signing. Subjective Subjective The patient was seen and examined at the bedside this morning. Events from the last 24 hours have been reviewed. The patient is currently afebrile, hemodynamically stable and maintaining appropriate oxygen saturations on 8 L/min via nasal cannula. The patient is documented to be overall net +4.9 L for the hospitalization. Repeat labs are pending this morning. Objective Data Objective Data The patient's most recent lab work, culture data and imaging studies have all been personally reviewed. Infectious work-up has been unrevealing to date. Vital Signs: Vital Signs Temp Pulse Resp BP Pulse Ox O2 Del Method O2 Flow Rate 98.0 F 102 H 20 H 148/79 H 96 High Flow 8 07/31/22 04:30 07/31/22 04:30 07/31/22 04:30 07/31/22 04:30 07/31/22 04:30 07/31/22 05:04 07/31/22 05:04 FiO2 50 07/28/22 19:50 Oxygen Flow Rate (L/min) 8 Oxygen Delivery Method High Flow Weight: 146 lb 9.718 oz Body Mass Index (BMI) 18.8 Intake & Output: Intake and Output for Last 24 Hours 07/29/22 07/30/22 07/31/22 23:59 23:59 23:59 Intake Total 2340 / 2340 1235 / 1435 695 / 695 Output Total 700 / 700 200 / 200 Balance 1640 / 1640 1035 / 1235 695 / 695 Medical Nutrition Assessment Dietitian: Malnutrition Criteria Met Start: 07/29/22 15:02 Freq: Status: Active Protocol: Document 07/29/22 15:21 AG (Rec: 07/29/22 15:21 [id number]) Nutrition Malnutrition Evidence of Malnutrition Exists Yes Malnutrition (severe): Chronic Evidenced By Suboptimal Energy Intake ( Severe),Physical Changes ( Severe) Clinical Problem Chronic Disease or Condition Related Malnutrition Etiology severe, chronic malnutrition related to inadequate energy intake w/ increased energy needs d/t lymphoma Signs/Symptoms as evidenced by estimated energy needs meeting <75% of estimated energy needs > 3 months; Severe muscle wasting/ fat loss evident per physical assessment in orbital, clavicle, temporal, and acromion areas; BMI 18.5 Status Active Problem Recommendation Dietitian Recommendations/Changes Regular diet; will fortify foods when able. Will adjust ONS to 240mL ensure plus high protein TID w/ meals given malnutrition. Lab / Micro Data Attestation: I reviewed the patient's lab results. Result Diagrams: 07/30/22 06:09 07/31/22 05:21 Labs: Laboratory Results - last 24 hr 07/30/22 06:09: Diff Path Review Reviewed, Platelet Estimate MOD DEC, Anisocytosis 2+, Macrocytosis 1+ 07/30/22 06:09: Sodium 141, Potassium 3.4 L, Chloride 115 H, Carbon Dioxide 21.0, Anion Gap 5, BUN 15, Creatinine 0.68 L, Estim Creat Clear Calc 53.76, Est GFR (MDRD) Af Amer 143, Est GFR (MDRD) Non-Af 118, BUN/Creatinine Ratio 21.9 H, Glucose 105, Calcium 8.5 07/30/22 06:09: B-Natriuretic Peptide 235.0 H 07/30/22 12:58: Procalcitonin 0.14 H 07/30/22 13:35: MRSA (PCR) Negative Micro: Microbiology 07/28/22 15:19 Blood Culture (Wb) - Port Blood Culture - Preliminary No growth in 48 hours. 07/28/22 15:48 Blood Culture (Wb) #2 - Chest Blood Culture - Preliminary No growth in 48 hours. 07/29/22 11:30 Urine, Clean Catch Urine Culture - Preliminary Culture exhibits no growth. 07/29/22 11:30 Urine, Clean Catch Legionella Antigen - Final 07/29/22 11:30 Urine, Clean Catch Streptococcus pneumoniae Antigen (M - Final 07/28/22 19:50 Mucosa - Nasopharyngeal Respiratory Panel (PCR) - Final 07/28/22 14:43 Nasal Secretion SARS-CoV-2 & FLU Antigen (Rapid) - Final Radiography Diagnostic Testing: Radiology Impression Lung Scan-VQ NM 07/30/22 10:17 IMPRESSION: 1. VERY LOW PROBABILITY FOR PULMONARY EMBOLUS (<10%) 99m Tc DTPA aerosol ventilation / 99m Tc MAA pulmonary perfusion imaging examination, according to PIOPED II interpretive criteria with regard given to the presence of > 2 ventilation-perfusion matches without corresponding radiographic changes. (Sotsman et al, Radiology 246: 941, 2008 Sotsman et al, J Nucl Med 49: 1741, 2008). 2. Central clumping of the aerosol may be secondary to obstructive airway mechanics and or clinical tachypnea. Electronically Signed: Michael Ellsworth at 11:51 EDT , Chest X-Ray 07/30/22 23:35 IMPRESSION: Right midlung hazy opacity, concerning for infection. Electronically Signed: Chaka Aponte MD at 1:04 EDT , Rhythm Strip Rhythm Strip: Sinus Tach Rate: 114 Ectopy: None Physical Exam Const alert and no apparent distress General Appearance: cooperative HEENT normocephalic and head/scalp atraumatic Eyes PERRL, EOMs intact bilaterally and conjunctivae normal Neck supple General: trachea midline Chest inspection of chest normal Chest Narrative: Stable chest port Resp normal respiratory effort Auscultation: rales bilateral lower Cardio regular rate and regular rhythm GI normal to inspection, nondistended, normoactive bowel sounds Extremity no clubbing, cyanosis or edema Skin General Skin Exam: venous stasis and dermatitis Neuro oriented x3, CN's II-XII intact bilaterally and no focal motor deficits Psych cooperative and affect normal Charges/Coding Visit Charges Inpatient E&M: 34653 Subs Hosp L2
[2022-07-31 06:59] LABS: Anion Gap 3 (5-15); BUN 17 mg/dL (7-18); BUN/Creat Ratio 28.5 RATIO (10-20); Calcium,Total 8.6 mg/dL (8.5-10.1); Chloride 117 mmol/L (98-107); EST Glomerular Filtration Rate 138 mL/min (>60); Est Glom Filt Rate - Afr Amer 167 mL/min (>60); Estimated Creatinine Clearance 54.49 ml/min; Glucose 101 mg/dL (74-106); Potassium 3.8 mmol/L (3.5-5.1); Sodium Level 143 mmol/L (136-145)
[2022-07-31 07:11] LABS: Differential Indicated SCAN CRITERIA MET
[2022-07-31 07:29] LABS: Anisocytosis 1+; Differential Comment SCANNED; Macrocytosis 1+; Microcytosis RARE
--- NOTE | 2022-07-31 08:01 | PCM.PN.HOSP ---
Reason for Visit Reason for Visit: Diagnoses Sepsis, unspecified organism (07/28/22) Hypoxemia (07/28/22) Follow-up for acute hypoxic respiratory failure and possible sepsis Objective Data Objective Data Vital Signs: Vital Signs Temp Pulse Resp BP Pulse Ox O2 Del Method O2 Flow Rate 98.0 F 102 H 20 H 148/79 H 96 High Flow 7 07/31/22 04:30 07/31/22 04:30 07/31/22 04:30 07/31/22 04:30 07/31/22 07:54 07/31/22 07:54 07/31/22 07:54 FiO2 50 07/28/22 19:50 Oxygen Flow Rate (L/min) 7 Oxygen Delivery Method High Flow Weight: 146 lb 9.718 oz Body Mass Index (BMI) 18.8 Intake & Output: Intake and Output for Last 24 Hours 07/29/22 07/30/22 07/31/22 23:59 23:59 23:59 Intake Total 2340 / 2340 1235 / 1435 745 / 745 Output Total 700 / 700 200 / 200 Balance 1640 / 1640 1035 / 1235 745 / 745 Medical Nutrition Assessment Dietitian: Malnutrition Criteria Met Start: 07/29/22 15:02 Freq: Status: Active Protocol: Document 07/29/22 15:21 AG (Rec: 07/29/22 15:21 [id number]) Nutrition Malnutrition Evidence of Malnutrition Exists Yes Malnutrition (severe): Chronic Evidenced By Suboptimal Energy Intake ( Severe),Physical Changes ( Severe) Clinical Problem Chronic Disease or Condition Related Malnutrition Etiology severe, chronic malnutrition related to inadequate energy intake w/ increased energy needs d/t lymphoma Signs/Symptoms as evidenced by estimated energy needs meeting <75% of estimated energy needs > 3 months; Severe muscle wasting/ fat loss evident per physical assessment in orbital, clavicle, temporal, and acromion areas; BMI 18.5 Status Active Problem Recommendation Dietitian Recommendations/Changes Regular diet; will fortify foods when able. Will adjust ONS to 240mL ensure plus high protein TID w/ meals given malnutrition. Lab / Micro Data Result Diagrams: 07/31/22 05:21 07/31/22 05:21 Labs: Laboratory Results - last 24 hr 07/30/22 06:09: Diff Path Review Reviewed 07/30/22 06:09: B-Natriuretic Peptide 235.0 H 07/30/22 12:58: Procalcitonin 0.14 H 07/30/22 13:35: MRSA (PCR) Negative 07/31/22 05:21: WBC 2.7 L, RBC 2.62 L, Hgb 7.7 L, Hct 26.3 L, MCV 100.4 H, MCH 29.4, MCHC 29.3 L, RDW Std Deviation 72.4 H, RDW Coeff of Kori 19.8 H, Plt Count 106 L, MPV 11.4, Immature Gran % (Auto) 3.300 H, Neut % (Auto) 66.2, Lymph % (Auto) 5.6 L, [place] % (Auto) 24.2 H, Eos % (Auto) 0.0, Baso % (Auto) 0.7, Absolute Neuts (auto) 1.8 L, Absolute Lymphs (auto) 0.15 L, Nucleated RBC % 0, Differential Comment SCANNED, Diff Path Review May foll, Anisocytosis 1+, Microcytosis RARE, Macrocytosis 1+ 07/31/22 05:21: Sodium 143, Potassium 3.8, Chloride 117 H, Carbon Dioxide 23.0, Anion Gap 3 L, BUN 17, Creatinine 0.60 L, Estim Creat Clear Calc 54.49, Est GFR (MDRD) Af Amer 167, Est GFR (MDRD) Non-Af 138, BUN/Creatinine Ratio 28.5 H, Glucose 101, Calcium 8.6 Micro: Microbiology 07/29/22 11:30 Urine, Clean Catch Urine Culture - Final Culture exhibits no growth. 07/28/22 15:19 Blood Culture (Wb) - Port Blood Culture - Preliminary No growth in 48 hours. 07/28/22 15:48 Blood Culture (Wb) #2 - Chest Blood Culture - Preliminary No growth in 48 hours. 07/29/22 11:30 Urine, Clean Catch Legionella Antigen - Final 07/29/22 11:30 Urine, Clean Catch Streptococcus pneumoniae Antigen (M - Final 07/28/22 19:50 Mucosa - Nasopharyngeal Respiratory Panel (PCR) - Final 07/28/22 14:43 Nasal Secretion SARS-CoV-2 & FLU Antigen (Rapid) - Final Radiography Diagnostic Testing: Radiology Impression Lung Scan-VQ NM 07/30/22 10:17 IMPRESSION: 1. VERY LOW PROBABILITY FOR PULMONARY EMBOLUS (<10%) 99m Tc DTPA aerosol ventilation / 99m Tc MAA pulmonary perfusion imaging examination, according to PIOPED II interpretive criteria with regard given to the presence of > 2 ventilation-perfusion matches without corresponding radiographic changes. (Soben et al, Radiology 246: 941, 2008 Ivan et al, J Nucl Med 49: 1741, 2008). 2. Central clumping of the aerosol may be secondary to obstructive airway mechanics and or clinical tachypnea. Electronically Signed: Michael Ellsworth, at 11:51 EDT , Chest X-Ray 07/30/22 23:35 IMPRESSION: Right midlung hazy opacity, concerning for infection. Electronically Signed: Chaka Aponte MD at 1:04 EDT , Rhythm Strip Rhythm Strip: Sinus Tach Rate: 114 Ectopy: None Physical Exam Narrative Seen and examined in the presence of patient's . Patient feels improvement in shortness of breath. On high flow 8 L of oxygen. VQ scan ordered discussed with patient's . Physical exam General: Alert, Oriented x3, Cooperative HEENT: Uses hearing aid bilateral. Atraumatic, PERRLA, EOMI, Normocephalic Oral:Oral mucosa moist. No mucositis no Gingival or Mucosal Lesions/ Ulcerations Neck: Supple, No JVD, Negative Carotid Bruits Lungs: Air entry diminished in bilateral lung bases. Mild bilateral basal fine crepitations.No tachypnea. Cardiovascular: Sinus tachycardia resolved, Normal S1, Normal S2, systolic murmur over right second ICS and LUSB Abdomen: Bowel Sounds Present, Soft, Non Tender, Non-Distended : No renal angle tenderness. No suprapubic tenderness. Extremities: No edema, Capillary Refill Less than 3 Seconds Skin: No rashes, No breakdown. Overall morning: Dry skin Musculoskeletal: No Tenderness to Palpation of Joints or Extremities, muscle strength 4+/5 at knee and hip joints. Neurological: Cranial nerves II-XII grossly intact, DTR 2+/4 and Symmetrical, Neuro grossly intact Psych/Mental Status: Flat affect. Assessment & Plan Assessment/Plan (1) Sepsis: (2) Acute respiratory failure with hypoxia: PLAN: Plan 81-year-old male was admitted with confusion, weakness, Fever temporal temperature 100.4 ?F, and urine retention, 700 mL that required a straight cath and then Zafar catheter in the ED 1. Acute hypoxic respiratory failure and sepsis, exact etiology unclear most probably due to bilateral interstitial pneumonia, atelectasis less likely distal inconclusive subsegmental bilateral lower lobes PE: The patient had chest x-ray and CTA chest done in ED which was individually reviewed. Although no obvious central, or lobar PE but radiologist reported but it reported questionable small volume nonocclusive acute PE and subsegmental pulmonary arteries of bilateral lower lobes. No evidence of right heart strain. CT also shows bilateral thickenings and interstitial changes but no obvious consolidation. Lactic acid might also be due to severe dehydration. The patient presented with sepsis with clinical indicators of tachycardia, tachypnea, hypoxia, exact etiology unclear suspicion of pneumonia with acute sepsis-related organ dysfunction as evidenced by fluid responsive hypotension 87/69 and lactic acidosis Bronchodilator as needed. Incentive spirometry and Pep. BiPAP as needed. 07/29: Continue IV cefepime. Lactic acidosis resolved. Respiratory panel negative. Urinary antigens for Legionella and strep was negative. COVID-19 PCR negative. Blood cultures x2 pending. Patient not able to bring up phlegm therefore sputum culture also pending collection. I discussed my assessment and plan with patient's oncologist Dr. Hein on 07/28 evening and he agrees. Patient had chemotherapy about 2 weeks ago. Patient's [id number] explained about CT findings of inconclusive subsegmental bilateral lower lobe PE and severe thrombocytopenia. Patient also has lymphopenia 0.27K with left shift anisocytosis, macrocytosis, blast cell and bands 10%. Overall it is suggestive of sepsis. Repeat chest x-ray shows prominent interstitial septal probably edema or infectious process. Patient was given 20 mg IV Lasix 1 dose in the morning 07/30: With persistent hypoxia moderate later, pulmonary consult requested. Discussed with wire rope sales representative. IV vancomycin added. BNP 235 elevated. Procalcitonin 0.14; less than 2. VQ scan also done which shows very low probability of PE. Lasix 20 mg IV 1 dose given. Continue diuretics as per tolerated by hemodynamics. 2D echo ordered. Continue incentive spirometry and BiPAP 07/31: Pulmonary follow-up reviewed and appreciated. Started on his scheduled Lasix as blood pressure profile is better and improving. Continue empiric antibiotic as mentioned above. 2D echo completed but not reported. MRSA nasal screen negative. Subjectively patient shortness of breath is better. 2. Severe dehydration and fatigue probably due to chemotherapeutic adverse effect and anorexia: IV fluid resuscitation. 07/29: Dehydration was corrected. Mild hypophosphatemia and hypokalemia therefore patient on Neutra-Phos. Serum magnesium normal 3. Chronic systolic heart failure: Last echo shows EF 45%. Repeat echo ordered. 07/31: Net positive fluid balance about 5 L. Patient on self-catheterization twice a day. That is his baseline. He has sensation over perineum and urethra. 4. 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 He completed 6 weeks of chemotherapy 2 weeks ago. Continue aggressive IV fluid and allopurinol. Further course as recommended by his oncologist Dr. Luna. The patient on R-CVP that was started on March 31, 2022. Patient last echo EF 45% precluding use of Adriamycin. Patient had left renal mass that is reported in the CT which is old which is monitored by oncologist. His oncology course was complicated with obstructive jaundice by rosa isela hepatis large lymph node which on further work-up found to have high-grade diffuse large B-cell lymphoma and required hepatic artery stenting. 07/29: Discussed with Dr. Hein 3.? HTN/HLD: Currently patient is hypotensive therefore hold antihypertensive medication. On simvastatin. 4.? BPH: Patient was on Flomax and finasteride during previous admission but current home medication does not show that. Patient on methenamine tablet. Bladder scan every 4 hourly. DVT: High risk based on diffuse large B-cell lymphoma: Treated with Lovenox during hospital course Living will/advanced directive/end of life care: Patient does not have living will or advanced directive. After discussion of benefits/risks procedures involved with full code, DNR CC arrest and DNR CC, the patient opted for full code. Patient does want artificial life support including intubation, tube feed, ventilator and/chest compression, central venous catheter, vasopressor and DC shock if needed Clinical Impression(s) from Imaging Studies Chest CTA 07/28/22 14:37 IMPRESSION: Questionable small volume nonocclusive acute pulmonary emboli in the subsegmental pulmonary arteries of the bilateral lower lobes. No evidence of right heart strain. Severe age-indeterminate compression deformity of L1 with mild retropulsion of fragments and mild spinal canal narrowing. Interstitial edema superimposed on COPD and chronic interstitial lung disease. Large mass in the left upper renal pole concerning for malignancy. Electronically Signed: Rick Moreno MD at 17:13 EDT , Chest X-Ray 07/28/22 15:46 IMPRESSION: Increased interstitial markings may represent edema and/or infection. Electronically Signed: Rick Moreno MD at 16:06 EDT , Charges/Coding Visit Charges Inpatient E&M: 58068 Subs Hosp L2
[2022-07-31] MEDS: Ferrous Sulfate 325 MG Tablet PO (10:10)
[2022-07-31] MEDS: Potassium Chloride Oral Tablet 20 MEQ 40 MEQ PO (10:10)
[2022-07-31] MEDS: Furosemide 40 MG/4 ML Vial IV ×2 (10:10→17:55)
[2022-07-31] MEDS: Enoxaparin 40 MG/0.4 ML Syringe SC (10:10)
[2022-07-31] MEDS: Pantoprazole Sodium 20 MG Tablet PO ×2 (10:11→15:01)
[2022-07-31] MEDS: Hydroxychloroquine 200 MG Tablet PO ×2 (10:11→21:35)
[2022-07-31] MEDS: Ascorbic Acid 500 MG Tablet PO (10:11)
[2022-07-31] MEDS: guaiFENesin 1,200 MG Tablet 1200 MG PO ×2 (10:11→21:35)
[2022-07-31] MEDS: Allopurinol 300 MG Tablet PO (10:12)
[2022-07-31] MEDS: Atorvastatin Calcium 40 MG Tablet PO (21:34)
[2022-07-31] MEDS: Zolpidem Tartrate 5 MG Tablet PO (22:58)
[2022-08-01] VITALS (11 sets, daily range): BP systolic 102–114; BP diastolic 52–67; PULSE 86–97; RESP 16–18; TEMP 36.2–36.9; O2SAT 87–99; BMI 18.8
[2022-08-01 00:43] LABS: Vancomycin, Trough Level 13.5 ug/mL (5.0-15.0)
--- NOTE | 2022-08-01 04:12 | PCM.RX.CS ---
Consult Pharmacy has been consulted to manage selected antiobiotic: Vancomycin Type of Consult: Follow-up Labs: Sodium 143 mmol/L (136-145) 07/31/22 05:21 Potassium 3.8 mmol/L (3.5-5.1) 07/31/22 05:21 Chloride 117 mmol/L (98-107) H 07/31/22 05:21 Carbon Dioxide 23.0 mmol/L (21.0-32.0) 07/31/22 05:21 Anion Gap 3 (5-15) L 07/31/22 05:21 BUN 17 mg/dL (7-18) 07/31/22 05:21 Creatinine 0.60 mg/dL (0.70-1.30) L 07/31/22 05:21 Est GFR (MDRD) Af Amer 167 mL/min (>60) 07/31/22 05:21 Est GFR (MDRD) Non-Af 138 mL/min (>60) 07/31/22 05:21 BUN/Creatinine Ratio 28.5 RATIO (10-20) H 07/31/22 05:21 Glucose 101 mg/dL (74-106) 07/31/22 05:21 Vancomycin Trough 13.5 ug/mL (5.0-15.0) 07/31/22 23:50 Microbiology: Microbiology 07/29/22 11:30 Urine, Clean Catch Urine Culture - Final Culture exhibits no growth. 07/28/22 15:19 Blood Culture (Wb) - Port Blood Culture - Preliminary No growth in 48 hours. 07/28/22 15:48 Blood Culture (Wb) #2 - Chest Blood Culture - Preliminary No growth in 48 hours. 07/29/22 11:30 Urine, Clean Catch Legionella Antigen - Final 07/29/22 11:30 Urine, Clean Catch Streptococcus pneumoniae Antigen (M - Final 07/28/22 19:50 Mucosa - Nasopharyngeal Respiratory Panel (PCR) - Final 07/28/22 14:43 Nasal Secretion SARS-CoV-2 & FLU Antigen (Rapid) - Final Goal Trough: 15-20 mcg/mL Pharmacy Plan for Drug Dosing: Pharmacy Service will continue to monitor and adjust dosing as required. TROUGH 13.5 @ 10.5 HRS. INCREASE TO 1GM Q12 AND FOLLOW UP TROUGH PRIOR TO 4TH DOSE Follow-Up Labs: Trough Vancomycin Labs to be done on [date and time ordered]: 08/03 @ 0030
[2022-08-01 04:18] LABS: Hematocrit 24.8 % (40-54); Hemoglobin 7.6 g/dL (13.0-16.5); Mean Corp Hgb Conc 30.6 g/dL (32-36); Mean Corpuscular Hgb 30.2 pg (27.0-32.0); Mean Corpuscular Volume 98.4 fL (80-94); Mean Platelet Vol. 10.9 fl (6.2-12.0); POSITIVE COUNT YES; POSITIVE DIFFERENTIAL YES; POSITIVE MORPHOLOGY YES; Platelet Count 138 K/mm3 (150-450); RBC Distribution Width CV 19.7 % (11.6-14.6); RBC Distribution Width SD 70.8 fl (35.1-43.9); RET-HE 25.1 pg (30-35); Red Blood Count 2.52 M/mm3 (4.6-6.2); Reticulocyte Count 1.59 % (0.5-1.5); White Blood Count 2.4 K/mm3 (4.4-11.0)
[2022-08-01 04:32] LABS: Differential Indicated MANUAL DIFF
[2022-08-01 04:48] LABS: Anion Gap 2 (5-15); BUN 16 mg/dL (7-18); BUN/Creat Ratio 23.4 RATIO (10-20); Calcium,Total 8.5 mg/dL (8.5-10.1); Chloride 113 mmol/L (98-107); Creatinine, Serum 0.68 mg/dL (0.70-1.30); EST Glomerular Filtration Rate 118 mL/min (>60); Est Glom Filt Rate - Afr Amer 143 mL/min (>60); Estimated Creatinine Clearance 54.49 ml/min; Ferritin 747 ng/mL (26-388); Glucose 95 mg/dL (74-106); Iron 34 ug/dL (65-175); Iron Binding Capacity,Total 176 ug/dL (250-450); Magnesium 2.2 mg/dL (1.6-2.6); PERCENT IRON SATURATION 19.3 % (15.0-55.0); Phosphorus 3.7 mg/dL (2.5-4.9); Potassium 3.9 mmol/L (3.5-5.1); Sodium Level 141 mmol/L (136-145)
[2022-08-01] MEDS: 0.9% Saline Lock 10 ML Syringe IV ×2 (05:29→21:56)
[2022-08-01 06:17] LABS: Neutrophil-Band 7 % (0-5); Neutrophil-Segmented 63 % (47-70); Total Cells Counted 100 (MANUAL DIFF)
[2022-08-01 06:18] LABS: Lymphocyte 6 % (19-41); Monocyte 24 % (0-10)
[2022-08-01 06:19] LABS: Platelet Estimate ADEQUATE (ADEQ); Red Cell Morphology NORM C+C NORMAL (NORM C&C)
[2022-08-01 06:20] LABS: Absolute Neutrophil Count 1.7 X10^3/uL (2.0-7.7); Neutrophil # 1.67 X10^3/uL (2.7-7.7)
[2022-08-01 06:21] LABS: Absolute Lymphocyte Count 0.14 X10^3/uL (0.83-4.51); Lymphocyte # 0.14 X10^3/ul (0.83-4.51)
--- NOTE | 2022-08-01 06:52 | PN.CC_ITS ---
Assessment & Plan Assessment/Plan (1) Hypoxia: PLAN: Plan RECOMMENDATIONS: 1. Wean supplemental oxygen to maintain saturations at or above 90%. 2. Continue diuresis as tolerated by hemodynamics and renal function. 3. Continue empiric antimicrobials. 4. Continue prophylactic Lovenox. 5. Encourage incentive spirometer use and mobilize patient as tolerated. IMPRESSIONS: 1. Cough and hypoxemia The patient was recently referred to the emergency department from the oncology office with hypoxemia noted. He has a history of diffuse large B-cell lymphoma and is currently on therapy. He has baseline pancytopenia and radiographic evidence of bilateral groundglass opacities and intralobular septal thickening. These findings would raise concern for pulmonary edema. However, I cannot definitively rule out the possibility of an occult infectious process versus lymphangitic involvement of the lungs. For now, it is certainly reasonable to continue empiric antimicrobials. In the interim, wean supplemental oxygen to maintain saturations at or above 90%. Recommend continuing gentle diuresis as tolerated by hemodynamics and renal function. 2. History of diffuse large B-cell lymphoma/history of heart failure with reduced ejection fraction/hypertension/hyperlipidemia Complicates care, management, recovery and prognosis. Continue home medications as indicated. This note was generated with [employer] dictation software. It may contain incorrect words, spelling, and punctuation that were not noted in checking the note before signing. Subjective Subjective The patient was seen and examined at the bedside this morning. Events from the last 24 hours have been reviewed. The patient is currently afebrile, hemodynami kj stable and maintaining appropriate oxygen saturations on 5 L/min via nasal cannula. The patient is documented to be overall net +6 L for the hospitalization. He did receive IV Lasix x2 yesterday. The patient remains pancytopenic with stable counts. Creatinine is within normal limits. Objective Data Objective Data The patient's most recent lab work, culture data and imaging studies have all been personally reviewed. Infectious work-up has been unrevealing to date. Surface echocardiogram demonstrated a mildly dilated LV with an ejection fraction of 40 to 45%. Vital Signs: Vital Signs Temp Pulse Resp BP Pulse Ox O2 Del Method O2 Flow Rate 97.6 F L 87 18 110/61 96 High Flow 7 08/01/22 04:13 08/01/22 04:13 08/01/22 04:13 08/01/22 04:13 08/01/22 04:13 08/01/22 04:40 08/01/22 04:40 FiO2 50 07/28/22 19:50 Oxygen Flow Rate (L/min) 7 Oxygen Delivery Method High Flow Weight: 146 lb 9.718 oz Body Mass Index (BMI) 18.8 Intake & Output: Intake and Output for Last 24 Hours 07/30/22 07/31/22 08/01/22 23:59 23:59 23:59 Intake Total 1235 / 1435 2060 / 2300 555 / 555 Output Total 200 / 200 400 / 400 Balance 1035 / 1235 1660 / 1900 555 / 555 Medical Nutrition Assessment Dietitian: Malnutrition Criteria Met Start: 07/29/22 15:02 Freq: Status: Active Protocol: Document 07/29/22 15:21 (Rec: 07/29/22 15:21 [id number]) Nutrition Malnutrition Evidence of Malnutrition Exists Yes Malnutrition (severe): Chronic Evidenced By Suboptimal Energy Intake ( Severe),Physical Changes ( Severe) Clinical Problem Chronic Disease or Condition Related Malnutrition Etiology severe, chronic malnutrition related to inadequate energy intake w/ increased energy needs d/t lymphoma Signs/Symptoms as evidenced by estimated energy needs meeting <75% of estimated energy needs > 3 months; Severe muscle wasting/ fat loss evident per physical assessment in orbital, clavicle, temporal, and acromion areas; BMI 18.5 Status Active Problem Recommendation Dietitian Recommendations/Changes Regular diet; will fortify foods when able. Will adjust ONS to 240mL ensure plus high protein TID w/ meals given malnutrition. Lab / Micro Data Attestation: I reviewed the patient's lab results. Result Diagrams: 08/01/22 04:00 08/01/22 04:00 Labs: Laboratory Results - last 24 hr 07/31/22 05:21: WBC 2.7 L, RBC 2.62 L, Hgb 7.7 L, Hct 26.3 L, MCV 100.4 H, MCH 29.4, MCHC 29.3 L, RDW Std Deviation 72.4 H, RDW Coeff of Kori 19.8 H, Plt Count 106 L, MPV 11.4, Immature Gran % (Auto) 3.300 H, Neut % (Auto) 66.2, Lymph % (Auto) 5.6 L, [place] % (Auto) 24.2 H, Eos % (Auto) 0.0, Baso % (Auto) 0.7, Absolute Neuts (auto) 1.8 L, Absolute Lymphs (auto) 0.15 L, Nucleated RBC % 0, Differential Comment SCANNED, Diff Path Review May berta, Anisocytosis 1+, Microcytosis RARE, Macrocytosis 1+ 07/31/22 05:21: Sodium 143, Potassium 3.8, Chloride 117 H, Carbon Dioxide 23.0, Anion Gap 3 L, BUN 17, Creatinine 0.60 L, Estim Creat Clear Calc 54.49, Est GFR (MDRD) Af Amer 167, Est GFR (MDRD) Non-Af 138, BUN/Creatinine Ratio 28.5 H, Glucose 101, Calcium 8.6 07/31/22 23:50: Vancomycin Trough 13.5 08/01/22 04:00: WBC 2.4 L, RBC 2.52 L, Hgb 7.6 L, Hct 24.8 L, MCV 98.4 H, MCH 30.2, MCHC 30.6 L, RDW Std Deviation 70.8 H, RDW Coeff of Kori 19.7 H, Plt Count 138 L, MPV 10.9, Neut % (Auto) Not Reportable, Absolute Neuts (auto) 1.7 L, Absolute Lymphs (auto) 0.14 L, Total Counted 100, Neutrophils % (Manual) 63, Band Neutrophils % 7 H, Lymphocytes % (Manual) 6 L, Monocytes % (Manual) 24 H, Diff Path Review August berta, Platelet Estimate ADEQUATE, RBC Morphology NORM C+C, Retic Count 1.59 H, Immature Retic Fraction 19.40 H, Retic Hgb Equivalent 25.1 L 08/01/22 04:00: Sodium 141, Potassium 3.9, Chloride 113 H, Carbon Dioxide 26.0, Anion Gap 2 L, BUN 16, Creatinine 0.68 L, Estim Creat Clear Calc 54.49, Est GFR (MDRD) Af Amer 143, Est GFR (MDRD) Non-Af 118, BUN/Creatinine Ratio 23.4 H, Glucose 95, Calcium 8.5, Phosphorus 3.7, Magnesium 2.2, Iron 34 L, TIBC 176 L, Iron Saturation 19.3, Ferritin 747 H, Folate 15.10 Micro: Microbiology 07/29/22 11:30 Urine, Clean Catch Urine Culture - Final Culture exhibits no growth. 07/28/22 15:19 Blood Culture (Wb) - Port Blood Culture - Preliminary No growth in 48 hours. 07/28/22 15:48 Blood Culture (Wb) #2 - Chest Blood Culture - Preliminary No growth in 48 hours. 07/29/22 11:30 Urine, Clean Catch Legionella Antigen - Final 07/29/22 11:30 Urine, Clean Catch Streptococcus pneumoniae Antigen (M - Final 07/28/22 19:50 Mucosa - Nasopharyngeal Respiratory Panel (PCR) - Final 07/28/22 14:43 Nasal Secretion SARS-CoV-2 & FLU Antigen (Rapid) - Final Radiography Diagnostic Testing: Radiology Impression Echocardiogram 07/30/22 12:54 Interpretation Summary The estimated ejection fraction is 40-45 %. Peak aortic valve gradient 20 mmhg mmHg. Mean aortic valve gradient 9.2 mmhg mmHg. Ordering Physician: Jcarlos Pleitez Referring Physician: Fred Clark Performed By: Mike Stauffer RCS Rhythm Strip Rhythm Strip: Sinus Tach Rate: 114 Ectopy: None Physical Exam Const alert and no apparent distress General Appearance: cooperative HEENT normocephalic and head/scalp atraumatic Eyes PERRL, EOMs intact bilaterally and conjunctivae normal Neck supple General: trachea midline Chest inspection of chest normal Chest Narrative: Stable chest port Resp normal respiratory effort Auscultation: rales bilateral lower Cardio regular rate and regular rhythm GI normal to inspection, nondistended, normoactive bowel sounds Extremity no clubbing, cyanosis or edema Skin General Skin Exam: venous stasis and dermatitis Neuro oriented x3, CN's II-XII intact bilaterally and no focal motor deficits Psych cooperative and affect normal Charges/Coding Visit Charges Inpatient E&M: 99170 Subs Hosp L2
--- NOTE | 2022-08-01 08:16 | PCM.PN.HOSP ---
Reason for Visit Reason for Visit: Diagnoses Sepsis, unspecified organism (07/28/22) Acute respiratory failure with hypoxia (07/28/22) Hypoxemia (07/28/22) Subjective Subjective Follow-up for acute hypoxic respiratory failure and possible sepsis Objective Data Objective Data Vital Signs: Vital Signs Temp Pulse Resp BP Pulse Ox O2 Del Method O2 Flow Rate 97.6 F L 87 18 110/61 94 Nasal Cannula 4 08/01/22 04:13 08/01/22 04:13 08/01/22 04:13 08/01/22 04:13 08/01/22 07:09 08/01/22 07:09 08/01/22 07:09 FiO2 50 07/28/22 19:50 Oxygen Flow Rate (L/min) 4 Oxygen Delivery Method Nasal Cannula Weight: 146 lb 9.718 oz Body Mass Index (BMI) 18.8 Intake & Output: Intake and Output for Last 24 Hours 07/30/22 07/31/22 08/01/22 23:59 23:59 23:59 Intake Total 1235 / 1435 2060 / 2300 755 / 755 Output Total 200 / 200 400 / 400 Balance 1035 / 1235 1660 / 1900 755 / 755 Medical Nutrition Assessment Dietitian: Malnutrition Criteria Met Start: 07/29/22 15:02 Freq: Status: Active Protocol: Document 07/29/22 15:21 (Rec: 07/29/22 15:21 [id number]) Nutrition Malnutrition Evidence of Malnutrition Exists Yes Malnutrition (severe): Chronic Evidenced By Suboptimal Energy Intake ( Severe),Physical Changes ( Severe) Clinical Problem Chronic Disease or Condition Related Malnutrition Etiology severe, chronic malnutrition related to inadequate energy intake w/ increased energy needs d/t lymphoma Signs/Symptoms as evidenced by estimated energy needs meeting <75% of estimated energy needs > 3 months; Severe muscle wasting/ fat loss evident per physical assessment in orbital, clavicle, temporal, and acromion areas; BMI 18.5 Status Active Problem Recommendation Dietitian Recommendations/Changes Regular diet; will fortify foods when able. Will adjust ONS to 240mL ensure plus high protein TID w/ meals given malnutrition. Lab / Micro Data Result Diagrams: 08/01/22 04:00 08/01/22 04:00 Labs: Laboratory Results - last 24 hr 07/31/22 23:50: Vancomycin Trough 13.5 08/01/22 04:00: WBC 2.4 L, RBC 2.52 L, Hgb 7.6 L, Hct 24.8 L, MCV 98.4 H, MCH 30.2, MCHC 30.6 L, RDW Std Deviation 70.8 H, RDW Coeff of Kori 19.7 H, Plt Count 138 L, MPV 10.9, Neut % (Auto) Not Reportable, Absolute Neuts (auto) 1.7 L, Absolute Lymphs (auto) 0.14 L, Total Counted 100, Neutrophils % (Manual) 63, Band Neutrophils % 7 H, Lymphocytes % (Manual) 6 L, Monocytes % (Manual) 24 H, Diff Path Review August, Platelet Estimate ADEQUATE, RBC Morphology NORM C+C, Retic Count 1.59 H, Immature Retic Fraction 19.40 H, Retic Hgb Equivalent 25.1 L 08/01/22 04:00: Sodium 141, Potassium 3.9, Chloride 113 H, Carbon Dioxide 26.0, Anion Gap 2 L, BUN 16, Creatinine 0.68 L, Estim Creat Clear Calc 54.49, Est GFR (MDRD) Af Amer 143, Est GFR (MDRD) Non-Af 118, BUN/Creatinine Ratio 23.4 H, Glucose 95, Calcium 8.5, Phosphorus 3.7, Magnesium 2.2, Iron 34 L, TIBC 176 L, Iron Saturation 19.3, Ferritin 747 H, Folate 15.10 Micro: Microbiology 07/29/22 11:30 Urine, Clean Catch Urine Culture - Final Culture exhibits no growth. 07/28/22 15:19 Blood Culture (Wb) - Port Blood Culture - Preliminary No growth in 48 hours. 07/28/22 15:48 Blood Culture (Wb) #2 - Chest Blood Culture - Preliminary No growth in 48 hours. 07/29/22 11:30 Urine, Clean Catch Legionella Antigen - Final 07/29/22 11:30 Urine, Clean Catch Streptococcus pneumoniae Antigen (M - Final 07/28/22 19:50 Mucosa - Nasopharyngeal Respiratory Panel (PCR) - Final 07/28/22 14:43 Nasal Secretion SARS-CoV-2 & FLU Antigen (Rapid) - Final Radiography Diagnostic Testing: Radiology Impression Echocardiogram 07/30/22 12:54 Interpretation Summary The estimated ejection fraction is 40-45 %. Peak aortic valve gradient 20 mmhg mmHg. Mean aortic valve gradient 9.2 mmhg mmHg. Ordering Physician: Jcarlos Pleitez Referring Physician: Fred Clark Performed By: Mike Stauffer RCS Rhythm Strip Rhythm Strip: Sinus Tach Rate: 114 Ectopy: None Physical Exam Narrative Seen and examined. Patient feels improvement in shortness of breath. Patient is more active. Oxygen requirement decreased from 8 L to 3 L. Physical exam General: Alert, Oriented x3, Cooperative HEENT: Uses hearing aid bilateral. Atraumatic, PERRLA, EOMI, Normocephalic Oral:Oral mucosa moist. No mucositis no Gingival or Mucosal Lesions/ Ulcerations Neck: Supple, No JVD, Negative Carotid Bruits Lungs: Air entry diminished in bilateral lung bases. No crepitations or wheezing. Lungs clear. Cardiovascular: Sinus tachycardia resolved, Normal S1, Normal S2, systolic murmur over right second ICS and LUSB Abdomen: Bowel Sounds Present, Soft, Non Tender, Non-Distended : No renal angle tenderness. No suprapubic tenderness. Extremities: No edema, Capillary Refill Less than 3 Seconds Skin: No rashes, No breakdown. Overall morning: Dry skin Musculoskeletal: No Tenderness to Palpation of Joints or Extremities, muscle strength 4+/5 at knee and hip joints. Neurological: Cranial nerves II-XII grossly intact, DTR 2+/4 and Symmetrical, Neuro grossly intact Psych/Mental Status: Flat affect. Assessment & Plan Assessment/Plan (1) Sepsis: (2) Acute respiratory failure with hypoxia: PLAN: Plan 81-year-old male was admitted with confusion, weakness, Fever temporal temperature 100.4 ?F, and urine retention, 700 mL that required a straight cath and then Zafar catheter in the ED 1. Acute hypoxic respiratory failure and sepsis, exact etiology unclear most probably due to bilateral interstitial pneumonia, atelectasis less likely distal inconclusive subsegmental bilateral lower lobes PE: The patient had chest x-ray and CTA chest done in ED which was individually reviewed. Although no obvious central, or lobar PE but radiologist reported but it reported questionable small volume nonocclusive acute PE and subsegmental pulmonary arteries of bilateral lower lobes. No evidence of right heart strain. CT also shows bilateral thickenings and interstitial changes but no obvious consolidation. Lactic acid might also be due to severe dehydration. The patient presented with sepsis with clinical indicators of tachycardia, tachypnea, hypoxia, exact etiology unclear suspicion of pneumonia with acute sepsis-related organ dysfunction as evidenced by fluid responsive hypotension 87/69 and lactic acidosis Bronchodilator as needed. Incentive spirometry and Pep. BiPAP as needed. 07/29: Continue IV cefepime. Lactic acidosis resolved. Respiratory panel negative. Urinary antigens for Legionella and strep was negative. COVID-19 PCR negative. Blood cultures x2 pending. Patient not able to bring up phlegm therefore sputum culture also pending collection. I discussed my assessment and plan with patient's oncologist Dr. Hein on 07/28 evening and he agrees. Patient had chemotherapy about 2 weeks ago. Patient's [id number] explained about CT findings of inconclusive subsegmental bilateral lower lobe PE and severe thrombocytopenia. Patient also has lymphopenia 0.27K with left shift anisocytosis, macrocytosis, blast cell and bands 10%. Overall it is suggestive of sepsis. Repeat chest x-ray shows prominent interstitial septal probably edema or infectious process. Patient was given 20 mg IV Lasix 1 dose in the morning 07/30: With persistent hypoxia moderate later, pulmonary consult requested. Discussed with [employer]. IV vancomycin added. BNP 235 elevated. Procalcitonin 0.14; less than 2. VQ scan also done which shows very low probability of PE. Lasix 20 mg IV 1 dose given. Continue diuretics as per tolerated by hemodynamics. 2D echo ordered. Continue incentive spirometry and BiPAP 07/31: Pulmonary follow-up reviewed and appreciated. Started on his scheduled Lasix as blood pressure profile is better and improving. Continue empiric antibiotic as mentioned above. 2D echo completed but not reported. MRSA nasal screen negative. Subjectively patient shortness of breath is better. 08/01: Patient had 2 dosages of Lasix 40 mg IV yesterday. 2 more doses ordered for today. Oxygen requirement decreased from 8 to 3 L. Overall, patient feels subjective improvement in dyspnea and feels well. 2. Severe dehydration and fatigue probably due to chemotherapeutic adverse effect and anorexia: IV fluid resuscitation. 07/29: Dehydration was corrected. Mild hypophosphatemia and hypokalemia therefore patient on Neutra-Phos. Serum magnesium normal 3. Chronic systolic heart failure: Last echo shows EF 45%. Repeat echo ordered. 07/31: Net positive fluid balance about 5 L. Patient on self-catheterization twice a day. That is his baseline. He has sensation over perineum and urethra. 08/01: Echo reported EF 40 to 45%, LA mildly enlarged, mild aortic stenosis, mild MR. Mean AV gradient 9.2 mmHg. Mild AI. Overall EF is similar to previous echo of March 2022. 4. 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 He completed 6 weeks of chemotherapy 2 weeks ago. Continue aggressive IV fluid and allopurinol. Further course as recommended by his oncologist Dr. Luna. The patient on R-CVP that was started on March 31, 2022. Patient last echo EF 45% precluding use of Adriamycin. Patient had left renal mass that is reported in the CT which is old which is monitored by oncologist. His oncology course was complicated with obstructive jaundice by rosa isela hepatis large lymph node which on further work-up found to have high-grade diffuse large B-cell lymphoma and required hepatic artery stenting. 07/29: Discussed with Dr. Hein 3.? HTN/HLD: Currently patient is hypotensive therefore hold antihypertensive medication. On simvastatin. 4.? BPH: Patient was on Flomax and finasteride during previous admission but current home medication does not show that. Patient on methenamine tablet. Bladder scan every 4 hourly. DVT: High risk based on diffuse large B-cell lymphoma: Treated with Lovenox during hospital course Living will/advanced directive/end of life care: Patient does not have living will or advanced directive. After discussion of benefits/risks procedures involved with full code, DNR CC arrest and DNR CC, the patient opted for full code. Patient does want artificial life support including intubation, tube feed, ventilator and/chest compression, central venous catheter, vasopressor and DC shock if needed Clinical Impression(s) from Imaging Studies Chest CTA 07/28/22 14:37 IMPRESSION: Questionable small volume nonocclusive acute pulmonary emboli in the subsegmental pulmonary arteries of the bilateral lower lobes. No evidence of right heart strain. Severe age-indeterminate compression deformity of L1 with mild retropulsion of fragments and mild spinal canal narrowing. Interstitial edema superimposed on COPD and chronic interstitial lung disease. Large mass in the left upper renal pole concerning for malignancy. Electronically Signed: Rick Moreno MD at 17:13 EDT , Chest X-Ray 07/28/22 15:46 IMPRESSION: Increased interstitial markings may represent edema and/or infection. Electronically Signed: Rick Moreno MD at 16:06 EDT , Charges/Coding Visit Charges Inpatient E&M: 27606 Subs Hosp L2
[2022-08-01] MEDS: Enoxaparin 40 MG/0.4 ML Syringe SC (10:51)
[2022-08-01] MEDS: guaiFENesin 1,200 MG Tablet 1200 MG PO ×2 (10:51→21:55)
[2022-08-01] MEDS: Pantoprazole Sodium 40 MG Tablet PO (10:51)
[2022-08-01] MEDS: Hydroxychloroquine 200 MG Tablet PO ×2 (10:52→21:55)
[2022-08-01] MEDS: Ascorbic Acid 500 MG Tablet PO (10:52)
[2022-08-01] MEDS: Ferrous Sulfate 325 MG Tablet PO (10:52)
[2022-08-01] MEDS: Potassium Chloride Oral Tablet 20 MEQ 40 MEQ PO (10:52)
[2022-08-01] MEDS: Furosemide 40 MG/4 ML Vial IV ×2 (10:52→17:11)
[2022-08-01] MEDS: Allopurinol 300 MG Tablet PO (10:52)
[2022-08-01] MEDS: Vancomycin IV 1,000 MG/200 ML BAG 200 MG IV (13:13)
[2022-08-01] MEDS: Atorvastatin Calcium 40 MG Tablet PO (21:54)
[2022-08-01] MEDS: Zolpidem Tartrate 5 MG Tablet PO (21:54)
[2022-08-02] VITALS (10 sets, daily range): BP systolic 110–121; BP diastolic 60–74; PULSE 83–97; RESP 16–18; TEMP 36.4–36.6; O2SAT 85–97; BMI 18.0
[2022-08-02] MEDS: Vancomycin IV 1,000 MG/200 ML BAG 200 MG IV (00:28)
[2022-08-02 04:30] LABS: Absolute Neutrophil Count 1.6 X10^3/uL (2.0-7.7); Basophil# 0.02 X10^3/uL; Basophil% 0.8 % (0-1); Eosinophil# 0.02 X10^3/uL; Eosinophils% 0.8 % (0-5); Hematocrit 26.9 % (40-54); Hemoglobin 7.9 g/dL (13.0-16.5); Lymphocyte % 8.5 % (19-41); Mean Corp Hgb Conc 29.4 g/dL (32-36); Mean Corpuscular Volume 98.9 fL (80-94); Mean Platelet Vol. 11.1 fl (6.2-12.0); Monocyte# 0.43 X10^3/uL; Monocyte% 18.2 % (0-10); NRBC Flagged by Analyzer 0 % (0-5); Neutrophil # 1.61 X10^3/uL (2.7-7.7); Neutrophil % 68.3 % (47-70); POSITIVE DIFFERENTIAL YES; POSITIVE MORPHOLOGY YES; Platelet Count 168 K/mm3 (150-450); RBC Distribution Width CV 19.9 % (11.6-14.6); RBC Distribution Width SD 71.4 fl (35.1-43.9); Red Blood Count 2.72 M/mm3 (4.6-6.2); White Blood Count 2.4 K/mm3 (4.4-11.0)
[2022-08-02 04:50] LABS: Anion Gap 6 (5-15); BUN 22 mg/dL (7-18); BUN/Creat Ratio 25.7 RATIO (10-20); Calcium,Total 8.8 mg/dL (8.5-10.1); Chloride 107 mmol/L (98-107); Creatinine, Serum 0.86 mg/dL (0.70-1.30); EST Glomerular Filtration Rate 91 mL/min (>60); Est Glom Filt Rate - Afr Amer 110 mL/min (>60); Estimated Creatinine Clearance 63.36 ml/min; Glucose 94 mg/dL (74-106); Potassium 3.8 mmol/L (3.5-5.1); Sodium Level 139 mmol/L (136-145)
[2022-08-02 04:54] LABS: Differential Indicated SCAN CRITERIA MET
[2022-08-02 05:14] LABS: Differential Comment SCANNED
[2022-08-02] MEDS: 0.9% Saline Lock 10 ML Syringe IV ×4 (05:23→13:23)
[2022-08-02 05:30] LABS: Anisocytosis 1+
[2022-08-02 05:31] LABS: Ovalocyte 1+; Stomatocyte 1+
--- NOTE | 2022-08-02 07:09 | DCINST_ITS ---
Discharge Instructions Diet Discharge Diet: No restrictions Activity Discharge Activity: Return to Normal Activity Weight Bearing Status: Weight bearing as tolerated Dressing / Incision Call your doctor if you observe: Fever of 101 or Higher, Coldness, Increased Pain, Numbness or Tingling, Change in Color, Inability to urinate, Inability to have a bowel movement, Shortness of breath, Dizziness, Fainting spells, Swelling in the ankles, Chest pain, Prolonged hiccupping, Increased palpitations (irregular heartbeat) and Calf discomfort Follow Up Care When: IN 2 WEEKS Test Results: Test results from this visit will be discussed in further detail at your follow- up appointment, if applicable. Discharge Plan Admission Admit Date/Time: 07/28/22 17:34 Primary Reason for Your Visit: Interstitial pneumonia Attending Provider: Charbel Wagner Primary Care Provider: Fred Clark Consulting Providers: Lavelle Marquez ; Jcarlos Pleitez ; Mikel Marie ; Antony Colon ; Arin Borjas [employer] Discharge Orders/Prescriptions Prescriptions: New potassium chloride [Klor-Con M20] 20 mEq Tablet,Er Particles/Crystals 20 meq PO DAILYCM Qty: 30 0RF Rx Instructions: Take it along with furosemide. levofloxacin 500 mg tablet 500 mg PO DAILY Qty: 3 0RF pseudoephedrine-guaifenesin [Mucus D] 120-1,200 mg tablet extended release 12 hr 1 tab PO Q12H Qty: 10 0RF furosemide [Lasix] 40 mg tablet 40 mg PO DAILY 30 Days Qty: 30 0RF Rx Instructions: Hold if SBP less than 110 or dehydration or thirsty. Continued ferrous sulfate 325 mg (65 mg iron) tablet 325 mg PO DAILY ascorbate calcium (vitamin C) 500 mg tablet 500 mg PO DAILY allopurinol 300 mg tablet 300 mg PO DAILY atorvastatin 40 mg Tablet 40 mg PO QHS Qty: 30 2RF amlodipine 10 MG tablet 10 mg PO QHS Qty: 30 0RF Rx Instructions: Hold for SBP less than 130 mmHg omeprazole 20 mg Capsule,Delayed Release(Dr/Ec) 20 mg PO DAILY methenamine hippurate 1 gram tablet 1 g PO QHS hydroxychloroquine 200 MG tablet 200 mg PO BID 30 Days Qty: 0 0RF Rx Instructions: Hold while taking Levaquin for drug-drug interaction Discontinued ciprofloxacin HCl 500 mg tablet 500 mg PO BID Label Comments: TAKE 1 TABLET BY MOUTH TWICE A DAY Referrals / Follow Up: Gabriela Hein MD [Med Staff - Active Staff] - Within 1 Week (For NHL.) Fred Clark DO [Primary Care Provider] - 08/13/22 9:30 am Disposition Disposition (needs filled in before D/C Order can be placed): Home Health Service
[2022-08-02] MEDS: Ferrous Sulfate 325 MG Tablet PO (08:39)
[2022-08-02] MEDS: Pantoprazole Sodium 40 MG Tablet PO (08:40)
[2022-08-02] MEDS: guaiFENesin 1,200 MG Tablet 1200 MG PO (08:40)
[2022-08-02] MEDS: Hydroxychloroquine 200 MG Tablet PO (08:40)
[2022-08-02] MEDS: Ascorbic Acid 500 MG Tablet PO (08:41)
[2022-08-02] MEDS: Potassium Chloride Oral Tablet 20 MEQ 40 MEQ PO (08:41)
[2022-08-02] MEDS: Enoxaparin 40 MG/0.4 ML Syringe SC (08:41)
[2022-08-02] MEDS: Allopurinol 300 MG Tablet PO (08:42)
[2022-08-02] MEDS: Furosemide 40 MG/4 ML Vial IV (08:45)
[2022-08-02 09:16] LABS: Vitamin B12 > 2000 pg/mL (211-911)
--- NOTE | 2022-08-02 11:09 | CASEMGMT ---
Addendum entered by Carrol Salguero 08/02/22 12:56: LEXY MAGAÑA notified that patient qualifies for home oxygen at discharge. Script received and referral sent to [facility] [place], [place] via [facility]. LEXY MAGAÑA updated patient and . Patient and had no further questions or concerns at this time. Addendum entered by Carrol Salguero 08/02/22 11:49: LEXY MAGAÑA received call back from Sheri at [facility] and they are able to accept the patient with planned start of care for Friday 08/04. LEXY MAGAÑA updated patient and . Patient and had no further questions or concerns at this time. Original Note: LEXY MAGAÑA in to discuss discharge planning with patient and . Patient and agreeable to [facility]. A list of [facility] providers including quality and resource use data and consistent with the patient?s preferred geographical region, medical needs, and insurance network were provided from the [facility]. states they prefer [facility]. Patient need home oxygen at discharge and prefers [facility] [place], [place]. LEXY MAGAÑA will monitor for home oxygen pending testing. LEXY MAGAÑA called [facility] and made referral, awaiting acceptance. CM will continue to follow this patient and plan for a safe discharge.
--- NOTE | 2022-08-02 11:52 | PCM.DC.SUM ---
Providers Date of Admission: 07/28/22 Date of Discharge: 08/02/22 Primary Care Physician: Dr. Fred Clark, DO Consultations 07/30/22 10:23 Consult: Ship Pilot Dispatcher / Pulmonary Medicine Routine Consulting Provider: Pulmonary Medicine nimisha Topmost Reason for Consult: SOB, acute hypoxic resp failure EMERGENT Consult: No MD Notified: Yes Date Notified: 07/30/22 Time Notified: 10:26 Method of Notification: Text Reason For Visit: SOB Diagnosis Discharge Diagnosis (1) Sepsis: Status: Acute Code(s): A41.9 - Sepsis, unspecified organism (2) Acute respiratory failure with hypoxia: Status: Acute Code(s): J96.01 - Acute respiratory failure with hypoxia Plan 81-year-old male was admitted with confusion, weakness, Fever temporal temperature 100.4 ?F, and urine retention, 700 mL that required a straight cath and then Zafar catheter in the ED 1. Acute hypoxic respiratory failure and sepsis, exact etiology unclear most probably due to bilateral interstitial pneumonia, atelectasis less likely distal inconclusive subsegmental bilateral lower lobes PE: The patient had chest x-ray and CTA chest done in ED which was individually reviewed. Although no obvious central, or lobar PE but radiologist reported but it reported questionable small volume nonocclusive acute PE and subsegmental pulmonary arteries of bilateral lower lobes. No evidence of right heart strain. CT also shows bilateral thickenings and interstitial changes but no obvious consolidation. Lactic acid might also be due to severe dehydration. The patient presented with sepsis with clinical indicators of tachycardia, tachypnea, hypoxia, exact etiology unclear suspicion of pneumonia with acute sepsis-related organ dysfunction as evidenced by fluid responsive hypotension 87/69 and lactic acidosis Bronchodilator as needed. Incentive spirometry and Pep. BiPAP as needed. 07/29: Continue IV cefepime. Lactic acidosis resolved. Respiratory panel negative. Urinary antigens for Legionella and strep was negative. COVID-19 PCR negative. Blood cultures x2 pending. Patient not able to bring up phlegm therefore sputum culture also pending collection. I discussed my assessment and plan with patient's oncologist Dr. Hein on 07/28 evening and he agrees. Patient had chemotherapy about 2 weeks ago. Patient's [id number] explained about CT findings of inconclusive subsegmental bilateral lower lobe PE and severe thrombocytopenia. Patient also has lymphopenia 0.27K with left shift anisocytosis, macrocytosis, blast cell and bands 10%. Overall it is suggestive of sepsis. Repeat chest x-ray shows prominent interstitial septal probably edema or infectious process. Patient was given 20 mg IV Lasix 1 dose in the morning 07/30: With persistent hypoxia moderate later, pulmonary consult requested. Discussed with metal roofing mechanic. IV vancomycin added. BNP 235 elevated. Procalcitonin 0.14; less than 2. VQ scan also done which shows very low probability of PE. Lasix 20 mg IV 1 dose given. Continue diuretics as per tolerated by hemodynamics. 2D echo ordered. Continue incentive spirometry and BiPAP 07/31: Pulmonary follow-up reviewed and appreciated. Started on his scheduled Lasix as blood pressure profile is better and improving. Continue empiric antibiotic as mentioned above. 2D echo completed but not reported. MRSA nasal screen negative. Subjectively patient shortness of breath is better. 08/01: Patient had 2 dosages of Lasix 40 mg IV yesterday. 2 more doses ordered for today. Oxygen requirement decreased from 8 to 3 L. Overall, patient feels subjective improvement in dyspnea and feels well. 08/02: Patient seems euvolemic. Oxygen requirement has decreased to 2 L at rest and 4 L on exertion. Patient is ambulatory in home and in the community and requires home oxygen with portability for mild interstitial lung edema and heart failure and pneumonia. Patient feels improvement. Discharged on 3 more days of Levaquin to complete a total of 8 days of antibiotics. Follow-up in pulmonary clinic with Dr. Pleitez. 2. Severe dehydration and fatigue probably due to chemotherapeutic adverse effect and anorexia: IV fluid resuscitation. 07/29: Dehydration was corrected. Mild hypophosphatemia and hypokalemia therefore patient on Neutra-Phos. Serum magnesium normal 3. Acute on chronic systolic heart failure: Last echo shows EF 45%. Repeat echo ordered. 07/31: Net positive fluid balance about 5 L. Patient on self-catheterization twice a day. That is his baseline. He has sensation over perineum and urethra. 08/01: Echo reported EF 40 to 45%, LA mildly enlarged, mild aortic stenosis, mild MR. Mean AV gradient 9.2 mmHg. Mild AI. Overall EF is similar to previous echo of March 2022. 08/02: Patient chest CT shows mild interstitial septal thinking probably interstitial edema might have gotten worse from IV fluid resuscitation for sepsis. Patient is adequately diuresed. Discharged on furosemide 40 mg daily along with KCl 20 mEq prescription with holding parameters. Follow with PCP in 1 week with BMP. 4. 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 He completed 6 weeks of chemotherapy 2 weeks ago. Continue aggressive IV fluid and allopurinol. Further course as recommended by his oncologist Dr. Luna. The patient on R-CVP that was started on March 31, 2022. Patient last echo EF 45% precluding use of Adriamycin. Patient had left renal mass that is reported in the CT which is old which is monitored by oncologist. His oncology course was complicated with obstructive jaundice by rosa isela hepatis large lymph node which on further work-up found to have high-grade diffuse large B-cell lymphoma and required hepatic artery stenting. 07/29: Discussed with Dr. Hein 08/02: Follow-up with Dr. Hein in [address] scan and other for surveillance of tumor after chemotherapy 3.? HTN/HLD: Currently patient is hypotensive therefore hold antihypertensive medication. On simvastatin. 4.? BPH: Patient was on Flomax and finasteride during previous admission but current home medication does not show that. Patient on methenamine tablet. Bladder scan every 4 hourly. DVT: High risk based on diffuse large B-cell lymphoma: Treated with Lovenox during hospital course Discharge medication reconciliation done. Discharge follow-up instructions completed. Discharge process discussed with the patient and all questions were answered to patient's satisfaction. Total time spent, exact 35 minutes on discharge meds reconciliation, examination, coordination of care with nurses and ancillary staff, review of imaging and blood test and discussion with the patient on follow-up instructions. Living will/advanced directive/end of life care: Patient does not have living will or advanced directive. After discussion of benefits/risks procedures involved with full code, DNR CC arrest and DNR CC, the patient opted for full code. Patient does want artificial life support including intubation, tube feed, ventilator and/chest compression, central venous catheter, vasopressor and DC shock if needed Clinical Impression(s) from Imaging Studies Chest CTA 07/28/22 14:37 IMPRESSION: Questionable small volume nonocclusive acute pulmonary emboli in the subsegmental pulmonary arteries of the bilateral lower lobes. No evidence of right heart strain. Severe age-indeterminate compression deformity of L1 with mild retropulsion of fragments and mild spinal canal narrowing. Interstitial edema superimposed on COPD and chronic interstitial lung disease. Large mass in the left upper renal pole concerning for malignancy. Electronically Signed: Rick Moreno MD at 17:13 EDT , Chest X-Ray 07/28/22 15:46 IMPRESSION: Increased interstitial markings may represent edema and/or infection. Electronically Signed: Rick Moreno MD at 16:06 EDT , Medications at Discharge Home Medications ascorbate calcium (vitamin C) 500 mg tablet 500 mg PO DAILY supplement 03/08/22 ferrous sulfate 325 mg (65 mg iron) tablet 325 mg PO DAILY supplement 03/08/22 amlodipine 10 mg tablet 10 mg PO QHS #30 tabs 03/22/22 atorvastatin 40 mg tablet 40 mg PO QHS #30 tabs 03/22/22 omeprazole 20 mg capsule,delayed release 20 mg PO DAILY GERD 04/22/22 allopurinol 300 mg tablet 300 mg PO DAILY Check with primary doctor 07/28/22 methenamine hippurate 1 gram tablet 1 g PO QHS bladder 07/28/22 furosemide 40 mg tablet (Lasix) 40 mg PO DAILY 30 days #30 tabs 08/02/22 hydroxychloroquine 200 mg tablet 200 mg PO BID arthritis 30 days #0 tabs 08/02/22 levofloxacin 500 mg tablet 500 mg PO DAILY #3 tabs 08/02/22 potassium chloride 20 mEq tablet,extended release(part/cryst) (Klor-Con M) 20 meq PO DAILYCM #30 tabs 08/02/22 pseudoephedrine-guaifenesin ER 120 mg-1,200 mg tab,extend release 12hr (Mucus D) 1 tab PO Q12H cold symptoms #10 tabs 08/02/22 Physical Exam Narrative Seen and examined. Patient feels improvement in shortness of breath and is on 2 L of oxygen and 4 L on exertion. Patient was not on home oxygen before admission. Patient is more active. Physical exam General: Alert, Oriented x3, Cooperative HEENT: Uses hearing aid bilateral. Atraumatic, PERRLA, EOMI, Normocephalic Oral:Oral mucosa moist. No mucositis no Gingival or Mucosal Lesions/ Ulcerations Neck: Supple, No JVD, Negative Carotid Bruits Lungs: Air entry diminished in bilateral lung bases. No crepitations or wheezing. Lungs clear. Cardiovascular: Sinus rhythm, Normal S1, Normal S2, systolic murmur over right second ICS and LUSB Abdomen: Bowel Sounds Present, Soft, Non Tender, Non-Distended : No renal angle tenderness. No suprapubic tenderness. Extremities: No edema, Capillary Refill Less than 3 Seconds Skin: No rashes, No breakdown. Overall morning: Dry skin Musculoskeletal: No Tenderness to Palpation of Joints or Extremities, muscle strength 4+/5 at knee and hip joints. Neurological: Cranial nerves II-XII grossly intact, DTR 2+/4 and Symmetrical, Neuro grossly intact Psych/Mental Status: Flat affect. Medical Records Data Medical Nutrition Assessment Dietitian: Malnutrition Criteria Met Start: 07/29/22 15:02 Freq: Status: Active Protocol: Document 08/02/22 10:25 RMA (Rec: 08/02/22 10:25 RMA [id number]) Nutrition Malnutrition Evidence of Malnutrition Exists Yes Malnutrition (severe): Chronic Evidenced By Suboptimal Energy Intake ( Severe),Physical Changes ( Severe) Clinical Problem Chronic Disease or Condition Related Malnutrition Etiology severe, chronic malnutrition related to inadequate energy intake w/ increased energy needs d/t lymphoma Signs/Symptoms as evidenced by estimated energy needs meeting <75% of estimated energy needs > 3 months; Severe muscle wasting/ fat loss evident per physical assessment in orbital, clavicle, temporal, and acromion areas; BMI 18.5 Status Active Problem Recommendation Dietitian Recommendations/Changes Continue Regular diet with fortified foods when able. Continue 240mL ensure plus high protein TID w/ meals given malnutrition. Will d/c ensure compact w/ medpass as pt is often refusing due to ensure with meals consumed. Weight / BMI Weight Weight: 140 lb 6.951 oz Body Mass Index (BMI) 18.0 ABG / Lab / Microbiology Data Result Diagrams: 08/02/22 04:05 08/02/22 04:05 Laboratory: Laboratory Results - last 24 hr 08/01/22 04:00: Vitamin B12 > 2000 H 08/02/22 04:05: WBC 2.4 L, RBC 2.72 L, Hgb 7.9 L, Hct 26.9 L, MCV 98.9 H, MCH 29.0, MCHC 29.4 L, RDW Std Deviation 71.4 H, RDW Coeff of Kori 19.9 H, Plt Count 168, MPV 11.1, Immature Gran % (Auto) 3.400 H, Neut % (Auto) 68.3, Lymph % (Auto) 8.5 L, [place] % (Auto) 18.2 H, Eos % (Auto) 0.8, Baso % (Auto) 0.8, Absolute Neuts (auto) 1.6 L, Absolute Lymphs (auto) 0.20 L, Nucleated RBC % 0, Differential Comment SCANNED, Diff Path Review May foll, Anisocytosis 1+, Ovalocytes 1+, Stomatocytes 1+ 08/02/22 04:05: Sodium 139, Potassium 3.8, Chloride 107, Carbon Dioxide 26.0, Anion Gap 6, BUN 22 H, Creatinine 0.86, Estim Creat Clear Calc 63.36, Est GFR (MDRD) Af Amer 110, Est GFR (MDRD) Non-Af 91, BUN/Creatinine Ratio 25.7 H, Glucose 94, Calcium 8.8 Microbiology: Microbiology 07/29/22 11:30 Urine, Clean Catch Urine Culture - Final Culture exhibits no growth. 07/28/22 15:19 Blood Culture (Wb) - Port Blood Culture - Preliminary No growth in 48 hours. 07/28/22 15:48 Blood Culture (Wb) #2 - Chest Blood Culture - Preliminary No growth in 48 hours. 07/29/22 11:30 Urine, Clean Catch Legionella Antigen - Final 07/29/22 11:30 Urine, Clean Catch Streptococcus pneumoniae Antigen (M - Final 07/28/22 19:50 Mucosa - Nasopharyngeal Respiratory Panel (PCR) - Final 07/28/22 14:43 Nasal Secretion SARS-CoV-2 & FLU Antigen (Rapid) - Final D/C Instructions Discharge Diet: No restrictions Weight Bearing Status: Weight bearing as tolerated Call your doctor if you observe: Fever of 101 or Higher, Coldness, Increased Pain, Numbness or Tingling, Change in Color, Inability to urinate, Inability to have a bowel movement, Shortness of breath, Dizziness, Fainting spells, Swelling in the ankles, Chest pain, Prolonged hiccupping, Increased palpitations (irregular heartbeat) and Calf discomfort When: IN 2 WEEKS Meaningful Use Info Meaningful Use Diagnoses (Choose all that apply): None applicable Discharge Plan Admission Admit Date/Time: 07/28/22 17:34 Primary Reason for Your Visit: Interstitial pneumonia Attending Provider: Charbel Wagner Primary Care Provider: Fred Clark Consulting Providers: Lavelle Marquez ; Jcarlos Pleitez ; Mikel Marie ; Antony Colon ; Arin Borjas WELDER FITTER APPRENTICE Discharge Orders/Prescriptions Prescriptions: New potassium chloride [Klor-Con M20] 20 mEq Tablet,Er Particles/Crystals 20 meq PO DAILYCM Qty: 30 0RF Rx Instructions: Take it along with furosemide. levofloxacin 500 mg tablet 500 mg PO DAILY Qty: 3 0RF pseudoephedrine-guaifenesin [Mucus D] 120-1,200 mg tablet extended release 12 hr 1 tab PO Q12H Qty: 10 0RF furosemide [Lasix] 40 mg tablet 40 mg PO DAILY 30 Days Qty: 30 0RF Rx Instructions: Hold if SBP less than 110 or dehydration or thirsty. Continued ferrous sulfate 325 mg (65 mg iron) tablet 325 mg PO DAILY ascorbate calcium (vitamin C) 500 mg tablet 500 mg PO DAILY allopurinol 300 mg tablet 300 mg PO DAILY atorvastatin 40 mg Tablet 40 mg PO QHS Qty: 30 2RF amlodipine 10 MG tablet 10 mg PO QHS Qty: 30 0RF Rx Instructions: Hold for SBP less than 130 mmHg omeprazole 20 mg Capsule,Delayed Release(Dr/Ec) 20 mg PO DAILY methenamine hippurate 1 gram tablet 1 g PO QHS hydroxychloroquine 200 MG tablet 200 mg PO BID 30 Days Qty: 0 0RF Rx Instructions: Hold while taking Levaquin for drug-drug interaction Discontinued ciprofloxacin HCl 500 mg tablet 500 mg PO BID Label Comments: TAKE 1 TABLET BY MOUTH TWICE A DAY Referrals / Follow Up: Gabriela Hein MD [Med Staff - Active Staff] - Within 1 Week (For NHL.) Fred Clark DO [Primary Care Provider] - 08/13/22 9:30 am Jcarlos Pleitez DO [Med Staff - Active Staff] - Within 1 Month (On Home O2, new start, acute hypoxic respiratory failure) Disposition Disposition (needs filled in before D/C Order can be placed): Home Health Service Charges/Coding Visit Charges Inpatient E&M: 79767 Disch Hosp >30min
[2022-08-02 12:14] LABS: Pathologist Review Reviewed
[2022-08-02 12:17] LABS: Pathologist Review Reviewed
[2022-08-02 12:19] LABS: Pathologist Review Reviewed
--- NOTE | 2022-08-02 12:35 | PHA.DC.MC ---
Pharmacy Service has performed discharge medication reconciliation and counseling for this patient. 1. FUROSEMIDE 40MG PO DAILY 2. LEVOFLOXACIN 500MG PO DAILY X 3 DAYS 3. GUAIFENESIN/PSEUDOEPHEDRINE 1T PO Q12 X 5 DAYS 4. POTASSIUM CHLORIDE 20MEQ PO DAILYCM The patient's discharge medication list was reviewed for discrepancies and discrepancies were resolved. Home Medications ascorbate calcium (vitamin C) 500 mg tablet 500 mg PO DAILY supplement 03/08/22 ferrous sulfate 325 mg (65 mg iron) tablet 325 mg PO DAILY supplement 03/08/22 amlodipine 10 mg tablet 10 mg PO QHS #30 tabs 03/22/22 atorvastatin 40 mg tablet 40 mg PO QHS #30 tabs 03/22/22 omeprazole 20 mg capsule,delayed release 20 mg PO DAILY GERD 04/22/22 allopurinol 300 mg tablet 300 mg PO DAILY Check with primary doctor 07/28/22 methenamine hippurate 1 gram tablet 1 g PO QHS bladder 07/28/22 furosemide 40 mg tablet (Lasix) 40 mg PO DAILY 30 days #30 tabs 08/02/22 hydroxychloroquine 200 mg tablet 200 mg PO BID arthritis 30 days #0 tabs 08/02/22 levofloxacin 500 mg tablet 500 mg PO DAILY #3 tabs 08/02/22 potassium chloride 20 mEq tablet,extended release(part/cryst) (Klor-Con M) 20 meq PO DAILYCM #30 tabs 08/02/22 pseudoephedrine-guaifenesin ER 120 mg-1,200 mg tab,extend release 12hr (Mucus D) 1 tab PO Q12H cold symptoms #10 tabs 08/02/22 The patient was counseled on the following discharge medications and changes in medications for homegoing were reviewed. The Reason for Use, instructions for use, and potential side effects were reviewed for all new medications. The patient's questions regarding all of their medications were answered. The patient was able to verbally demonstrate an understanding of their discharge medications.
== END 2022-08-02 14:02 | disposition home health service (06) | DRG 871 ==
LOC: ED 14:51 → PCU 18:15
PROVIDERS: Internal Medicine Critical Care Medicine; Admitting Provider Internal Medicine; Emergency Provider Emergency Medicine; PCP Family Medicine; Visit Provider Internal Medicine
DX: A41.9 Sepsis, unspecified organism (principal); J96.01 Acute respiratory failure with hypoxia; I50.23 Acute on chronic systolic (congestive) heart failure; E43 Unspecified severe protein-calorie malnutrition; D61.818 Other pancytopenia; C83.33 Diffuse large B-cell lymphoma, intra-abdominal lymph nodes; I42.9 Cardiomyopathy, unspecified; E87.20 Acidosis, unspecified; J84.9 Interstitial pulmonary disease, unspecified; J44.0 Chronic obstructive pulmonary disease with (acute) lower respiratory infection; J98.11 Atelectasis; N39.0 Urinary tract infection, site not specified; Z68.1 Body mass index [BMI] 19.9 or less, adult; E83.39 Other disorders of phosphorus metabolism; I11.0 Hypertensive heart disease with heart failure; E78.00 Pure hypercholesterolemia, unspecified; E87.6 Hypokalemia; E86.0 Dehydration; N40.0 Benign prostatic hyperplasia without lower urinary tract symptoms; Z79.899 Other long term (current) drug therapy; Z87.891 Personal history of nicotine dependence
CPT/HCPCS: 36415; 36591; 71045; 71275; 78582; 80048; 80053; 80202; 81001; 82607; 82728; 82746; 82803; 83540; 83550; 83605; 83735; 83880; 84100; 84145; 84484; 85025; 85045; 87040; 87086; 87428; 87449; 87633; 87635; 87641; 93005; 93306; 94668; 94762; 97110; 97162; 97166; 97530; 97535; 97802; 99252; 99284; A9540; A9567; J7030; J7040; J7050; Q9957; Q9967; A4216; C8929; G0463; J1940; U0003; U0005

== ENCOUNTER → 2022-08-04 | Outpatient (CLI) | payer MEDICARE, OTHER, SELFPAY ==
--- NOTE | 2022-08-04 13:05 | CT_ITS ---
STUDY: CT CHEST, ABDOMEN T PELVIS WITH CONTRAST REASON FOR EXAM: Male, 81 years old. assess treatment response; IV contrast only RADIATION DOSAGE (If Supplied By Facility): CTDIvol = ( 10.84 ) mGy, DLP = ( 930.31 ) mGycm TECHNIQUE: Transaxial imaging was performed following intravenous administration of IV 100mL Isovue-300. Individualized dose optimization techniques were used for this CT. COMPARISON: No relevant priors. FINDINGS: CHEST Diffuse interstitial and emphysematous changes are noted.. Calcified granuloma in the right lower lobe Multifocal calcific pleural plaquing most pronounced at the right lung base. No pleural effusion or pneumothorax Normal heart and pericardium. Mild multifocal coronary artery calcification Calcified right hilar and mediastinal nodes.. Normal unenhanced pulmonary arteries. [Atherosclerotic changes of the aorta without evidence for aneurysm. Thoracic spine demonstrates degenerative change. There is a dorsal stimulator noted within the spinal canal . ABDOMEN . Liver is normal size. There is a small cyst. Bile ducts are nondilated.. Gallbladder is mildly distended but there are no calcified stones or pericholecystic edema. Biliary stent is noted in situ. [Tiny granulomatous calcifications within normal size spleen. Soft tissue mass in the vicinity of the pancreatic head and rosa isela hepatis possibly representing adenopathy.. Normal bilateral adrenal glands. No evidence for renal obstruction. There is a large heterogeneous mass in the upper pole of the left kidney measuring approximately 6.75 x 6.3 x 6.2 cm suspicious for neoplasm. There is also a small simple cyst present. Normal visualized stomach. Mild diffuse ileus with fecal retention throughout the colon. . No evidence for acute appendicitis.. 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 Normal inferior vena cava. Normal retroperitoneum. Normal abdominal wall. Normal osseous structures. PELVIS Normal urinary bladder. Normal visualized small intestine. Diffuse fecal retention within the distal descending and sigmoid colon without evidence for acute diverticulitis. There is no pelvic fluid. There is no pelvic lymphadenopathy or mass lesion. Normal visualized pelvic arteries. Postsurgical changes status post herniorrhaphy of the right lower abdominal and pelvic wall Lumbar spine demonstrates scoliosis and degenerative changes. Old compression fracture of L1. Slight increase increase in size of the right renal mass. Previously noted possible liver metastasis not visualized at this time. CT/CT Chest, Abd, Pel w/Contrast IMPRESSION: COPD and old granulomatous disease no evidence for pulmonary metastasis hilar or mediastinal adenopathy. Soft tissue mass density in the rosa isela hepatis extending into the region of the pancreatic head which may be consistent with adenopathy Large heterogeneous mass in the upper pole of the left kidney which may be consistent with neoplasm.. No definitive evidence for liver metastasis with interval improvement since previous exam Electronically Signed: Anup Gallagher MD at 22:49 EDT ,
[2022-08-04] MEDS: 0.9 % NaCl (Sterile) Posiflush 10 mL IV (13:17)
== END | disposition home or self-care (01) ==
LOC: CT 13:04
PROVIDERS: PCP Family Medicine; Referring Provider Internal Medicine Hematology & Oncology; Visit Provider Internal Medicine Hematology & Oncology
DX: C83.30 Diffuse large B-cell lymphoma, unspecified site (principal); E86.0 Dehydration
CPT/HCPCS: 36591; 71260; 74177; 85025; 96360; 96361; J7030; Q9967; A4216

== ENCOUNTER 2022-08-18 17:56 | Outpatient (RCR) | payer MEDICARE, OTHER, SELFPAY ==
[2022-08-18 18:11] LABS: Color, Urine Yellow (Yellow); Glucose, Dipstick Normal (Normal); Ketone-Dipstick Negative (Negative); Leukocyte Esterase-Dipstick 25 /ul (Negative); Nitrite-Dipstick Negative (Negative); Occult Blood-Urine Negative /ul (Negative); Protein-Dipstick 30 mg/dl (Negative); Specific Gravity, Urine 1.015 (1.002-1.030); Urine Bilirubin Dipstick Negative (Negative); Urine Clarity Clear (Clear); Urine Urobilinogen Normal (Normal)
== END 2022-09-08 23:59 ==
LOC: HHLAB 17:56
PROVIDERS: PCP Family Medicine; Visit Provider Family Medicine
DX: A41.9 Sepsis, unspecified organism (principal); I11.0 Hypertensive heart disease with heart failure; I50.9 Heart failure, unspecified; J96.01 Acute respiratory failure with hypoxia
CPT/HCPCS: 81002; 87086